=== PATIENT | female | born 1950 | race Caucasian/White ===

== ENCOUNTER → 2016-09-15 | Day surgery (SDC) | payer OTHER ==
[2016-09-13 14:54] VITALS: Ht 154.9 cm; Wt 88.2 kg
[~2016-09-15] VITALS: Ht 154.9 cm; Wt 88.2 kg
[~2016-09-15] MED LIST: ALBU18002 INH; ALBU1AER9 INH; AMX875 PO; ASPI81TA28 PO; CALC600T37 PO; CALC600T9 PO; CHOL50007 PO; CHOLCAP5 PO; CYAN3INJ IM; CYCL10TA6 PO; CYNI1000 IM; DIPH25CA65 PO; FERR325T PO; FLUT1AER5 INH; FLX10 PO; HYDROmorphone INJ 0.5 MG/0.5 ML SYR ONE; KETO30IN5 IM; LEVO88TA3 PO; LIDOCAINE HCL 2% 2 ML VIAL (20MG/ML) ONE; MAGN400T6 PO; METH4PAK PO; MISCCAP80 PO; MULT-506 PO; MXL10 PO; NRN100 PO; NRV/5 PO; OMEP20CA9 PO; PREG1CAP28 PO; PROMETHAZINE HCL INJ 25 MG/ML 1 ML VIAL ONE; PROPOFOL IV EMULSION 10 MG/ML 20 ML VIAL IV ONE; RANI150T2 PO; ROPI1TAB29 PO; SODIUM CHLORIDE 0.9% 500ML 500 ML IV ONE; SYMIN/8045 INH; TPM100 PO; WLC625 PO; ZNTT/150 PO
[2016-09-15 14:10] VITALS: TEMP 36.5
--- NOTE | 2016-09-15 14:46 | Endo History and Physical ---
History & Physical Date of Service: Sep 15, 2016. Chief Complaint: ABD PAIN, HX OF GERD Referring Physician: RUBIA GRANGER History of Present Illness abdominal pain; nausea. vomiting Past Medical History Arthritis, Asthma, Reflux, Hypertension, COPD, Thyroid Disease Past Surgical History Hx Cardiac Surgery: No Hx Internal Defibrillator: No Hx Pacemaker: No Hx Abdominal Surgery: Yes (GASTRIC BYPASS, RONEY, SIRI, APPY, PANNICULECTOMY) Hx of Implantable Prosthesis: No Hx Post-Op Nausea and Vomiting: No Hx Cancer Surgery: No Hx Thoracic Surgery: No Hx Orthopedic: Yes (RT/LEFT HIP SX) Hx Urinary Tract Surgery: No Family History None Social History Smoking Status: Never Smoker Hx Substance Use: No Hx Alcohol Use: Yes (RARELY) Allergies Coded Allergies: Morphine (Verified Allergy, Intermediate, rash, 09/15/16) Sulfa Antibiotics (Verified Allergy, Intermediate, HIVES, 09/15/16) Dust (Verified Allergy, Mild, ITCHY EYES, 09/15/16) Oxycodone (Verified Allergy, Mild, itchy, 09/15/16) Prednisone (Verified Allergy, Mild, ITCHY, 09/15/16) Methylprednisolone (Verified Adverse Reaction, Intermediate, vomiting, shaking, 09/15/16) Metformin (Verified Adverse Reaction, Mild, "diarrhea", 09/15/16) Molds & Smuts (Verified Adverse Reaction, Mild, ITCHY EYES, HEADACHES, 09/15) Current Medications Reported Home Medications Medications Dose Route/Sig Max Daily Dose Days Date Category Dose Instructions Lyrica (Pregabalin) 75 Mg Cap 75 Mg PO BID 09/13/16 Reported Welchol (Colesevelam Hcl) 625 Mg Tab 625 Mg PO BID 08/31/16 Reported Symbicort 80/4.5 Inhaler (Budesonide/Formoterol Fumarate) Unknown Strength Aero 2 Puffs INH BID PRN 07/01/16 Reported Vitamin B-12 Inj (Cyanocobalamin) Inj 1 Dose IM [id number] 03/09/16 Reported Proair Hfa (Albuterol Sulfate) 108 Mcg/ Aer 2 Puffs INH QID PRN 02/15/16 Reported Prilosec (Omeprazole) 20 Mg Cap 20 Mg PO HS 02/15/16 Reported Gabapentin 100 Mg Cap 100 Mg PO TID 02/15/16 Reported Benadryl Allergy (Diphenhydramine Hcl) 25 Mg Cap 25 Mg PO HS PRN 01/01/16 Reported Vitamin D3 (Cholecalciferol) 5,000 Unit Cap 5,000 Inter.unit PO HS 08/25/15 Reported TAKE THIS MEDICATION WITH FOOD. Flexeril (Cyclobenzaprine Hcl) 10 Mg Tab 10 Mg PO TID PRN 07/22/15 Reported Amlodipine Besylate 5 Mg Tab 5 Mg PO HS 06/20/15 Reported Probiotic (Probiotic Product) 1 Cap Cap 1 Cap PO HS 03/27/15 Reported Aspirin Ec (Aspirin) 81 Mg Tab 81 Mg PO QPM 03/27/15 Reported Ferrous Sulfate 325 Mg Tab 325 Mg PO HS 01/10/15 Reported TAKE THIS MEDICATION WITH FOOD. Ropinirole HCl 1 Mg Tab 1 Mg PO TID 05/19/14 Reported Levothyroxine Sodium 88 Mcg Tab 88 Mcg PO QAM 12/10/13 Reported Vital Signs Weight (Kilograms): 88.18 Height (Feet): 5 Height (Inches): 1 Date Time Temp Pulse Resp B/P Pulse Ox O2 Delivery O2 Flow Rate FiO2 09/15/16 14:10 36.5 110 18 144/70 94 Room Air Physical Exam AAO x3 Nl s1s2 lungs CTA Abd soft NT/ND + BS - CCE Assessment and Plan EGD today
--- NOTE | 2016-09-15 15:09 | Discharge Instructions ---
Endoscopy Patient Instructions Date / Procedure(s) Performed Sep 15, 2016. EGD Allergy Information Coded Allergies: Morphine (Verified Allergy, Intermediate, rash, 09/15/16) Sulfa Antibiotics (Verified Allergy, Intermediate, HIVES, 09/15/16) Dust (Verified Allergy, Mild, ITCHY EYES, 09/15/16) Oxycodone (Verified Allergy, Mild, itchy, 09/15/16) Prednisone (Verified Allergy, Mild, ITCHY, 09/15/16) Methylprednisolone (Verified Adverse Reaction, Intermediate, vomiting, shaking, 09/15/16) Metformin (Verified Adverse Reaction, Mild, "diarrhea", 09/15/16) Molds & Smuts (Verified Adverse Reaction, Mild, ITCHY EYES, HEADACHES, 09/15) Discharge Date / Findings Sep 15, 2016. nl post GBS exam Medication Instructions Stopped Medication(s): ASPIRIN 81MG 08/13/17 Restart Stopped Medication(s): Reported Home Medications Medications Dose Route/Sig Max Daily Dose Days Date Category Dose Instructions Lyrica (Pregabalin) 75 Mg Cap 75 Mg PO BID 09/13/16 Reported Welchol (Colesevelam Hcl) 625 Mg Tab 625 Mg PO BID 08/31/16 Reported Symbicort 80/4.5 Inhaler (Budesonide/Formoterol Fumarate) Unknown Strength Aero 2 Puffs INH BID PRN 07/01/16 Reported Vitamin B-12 Inj (Cyanocobalamin) Inj 1 Dose IM [id number] 03/09/16 Reported Proair Hfa (Albuterol Sulfate) 108 Mcg/ Aer 2 Puffs INH QID PRN 02/15/16 Reported Prilosec (Omeprazole) 20 Mg Cap 20 Mg PO HS 02/15/16 Reported Gabapentin 100 Mg Cap 100 Mg PO TID 02/15/16 Reported Benadryl Allergy (Diphenhydramine Hcl) 25 Mg Cap 25 Mg PO HS PRN 01/01/16 Reported Vitamin D3 (Cholecalciferol) 5,000 Unit Cap 5,000 Inter.unit PO HS 08/25/15 Reported TAKE THIS MEDICATION WITH FOOD. Flexeril (Cyclobenzaprine Hcl) 10 Mg Tab 10 Mg PO TID PRN 07/22/15 Reported Amlodipine Besylate 5 Mg Tab 5 Mg PO HS 06/20/15 Reported Probiotic (Probiotic Product) 1 Cap Cap 1 Cap PO HS 03/27/15 Reported Aspirin Ec (Aspirin) 81 Mg Tab 81 Mg PO QPM 03/27/15 Reported Ferrous Sulfate 325 Mg Tab 325 Mg PO HS 01/10/15 Reported TAKE THIS MEDICATION WITH FOOD. Ropinirole HCl 1 Mg Tab 1 Mg PO TID 05/19/14 Reported Levothyroxine Sodium 88 Mcg Tab 88 Mcg PO QAM 12/10/13 Reported Reported Home Medications Medications Dose Route/Sig Max Daily Dose Days Date Category Dose Instructions Lyrica (Pregabalin) 75 Mg Cap 75 Mg PO BID 09/13/16 Reported Welchol (Colesevelam Hcl) 625 Mg Tab 625 Mg PO BID 08/31/16 Reported Symbicort 80/4.5 Inhaler (Budesonide/Formoterol Fumarate) Unknown Strength Aero 2 Puffs INH BID PRN 07/01/16 Reported Vitamin B-12 Inj (Cyanocobalamin) Inj 1 Dose IM [id number] 03/09/16 Reported Proair Hfa (Albuterol Sulfate) 108 Mcg/ Aer 2 Puffs INH QID PRN 02/15/16 Reported Prilosec (Omeprazole) 20 Mg Cap 20 Mg PO HS 02/15/16 Reported Gabapentin 100 Mg Cap 100 Mg PO TID 02/15/16 Reported Benadryl Allergy (Diphenhydramine Hcl) 25 Mg Cap 25 Mg PO HS PRN 01/01/16 Reported Vitamin D3 (Cholecalciferol) 5,000 Unit Cap 5,000 Inter.unit PO HS 08/25/15 Reported TAKE THIS MEDICATION WITH FOOD. Flexeril (Cyclobenzaprine Hcl) 10 Mg Tab 10 Mg PO TID PRN 07/22/15 Reported Amlodipine Besylate 5 Mg Tab 5 Mg PO HS 06/20/15 Reported Probiotic (Probiotic Product) 1 Cap Cap 1 Cap PO HS 03/27/15 Reported Aspirin Ec (Aspirin) 81 Mg Tab 81 Mg PO QPM 03/27/15 Reported Ferrous Sulfate 325 Mg Tab 325 Mg PO HS 01/10/15 Reported TAKE THIS MEDICATION WITH FOOD. Ropinirole HCl 1 Mg Tab 1 Mg PO TID 05/19/14 Reported Levothyroxine Sodium 88 Mcg Tab 88 Mcg PO QAM 12/10/13 Reported Reported Home Medications Medications Dose Route/Sig Max Daily Dose Days Date Category Dose Instructions Lyrica (Pregabalin) 75 Mg Cap 75 Mg PO BID 09/13/16 Reported Welchol (Colesevelam Hcl) 625 Mg Tab 625 Mg PO BID 08/31/16 Reported Symbicort 80/4.5 Inhaler (Budesonide/Formoterol Fumarate) Unknown Strength Aero 2 Puffs INH BID PRN 07/01/16 Reported Vitamin B-12 Inj (Cyanocobalamin) Inj 1 Dose IM [id number] 03/09/16 Reported Proair Hfa (Albuterol Sulfate) 108 Mcg/ Aer 2 Puffs INH QID PRN 02/15/16 Reported Prilosec (Omeprazole) 20 Mg Cap 20 Mg PO HS 02/15/16 Reported Gabapentin 100 Mg Cap 100 Mg PO TID 02/15/16 Reported Benadryl Allergy (Diphenhydramine Hcl) 25 Mg Cap 25 Mg PO HS PRN 01/01/16 Reported Vitamin D3 (Cholecalciferol) 5,000 Unit Cap 5,000 Inter.unit PO HS 08/25/15 Reported TAKE THIS MEDICATION WITH FOOD. Flexeril (Cyclobenzaprine Hcl) 10 Mg Tab 10 Mg PO TID PRN 07/22/15 Reported Amlodipine Besylate 5 Mg Tab 5 Mg PO HS 06/20/15 Reported Probiotic (Probiotic Product) 1 Cap Cap 1 Cap PO HS 03/27/15 Reported Aspirin Ec (Aspirin) 81 Mg Tab 81 Mg PO QPM 03/27/15 Reported Ferrous Sulfate 325 Mg Tab 325 Mg PO HS 01/10/15 Reported TAKE THIS MEDICATION WITH FOOD. Ropinirole HCl 1 Mg Tab 1 Mg PO TID 05/19/14 Reported Levothyroxine Sodium 88 Mcg Tab 88 Mcg PO QAM 12/10/13 Reported Provider Instructions Activity Restrictions - No exercising or heavy lifting for 24 hours. - Do not drink alcohol the day of the procedure. - Do not drive a car or operate machinery until the day after the procedure. - Do not make any important decisions or sign important papers in 24 hours after the procedure. Following Day: - Return to full activity which may include returning to work/school. Diet Start your diet with liquids and light foods (jello, soup, juice, toast). Then eat your usual diet if not nauseated. Treatment For Common After Affects For mild abdominal pain, bloating, or excessive gas: - Rest - Eat lightly - Lie on right side Follow-Up Information Follow-up with RUBIA GRANGER as scheduled Anesthesia Information What You Should Know You have had a procedure that required some medicine to reduce anxiety and discomfort. This treatment is called moderate sedation. After receiving the treatment, you may be sleepy, but you will be able to breathe on your own. The effects of the treatment may last for several hours. Follow these instructions along with Activity/Diet recommendations noted above: * Do NOT do anything where dizziness or clumsiness would be dangerous. * Rest quietly at home today, then you can be up and about tomorrow. * Have a responsible person stay with you the rest of today. * You may have had an I.V. today. If so, you may take the dressing off later today. Recommendations Call your doctor if: * Trouble breathing * Continuous vomiting for more than 24 hours * Temperature above 101 degrees * Severe abdominal pain or bloating * Pain not relieved by pain medicine ordered * There is increased drainage or redness from any incision * A large amount of rectal bleeding greater than 2-3 tablespoons. (If you had a polyp/s removed or have hemorrhoids, a small amount of blood - from the rectum is to be expected.) * You have any unanswered questions or concerns. IN THE EVENT OF A SERIOUS EMERGENCY, GO TO THE NEAREST EMERGENCY ROOM Your discharge instructions were prepared by provider Fransico Brian. Patient Instructions Signature Page Megan Maldonado Patient (or Guardian) Signature/Date: I have read and understand the instructions given to me by my caregivers. Caregiver/RN/Doctor Signature/Date: The above-named patient and/or guardian has received patient instructions on this date. + Original Patient Signature Page (only) stays with chart. Please make copy for patient.
--- NOTE | 2016-09-15 15:20 | GI REPORT ---
Procedure Date: 09/15/2016 2:37 PM Procedure: Upper GI endoscopy Indications: Abdominal pain in the left upper quadrant, Nausea with vomiting Medicines: Propofol per Anesthesia Complications: No immediate complications. Estimated Blood Loss: Estimated blood loss: none. Procedure: Pre-Anesthesia Assessment: - Prior to the procedure, a History and Physical was performed, and patient medications and allergies were reviewed. The patient's tolerance of previous anesthesia was also reviewed. The risks and benefits of the procedure and the sedation options and risks were discussed with the patient. All questions were answered, and informed consent was obtained. Prior Anticoagulants: The patient has taken no previous anticoagulant or antiplatelet agents. ASA Grade Assessment: III - A patient with severe systemic disease. After reviewing the risks and benefits, the patient was deemed in satisfactory condition to undergo the procedure. After obtaining informed consent, the endoscope was passed under direct vision. Throughout the procedure, the patient's blood pressure, pulse, and oxygen saturations were monitored continuously. The scope was introduced through the mouth, and advanced to the jejunum. The upper GI endoscopy was accomplished without difficulty. The patient tolerated the procedure well. Findings: The examined esophagus was normal. Evidence of a gastric bypass was found. A gastric pouch with a normal size was found containing suture material. The staple line appeared intact. The gastrojejunal anastomosis was characterized by healthy appearing mucosa. This was traversed. The [id number] limb was characterized by healthy appearing mucosa. The examined jejunum was normal. Impression: - Normal esophagus. - Gastric bypass with a normal-sized pouch and intact staple line. Gastrojejunal anastomosis characterized by healthy appearing mucosa. - Normal examined jejunum. - No specimens collected. Recommendation: - Discharge patient to home (ambulatory). - Patient has a contact number available for emergencies. The signs and symptoms of potential delayed complications were discussed with the patient. Return to normal activities tomorrow. Written discharge instructions were provided to the patient. - Resume previous diet. - Continue present medications. - Resume aspirin at prior dose today. - Return to GI clinic as previously scheduled. MD Fransico Cosme MD 09/15/2016 3:19:02 PM This report has been signed electronically. Note Initiated On: 09/15/2016 2:37 PM
[2016-09-15 16:55] VITALS: BP 184/84; PULSE 100; O2SAT 97
--- NOTE | 2016-09-15 17:04 | Anesthesiology Progress Note ---
Anesthesia Post Op Note Date & Time Sep 15, 2016 at 17:01 Vital Signs Pain Intensity: 8.0 Vital Signs Past 12 Hours Date Time Temp Pulse Resp B/P Pulse Ox O2 Delivery O2 Flow Rate FiO2 09/15/16 16:55 100 18 184/84 97 09/15/16 16:49 98 18 188/84 100 09/15/16 16:45 98 18 202/71 100 Room Air 09/15/16 15:37 18 145/75 97 Room Air 09/15/16 15:20 80 18 134/75 98 Room Air 09/15/16 15:08 79 18 125/58 100 Room Air 09/15/16 14:10 36.5 110 18 144/70 94 Room Air Notes Mental Status: alert / awake / arousable, participated in evaluation Pt Amnestic to Procedure: Yes Nausea / Vomiting: adequately controlled Pain: adequately controlled Airway Patency, RR, SpO2: stable & adequate BP & HR: stable & adequate Hydration State: stable & adequate Anesthetic Complications: no major complications apparent Pt complained of migraine headache associated with nausea and photophobia in PACU. Given dilaudid 0.5 mg and phenergan 25 mg IV.
== END | disposition home or self-care (01) ==
LOC: C.GI 13:50
PROVIDERS: ATTEND Internal Medicine Gastroenterology
DX: R10.11 Right upper quadrant pain (principal); R11.2 Nausea with vomiting, unspecified; Z98.84 Bariatric surgery status; K21.9 Gastro-esophageal reflux disease without esophagitis; M19.90 Unspecified osteoarthritis, unspecified site; J45.909 Unspecified asthma, uncomplicated; I10 Essential (primary) hypertension; J44.9 Chronic obstructive pulmonary disease, unspecified; E07.9 Disorder of thyroid, unspecified

== ENCOUNTER 2016-09-18 14:43 | Emergency (ER) | payer OTHER ==
[~2016-09-18 14:43] MED LIST changes: -ALBU18002 INH; -AMX875 PO; -ASPI81TA28 PO; -CALC600T37 PO; -CALC600T9 PO; -CHOL50007 PO; -CYNI1000 IM; -DIPH25CA65 PO; -FERR325T PO; -FLUT1AER5 INH; -FLX10 PO; -HYDROmorphone INJ 0.5 MG/0.5 ML SYR ONE; -KETO30IN5 IM; -LEVO88TA3 PO; -LIDOCAINE HCL 2% 2 ML VIAL (20MG/ML) ONE; -MAGN400T6 PO; -METH4PAK PO; -MISCCAP80 PO; -MULT-506 PO; -MXL10 PO; -NRN100 PO; -NRV/5 PO; -OMEP20CA9 PO; -PREG1CAP28 PO; -PROMETHAZINE HCL INJ 25 MG/ML 1 ML VIAL ONE; -PROPOFOL IV EMULSION 10 MG/ML 20 ML VIAL IV ONE; -RANI150T2 PO; -ROPI1TAB29 PO; -SODIUM CHLORIDE 0.9% 500ML 500 ML IV ONE; -TPM100 PO; -WLC625 PO; -ZNTT/150 PO
[2016-09-18 14:48] VITALS: TEMP 36.5
[2016-09-18] MEDS ORDERED: METHYLPREDNISOLONE 125 MG VIAL IV STA (14:56)
[2016-09-18] MEDS ORDERED: SODIUM CHLORIDE 0.9% 1000ML 1,000 ML IV STA (14:56)
[2016-09-18] MEDS ORDERED: HYDROmorphone INJ 1 MG/ML SYR IV STA ×2 (14:56→16:20)
[2016-09-18] MEDS ORDERED: PROCHLORPERAZINE 5 MG/ML 2 ML VIAL IV STA (14:56)
[2016-09-18] MEDS ORDERED: CALC600T37 PO (15:03)
--- NOTE | 2016-09-18 15:03 | EMERGENCY ROOM VISIT NOTE ---
History Report prepared by Kaela: Alexey Leach Under the Supervision of: Dr. Suzanne Freeman M.D. First contact with patient: 14:51 Chief Complaint: HEADACHE Stated Complaint: MIGRAINE, NAUSEA, VOMITTING, DIZZINESS, DIARRHEA History of Present Illness The patient is a 66 year old female who presents to the Emergency Room with complaints of a constant headache starting prior to arrival. The patient currently rates her discomfort as an 8/10 in severity. The patient's states that the patient has been having a headache, nausea, vomiting, dizziness , abdominal pain and diarrhea. The patient states that she had an upper endoscopy done a couple of days ago, and her states that her blood pressure was very high after the procedure. The patient states that the she has taken extra strength Tylenol. Source of History: patient, spouse/significant other Onset: prior to arrival Position: head Symptom Intensity: 8/10 Quality: ache Timing: constant Associated Symptoms: + abdominal pain, + diarrhea, + nausea, + vomiting Note: Associated symptoms: dizziness Review of Systems See HPI for pertinent positives & negatives. A total of 10 systems reviewed and were otherwise negative. Past Medical & Surgical Medical Problems: (1) Abdominal pain (2) Abdominal pain (3) Asthma (4) BARIATRIC SURGERY STATUS (5) C. 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 (8) COPD (chronic obstructive pulmonary disease) (9) Cough (10) Dehydration (11) Dehydration (12) Diarrhea (13) Diarrhea (14) Headache (15) Headache (16) HYPOTHYROIDISM NOS (17) MIGRAINE UNSPECIFIED W/O INTRACT MGRN W/O STATUS MIGRAINOSUS (18) Pneumonia (19) Pneumonia (20) Reflux esophagitis (21) Stomach problems Surgical Problems: (1) Hx of cholecystectomy Family History Diabetes mellitus Hypertension Kidney disease Stroke Social History Smoking Status: Never Smoker Alcohol Use: none Drug Use: none Marital Status: Housing Status: lives with family Occupation Status: disabled Current/Historical Medications Scheduled Amlodipine Besylate (Amlodipine Besylate), 5 MG PO HS Aspirin (Aspirin Ec), 81 MG PO QPM Calcium (Calcium), 600 MG PO DAILY Cholecalciferol (Vitamin D3), 5,000 INTER.UNIT PO HS Colesevelam Hcl (Welchol), 625 MG PO BID Cyanocobalamin (Vitamin B-12 Inj), 1 DOSE IM [id number] Ferrous Sulfate (Ferrous Sulfate), 325 MG PO HS Gabapentin (Gabapentin), 100 MG PO TID Levothyroxine Sodium (Levothyroxine Sodium), 88 MCG PO QAM Magnesium Oxide (Mag-Ox), 400 MG PO DAILY Multivitamin (Multivitamin), 1 TAB PO DAILY Omeprazole (Prilosec), 20 MG PO HS Pregabalin (Lyrica), 75 MG PO BID Probiotic Product (Probiotic), 1 CAP PO HS Ranitidine (Zantac), 150 MG PO HS Ropinirole HCl (Ropinirole HCl), 1 MG PO TID Scheduled PRN Albuterol Sulfate (Proair Hfa), 2 PUFFS INH QID PRN for Wheezing Budesonide/Formoterol Fumarate (Symbicort 80/4.5 Inhaler), 2 PUFFS INH BID PRN for Cold Symptoms Cyclobenzaprine Hcl (Flexeril), 10 MG PO TID PRN for Muscle Spasm Diphenhydramine Hcl (Benadryl Allergy), 25 MG PO HS PRN for Sleep Allergies Coded Allergies: Morphine (Verified Allergy, Intermediate, rash, 09/18/16) Sulfa Antibiotics (Verified Allergy, Intermediate, HIVES, 09/18/16) Dust (Verified Allergy, Mild, ITCHY EYES, 09/18/16) Oxycodone (Verified Allergy, Mild, itchy, 09/18/16) Prednisone (Verified Allergy, Mild, ITCHY, 09/18/16) Methylprednisolone (Verified Adverse Reaction, Intermediate, vomiting, shaking, 09/18/16) Metformin (Verified Adverse Reaction, Mild, "diarrhea", 09/18/16) Molds & Smuts (Verified Adverse Reaction, Mild, ITCHY EYES, HEADACHES, 09/18) Physical Exam Vital Signs Date Time Temp Pulse Resp B/P Pulse Ox O2 Delivery O2 Flow Rate FiO2 09/18/16 17:10 87 20 156/82 97 09/18/16 15:58 100 09/18/16 14:48 36.5 92 18 169/82 99 Physical Exam Vital signs reviewed. General: Well-appearing female, in no significant distress. HEENT: No meningeal signs. No scleral icterus, PERRLA, neck supple. Atraumatic. Cardiovascular: Regular rate and rhythm, no extra sounds. Pulmonary: Clear to auscultation bilaterally, normal work of breathing. Abdomen: Soft, nontender, nondistended, positive bowel sounds. Musculoskeletal: Atraumatic, no peripheral edema. Neurologic: Patient awake alert and oriented x 3, full strength in all 4 extremities. Cranial nerves 2 through 12 grossly intact. No meningeal signs Skin: Warm, dry, no rash Medical Decision & Procedures Medications Administered Medications (Trade) Dose Ordered Sig/Radha Route Start Time Stop Time Status Last Admin Dose Admin Prochlorperazine Edisylate (Compazine Inj) 10 mg NOW STAT IV 09/18/16 14:56 09/18/16 14:58 DC 09/18/16 15:50 10 MG Methylprednisolone Sodium Succinate (Solu-Medrol IV) 125 mg NOW STAT IV 09/18/16 14:56 09/18/16 14:58 DC 09/18/16 15:50 125 MG Hydromorphone HCl 1 mg 1 mg NOW STAT IV 09/18/16 14:56 09/18/16 14:58 DC 09/18/16 15:50 1 MG Sodium Chloride (Nss 1000ml) 1,000 ml @ 999 mls/hr Q1H1M STAT IV 09/18/16 14:56 09/18/16 15:56 DC 09/18/16 14:56 999 MLS/HR Hydromorphone HCl (Dilaudid Inj) 1 mg NOW STAT IV 09/18/16 16:20 09/18/16 16:21 DC 09/18/16 16:20 1 MG Heparin Sodium (Porcine) (Heparin 100 Unit/ml 5ml Flush) 5 ml STK-MED ONCE .ROUTE 09/18/16 17:01 09/18/16 17:02 DC 09/18/16 17:01 5 ML ED Course 1451: Past medical records reviewed. The patient was evaluated in room C1. A complete history and physical examination was performed. 1456: Sodium Chloride 1000 ml @ 999 mls/hr IV, Dilaudid Inj 1 mg IV, Solu- Medrol IV 125mg IV, Compazine Inj 10mg IV 1620: Dilaudid Inj 1mg IV 1622: Upon reevaluation, the patient appeared to have improvement of her symptoms. I discussed findings with her. She verbalized agreement of the treatment plan. She was discharged home. Medical Decision Differential diagnoses include: Intracranial hemorrhage, intracranial mass, migraine headache, tension headache, sinusitis, meningitis This patient was evaluated and appeared to be in no significant distress. IV access was obtained and laboratory work was drawn. Patient was hydrated with normal saline solution. She was given IV Compazine, IV Solu-Medrol and IV Dilaudid. Patient had some relief of her symptoms and was given a second dose of IV Dilaudid. The patient seemed to have significant improvement. She is on a 2 shots per month treatment plan. The patient will follow-up with her physician for reevaluation of her headaches and return to the ER for worsening of symptoms or any medical concerns. Impression Primary Impression: Migraine without aura Scribe Attestation The scribe's documentation has been prepared under my direction and personally reviewed by me in its entirety. I confirm that the note above accurately reflects all work, treatment, procedures, and medical decision making performed by me. Departure Information Dispostion Home / Self-Care Referrals Bianca Rg (PCP) Forms HOME CARE DOCUMENTATION FORM, IMPORTANT VISIT INFORMATION Patient Instructions A Signature Page, [facility] Additional Instructions Diagnosis: Migraine headache Continue your medications as prescribed. Tylenol 650 mg every 6 hours as needed for pain. Drink plenty of clear fluids. Follow-up with your physician this week for reevaluation of her headaches. Return to the ER for worsening of symptoms or any medical concerns.
[2016-09-18 17:10] VITALS: BP 156/82; PULSE 87; O2SAT 97
[2016-12-30] MEDS ORDERED: ZNTT/150 PO (15:03)
[2017-05-20] MEDS ORDERED: ASPI81TA28 PO (10:14)
[2017-05-20] MEDS ORDERED: MISCCAP80 PO (10:16)
[2017-05-20] MEDS ORDERED: DIPH25CA65 PO (10:44)
[2017-05-20] MEDS ORDERED: TPM100 PO (14:41)
== END 2016-09-18 17:12 | disposition home or self-care (01) ==
LOC: C.EDB 14:46 → C.EDC 17:12
DX: G43.909 Migraine, unspecified, not intractable, without status migrainosus (principal); J45.909 Unspecified asthma, uncomplicated; J44.9 Chronic obstructive pulmonary disease, unspecified; E03.9 Hypothyroidism, unspecified; K21.0 Gastro-esophageal reflux disease with esophagitis; Z79.82 Long term (current) use of aspirin; Z79.899 Other long term (current) drug therapy

== ENCOUNTER 2016-10-22 12:55 | Emergency (ER) | payer BC, OTHER ==
[~2016-10-22] VITALS: Ht 154.9 cm; Wt 87.0 kg
[~2016-10-22 12:55] MED LIST changes: +CALC600T37 PO
[2016-10-22 13:10] VITALS: TEMP 36.8; Ht 154.9 cm; Wt 87.0 kg
[2016-10-22] MEDS ORDERED: MoRPHine SULFATE 10 MG/ML CARP/VIAL IV ONE (13:45)
[2016-10-22] MEDS ORDERED: ONDANSETRON INJ 2 MG/ML 2 ML VIAL IV ONE (13:45)
[2016-10-22] MEDS ORDERED: SODIUM CHLORIDE 0.9% 1000ML 1,000 ML IV ONE (13:45)
--- NOTE | 2016-10-22 13:51 | EMERGENCY ROOM VISIT NOTE ---
History Report prepared by Kaela: Gunjan Benedict Under the Supervision of: Dr. Fredo Delgado M.D. First contact with patient: 13:38 Chief Complaint: HEADACHE Stated Complaint: MIGRAINE,NAUSEA,DIARRHEA,SHAKES,DIZZY History of Present Illness The patient is a 66 year old female who presents to the Emergency Room with complaints of a persistent headache that began three days ago. She currently rates her discomfort as an 8.5/10 in severity. The patient notes that she has a history of migraine headaches. She additionally associates nausea and vomiting with her symptoms today. The patient states that she has had two days of diarrhea, and notes pain in her left rib area due to the diarrhea. She additionally notes dizziness and shakes secondary to her migraine headache. Source of History: patient Onset: three days ago Position: head Symptom Intensity: 8.5/10 Timing: other (persistent) Associated Symptoms: + diarrhea, + nausea, + vomiting Note: Associated Symptoms: left rib pain, shakes, dizziness Review of Systems All systems have been listed, reviewed, and are negative other than those previously mentioned. Please see Additional Medical History Sheet. Past Medical & Surgical Medical Problems: (1) Abdominal pain (2) Abdominal pain (3) Asthma (4) BARIATRIC SURGERY STATUS (5) C. 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 (8) COPD (chronic obstructive pulmonary disease) (9) Cough (10) Dehydration (11) Dehydration (12) Diarrhea (13) Diarrhea (14) Headache (15) Headache (16) HYPOTHYROIDISM NOS (17) MIGRAINE UNSPECIFIED W/O INTRACT MGRN W/O STATUS MIGRAINOSUS (18) Pneumonia (19) Pneumonia (20) Reflux esophagitis (21) Stomach problems Surgical Problems: (1) Hx of cholecystectomy Family History Diabetes mellitus Hypertension Kidney disease Stroke Social History Smoking Status: Never Smoker Alcohol Use: none Drug Use: none Marital Status: Housing Status: lives with family Occupation Status: disabled Current/Historical Medications Scheduled Amlodipine Besylate (Amlodipine Besylate), 5 MG PO HS Aspirin (Aspirin Ec), 81 MG PO QPM Calcium (Calcium), 600 MG PO DAILY Cholecalciferol (Vitamin D3), 5,000 INTER.UNIT PO HS Colesevelam Hcl (Welchol), 625 MG PO BID Cyanocobalamin (Vitamin B-12 Inj), 1 DOSE IM [id number] Ferrous Sulfate (Ferrous Sulfate), 325 MG PO HS Gabapentin (Gabapentin), 100 MG PO TID Levothyroxine Sodium (Levothyroxine Sodium), 88 MCG PO QAM Magnesium Oxide (Mag-Ox), 400 MG PO DAILY Multivitamin (Multivitamin), 1 TAB PO DAILY Omeprazole (Prilosec), 20 MG PO HS Pregabalin (Lyrica), 75 MG PO BID Probiotic Product (Probiotic), 1 CAP PO HS Ranitidine (Zantac), 150 MG PO HS Ropinirole HCl (Ropinirole HCl), 1 MG PO TID Scheduled PRN Albuterol Sulfate (Proair Hfa), 2 PUFFS INH QID PRN for Wheezing Budesonide/Formoterol Fumarate (Symbicort 80/4.5 Inhaler), 2 PUFFS INH BID PRN for Cold Symptoms Cyclobenzaprine Hcl (Flexeril), 10 MG PO TID PRN for Muscle Spasm Diphenhydramine Hcl (Benadryl Allergy), 25 MG PO HS PRN for Sleep Allergies Coded Allergies: Morphine (Verified Allergy, Intermediate, rash, 09/18/16) Sulfa Antibiotics (Verified Allergy, Intermediate, HIVES, 09/18/16) Dust (Verified Allergy, Mild, ITCHY EYES, 09/18/16) Oxycodone (Verified Allergy, Mild, itchy, 09/18/16) Prednisone (Verified Allergy, Mild, ITCHY, 09/18/16) Methylprednisolone (Verified Adverse Reaction, Intermediate, vomiting, shaking, 09/18/16) Metformin (Verified Adverse Reaction, Mild, "diarrhea", 09/18/16) Molds & Smuts (Verified Adverse Reaction, Mild, ITCHY EYES, HEADACHES, 09/18) Physical Exam Vital Signs Date Time Temp Pulse Resp B/P Pulse Ox O2 Delivery O2 Flow Rate FiO2 10/22/16 15:57 99 20 135/63 95 Room Air 10/22/16 13:10 36.8 92 18 132/68 97 Room Air Physical Exam GENERAL: Patient awake, alert, oriented x 3. Patient appears to be in minimal distress. Patient follows commands. Patient does not appear toxic. Patient is adequately hydrated and well-nourished. SKIN: No erythema, pallor, cyanosis or rash HEENT: Normal head, pupils equal, reactive to light and accommodation. Ears normal, no signs of infection or trauma. Mucous membranes are slightly dry. Neck: Without adenopathy, no neck vein distention. LUNGS: Clear to auscultation. No wheezes, no rales, no rhonchi. HEART: No murmurs. No gallops. No rubs ABDOMEN: Vague generalized tenderness. No masses, no rebound, no hepatomegaly or splenomegaly. EXTREMITIES: No signs of trauma. No pedal or pretibial edema. No calf or thigh tenderness. NEUROLOGIC: Cranial nerves II-XII within normal limits. No gross motor sensory function deficits. Medical Decision & Procedures Laboratory Results 10/22/16 15:00 Red Blood Count 4.19, Mean Corpuscular Volume 93.3, Mean Corpuscular Hemoglobin 31.3, Mean Corpuscular Hemoglobin Concent 33.5, Mean Platelet Volume 10.2, Neutrophils (%) (Auto) 64.4, Lymphocytes (%) (Auto) 27.3, Monocytes (%) (Auto) 5.7, Eosinophils (%) (Auto) 2.2, Basophils (%) (Auto) 0.2, Neutrophils # (Auto) 3.84, Lymphocytes # (Auto) 1.63, Monocytes # (Auto) 0.34, Eosinophils # (Auto) 0.13, Basophils # (Auto) 0.01 10/22/16 15:00 Test 10/22/16 15:00 White Blood Count 5.96 K/uL (4.8-10.8) Red Blood Count 4.19 M/uL (4.2-5.4) Hemoglobin 13.1 g/dL (12.0-16.0) Hematocrit 39.1 % (37-47) Mean Corpuscular Volume 93.3 fL (80-100) Mean Corpuscular Hemoglobin 31.3 pg (25-34) Mean Corpuscular Hemoglobin Concent 33.5 g/dl (32-36) Platelet Count 189 K/uL (130-400) Mean Platelet Volume 10.2 fL (7.4-10.4) Neutrophils (%) (Auto) 64.4 % Lymphocytes (%) (Auto) 27.3 % Monocytes (%) (Auto) 5.7 % Eosinophils (%) (Auto) 2.2 % Basophils (%) (Auto) 0.2 % Neutrophils # (Auto) 3.84 K/uL (1.4-6.5) Lymphocytes # (Auto) 1.63 K/uL (1.2-3.4) Monocytes # (Auto) 0.34 K/uL (0.11-0.59) Eosinophils # (Auto) 0.13 K/uL (0-0.5) Basophils # (Auto) 0.01 K/uL (0-0.2) RDW Standard Deviation 43.9 fL (36.4-46.3) RDW Coefficient of Variation 13.0 % (11.5-14.5) Immature Granulocyte % (Auto) 0.2 % Immature Granulocyte # (Auto) 0.01 K/uL (0.00-0.02) Anion Gap 8.0 mmol/L (3-11) Est Creatinine Clear Calc Drug Dose 73.9 ml/min Estimated GFR () 95.4 Estimated GFR (Non- 82.3 BUN/Creatinine Ratio 18.0 (10-20) Calcium Level 8.5 mg/dl (8.5-10.1) Laboratory results as stated above per my review. Medications Administered Medications (Trade) Dose Ordered Sig/Radha Route Start Time Stop Time Status Last Admin Dose Admin Sodium Chloride (Nss 1000ml) 1,000 ml @ 1,000 mls/hr Q1H ONCE IV 10/22/16 13:45 10/22/16 14:44 DC 10/22/16 14:56 1,000 MLS/HR Ondansetron HCl (Zofran Inj) 4 mg ONE ONCE IV 10/22/16 13:45 10/22/16 13:46 DC 10/22/16 14:55 4 MG Hydromorphone HCl (Dilaudid Inj) 1 mg ONE ONCE IV 10/22/16 15:15 10/22/16 15:16 DC 10/22/16 15:53 1 MG Heparin Sodium (Porcine) (Heparin 10 Unit/ ml 5 ml Flush) 5 ml STK-MED ONCE .ROUTE 10/22/16 16:16 10/22/16 16:17 DC 10/22/16 16:16 5 ML ED Course 1339: Past medical records reviewed. The patient was evaluated in room C4. A complete history and physical examination was performed. 1345: Ordered Zofran Inj 4 mg IV, Sodium Chloride 1000 ml @ 1000 mls/hr IV. 1515: Ordered Dilaudid Inj 1 mg IV. 1605: I reevaluated the patient and she complained of ear pain. I looked in her ears again at this time. I discussed all the exam findings with her and I discussed the treatment plan. She verbalized complete understanding and agreement. She is ready to go home. Medical Decision Nurses notes reviewed. Medical history sheet reviewed. Differential diagnosis includes but is not limited to: migraine, cluster, tension, sinus headache, infectious diarrhea viral vs bacterial, dehydration, metabolic disorder. The patient is here with her typical headache. Most likely this is tension related. She also complained of an earache. Ears appear normal. No signs of infection. Patient also complains of diarrhea. A stool specimen was obtained. I do not believe treatment is necessary at this time. The patient was encouraged to drink extra fluids. Impression Primary Impression: Headache Additional Impressions: Diarrhea Earache on right Scribe Attestation The scribe's documentation has been prepared under my direction and personally reviewed by me in its entirety. I confirm that the note above accurately reflects all work, treatment, procedures, and medical decision making performed by me. Departure Information Dispostion Home / Self-Care Referrals Bianca Rg (PCP) Forms HOME CARE DOCUMENTATION FORM, IMPORTANT VISIT INFORMATION Patient Instructions Diarrhea, My [facility] Additional Instructions REST Drink extra fluids. Follow-up with your family physician. Problem Qualifiers
[2016-10-22 15:12] LABS: BASO % 0.2 %; BASO ABS # 0.01 K/uL (0-0.2); COMPLETE YES; EOS % 2.2 %; HEMATOCRIT 39.1 % (37-47); IG% 0.2 %; LYMPH % 27.3 %; LYMPH ABS # 1.63 K/uL (1.2-3.4); MEAN CELL VOLUME 93.3 fL (80-100); MEAN CORPUSCULAR HEMOGLOBIN 31.3 pg (25-34); MEAN CORPUSCULAR HGB CONC 33.5 g/dl (32-36); MEAN PLATELET VOLUME 10.2 fL (7.4-10.4); MONO % 5.7 %; NEUT % 64.4 %; PLATELET COUNT 189 K/uL (130-400); RED BLOOD COUNT 4.19 M/uL (4.2-5.4); WHITE BLOOD COUNT 5.96 K/uL (4.8-10.8)
[2016-10-22] MEDS ORDERED: HYDROmorphone INJ 1 MG/ML SYR IV ONE (15:15)
[2016-10-22 15:31] LABS: CALCIUM 8.5 mg/dl (8.5-10.1); CREATININE 0.76 mg/dl (0.60-1.20); POTASSIUM 3.9 mmol/L (3.5-5.1)
[2016-10-22 15:57] VITALS: BP 135/63; PULSE 99; O2SAT 95
[2016-12-30] MEDS ORDERED: ZNTT/150 PO (15:03)
[2017-05-20] MEDS ORDERED: ASPI81TA28 PO (10:14)
[2017-05-20] MEDS ORDERED: MISCCAP80 PO (10:16)
[2017-05-20] MEDS ORDERED: DIPH25CA65 PO (10:44)
[2017-05-20] MEDS ORDERED: TPM100 PO (14:41)
== END 2016-10-22 16:40 | disposition home or self-care (01) ==
LOC: C.EDB 12:56 → C.EDC 16:40
DX: R51 Headache (principal); R19.7 Diarrhea, unspecified; H92.01 Otalgia, right ear; J45.909 Unspecified asthma, uncomplicated; Z98.84 Bariatric surgery status; J44.9 Chronic obstructive pulmonary disease, unspecified; E03.9 Hypothyroidism, unspecified; K21.0 Gastro-esophageal reflux disease with esophagitis; Z83.6 Family history of other diseases of the respiratory system; Z79.82 Long term (current) use of aspirin; Z79.899 Other long term (current) drug therapy

== ENCOUNTER 2016-10-28 13:52 | Emergency (ER) | payer BC ==
[~2016-10-28] VITALS: Ht 154.9 cm; Wt 87.0 kg
[2016-10-28 14:04] VITALS: TEMP 37.1; Ht 154.9 cm; Wt 87.0 kg
[2016-10-28] MEDS ORDERED: ONDANSETRON INJ 2 MG/ML 2 ML VIAL IV STA (15:22)
[2016-10-28] MEDS ORDERED: SODIUM CHLORIDE 0.9% 1000ML 1,000 ML IV STA (15:22)
[2016-10-28] MEDS ORDERED: HYDROmorphone INJ 1 MG/ML SYR IV STA (15:22)
--- NOTE | 2016-10-28 16:22 | DIAGNOSTIC IMAGING REPORT ---
CERVICAL SPINE CT CT DOSE: 287.58 mGy.cm HISTORY: Pain right sided neck pain TECHNIQUE: Multiaxial CT images of the cervical spine were performed and reformatted in the sagittal and coronal plane without the use of contrast. COMPARISON: 09/27/2014 FINDINGS: No fractures. No subluxation. Prevertebral soft tissues and the C1-C2 interval are intact. No pneumothorax. Minimal degenerative disc change. Minimal degenerative change posterior facets IMPRESSION: No fractures within the cervical spine. Minimal degenerative change. No acute process. Electronically signed by: Kvng Shaw M.D. 10/28/2016 4:21 PM Dictated Date/Time: 10/28/2016 4:19 PM
[2016-10-28 16:24] LABS: BASO % 0.2 %; BASO ABS # 0.01 K/uL (0-0.2); COMPLETE YES; EOS % 1.8 %; HEMATOCRIT 37.2 % (37-47); LYMPH % 27.9 %; LYMPH ABS # 1.59 K/uL (1.2-3.4); MEAN CELL VOLUME 92.3 fL (80-100); MEAN CORPUSCULAR HEMOGLOBIN 31.3 pg (25-34); MEAN CORPUSCULAR HGB CONC 33.9 g/dl (32-36); MEAN PLATELET VOLUME 10.1 fL (7.4-10.4); MONO % 4.9 %; NEUT % 65.2 %; PLATELET COUNT 206 K/uL (130-400); RED BLOOD COUNT 4.03 M/uL (4.2-5.4)
--- NOTE | 2016-10-28 16:48 | DIAGNOSTIC IMAGING REPORT ---
CHEST ONE VIEW PORTABLE CLINICAL HISTORY: cp dyspnea COMPARISON STUDY: 08/12/2016 FINDINGS: Central catheter ends. Cava. Lungs are clear. Diaphragms smooth. IMPRESSION: Negative chest. Electronically signed by: Kvng Shaw M.D. 10/28/2016 4:47 PM Dictated Date/Time: 10/28/2016 4:47 PM
[2016-10-28 17:05] LABS: ALT/SGPT 19 U/L (12-78); BLOOD UREA NITROGEN 14 mg/dl (7-18); BUN/CREATININE RATIO 17.4 (10-20); CALCIUM 8.5 mg/dl (8.5-10.1); CARBON DIOXIDE 27 mmol/L (21-32); CHLORIDE 107 mmol/L (98-107); CREATININE 0.78 mg/dl (0.60-1.20); GLUCOSE 123 mg/dl (70-99); SODIUM 143 mmol/L (136-145)
[2016-10-28] MEDS ORDERED: KETOROLAC TROMETHAMINE 30 MG/ML VIAL IV STA (17:08)
[2016-10-28 17:10] LABS: ALKALINE PHOSPHATASE 94 U/L (45-117); AST/SGOT 13 U/L (15-37)
[2016-10-28 18:05] VITALS: BP 145/98; PULSE 79; O2SAT 95
--- NOTE | 2016-10-28 20:57 | EMERGENCY ROOM VISIT NOTE ---
History Report prepared by Saranibyovana: Bucky Brown Under the Supervision of: Dr. Marco Peña D.O. First contact with patient: 15:01 Chief Complaint: PAIN (GENERALIZED) Stated Complaint: PAIN THROUGH NECK,BACK,TO BREAST History of Present Illness The patient is a 66 year old female who presents to the Emergency Room with complaints of persistent neck pain for the past three days. The pain radiates to her right shoulder and down her right side. The pain is worsened with rightward rotation of the neck. The pain does not change with movement of the right arm or when she is walking. The patient also complains of a headache secondary to pain and increased nausea and diarrhea. She saw her PCP for the pain she has been experiencing, where she was given Toradol and Phenergan. The patient denies any recent falls or trauma. Patient denies change in vision, fevers, chest pain, shortness of breath, vomiting, pain with urination, and melena. The patient hasn't been sleeping well secondary to pain, as per her . Source of History: patient, spouse/significant other Onset: three days Position: neck Timing: other (persistent) Modifying Factors (Worsening): movement (right rotation neck) Associated Symptoms: + diarrhea, + headache, + nausea, No SOB, No chest pain , No fevers, No melena, No urinary symptoms, No vomiting Review of Systems See HPI for pertinent positives & negatives. A total of 10 systems reviewed and were otherwise negative. Past Medical & Surgical Medical Problems: (1) Abdominal pain (2) Abdominal pain (3) Asthma (4) BARIATRIC SURGERY STATUS (5) C. 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 (8) COPD (chronic obstructive pulmonary disease) (9) Cough (10) Dehydration (11) Dehydration (12) Diarrhea (13) Diarrhea (14) Headache (15) Headache (16) HYPOTHYROIDISM NOS (17) MIGRAINE UNSPECIFIED W/O INTRACT MGRN W/O STATUS MIGRAINOSUS (18) Pneumonia (19) Pneumonia (20) Reflux esophagitis (21) Stomach problems Surgical Problems: (1) Hx of cholecystectomy Family History Diabetes mellitus Hypertension Kidney disease Stroke Social History Smoking Status: Never Smoker Alcohol Use: none Drug Use: none Marital Status: Housing Status: lives with family Occupation Status: disabled Current/Historical Medications Scheduled Amlodipine Besylate (Amlodipine Besylate), 5 MG PO HS Aspirin (Aspirin Ec), 81 MG PO QPM Calcium (Calcium), 600 MG PO DAILY Cholecalciferol (Vitamin D3), 5,000 INTER.UNIT PO HS Colesevelam Hcl (Welchol), 625 MG PO BID Cyanocobalamin (Cyanocobalamin), 1 DOSE IM EVERY 3 MONTHS Ferrous Sulfate (Ferrous Sulfate), 325 MG PO HS Gabapentin (Gabapentin), 100 MG PO TID Levothyroxine Sodium (Levothyroxine Sodium), 88 MCG PO QAM Magnesium Oxide (Mag-Ox), 400 MG PO DAILY Multivitamin (Multivitamin), 1 TAB PO DAILY Omeprazole (Prilosec), 20 MG PO HS Pregabalin (Lyrica), 75 MG PO BID Probiotic Product (Probiotic), 1 CAP PO HS Ranitidine (Zantac), 150 MG PO HS Rizatriptan Benzoate (Rizatriptan Benzoate), 10 MG PO UD Ropinirole HCl (Ropinirole HCl), 1 MG PO TID Scheduled PRN Albuterol Sulfate (Proair Respiclick), 2 PUFFS INH QID PRN for Wheezing Budesonide/Formoterol Fumarate (Symbicort 80/4.5 Inhaler), 2 PUFFS INH BID PRN for Cold Symptoms Cyclobenzaprine Hcl (Flexeril), 10 MG PO TID PRN for Muscle Spasm Diphenhydramine Hcl (Benadryl Allergy), 25 MG PO HS PRN for Sleep Allergies Coded Allergies: Morphine (Verified Allergy, Intermediate, rash, 10/28/16) Sulfa Antibiotics (Verified Allergy, Intermediate, HIVES, 10/28/16) Dust (Verified Allergy, Mild, ITCHY EYES, 10/28/16) Oxycodone (Verified Allergy, Mild, itchy, 10/28/16) Prednisone (Verified Allergy, Mild, ITCHY, 10/28/16) Methylprednisolone (Verified Adverse Reaction, Intermediate, vomiting, shaking, 10/28/16) Metformin (Verified Adverse Reaction, Mild, "diarrhea", 10/28/16) Molds & Smuts (Verified Adverse Reaction, Mild, ITCHY EYES, HEADACHES, ) Physical Exam Vital Signs Date Time Temp Pulse Resp B/P Pulse Ox O2 Delivery O2 Flow Rate FiO2 10/28/16 18:05 79 20 145/98 95 Room Air 10/28/16 15:38 94 20 143/87 95 Room Air 10/28/16 14:04 37.1 94 18 158/86 100 Room Air Physical Exam GENERAL: Sitting up in bed, holding her right neck, uncomfortable, nontoxic. EYE EXAM: normal conjunctiva, PERRL and EOM's grossly intact OROPHARYNX: no exudate, no erythema, lips, buccal mucosa, and tongue normal and mucous membranes are moist NECK: supple, no nuchal rigidity, no adenopathy. Acute reproducible tenderness over the right cervical paraspinal region tracking down to the scapula, right trapezius to the humeral head. Pain worse with neck rotation, no midline tenderness. LUNGS: Clear to auscultation. Normal chest wall mechanics HEART: no murmurs, S1 normal and S2 normal CHEST: Acute reproducible tenderness over the right axilla ABDOMEN: abdomen soft, non-tender, normo-active bowel sounds, no masses, no rebound or guarding. BACK: Back is symmetrical on inspection and there is no deformity, no midline tenderness, no CVA tenderness. SKIN: no rashes and no bruising UPPER EXTREMITIES: Flexion extension of shoulder elbow wrist along with grasp and abduction 5/5 bilaterally, gross sensation intact, radial pulses 2/4 bilaterally. LOWER EXTREMITIES: No pitting edema. NEURO EXAM: Normal sensorium, cranial nerves II-XII grossly intact, normal speech, no gross weakness of arms, no gross weakness of legs. No drift. Finger to nose intact. Gross sensation intact. Medical Decision & Procedures ER Provider Diagnostic Interpretation: Xray results per the radiologist and my interpretation. Other results have been interpreted by the radiologist and reviewed by me. CERVICAL SPINE CT CT DOSE: 287.58 mGy.cm HISTORY: Pain right sided neck pain TECHNIQUE: Multiaxial CT images of the cervical spine were performed and reformatted in the sagittal and coronal plane without the use of contrast. COMPARISON: 09/27/2014 FINDINGS: No fractures. No subluxation. Prevertebral soft tissues and the C1-C2 interval are intact. No pneumothorax. Minimal degenerative disc change. Minimal degenerative change posterior facets IMPRESSION: No fractures within the cervical spine. Minimal degenerative change. No acute process. Electronically signed by: Kvng Shaw M.D. 10/28/2016 4:21 PM Dictated Date/Time: 10/28/2016 4:19 PM CHEST ONE VIEW PORTABLE CLINICAL HISTORY: cp dyspnea COMPARISON STUDY: 08/12/2016 FINDINGS: Central catheter ends. Cava. Lungs are clear. Diaphragms smooth. IMPRESSION: Negative chest. Electronically signed by: Kvng Shaw M.D. 10/28/2016 4:47 PM Dictated Date/Time: 10/28/2016 4:47 PM Laboratory Results 10/28/16 15:55 Red Blood Count 4.03, Mean Corpuscular Volume 92.3, Mean Corpuscular Hemoglobin 31.3, Mean Corpuscular Hemoglobin Concent 33.9, Mean Platelet Volume 10.1, Neutrophils (%) (Auto) 65.2, Lymphocytes (%) (Auto) 27.9, Monocytes (%) (Auto) 4.9, Eosinophils (%) (Auto) 1.8, Basophils (%) (Auto) 0.2, Neutrophils # (Auto) 3.72, Lymphocytes # (Auto) 1.59, Monocytes # (Auto) 0.28, Eosinophils # (Auto) 0.10, Basophils # (Auto) 0.01 10/28/16 15:55 Test 10/28/16 15:55 White Blood Count 5.70 K/uL (4.8-10.8) Red Blood Count 4.03 M/uL (4.2-5.4) Hemoglobin 12.6 g/dL (12.0-16.0) Hematocrit 37.2 % (37-47) Mean Corpuscular Volume 92.3 fL (80-100) Mean Corpuscular Hemoglobin 31.3 pg (25-34) Mean Corpuscular Hemoglobin Concent 33.9 g/dl (32-36) Platelet Count 206 K/uL (130-400) Mean Platelet Volume 10.1 fL (7.4-10.4) Neutrophils (%) (Auto) 65.2 % Lymphocytes (%) (Auto) 27.9 % Monocytes (%) (Auto) 4.9 % Eosinophils (%) (Auto) 1.8 % Basophils (%) (Auto) 0.2 % Neutrophils # (Auto) 3.72 K/uL (1.4-6.5) Lymphocytes # (Auto) 1.59 K/uL (1.2-3.4) Monocytes # (Auto) 0.28 K/uL (0.11-0.59) Eosinophils # (Auto) 0.10 K/uL (0-0.5) Basophils # (Auto) 0.01 K/uL (0-0.2) RDW Standard Deviation 43.3 fL (36.4-46.3) RDW Coefficient of Variation 12.7 % (11.5-14.5) Immature Granulocyte % (Auto) 0.0 % Immature Granulocyte # (Auto) 0.00 K/uL (0.00-0.02) Anion Gap 9.0 mmol/L (3-11) Est Creatinine Clear Calc Drug Dose 72.0 ml/min Estimated GFR () 92.5 Estimated GFR (Non- 79.8 BUN/Creatinine Ratio 17.4 (10-20) Calcium Level 8.5 mg/dl (8.5-10.1) Total Bilirubin 0.3 mg/dl (0.2-1) Direct Bilirubin 0.1 mg/dl (0-0.2) Aspartate Amino Transf (AST/SGOT) 13 U/L (15-37) Alanine Aminotransferase (ALT/SGPT) 19 U/L (12-78) Alkaline Phosphatase 94 U/L (45-117) Troponin I < 0.015 ng/ml (0-0.045) Pro-B-Type Natriuretic Peptide 155 pg/ml (0-900) Total Protein 6.6 gm/dl (6.4-8.2) Albumin 3.3 gm/dl (3.4-5.0) Laboratory results per my review. Medications Administered Medications (Trade) Dose Ordered Sig/Radha Route Start Time Stop Time Status Last Admin Dose Admin Sodium Chloride (Nss 1000ml) 1,000 ml @ 999 mls/hr Q1H1M STAT IV 10/28/16 15:22 10/28/16 16:22 DC 10/28/16 15:52 999 MLS/HR Hydromorphone HCl (Dilaudid Inj) 1 mg NOW STAT IV 10/28/16 15:22 10/28/16 15:24 DC 10/28/16 15:53 1 MG Ondansetron HCl (Zofran Inj) 4 mg NOW STAT IV 10/28/16 15:22 10/28/16 15:24 DC 10/28/16 15:52 4 MG Ketorolac Tromethamine (Toradol Inj) 30 mg NOW STAT IV 10/28/16 17:08 10/28/16 17:10 DC 10/28/16 17:59 30 MG Heparin Sodium (Porcine) (Heparin 100 Unit/ml 5ml Flush) 5 ml STK-MED ONCE .ROUTE 10/28/16 17:55 10/28/16 17:57 DC 10/28/16 17:59 5 ML ECG Indication: back/shoulder pain Rate (beats per minute): 94 Rhythm: sinus rhythm Findings: no ectopy, other (normal axis) Comparison ECG Date: 2015 Change: no significant change ED Course ED COURSE: Vital signs were reviewed and showed hypertension. The patients medical record was reviewed The above diagnostic studies were performed and reviewed. ED treatments and interventions as stated above. 1508: The patient was evaluated in room B5. A complete history and physical examination was performed. 1515: Discussed lumbar puncture with the patient. She declined the procedure. 1522: Zofran 4 mg IV, Dilaudid 1 mg IV, NSS 1000 ml @ 999 mls/hr. 1705: The patient is feeling better. 1708: Toradol 30 mg IV. 1755: Updated the patient. 1800: Upon reevaluation, the patient is stable.I discussed my findings with the patient and she understands and agrees with the treatment plan. Based on the patients age, coexisting illnesses, exam and lab findings the decision to treat as an outpatient was made. The patient remained stable while under my care. The patient appeared well at the time of discharge. Medical Decision Differential diagnosis: Etiologies such as fracture, dislocation, neurovascular compromise, compartment syndrome, soft tissue injury, as well as others were entertained. Patient is a 66-year-old female who presents the ER for severe neck pain. It is in the right cervical paraspinal region tracking through her trapezius and anteriorly on the chest. It is clearly reproducible. Pain worsens with movement of the head. No radicular symptoms. Patient is completely neurovascularly and neurologically intact. CT of the neck shows no acute fractures or masses. Patient is given IV Dilaudid and Toradol. She had improvement of her symptoms. EKG was unremarkable. Troponin was negative with chest pain that has been present for greater than 8 hours. Based on exam this is clearly muscle skeletal in nature. She is discharged to take Tylenol and Motrin follow-up with her primary care doctor with a likely muscle strain of her neck. Discussed with Pt concerning signs and symptoms to watch out for. Pt was instructed to follow up with their PCP and discussed with the patient their option to return to the ED at anytime for persistent or worsening symptoms. The appropriate anticipatory guidance and out-patient management, including indications for return to the emergency department, were explained at length to the patient and understood. Impression Primary Impression: Neck muscle strain Scribe Attestation The scribe's documentation has been prepared under my direction and personally reviewed by me in its entirety. I confirm that the note above accurately reflects all work, treatment, procedures, and medical decision making performed by me. Departure Information Dispostion Home / Self-Care Referrals Bianca Rg (PCP) Forms HOME CARE DOCUMENTATION FORM, IMPORTANT VISIT INFORMATION, WORK / SCHOOL INSTRUCTIONS Patient Instructions My [facility], Neck Strain - [facility] Additional Instructions Please follow up with your primary care doctor with in the next 24 hours. Any worsening of your symptoms, please return to the ED immediately. This includes any fevers grade and 100.4, weakness or numbness in her arm, worsening pain, or any other concerning signs or symptoms from your stand point. Please take Tylenol and or Motrin as needed for pain. Problem Qualifiers Primary Impression: Neck muscle strain Encounter type: initial encounter Qualified Codes: S16.1XXA - Strain of muscle, fascia and tendon at neck level, initial encounter
[2016-12-30] MEDS ORDERED: ZNTT/150 PO (15:03)
[2017-05-20] MEDS ORDERED: ASPI81TA28 PO (10:14)
[2017-05-20] MEDS ORDERED: MISCCAP80 PO (10:16)
[2017-05-20] MEDS ORDERED: DIPH25CA65 PO (10:44)
[2017-05-20] MEDS ORDERED: TPM100 PO (14:41)
== END 2016-10-28 18:24 | disposition home or self-care (01) ==
LOC: C.EDB 13:53
DX: S16.1XXA Strain of muscle, fascia and tendon at neck level, initial encounter (principal); X58.XXXA Exposure to other specified factors, initial encounter; M25.511 Pain in right shoulder; E03.9 Hypothyroidism, unspecified; J44.9 Chronic obstructive pulmonary disease, unspecified; R19.7 Diarrhea, unspecified; J45.909 Unspecified asthma, uncomplicated; K21.0 Gastro-esophageal reflux disease with esophagitis; Z86.19 Personal history of other infectious and parasitic diseases; Z90.49 Acquired absence of other specified parts of digestive tract; Z79.82 Long term (current) use of aspirin; Z79.899 Other long term (current) drug therapy; Z88.2 Allergy status to sulfonamides; Z88.5 Allergy status to narcotic agent; Z88.8 Allergy status to other drugs, medicaments and biological substances; Z91.09 Other allergy status, other than to drugs and biological substances; Z83.3 Family history of diabetes mellitus; Z82.49 Family history of ischemic heart disease and other diseases of the circulatory system; Z84.1 Family history of disorders of kidney and ureter; Z82.3 Family history of stroke

== ENCOUNTER 2016-11-14 14:02 | Emergency (ER) | payer BC ==
[~2016-11-14] VITALS: Ht 154.9 cm; Wt 88.0 kg
[~2016-11-14 14:02] MED LIST changes: -ALBU1AER9 INH; -CYAN3INJ IM
[2016-11-14 14:11] VITALS: TEMP 36.4; Ht 154.9 cm; Wt 88.0 kg
[2016-11-14] MEDS ORDERED: KETOROLAC TROMETHAMINE 30 MG/ML VIAL IV STA (14:28)
[2016-11-14] MEDS ORDERED: HYDROmorphone INJ 1 MG/ML SYR IV STA (14:28)
[2016-11-14] MEDS ORDERED: BENZONATATE 100MG CAP PO ONE (14:30)
[2016-11-14] MEDS ORDERED: SODIUM CHLORIDE 0.9% 1000ML 1,000 ML IV STA (14:30)
[2016-11-14 15:22] LABS: BASO % 0.4 %; BASO ABS # 0.02 K/uL (0-0.2); COMPLETE YES; EOS % 2.8 %; HEMATOCRIT 39.5 % (37-47); LYMPH % 36.5 %; LYMPH ABS # 2.06 K/uL (1.2-3.4); MEAN CELL VOLUME 91.6 fL (80-100); MEAN CORPUSCULAR HEMOGLOBIN 31.1 pg (25-34); MEAN CORPUSCULAR HGB CONC 33.9 g/dl (32-36); MEAN PLATELET VOLUME 10.3 fL (7.4-10.4); MONO % 6.2 %; NEUT % 54.1 %; PLATELET COUNT 204 K/uL (130-400); RED BLOOD COUNT 4.31 M/uL (4.2-5.4); WHITE BLOOD COUNT 5.65 K/uL (4.8-10.8)
[2016-11-14] MEDS ORDERED: DiphenhydrAMINE HCL 50 MG/ML VIAL IV STA (15:22)
[2016-11-14] MEDS ORDERED: ONDANSETRON INJ 2 MG/ML 2 ML VIAL IV STA (15:22)
[2016-11-14 15:42] LABS: ALT/SGPT 24 U/L (12-78); AST/SGOT 14 U/L (15-37); BLOOD UREA NITROGEN 19 mg/dl (7-18); BUN/CREATININE RATIO 23.3 (10-20); CALCIUM 8.5 mg/dl (8.5-10.1); CARBON DIOXIDE 26 mmol/L (21-32); CHLORIDE 109 mmol/L (98-107); CREATININE 0.81 mg/dl (0.60-1.20); GLUCOSE 117 mg/dl (70-99); POTASSIUM 3.5 mmol/L (3.5-5.1); SODIUM 144 mmol/L (136-145)
[2016-11-14 15:45] LABS: ALKALINE PHOSPHATASE 91 U/L (45-117)
--- NOTE | 2016-11-14 16:00 | DIAGNOSTIC IMAGING REPORT ---
TWO VIEW CHEST CLINICAL HISTORY: Cough. FINDINGS: PA and lateral chest radiographs are compared to study dated 10/28/2016. Correlation is made with chest CT dated 06/20/2016. A right subclavian central venous infusion port is unchanged in position. The cardiomediastinal silhouette is unremarkable. The lungs and pleural spaces are clear. There is no pneumothorax. The skeletal structures are osteopenic. Degenerative change is noted throughout the thoracic spine. Cholecystectomy clips are seen in the right upper quadrant. IMPRESSION: No active disease in the chest. Electronically signed by: Yonathan Kelsey M.D. 11/14/2016 3:59 PM Dictated Date/Time: 11/14/2016 3:58 PM
[2016-11-14] MEDS ORDERED: HYDROmorphone INJ 0.5 MG/0.5 ML SYR IV STA (16:21)
[2016-11-14 16:53] VITALS: BP 175/100; PULSE 93; O2SAT 97
--- NOTE | 2016-11-14 20:30 | EMERGENCY ROOM VISIT NOTE ---
History Report prepared by Kaela: Mary Padilla Under the Supervision of: Alicia TiptonO. First contact with patient: 14:18 Chief Complaint: HEADACHE Stated Complaint: MIGRAINE,SHAKES,NAUSEA,VOMITING,DIARRHEA History of Present Illness The patient is a 66 year old female who presents to the Emergency Room with complaints of a persistent headache that began three hours ago. She currently rates her discomfort as an 8.5/10 in severity. The patient states that her pain has gradually been worsening, localizing her pain to the right back of her head. She notes a history of migraine headaches, stating that this feels like her typical migraine headaches. The patient additionally associates shakes, vomiting, nausea, and diarrhea with her symptoms today. She states that over the last three days she has noticed a cough and runny nose. Pt denies change in vision, fevers, neck pain, chest pain, shortness of breath, pain with urination, and melena. No fevers above. No weakness or numbness in her arms or legs. Source of History: patient Onset: three hours ago Position: head Symptom Intensity: 8.5/10 Timing: other (persistent) Associated Symptoms: + cough, + diarrhea, + nausea, + vomiting Note: Associated Symptoms: Shakes, runny nose Review of Systems See HPI for pertinent positives & negatives. A total of 10 systems reviewed and were otherwise negative. Past Medical & Surgical Medical Problems: (1) Abdominal pain (2) Abdominal pain (3) Asthma (4) BARIATRIC SURGERY STATUS (5) C. 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 (8) COPD (chronic obstructive pulmonary disease) (9) Cough (10) Dehydration (11) Dehydration (12) Diarrhea (13) Diarrhea (14) Headache (15) Headache (16) HYPOTHYROIDISM NOS (17) MIGRAINE UNSPECIFIED W/O INTRACT MGRN W/O STATUS MIGRAINOSUS (18) Pneumonia (19) Pneumonia (20) Reflux esophagitis (21) Stomach problems Surgical Problems: (1) Hx of cholecystectomy Family History Diabetes mellitus Hypertension Kidney disease Stroke Social History Smoking Status: Never Smoker Alcohol Use: none Drug Use: none Marital Status: Housing Status: lives with family Occupation Status: disabled Current/Historical Medications Scheduled Amlodipine Besylate (Amlodipine Besylate), 5 MG PO HS Aspirin (Aspirin Ec), 81 MG PO QPM Calcium (Calcium), 600 MG PO DAILY Cholecalciferol (Vitamin D3), 5,000 INTER.UNIT PO HS Colesevelam Hcl (Welchol), 625 MG PO BID Cyanocobalamin (Cyanocobalamin), 1 DOSE IM EVERY 3 MONTHS Ferrous Sulfate (Ferrous Sulfate), 325 MG PO HS Gabapentin (Gabapentin), 100 MG PO TID Levothyroxine Sodium (Levothyroxine Sodium), 88 MCG PO QAM Magnesium Oxide (Mag-Ox), 400 MG PO DAILY Multivitamin (Multivitamin), 1 TAB PO DAILY Omeprazole (Prilosec), 20 MG PO HS Pregabalin (Lyrica), 75 MG PO BID Probiotic Product (Probiotic), 1 CAP PO HS Ranitidine (Zantac), 150 MG PO HS Rizatriptan Benzoate (Rizatriptan Benzoate), 10 MG PO UD Ropinirole HCl (Ropinirole HCl), 1 MG PO TID Topiramate (Topiramate), 100 MG PO DAILY Scheduled PRN Albuterol Sulfate (Proair Respiclick), 2 PUFFS INH QID PRN for Wheezing Budesonide/Formoterol Fumarate (Symbicort 80/4.5 Inhaler), 2 PUFFS INH BID PRN for Cold Symptoms Cyclobenzaprine Hcl (Flexeril), 10 MG PO TID PRN for Muscle Spasm Diphenhydramine Hcl (Benadryl Allergy), 25 MG PO HS PRN for Sleep Allergies Coded Allergies: Morphine (Verified Allergy, Intermediate, rash, 10/28/16) Sulfa Antibiotics (Verified Allergy, Intermediate, HIVES, 10/28/16) Dust (Verified Allergy, Mild, ITCHY EYES, 10/28/16) Oxycodone (Verified Allergy, Mild, itchy, 10/28/16) Prednisone (Verified Allergy, Mild, ITCHY, 10/28/16) Methylprednisolone (Verified Adverse Reaction, Intermediate, vomiting, shaking, 10/28/16) Metformin (Verified Adverse Reaction, Mild, "diarrhea", 10/28/16) Molds & Smuts (Verified Adverse Reaction, Mild, ITCHY EYES, HEADACHES, ) Physical Exam Vital Signs Date Time Temp Pulse Resp B/P Pulse Ox O2 Delivery O2 Flow Rate FiO2 11/14/16 16:53 93 18 175/100 97 11/14/16 14:11 36.4 98 18 166/79 100 Room Air Physical Exam GENERAL: Sitting up in bed, non-productive cough, alert, well appearing, well nourished, no distress, non-toxic EYE EXAM: normal conjunctiva, PERRL and EOM's intact OROPHARYNX: no exudate, no erythema, lips, buccal mucosa, and tongue normal and mucous membranes are moist NECK: supple, no nuchal rigidity, no adenopathy, non-tender LUNGS: Clear to auscultation. Normal chest wall mechanics HEART: no murmurs, S1 normal and S2 normal ABDOMEN: abdomen soft, non-tender, normo-active bowel sounds, no masses, no rebound or guarding. BACK: Back is symmetrical on inspection and there is no deformity, no midline tenderness, no CVA tenderness. SKIN: no rashes and no bruising UPPER EXTREMITIES: upper extremities are grossly normal. LOWER EXTREMITIES: No pitting edema. NEURO EXAM: Normal sensorium, cranial nerves II-XII grossly intact, normal speech, no weakness of arms, no weakness of legs. No drift. Finger to nose intact. Gross sensation intact. Medical Decision & Procedures ER Provider Diagnostic Interpretation: Xray results per the radiologist and my interpretation. Other results have been interpreted by the radiologist and reviewed by me. TWO VIEW CHEST CLINICAL HISTORY: Cough. FINDINGS: PA and lateral chest radiographs are compared to study dated 10/28/2016. Correlation is made with chest CT dated 06/20/2016. A right subclavian central venous infusion port is unchanged in position. The cardiomediastinal silhouette is unremarkable. The lungs and pleural spaces are clear. There is no pneumothorax. The skeletal structures are osteopenic. Degenerative change is noted throughout the thoracic spine. Cholecystectomy clips are seen in the right upper quadrant. IMPRESSION: No active disease in the chest. Electronically signed by: Yonathan Kelsey M.D. 11/14/2016 3:59 PM Dictated Date/Time: 11/14/2016 3:58 PM Laboratory Results 11/14/16 15:10 Red Blood Count 4.31, Mean Corpuscular Volume 91.6, Mean Corpuscular Hemoglobin 31.1, Mean Corpuscular Hemoglobin Concent 33.9, Mean Platelet Volume 10.3, Neutrophils (%) (Auto) 54.1, Lymphocytes (%) (Auto) 36.5, Monocytes (%) (Auto) 6.2, Eosinophils (%) (Auto) 2.8, Basophils (%) (Auto) 0.4, Neutrophils # (Auto) 3.06, Lymphocytes # (Auto) 2.06, Monocytes # (Auto) 0.35, Eosinophils # (Auto) 0.16, Basophils # (Auto) 0.02 11/14/16 15:10 Test 11/14/16 15:10 11/14/16 15:39 White Blood Count 5.65 K/uL (4.8-10.8) Red Blood Count 4.31 M/uL (4.2-5.4) Hemoglobin 13.4 g/dL (12.0-16.0) Hematocrit 39.5 % (37-47) Mean Corpuscular Volume 91.6 fL (80-100) Mean Corpuscular Hemoglobin 31.1 pg (25-34) Mean Corpuscular Hemoglobin Concent 33.9 g/dl (32-36) Platelet Count 204 K/uL (130-400) Mean Platelet Volume 10.3 fL (7.4-10.4) Neutrophils (%) (Auto) 54.1 % Lymphocytes (%) (Auto) 36.5 % Monocytes (%) (Auto) 6.2 % Eosinophils (%) (Auto) 2.8 % Basophils (%) (Auto) 0.4 % Neutrophils # (Auto) 3.06 K/uL (1.4-6.5) Lymphocytes # (Auto) 2.06 K/uL (1.2-3.4) Monocytes # (Auto) 0.35 K/uL (0.11-0.59) Eosinophils # (Auto) 0.16 K/uL (0-0.5) Basophils # (Auto) 0.02 K/uL (0-0.2) RDW Standard Deviation 44.0 fL (36.4-46.3) RDW Coefficient of Variation 13.1 % (11.5-14.5) Immature Granulocyte % (Auto) 0.0 % Immature Granulocyte # (Auto) 0.00 K/uL (0.00-0.02) Anion Gap 9.0 mmol/L (3-11) Est Creatinine Clear Calc Drug Dose 69.8 ml/min Estimated GFR () 88.3 Estimated GFR (Non- 76.2 BUN/Creatinine Ratio 23.3 (10-20) Calcium Level 8.5 mg/dl (8.5-10.1) Total Bilirubin 0.3 mg/dl (0.2-1) Direct Bilirubin < 0.1 mg/dl (0-0.2) Aspartate Amino Transf (AST/SGOT) 14 U/L (15-37) Alanine Aminotransferase (ALT/SGPT) 24 U/L (12-78) Alkaline Phosphatase 91 U/L (45-117) Total Protein 6.7 gm/dl (6.4-8.2) Albumin 3.5 gm/dl (3.4-5.0) Influenza Type A Antigen Neg for Influ A (NEG) Influenza Type B Antigen Neg for Influ B (NEG) Laboratory results per my review. Medications Administered Medications (Trade) Dose Ordered Sig/Radha Route Start Time Stop Time Status Last Admin Dose Admin Ketorolac Tromethamine (Toradol Inj) 30 mg NOW STAT IV 11/14/16 14:28 11/14/16 14:31 DC 11/14/16 15:28 30 MG Hydromorphone HCl 1 mg 1 mg ONE STAT IV 11/14/16 14:28 11/14/16 14:31 DC 11/14/16 15:29 1 MG Sodium Chloride (Nss 1000ml) 1,000 ml @ 999 mls/hr Q1H1M STAT IV 11/14/16 14:30 11/14/16 15:30 DC 11/14/16 15:28 999 MLS/HR Benzonatate (Tessalon Perles Cap) 100 mg NOW ONCE PO 11/14/16 14:30 11/14/16 14:31 DC 11/14/16 15:28 100 MG Ondansetron HCl (Zofran Inj) 4 mg NOW STAT IV 11/14/16 15:22 11/14/16 15:23 DC 11/14/16 15:28 4 MG Diphenhydramine HCl (Benadryl Inj) 25 mg NOW STAT IV 11/14/16 15:22 11/14/16 15:23 DC 11/14/16 15:28 25 MG Hydromorphone HCl (Dilaudid Inj) 0.5 mg NOW STAT IV 11/14/16 16:21 11/14/16 16:25 DC 11/14/16 16:41 0.5 MG Heparin Sodium (Porcine) (Heparin 100 Unit/ml 5ml Flush) 5 ml STK-MED ONCE .ROUTE 11/14/16 16:41 11/14/16 16:44 DC 11/14/16 16:41 5 ML ED Course ED COURSE: Vital signs were reviewed and showed hypertensive The patients medical record was reviewed The above diagnostic studies were performed and reviewed. ED treatments and interventions as stated above. 1419: The patient was evaluated in room C5. A complete history and physical examination was performed. 1428: Ordered Dilaudid Inj 1 mg IV, Toradol Inj 30 mg IV. 1430: Ordered Benzonatate 100 mg PO, Sodium Chloride 1000 ml @ 999 mls/hr IV. 1522: Ordered Benadryl Inj 25 mg IV, Zofran Inj 4 mg IV. 1621: Upon reevaluation, the patient is still experiencing a slight headache, but is better otherwise.I discussed my findings with the patient and she understands and agrees with the treatment plan. Based on the patients age, coexisting illnesses, exam and lab findings the decision to treat as an outpatient was made. The patient remained stable while under my care. The patient appeared well at the time of discharge. Ordered Dilaudid Inj 0.5 mg IV. Medical Decision Differential Diagnosis includes but is not limited to headache, tension headache , cluster headache, migraine, subarachnoid hemorrhage, meningitis, mass, central venous thrombus, concussion, trauma and epidural/subdural hemorrhage. Patient is a 66-year-old female with past medical history of chronic migraines and presents the ER for a headache which is unchanged from her typical headaches. She declines any fevers. No signs of meningitis or encephalitis. Patient was completely neurologically intact on my exam. Nothing to suggest a bleed. Headache came on gradually and progressively worsened. She also associates a cough, congestion, and runny nose. No significant leukocytosis or anemia. BMP along with LFTs, bilirubin is unremarkable. Influenza A and B were negative. Chest x-ray was unremarkable. Patient was updated regards to her findings. She is given 2 doses of IV Dilaudid along with normal saline, Toradol and Benadryl. She has no other complaints at this time. She is discharged feeling significantly better without vomiting in the ER to follow-up with her primary care doctor with a viral bronchitis. Discussed with Pt concerning signs and symptoms to watch out for. Pt was instructed to follow up with their PCP and discussed with the patient their option to return to the ED at anytime for persistent or worsening symptoms. The appropriate anticipatory guidance and out-patient management, including indications for return to the emergency department, were explained at length to the patient and understood. Impression Primary Impression: Bronchitis Additional Impression: Headache Scribe Attestation The scribe's documentation has been prepared under my direction and personally reviewed by me in its entirety. I confirm that the note above accurately reflects all work, treatment, procedures, and medical decision making performed by me. Departure Information Dispostion Home / Self-Care Referrals Bianca Rg (PCP) Forms HOME CARE DOCUMENTATION FORM, IMPORTANT VISIT INFORMATION Patient Instructions Bronchitis Acute, Headache Pain, My [facility] Additional Instructions Please follow up with your primary care doctor with in the next 24 hours. Any worsening of your symptoms, please return to the ED immediately. This includes fevers grade and 100.4, stiff neck, change in headache, diffuse weakness, confusion, or any other concerning signs or symptoms from your standpoint. Absolutely no driving, drinking alcohol or operating heavy machinery for the remainder of the day with the narcotics are given in the ER. Problem Qualifiers Additional Impression: Headache Headache type: unspecified Headache chronicity pattern: acute headache Intractability: not intractable Qualified Codes: R51 - Headache
[2016-12-30] MEDS ORDERED: ZNTT/150 PO (15:03)
[2017-05-20] MEDS ORDERED: ASPI81TA28 PO (10:14)
[2017-05-20] MEDS ORDERED: MISCCAP80 PO (10:16)
[2017-05-20] MEDS ORDERED: DIPH25CA65 PO (10:44)
[2017-05-20] MEDS ORDERED: TPM100 PO (14:41)
== END 2016-11-14 16:55 | disposition home or self-care (01) ==
LOC: C.EDB 14:03 → C.EDC 16:55
DX: J40 Bronchitis, not specified as acute or chronic (principal); R51 Headache; R11.2 Nausea with vomiting, unspecified; R19.7 Diarrhea, unspecified; Z98.84 Bariatric surgery status; E03.9 Hypothyroidism, unspecified; Z79.82 Long term (current) use of aspirin; Z79.899 Other long term (current) drug therapy

== ENCOUNTER 2016-11-30 17:11 | Emergency (ER) | payer BC ==
[~2016-11-30] VITALS: Ht 154.9 cm; Wt 87.0 kg
[2016-11-30 17:14] VITALS: TEMP 36.4; Ht 154.9 cm; Wt 87.0 kg
[2016-11-30] MEDS ORDERED: SODIUM CHLORIDE 0.9% 500ML 500 ML IV STA (17:41)
[2016-11-30] MEDS ORDERED: HYDROmorphone INJ 0.5 MG/0.5 ML SYR IV STA (17:41)
[2016-11-30] MEDS ORDERED: ONDANSETRON INJ 2 MG/ML 2 ML VIAL IV STA (17:48)
[2016-11-30 18:05] LABS: URINE APPEARANCE CLEAR (CLEAR); URINE BILIRUBIN NEG (NEG); URINE COLOR YELLOW; URINE EPITHELIAL CELL AUTO >30 /lpf (0-5); URINE NITRITE NEG (NEG); URINE PH 5.5 (4.5-7.5); URINE SPECIFIC GRAVITY 1.021 (1.000-1.030); UROBILINOGEN NEG (NEG); ZZUR CULT IF INDIC CLEAN CATCH NO
[2016-11-30 18:13] LABS: MANUAL MICROSCOPIC REQUIRED? NO; REVIEW REQ? YES
[2016-11-30 18:26] LABS: BASO % 0.2 %; BASO ABS # 0.01 K/uL (0-0.2); COMPLETE YES; EOS % 2.6 %; LYMPH % 32.9 %; LYMPH ABS # 2.15 K/uL (1.2-3.4); MEAN CELL VOLUME 89.5 fL (80-100); MEAN CORPUSCULAR HEMOGLOBIN 30.6 pg (25-34); MEAN CORPUSCULAR HGB CONC 34.3 g/dl (32-36); MEAN PLATELET VOLUME 10.2 fL (7.4-10.4); MONO % 4.7 %; NEUT % 59.6 %; PLATELET COUNT 211 K/uL (130-400); RED BLOOD COUNT 4.47 M/uL (4.2-5.4); WHITE BLOOD COUNT 6.54 K/uL (4.8-10.8)
--- NOTE | 2016-11-30 18:26 | EMERGENCY ROOM VISIT NOTE ---
History Report prepared by Kaela: Guanako Ayoub Under the Supervision of: Dr. Marco Peña D.O. First contact with patient: 17:29 Chief Complaint: ABDOMINAL PAIN Stated Complaint: STABBING PAIN IN ABDOMEN GOING TO BACK - HEADACHE History of Present Illness The patient is a 66 year old female who presents to the Emergency Room with complaints of constant right upper abdominal pain beginning two days prior to arrival. She currently rates her discomfort as a 9/10 in severity. The patient associates lower right back pain that radiates to her groin, nausea, increased frequency and urgency, and decreased appetite with today's symptoms. She states she has had a cholecystectomy, appendectomy, and complete hysterectomy. The patient notes she urinates every thirty minutes. She states a history of kidney stones and UTIs. The patient notes her symptoms feel similar to the last time that she had kidney issues. She states she had a normal bowel movement this morning. The patient also complains of an intermittent cough for the past few days and a headache that began today. She states her headache is not a typical migraine headache. Pt denies change in vision, fevers, chest pain, shortness of breath, vomiting, diarrhea, pain with urination, abnormal vaginal bleeding or discharge, and melena. Source of History: patient Onset: two days ACID TENDER Position: abdomen (RUQ) Symptom Intensity: 9/10 Timing: constant Associated Symptoms: + abdominal pain, + back pain (lower right that radiates to groin), + cough (intermittent), + headache, + nausea, + urinary symptoms (increased frequency and urgency) Note: Associated symptoms: decreased appetite. Review of Systems See HPI for pertinent positives & negatives. A total of 10 systems reviewed and were otherwise negative. Past Medical & Surgical Medical Problems: (1) Abdominal pain (2) Abdominal pain (3) Asthma (4) BARIATRIC SURGERY STATUS (5) C. 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 (8) COPD (chronic obstructive pulmonary disease) (9) Cough (10) Dehydration (11) Dehydration (12) Diarrhea (13) Diarrhea (14) Headache (15) Headache (16) HYPOTHYROIDISM NOS (17) MIGRAINE UNSPECIFIED W/O INTRACT MGRN W/O STATUS MIGRAINOSUS (18) Pneumonia (19) Pneumonia (20) Reflux esophagitis (21) Stomach problems Surgical Problems: (1) Hx of cholecystectomy Family History Diabetes mellitus Hypertension Kidney disease Stroke Social History Smoking Status: Never Smoker Alcohol Use: none Drug Use: none Marital Status: Housing Status: lives with family Occupation Status: disabled Current/Historical Medications Scheduled Amlodipine Besylate (Amlodipine Besylate), 5 MG PO HS Aspirin (Aspirin Ec), 81 MG PO QPM Calcium Carbonate-Vitamin D (Calcium + D), 1 TAB PO QPM Colesevelam Hcl (Welchol), 625 MG PO BID Cyanocobalamin (Cyanocobalamin), 1 DOSE IM EVERY 3 MONTHS Ferrous Sulfate (Ferrous Sulfate), 325 MG PO HS Gabapentin (Gabapentin), 100 MG PO TID Levothyroxine Sodium (Levothyroxine Sodium), 88 MCG PO QAM Magnesium Oxide (Mag-Ox), 400 MG PO DAILY Multivitamin (Multivitamin), 1 TAB PO DAILY Omeprazole (Prilosec), 20 MG PO HS Pregabalin (Lyrica), 75 MG PO BID Probiotic Product (Probiotic), 1 CAP PO HS Ranitidine (Zantac), 150 MG PO HS Rizatriptan Benzoate (Rizatriptan Benzoate), 10 MG PO UD Ropinirole HCl (Ropinirole HCl), 1 MG PO TID Topiramate (Topiramate), 100 MG PO DAILY Scheduled PRN Albuterol Sulfate (Proair Respiclick), 2 PUFFS INH QID PRN for Wheezing Cyclobenzaprine Hcl (Flexeril), 10 MG PO TID PRN for Muscle Spasm Diphenhydramine Hcl (Benadryl Allergy), 25 MG PO HS PRN for Sleep Allergies Coded Allergies: Morphine (Verified Allergy, Intermediate, rash, 11/30/16) Sulfa Antibiotics (Verified Allergy, Intermediate, HIVES, 11/30/16) Dust (Verified Allergy, Mild, ITCHY EYES, 11/30/16) Oxycodone (Verified Allergy, Mild, itchy, 11/30/16) Prednisone (Verified Allergy, Mild, ITCHY, 11/30/16) Methylprednisolone (Verified Adverse Reaction, Intermediate, vomiting, shaking, 11/30/16) Metformin (Verified Adverse Reaction, Mild, "diarrhea", 11/30/16) Molds & Smuts (Verified Adverse Reaction, Mild, ITCHY EYES, HEADACHES, ) Physical Exam Vital Signs Date Time Temp Pulse Resp B/P Pulse Ox O2 Delivery O2 Flow Rate FiO2 11/30/16 19:27 80 18 170/68 100 11/30/16 17:14 36.4 89 18 170/90 97 Room Air Physical Exam GENERAL: sitting up in bed, disheveled, no acute distress, non-toxic EYE EXAM: normal conjunctiva OROPHARYNX: no exudate, no erythema, lips, buccal mucosa, and tongue normal and mucous membranes are moist NECK: supple, no nuchal rigidity, no adenopathy, non-tender LUNGS: Clear to auscultation. Normal chest wall mechanics HEART: no murmurs, S1 normal and S2 normal ABDOMEN: minimal tenderness in right upper quadrant, abdomen soft, normo-active bowel sounds, no masses, no rebound or guarding. BACK: Reproducible lower lumbar paraspinal tenderness on the right. Back is symmetrical on inspection and there is no deformity. SKIN: no rashes and no bruising UPPER EXTREMITIES: upper extremities are grossly normal. LOWER EXTREMITIES: No pitting edema. NEURO EXAM: Normal sensorium, cranial nerves II-XII grossly intact, normal speech, no gross weakness of arms, no gross weakness of legs. Medical Decision & Procedures ER Provider Diagnostic Interpretation: CT:Per my review, radiologist interpretation. CT SCAN OF THE ABDOMEN AND PELVIS WITHOUT CONTRAST CLINICAL HISTORY: Right flank pain. COMPARISON STUDY: 07/01/2016 TECHNIQUE: CT scan of the abdomen and pelvis was performed from the lung bases to the proximal femurs. Images are reviewed in the axial, sagittal, and coronal planes. IV contrast was not administered for this examination. CT DOSE: 694.66 mGy.cm FINDINGS: Lower chest: There is a stable partially visualized 5 mm right middle lobe pulmonary nodule. There is a stable 7 mm left lower lobe pulmonary nodule. Liver: The unenhanced liver is normal in size, contour, and attenuation. There is no intrahepatic biliary ductal dilatation. Gallbladder: Surgically absent Spleen: Normal in size and attenuation. Pancreas: Unremarkable. Adrenal glands: Unremarkable. Kidneys: No renal, ureteral, or bladder calculi are visualized. Bowel: There are postsurgical changes of a gastric bypass and Kenneth-en-Y anastomosis. There are no transition zones indicate bowel obstruction. By history the appendix is surgically absent. There is no acute diverticulitis. Scattered colonic diverticula are visualized. Peritoneum: There is no intraperitoneal free air or abdominal ascites. Vasculature: The abdominal aorta is normal in course and caliber. Adenopathy: None. Pelvic viscera: The uterus appears surgically absent. Skeletal structures: No destructive osseous lesions are seen. IMPRESSION: 1. No evidence of bowel obstruction. No evidence of free air 2. No renal, ureteral, or bladder calculi identified 3. Diverticulosis. No evidence of acute diverticulitis 4. Stable subcentimeter bilateral pulmonary nodules Electronically signed by: Michael Lazo M.D. 11/30/2016 6:42 PM Laboratory Results 11/30/16 18:15 Red Blood Count 4.47, Mean Corpuscular Volume 89.5, Mean Corpuscular Hemoglobin 30.6, Mean Corpuscular Hemoglobin Concent 34.3, Mean Platelet Volume 10.2, Neutrophils (%) (Auto) 59.6, Lymphocytes (%) (Auto) 32.9, Monocytes (%) (Auto) 4.7, Eosinophils (%) (Auto) 2.6, Basophils (%) (Auto) 0.2, Neutrophils # (Auto) 3.90, Lymphocytes # (Auto) 2.15, Monocytes # (Auto) 0.31, Eosinophils # (Auto) 0.17, Basophils # (Auto) 0.01 11/30/16 18:15 Test 11/30/16 17:25 11/30/16 18:15 Urine Color YELLOW Urine Appearance CLEAR (CLEAR) Urine pH 5.5 (4.5-7.5) Urine Specific [place] 1.021 (1.000-1.030) Urine Protein NEG (NEG) Urine Glucose (UA) NEG (NEG) Urine Ketones NEG (NEG) Urine Occult Blood NEG (NEG) Urine Nitrite NEG (NEG) Urine Bilirubin NEG (NEG) Urine Urobilinogen NEG (NEG) Urine Leukocyte Esterase NEG (NEG) Urine WBC (Auto) 1-5 /hpf (0-5) Urine RBC (Auto) 0-4 /hpf (0-4) Urine Hyaline Casts (Auto) 0 /lpf (0-5) Urine Epithelial Cells (Auto) >30 /lpf (0-5) Urine Bacteria (Auto) NEG (NEG) White Blood Count 6.54 K/uL (4.8-10.8) Red Blood Count 4.47 M/uL (4.2-5.4) Hemoglobin 13.7 g/dL (12.0-16.0) Hematocrit 40.0 % (37-47) Mean Corpuscular Volume 89.5 fL (80-100) Mean Corpuscular Hemoglobin 30.6 pg (25-34) Mean Corpuscular Hemoglobin Concent 34.3 g/dl (32-36) Platelet Count 211 K/uL (130-400) Mean Platelet Volume 10.2 fL (7.4-10.4) Neutrophils (%) (Auto) 59.6 % Lymphocytes (%) (Auto) 32.9 % Monocytes (%) (Auto) 4.7 % Eosinophils (%) (Auto) 2.6 % Basophils (%) (Auto) 0.2 % Neutrophils # (Auto) 3.90 K/uL (1.4-6.5) Lymphocytes # (Auto) 2.15 K/uL (1.2-3.4) Monocytes # (Auto) 0.31 K/uL (0.11-0.59) Eosinophils # (Auto) 0.17 K/uL (0-0.5) Basophils # (Auto) 0.01 K/uL (0-0.2) RDW Standard Deviation 43.2 fL (36.4-46.3) RDW Coefficient of Variation 13.3 % (11.5-14.5) Immature Granulocyte % (Auto) 0.0 % Immature Granulocyte # (Auto) 0.00 K/uL (0.00-0.02) Anion Gap 5.0 mmol/L (3-11) Est Creatinine Clear Calc Drug Dose 70.2 ml/min Estimated GFR () 89.7 Estimated GFR (Non- 77.4 BUN/Creatinine Ratio 18.3 (10-20) Calcium Level 8.7 mg/dl (8.5-10.1) Total Bilirubin 0.2 mg/dl (0.2-1) Direct Bilirubin < 0.1 mg/dl (0-0.2) Aspartate Amino Transf (AST/SGOT) 19 U/L (15-37) Alanine Aminotransferase (ALT/SGPT) 25 U/L (12-78) Alkaline Phosphatase 104 U/L (45-117) Total Protein 6.9 gm/dl (6.4-8.2) Albumin 3.3 gm/dl (3.4-5.0) Lipase 224 U/L (73-393) Laboratory results per my review. Medications Administered Medications (Trade) Dose Ordered Sig/Radha Route Start Time Stop Time Status Last Admin Dose Admin Sodium Chloride (Nss 500ml) 500 ml @ 999 mls/hr Q31M STAT IV 11/30/16 17:41 11/30/16 18:11 DC 11/30/16 18:15 999 MLS/HR Hydromorphone HCl (Dilaudid Inj) 0.5 mg NOW STAT IV 11/30/16 17:41 11/30/16 17:43 DC 11/30/16 18:15 0.5 MG Ondansetron HCl (Zofran Inj) 4 mg NOW STAT IV 11/30/16 17:48 11/30/16 17:49 DC 11/30/16 18:26 4 MG Heparin Sodium (Porcine) (Heparin 100 Unit/ml 5ml Flush) 5 ml STK-MED ONCE .ROUTE 11/30/16 19:18 11/30/16 19:22 DC 11/30/16 19:34 5 ML ED Course ED COURSE: Vital signs were reviewed and showed hypertensive signs. The patients medical record was reviewed The above diagnostic studies were performed and reviewed. ED treatments and interventions as stated above. 1737: The patient was evaluated in room A3. A complete history and physical examination was performed. 1741: Ordered Dilaudid Inj 0.5 mg IV, Sodium Chloride 500 ml @ 999 mls/hr IV. 1748: Ordered Zofran Inj 4 mg IV. 1909: Upon reevaluation, the patient is doing well.I discussed my findings with the patient and she understands and agrees with the treatment plan. Based on the patients age, coexisting illnesses, exam and lab findings the decision to treat as an outpatient was made. The patient remained stable while under my care. The patient appeared well at the time of discharge. Medical Decision Differential diagnoses includes but is not limited to gastritis, peptic ulcer disease, GERD, pancreatitis, small bowel obstruction, acute coronary syndrome, pericarditis, ischemic bowel, irritable bowel disease, irritable bowel syndrome , diverticulitis, malignancy, hernia, urinary tract infection, torsion, perforation, trauma, infectious. Patient is a 66-year-old female well-known to the ER that presents for right flank pain. She notes that this has been worsening over the past 2-3 days. She does complain of nausea and vomiting. Last bowel movement was unremarkable. No blood in her stools. She has a history of a complete cholecystectomy, appendectomy and total hysterectomy. Abdominal exam is fairly benign. Vitals remarkable for hypertension. Labs are obtained and show no significant leukocytosis or anemia. BMP along with LFTs, bilirubin and lipase were unremarkable. UA was negative. CT of the abdomen and pelvis was completely benign. On exam she has clearly reproducible muscle skeletal back pain. Unclear of the true origin of her abdominal pain but labs and CT were unremarkable. She was given IV fluids and Dilaudid. Patient was discharged follow-up with her primary care doctor. Discussed with Pt concerning signs and symptoms to watch out for. Pt was instructed to follow up with their PCP and discussed with the patient their option to return to the ED at anytime for persistent or worsening symptoms. The appropriate anticipatory guidance and out- patient management, including indications for return to the emergency department , were explained at length to the patient and understood. Impression Primary Impression: Right sided abdominal pain Additional Impression: Musculoskeletal back pain Scribe Attestation The scribe's documentation has been prepared under my direction and personally reviewed by me in its entirety. I confirm that the note above accurately reflects all work, treatment, procedures, and medical decision making performed by me. Departure Information Dispostion Home / Self-Care Referrals Bianca Rg (PCP) Forms HOME CARE DOCUMENTATION FORM, IMPORTANT VISIT INFORMATION Patient Instructions Abdominal Pain - [facility], [facility] Additional Instructions Please follow up with your primary care doctor with in the next 24 hours. Any worsening of your symptoms, please return to the ED immediately. This includes fevers greater than 100.4, persistent nausea vomiting, worsening pain, unable to eat or drink, or any other concerning signs or symptoms from your standpoint. Again you should follow up with your primary care doctor tomorrow for an abdominal recheck. Problem Qualifiers
[2016-11-30 18:43] LABS: ALT/SGPT 25 U/L (12-78); BLOOD UREA NITROGEN 15 mg/dl (7-18); BUN/CREATININE RATIO 18.3 (10-20); CALCIUM 8.7 mg/dl (8.5-10.1); CARBON DIOXIDE 27 mmol/L (21-32); CHLORIDE 111 mmol/L (98-107); GLUCOSE 116 mg/dl (70-99); POTASSIUM 3.6 mmol/L (3.5-5.1); SODIUM 143 mmol/L (136-145)
--- NOTE | 2016-11-30 18:44 | DIAGNOSTIC IMAGING REPORT ---
CT SCAN OF THE ABDOMEN AND PELVIS WITHOUT CONTRAST CLINICAL HISTORY: Right flank pain. COMPARISON STUDY: 07/01/2016 TECHNIQUE: CT scan of the abdomen and pelvis was performed from the lung bases to the proximal femurs. Images are reviewed in the axial, sagittal, and coronal planes. IV contrast was not administered for this examination. CT DOSE: 694.66 mGy.cm FINDINGS: Lower chest: There is a stable partially visualized 5 mm right middle lobe pulmonary nodule. There is a stable 7 mm left lower lobe pulmonary nodule. Liver: The unenhanced liver is normal in size, contour, and attenuation. There is no intrahepatic biliary ductal dilatation. Gallbladder: Surgically absent Spleen: Normal in size and attenuation. Pancreas: Unremarkable. Adrenal glands: Unremarkable. Kidneys: No renal, ureteral, or bladder calculi are visualized. Bowel: There are postsurgical changes of a gastric bypass and Kenneth-en-Y anastomosis. There are no transition zones indicate bowel obstruction. By history the appendix is surgically absent. There is no acute diverticulitis. Scattered colonic diverticula are visualized. Peritoneum: There is no intraperitoneal free air or abdominal ascites. Vasculature: The abdominal aorta is normal in course and caliber. Adenopathy: None. Pelvic viscera: The uterus appears surgically absent. Skeletal structures: No destructive osseous lesions are seen. IMPRESSION: 1. No evidence of bowel obstruction. No evidence of free air 2. No renal, ureteral, or bladder calculi identified 3. Diverticulosis. No evidence of acute diverticulitis 4. Stable subcentimeter bilateral pulmonary nodules Electronically signed by: Michael Lazo M.D. 11/30/2016 6:42 PM Dictated Date/Time: 11/30/2016 6:38 PM
[2016-11-30 18:46] LABS: ALKALINE PHOSPHATASE 104 U/L (45-117); AST/SGOT 19 U/L (15-37)
[2016-11-30 19:27] VITALS: BP 170/68; PULSE 80; O2SAT 100
[2016-12-30] MEDS ORDERED: ZNTT/150 PO (15:03)
[2017-05-20] MEDS ORDERED: ASPI81TA28 PO (10:14)
[2017-05-20] MEDS ORDERED: MISCCAP80 PO (10:16)
[2017-05-20] MEDS ORDERED: DIPH25CA65 PO (10:44)
[2017-05-20] MEDS ORDERED: TPM100 PO (14:41)
== END 2016-11-30 19:32 | disposition home or self-care (01) ==
LOC: C.EDB 17:13 → C.EDA 19:32
DX: R10.11 Right upper quadrant pain (principal); M54.9 Dorsalgia, unspecified; J45.909 Unspecified asthma, uncomplicated; J44.9 Chronic obstructive pulmonary disease, unspecified; E03.9 Hypothyroidism, unspecified; K21.0 Gastro-esophageal reflux disease with esophagitis; Z87.01 Personal history of pneumonia (recurrent); Z90.49 Acquired absence of other specified parts of digestive tract; Z98.84 Bariatric surgery status; Z83.3 Family history of diabetes mellitus; Z82.49 Family history of ischemic heart disease and other diseases of the circulatory system; Z82.3 Family history of stroke; Z79.82 Long term (current) use of aspirin; Z79.899 Other long term (current) drug therapy

== ENCOUNTER → 2016-12-22 | Day surgery (SDC) | payer BC ==
[~2016-12-22] VITALS: Ht 154.9 cm; Wt 84.5 kg
[~2016-12-22] MED LIST changes: +ALBU18002 INH; +AMX875 PO; +ASPI81TA28 PO; +ATROPINE SULFATE 0.1 MG/ML 5ML SYR IV PRN; -CALC600T37 PO; +CALC600T9 PO; +CHOL50007 PO; -CHOLCAP5 PO; +CYNI1000 IM; +DIPH25CA65 PO; +EpHEDrine SULFATE INJ 50 MG/ML AMP IV PRN; +FENTANYL CITRATE INJ 50 MCG/1 ML 2 ML VIAL IV ONE; +FENTANYL CITRATE INJ 50 MCG/1 ML 2 ML VIAL ONE; +FERR1TAB62 PO; +FLUT1AER5 INH; +FLX10 PO; +KETO30IN5 IM; +LEVO88TA3 PO; +LIDOCAINE HCL 2% 2 ML VIAL (20MG/ML) ONE; +MAGN400T6 PO; +METH4PAK PO; +MISCCAP80 PO; +MULT-506 PO; +NRN100 PO; +NRV/5 PO; +OMEP20CA9 PO; +PREG1CAP28 PO; +PROPOFOL IV EMULSION 10 MG/ML 20 ML VIAL IV ONE; +RANI150T2 PO; +RIZA10TA21 PO; +ROPI1TAB29 PO; +SODIUM CHLORIDE 0.9% 500ML 500 ML IV ONE; -SYMIN/8045 INH; +TPM100 PO; +WLC625 PO; +ZNTT/150 PO
[2016-12-22 14:19] VITALS: Ht 154.9 cm; Wt 84.5 kg
--- NOTE | 2016-12-22 14:28 | Endo History and Physical ---
History & Physical Date of Service: Dec 22, 2016. Chief Complaint: diarrhea Referring Physician: Past Medical History Arthritis, Asthma, Reflux, Hypertension, COPD, Thyroid Disease Past Surgical History Hx Cardiac Surgery: No Hx Internal Defibrillator: No Hx Pacemaker: No Hx Abdominal Surgery: Yes (GASTRIC BYPASS, RONEY, SIRI, APPY, PANNICULECTOMY) Hx of Implantable Prosthesis: No Hx Post-Op Nausea and Vomiting: No Hx Cancer Surgery: No Hx Thoracic Surgery: No Hx Orthopedic: Yes (RT/LEFT HIP SX) Hx Urinary Tract Surgery: No Family History None Social History Smoking Status: Never Smoker Hx Substance Use: No Hx Alcohol Use: Yes (RARELY) Allergies Coded Allergies: Morphine (Verified Allergy, Intermediate, rash, 11/30/16) Sulfa Antibiotics (Verified Allergy, Intermediate, HIVES, 11/30/16) Dust (Verified Allergy, Mild, ITCHY EYES, 11/30/16) Oxycodone (Verified Allergy, Mild, itchy, 11/30/16) Prednisone (Verified Allergy, Mild, ITCHY, 11/30/16) Methylprednisolone (Verified Adverse Reaction, Intermediate, vomiting, shaking, 11/30/16) Metformin (Verified Adverse Reaction, Mild, "diarrhea", 11/30/16) Molds & Smuts (Verified Adverse Reaction, Mild, ITCHY EYES, HEADACHES, ) Current Medications Reported Home Medications Medications Dose Route/Sig Max Daily Dose Days Date Category Dose Instructions Calcium + D (Calcium Carbonate-Vitamin D) 1 Tab Tab 1 Tab PO QPM 11/30/16 Reported Topiramate 100 Mg Tab 100 Mg PO DAILY 11/14/16 Reported Cyanocobalamin 1,000 Mcg/Ml Inj 1 Dose IM EVERY 3 MONTHS 10/28/16 Reported Proair Respiclick (Albuterol Sulfate) 108 Mcg/Act Aer 2 Puffs INH QID PRN 10/28/16 Reported Rizatriptan Benzoate 10 Mg Tab 10 Mg PO UD 10/28/16 Reported Multivitamin (Multivitamins) Tab 1 Tab PO DAILY 09/18/16 Reported Mag-Ox (Magnesium Oxide) 400 Mg Tab 400 Mg PO DAILY 09/18/16 Reported Zantac (Ranitidine HCl) 150 Mg Tab 150 Mg PO HS 09/18/16 Reported Lyrica (Pregabalin) 75 Mg Cap 75 Mg PO BID 09/13/16 Reported Welchol (Colesevelam Hcl) 625 Mg Tab 625 Mg PO BID 08/31/16 Reported Prilosec (Omeprazole) 20 Mg Cap 20 Mg PO HS 02/15/16 Reported Gabapentin 100 Mg Cap 100 Mg PO TID 02/15/16 Reported Benadryl Allergy (Diphenhydramine Hcl) 25 Mg Cap 25 Mg PO HS PRN 01/01/16 Reported Flexeril (Cyclobenzaprine Hcl) 10 Mg Tab 10 Mg PO TID PRN 07/22/15 Reported Amlodipine Besylate 5 Mg Tab 5 Mg PO HS 06/20/15 Reported Probiotic (Probiotic Product) 1 Cap Cap 1 Cap PO HS 03/27/15 Reported Aspirin Ec (Aspirin) 81 Mg Tab 81 Mg PO QPM 03/27/15 Reported Ferrous Sulfate 325 Mg Tab 325 Mg PO HS 01/10/15 Reported TAKE THIS MEDICATION WITH FOOD. Ropinirole HCl 1 Mg Tab 1 Mg PO TID 05/19/14 Reported Levothyroxine Sodium 88 Mcg Tab 88 Mcg PO QAM 12/10/13 Reported Vital Signs Weight (Kilograms): 84.55 Height (Feet): 5 Height (Inches): 1 Physical Exam AAOx3 Nl s1s2 Lungs CTA Abd soft NT/ND + BS - CCE Assessment and Plan colonoscopy with bx
--- NOTE | 2016-12-22 16:18 | GI REPORT ---
Procedure Date: 12/22/2016 3:22 PM Procedure: Colonoscopy Indications: Chronic diarrhea Medicines: Propofol per Anesthesia Complications: No immediate complications. Estimated blood loss: Minimal. Estimated Blood Loss: Estimated blood loss was minimal. Procedure: Pre-Anesthesia Assessment: - Prior to the procedure, a History and Physical was performed, and patient medications and allergies were reviewed. The patient's tolerance of previous anesthesia was also reviewed. The risks and benefits of the procedure and the sedation options and risks were discussed with the patient. All questions were answered, and informed consent was obtained. Prior Anticoagulants: The patient has taken no previous anticoagulant or antiplatelet agents. ASA Grade Assessment: III - A patient with severe systemic disease. After reviewing the risks and benefits, the patient was deemed in satisfactory condition to undergo the procedure. After I obtained informed consent, the scope was passed under direct vision. Throughout the procedure, the patient's blood pressure, pulse, and oxygen saturations were monitored continuously. The scope was introduced through the anus and advanced to the terminal ileum, with identification of the appendiceal orifice and IC valve. The colonoscopy was performed without difficulty. The patient tolerated the procedure well. The quality of the bowel preparation was good. Findings: The perianal and digital rectal examinations were normal. Pertinent negatives include normal sphincter tone, no palpable rectal lesions and no anal lesion or abnormality was detected. Many small-mouthed diverticula were found in the sigmoid colon. The terminal ileum appeared normal. Biopsies were taken with a cold forceps for histology. Estimated blood loss was minimal. Verification of patient identification for the specimen was done by the physician and computer aided design technician using the patient's name and medical record number. The colon (entire examined portion) appeared normal. Biopsies for histology were taken with a cold forceps from the ascending colon and descending colon for evaluation of microscopic colitis. Verification of patient identification for the specimen was done by the physician and computer aided design technician using the patient's name and medical record number. The retroflexed view of the distal rectum and anal verge was normal and showed no anal or rectal abnormalities. Impression: - Diverticulosis in the sigmoid colon. - The examined portion of the ileum was normal. Biopsied. - The entire examined colon is normal. Biopsied. - The distal rectum and anal verge are normal on retroflexion view. Recommendation: - Discharge patient to home (ambulatory). - Patient has a contact number available for emergencies. The signs and symptoms of potential delayed complications were discussed with the patient. Return to normal activities tomorrow. Written discharge instructions were provided to the patient. - Resume regular diet. - Continue present medications. - Await pathology results. - Repeat colonoscopy for surveillance based on pathology results. - Return to referring physician as previously scheduled. MD Fransico Cosme MD 12/22/2016 4:17:54 PM This report has been signed electronically. Note Initiated On: 12/22/2016 3:22 PM I attest to the content of the Intraoperative Record and orders documented therein, exceptions below
--- NOTE | 2016-12-22 16:20 | Discharge Instructions ---
Endoscopy Patient Instructions Date / Procedure(s) Performed Dec 22, 2016. Colonoscopy Allergy Information Coded Allergies: Morphine (Verified Allergy, Intermediate, rash, 11/30/16) Sulfa Antibiotics (Verified Allergy, Intermediate, HIVES, 11/30/16) Dust (Verified Allergy, Mild, ITCHY EYES, 11/30/16) Oxycodone (Verified Allergy, Mild, itchy, 11/30/16) Prednisone (Verified Allergy, Mild, ITCHY, 11/30/16) Methylprednisolone (Verified Adverse Reaction, Intermediate, vomiting, shaking, 11/30/16) Metformin (Verified Adverse Reaction, Mild, "diarrhea", 11/30/16) Molds & Smuts (Verified Adverse Reaction, Mild, ITCHY EYES, HEADACHES, ) Discharge Date / Findings Dec 22, 2016. Medication Instructions Stopped Medication(s): stopped vitamins,supplements and ASA Monday Restart Stopped Medication(s): Reported Home Medications Medications Dose Route/Sig Max Daily Dose Days Date Category Dose Instructions Calcium + D (Calcium Carbonate-Vitamin D) 1 Tab Tab 1 Tab PO QPM 11/30/16 Reported Topiramate 100 Mg Tab 100 Mg PO DAILY 11/14/16 Reported Cyanocobalamin 1,000 Mcg/Ml Inj 1 Dose IM EVERY 3 MONTHS 10/28/16 Reported Proair Respiclick (Albuterol Sulfate) 108 Mcg/Act Aer 2 Puffs INH QID PRN 10/28/16 Reported Rizatriptan Benzoate 10 Mg Tab 10 Mg PO UD 10/28/16 Reported Multivitamin (Multivitamins) Tab 1 Tab PO DAILY 09/18/16 Reported Mag-Ox (Magnesium Oxide) 400 Mg Tab 400 Mg PO DAILY 09/18/16 Reported Zantac (Ranitidine HCl) 150 Mg Tab 150 Mg PO HS 09/18/16 Reported Lyrica (Pregabalin) 75 Mg Cap 75 Mg PO BID 09/13/16 Reported Welchol (Colesevelam Hcl) 625 Mg Tab 625 Mg PO BID 08/31/16 Reported Prilosec (Omeprazole) 20 Mg Cap 20 Mg PO HS 02/15/16 Reported Gabapentin 100 Mg Cap 100 Mg PO TID 02/15/16 Reported Benadryl Allergy (Diphenhydramine Hcl) 25 Mg Cap 25 Mg PO HS PRN 01/01/16 Reported Flexeril (Cyclobenzaprine Hcl) 10 Mg Tab 10 Mg PO TID PRN 07/22/15 Reported Amlodipine Besylate 5 Mg Tab 5 Mg PO HS 06/20/15 Reported Probiotic (Probiotic Product) 1 Cap Cap 1 Cap PO HS 03/27/15 Reported Aspirin Ec (Aspirin) 81 Mg Tab 81 Mg PO QPM 03/27/15 Reported Ferrous Sulfate 325 Mg Tab 325 Mg PO HS 01/10/15 Reported TAKE THIS MEDICATION WITH FOOD. Ropinirole HCl 1 Mg Tab 1 Mg PO TID 05/19/14 Reported Levothyroxine Sodium 88 Mcg Tab 88 Mcg PO QAM 12/10/13 Reported Reported Home Medications Medications Dose Route/Sig Max Daily Dose Days Date Category Dose Instructions Calcium + D (Calcium Carbonate-Vitamin D) 1 Tab Tab 1 Tab PO QPM 11/30/16 Reported Topiramate 100 Mg Tab 100 Mg PO DAILY 11/14/16 Reported Cyanocobalamin 1,000 Mcg/Ml Inj 1 Dose IM EVERY 3 MONTHS 10/28/16 Reported Proair Respiclick (Albuterol Sulfate) 108 Mcg/Act Aer 2 Puffs INH QID PRN 10/28/16 Reported Rizatriptan Benzoate 10 Mg Tab 10 Mg PO UD 10/28/16 Reported Multivitamin (Multivitamins) Tab 1 Tab PO DAILY 09/18/16 Reported Mag-Ox (Magnesium Oxide) 400 Mg Tab 400 Mg PO DAILY 09/18/16 Reported Zantac (Ranitidine HCl) 150 Mg Tab 150 Mg PO HS 09/18/16 Reported Lyrica (Pregabalin) 75 Mg Cap 75 Mg PO BID 09/13/16 Reported Welchol (Colesevelam Hcl) 625 Mg Tab 625 Mg PO BID 08/31/16 Reported Prilosec (Omeprazole) 20 Mg Cap 20 Mg PO HS 02/15/16 Reported Gabapentin 100 Mg Cap 100 Mg PO TID 02/15/16 Reported Benadryl Allergy (Diphenhydramine Hcl) 25 Mg Cap 25 Mg PO HS PRN 01/01/16 Reported Flexeril (Cyclobenzaprine Hcl) 10 Mg Tab 10 Mg PO TID PRN 07/22/15 Reported Amlodipine Besylate 5 Mg Tab 5 Mg PO HS 06/20/15 Reported Probiotic (Probiotic Product) 1 Cap Cap 1 Cap PO HS 03/27/15 Reported Aspirin Ec (Aspirin) 81 Mg Tab 81 Mg PO QPM 03/27/15 Reported Ferrous Sulfate 325 Mg Tab 325 Mg PO HS 01/10/15 Reported TAKE THIS MEDICATION WITH FOOD. Ropinirole HCl 1 Mg Tab 1 Mg PO TID 05/19/14 Reported Levothyroxine Sodium 88 Mcg Tab 88 Mcg PO QAM 12/10/13 Reported Provider Instructions Activity Restrictions - No exercising or heavy lifting for 24 hours. - Do not drink alcohol the day of the procedure. - Do not drive a car or operate machinery until the day after the procedure. - Do not make any important decisions or sign important papers in 24 hours after the procedure. Following Day: - Return to full activity which may include returning to work/school. Diet Start your diet with liquids and light foods (jello, soup, juice, toast). Then eat your usual diet if not nauseated. Treatment For Common After Affects For mild abdominal pain, bloating, or excessive gas: - Rest - Eat lightly - Lie on right side Follow-Up Information Follow-up with Bianca GRANGER as scheduled Anesthesia Information What You Should Know You have had a procedure that required some medicine to reduce anxiety and discomfort. This treatment is called moderate sedation. After receiving the treatment, you may be sleepy, but you will be able to breathe on your own. The effects of the treatment may last for several hours. Follow these instructions along with Activity/Diet recommendations noted above: * Do NOT do anything where dizziness or clumsiness would be dangerous. * Rest quietly at home today, then you can be up and about tomorrow. * Have a responsible person stay with you the rest of today. * You may have had an I.V. today. If so, you may take the dressing off later today. Recommendations Call your doctor if: * Trouble breathing * Continuous vomiting for more than 24 hours * Temperature above 101 degrees * Severe abdominal pain or bloating * Pain not relieved by pain medicine ordered * There is increased drainage or redness from any incision * A large amount of rectal bleeding greater than 2-3 tablespoons. (If you had a polyp/s removed or have hemorrhoids, a small amount of blood - from the rectum is to be expected.) * You have any unanswered questions or concerns. IN THE EVENT OF A SERIOUS EMERGENCY, GO TO THE NEAREST EMERGENCY ROOM Your discharge instructions were prepared by provider Fransico Brian. Patient Instructions Signature Page Megan Maldonado Patient (or Guardian) Signature/Date: I have read and understand the instructions given to me by my caregivers. Caregiver/RN/Doctor Signature/Date: The above-named patient and/or guardian has received patient instructions on this date. + Original Patient Signature Page (only) stays with chart. Please make copy for patient.
--- NOTE | 2016-12-22 16:44 | Anesthesiology Progress Note ---
Anesthesia Post Op Note Date & Time Dec 22, 2016 at 16:41 Vital Signs Vital Signs Past 12 Hours Date Time Temp Pulse Resp B/P Pulse Ox O2 Delivery O2 Flow Rate FiO2 12/22/16 14:36 36.9 87 20 185/81 99 Room Air Notes Mental Status: alert / awake / arousable, participated in evaluation Pt Amnestic to Procedure: Yes Nausea / Vomiting: adequately controlled Pain: adequately controlled Airway Patency, RR, SpO2: stable & adequate BP & HR: stable & adequate Hydration State: stable & adequate Anesthetic Complications: no major complications apparent Pt stated having a migraine prior to her colonoscopy. In PACU, pt reports continuing to having a migraine. She states that she usually gets Dilaudid. I ordered a one time dose of fentanyl 50mcg IV for her migraine. She is otherwise stable for discharge.
[2016-12-22 17:21] VITALS: BP 142/77; PULSE 91; O2SAT 97
== END | disposition home or self-care (01) ==
LOC: C.GI 13:56
PROVIDERS: ATTEND Internal Medicine Gastroenterology
DX: R19.7 Diarrhea, unspecified (principal); K57.30 Diverticulosis of large intestine without perforation or abscess without bleeding; K21.9 Gastro-esophageal reflux disease without esophagitis; Z90.49 Acquired absence of other specified parts of digestive tract; M19.90 Unspecified osteoarthritis, unspecified site; E07.9 Disorder of thyroid, unspecified; J45.909 Unspecified asthma, uncomplicated; J44.9 Chronic obstructive pulmonary disease, unspecified; Z88.1 Allergy status to other antibiotic agents; Z88.2 Allergy status to sulfonamides; Z88.8 Allergy status to other drugs, medicaments and biological substances; Z98.890 Other specified postprocedural states; Z79.82 Long term (current) use of aspirin

== ENCOUNTER 2016-12-30 15:58 | Emergency (ER) | payer BC ==
[~2016-12-30] VITALS: Ht 154.9 cm; Wt 87.0 kg
[~2016-12-30 15:58] MED LIST changes: -ALBU18002 INH; -AMX875 PO; -ASPI81TA28 PO; -ATROPINE SULFATE 0.1 MG/ML 5ML SYR IV PRN; -CALC600T9 PO; -CHOL50007 PO; -CYNI1000 IM; -DIPH25CA65 PO; -EpHEDrine SULFATE INJ 50 MG/ML AMP IV PRN; -FENTANYL CITRATE INJ 50 MCG/1 ML 2 ML VIAL IV ONE; -FENTANYL CITRATE INJ 50 MCG/1 ML 2 ML VIAL ONE; -FERR1TAB62 PO; -FLUT1AER5 INH; -FLX10 PO; -KETO30IN5 IM; -LEVO88TA3 PO; -LIDOCAINE HCL 2% 2 ML VIAL (20MG/ML) ONE; -MAGN400T6 PO; -METH4PAK PO; -MISCCAP80 PO; -MULT-506 PO; -NRN100 PO; -NRV/5 PO; -OMEP20CA9 PO; -PREG1CAP28 PO; -PROPOFOL IV EMULSION 10 MG/ML 20 ML VIAL IV ONE; -RANI150T2 PO; -RIZA10TA21 PO; -ROPI1TAB29 PO; -SODIUM CHLORIDE 0.9% 500ML 500 ML IV ONE; -TPM100 PO; -WLC625 PO
[2016-12-30 16:10] VITALS: TEMP 36.7; Ht 154.9 cm; Wt 87.0 kg
[2016-12-30] MEDS ORDERED: PROCHLORPERAZINE 5 MG/ML 2 ML VIAL IV STA (16:35)
[2016-12-30] MEDS ORDERED: SODIUM CHLORIDE 0.9% 1000ML 1,000 ML IV ONE (16:35)
[2016-12-30] MEDS ORDERED: DiphenhydrAMINE HCL 50 MG/ML VIAL IV STA (16:35)
[2016-12-30] MEDS ORDERED: HYDROmorphone INJ 1 MG/ML SYR IV STA ×2 (16:35→17:43)
[2016-12-30] MEDS ORDERED: SODIUM CHLORIDE 0.9% 1000ML 1,000 ML IV STA (16:35)
--- NOTE | 2016-12-30 16:46 | EMERGENCY ROOM VISIT NOTE ---
History Report prepared by Kaela: Rosendo Hinojosa Under the Supervision of: Dr. Yan Hooks M.D. First contact with patient: 16:23 Chief Complaint: HEADACHE Stated Complaint: MIGRAINE,NAUSEA,DIARRHEA History of Present Illness The patient is a 66 year old female who presents to the Emergency Room with complaints of a severe headache starting this morning. She first started having severe diarrhea. She took Imodium with some relief. She then started having a headache. The headache is located on the right side. She describes it to be similar to her past migraine headaches. She had a vomiting episode about 4 and a half hours ago. She currently complains of chills. She denies any recent trauma or falls. She denies fevers, chest pain, shortness of breath, numbness, weakness, or any other complaints. Source of History: patient Onset: this morning Position: head Symptom Intensity: severe Associated Symptoms: + chills, + diarrhea, + vomiting, No SOB, No chest pain , No fevers, No numbness, No weakness Review of Systems See HPI for pertinent positives & negatives. A total of 10 systems reviewed and were otherwise negative. Past Medical & Surgical Medical Problems: (1) Abdominal pain (2) Abdominal pain (3) Asthma (4) BARIATRIC SURGERY STATUS (5) C. 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 (8) COPD (chronic obstructive pulmonary disease) (9) Cough (10) Dehydration (11) Dehydration (12) Diarrhea (13) Diarrhea (14) Headache (15) Headache (16) HYPOTHYROIDISM NOS (17) MIGRAINE UNSPECIFIED W/O INTRACT MGRN W/O STATUS MIGRAINOSUS (18) Pneumonia (19) Pneumonia (20) Reflux esophagitis (21) Stomach problems Surgical Problems: (1) Hx of cholecystectomy Old medical records were reviewed. Nurse's notes were reviewed and I agree with. Family History Diabetes mellitus Hypertension Kidney disease Stroke Social History Smoking Status: Never Smoker Alcohol Use: none Drug Use: none Marital Status: Housing Status: lives with family Occupation Status: disabled Current/Historical Medications Scheduled Amlodipine Besylate (Amlodipine Besylate), 5 MG PO HS Aspirin (Aspirin Ec), 81 MG PO QPM Calcium Carbonate-Vitamin D (Calcium + D), 1 TAB PO QPM Cholecalciferol (Ra Vitamin D-3), 5,000 INTER.UNIT PO DAILYBB Colesevelam Hcl (Welchol), 625 MG PO BID Cyanocobalamin (Cyanocobalamin), 1,000 MCG IM Q3 MONTHS Ferrous Sulfate (Ferrous Sulfate), 325 MG PO HS Gabapentin (Gabapentin), 100 MG PO TID Levothyroxine Sodium (Levothyroxine Sodium), 88 MCG PO QAM Magnesium Oxide (Mag-Ox), 400 MG PO DAILY Multivitamin (Multivitamin), 1 TAB PO DAILY Omeprazole (Prilosec), 20 MG PO HS Pregabalin (Lyrica), 75 MG PO BID Probiotic Product (Probiotic), 1 CAP PO HS Ranitidine (Zantac), 150 MG PO HS Ropinirole HCl (Ropinirole HCl), 1 MG PO TID Topiramate (Topiramate), 100 MG PO BID Scheduled PRN Albuterol Sulfate (Proair Respiclick), 2 PUFFS INH QID PRN for Wheezing Cyclobenzaprine HCl (Cyclobenzaprine HCl), 10 MG PO TID PRN for Muscle Spasm Diphenhydramine Hcl (Benadryl Allergy), 25 MG PO HS PRN for Sleep Ketorolac Tromethamine (Ketorolac Tromethamine), 30 MG IM WK PRN for Pain Rizatriptan Benzoate (Rizatriptan Benzoate), 10 MG PO UD PRN for Migraine Allergies Coded Allergies: Morphine (Verified Allergy, Intermediate, rash, 11/30/16) Sulfa Antibiotics (Verified Allergy, Intermediate, HIVES, 11/30/16) Dust (Verified Allergy, Mild, ITCHY EYES, 11/30/16) Oxycodone (Verified Allergy, Mild, itchy, 11/30/16) Prednisone (Verified Allergy, Mild, ITCHY, 11/30/16) Methylprednisolone (Verified Adverse Reaction, Intermediate, vomiting, shaking, 11/30/16) Metformin (Verified Adverse Reaction, Mild, "diarrhea", 11/30/16) Molds & Smuts (Verified Adverse Reaction, Mild, ITCHY EYES, HEADACHES, ) Physical Exam Vital Signs Date Time Temp Pulse Resp B/P Pulse Ox O2 Delivery O2 Flow Rate FiO2 12/30/16 19:05 85 18 123/88 100 12/30/16 18:07 87 18 154/84 100 Room Air 12/30/16 16:10 36.7 73 16 170/69 99 Room Air Physical Exam General: Non-ill appearing, middle age female, resting comfortably in the dark room. Mild photophobia. HEENT: Normal cephalic atraumatic. Pupils are equal round and reactive to light. Extraocular movements are intact. Oropharynx is pink with moist mucous membranes. No swelling of the mouth lips or tongue. Neck: Supple with a midline trachea. No meningeal signs or stiffness, no JVD or bruits. No Stridor. Chest: Clear to auscultation bilaterally. No wheezes or rhonchi. No increased work of breathing. Heart: regular rate and rhythm. Abdomen: Soft nontender, nondistended without rebound guarding or rigidity. Extremities: No cyanosis clubbing or edema. No calf tenderness or assymetry Spine/Back. Non tender to palpation. No CVA tenderness Skin: Good turgor without rashes. Neurologic exam: Cranial nerves two through 12 are intact. Motor and sensation are intact and symmetrical throughout. No tremor. Medical Decision & Procedures Medications Administered Medications (Trade) Dose Ordered Sig/Radha Route Start Time Stop Time Status Last Admin Dose Admin Sodium Chloride 1,000 ml @ 999 mls/hr Q1H1M STAT IV 12/30/16 16:35 12/30/16 17:35 DC 12/30/16 17:03 999 MLS/HR Sodium Chloride (Nss 1000ml) 1,000 ml @ 150 mls/hr Q6H40M ONCE IV 12/30/16 16:35 12/30/16 19:28 DC 12/30/16 18:05 150 MLS/HR Hydromorphone HCl (Dilaudid Inj) 1 mg NOW STAT IV 12/30/16 16:35 12/30/16 16:38 DC 12/30/16 17:05 1 MG Prochlorperazine Edisylate (Compazine Inj) 10 mg NOW STAT IV 12/30/16 16:35 12/30/16 16:38 DC 12/30/16 17:03 10 MG Diphenhydramine HCl (Benadryl Inj) 25 mg NOW STAT IV 12/30/16 16:35 12/30/16 16:38 DC 12/30/16 17:03 25 MG Hydromorphone HCl (Dilaudid Inj) 1 mg NOW STAT IV 12/30/16 17:43 12/30/16 17:44 DC 12/30/16 18:03 1 MG Heparin Sodium (Porcine) (Heparin 100 Unit/ml 5ml Flush) 5 ml STK-MED ONCE .ROUTE 12/30/16 19:04 12/30/16 19:05 DC 12/30/16 19:04 5 ML ED Course 1623: Past medical records reviewed. The patient was evaluated in room C05, and a complete history and physical examination were performed. 1635: Benadryl Inj 25 mg IV, Compazine Inj 10 mg IV, Dilaudid Inj 1 mg IV, Sodium Chloride 1000 ml @ 150 mls/hr IV, Sodium Chloride 1000 ml @ 999 mls/hr IV 1743: Dilaudid Inj 1 mg IV. I reevaluated the patient whose headache has improved. 1841: Upon reevaluation, the patient is resting comfortably. I discussed the results and treatment plan with her. She verbalized agreement of the treatment plan. The patient was discharged home. Medical Decision Differential diagnosis includes but is not limited to migraine, dehydration, stroke, intracranial hemorrhage, diarrhea. This patient comes in as described above. She was placed in room C5. She is here for migraine headaches and diarrhea. I do know her well from previous visits this presentation similar to her previous. This headache is no different than her previous migraine. she has no fever. She has a normal neurologic exam and she has no trauma. There is nothing by history of physical exam to suggest meningitis, subarachnoid hemorrhage, or intracranial hemorrhage. IV access established had with IV normal saline. She does attend of chronic diarrhea as well. She is given Dilaudid 1 mg IV, Compazine 10mg IV and Benadryl 25 mg IV. This is her typical cocktail she did require additional Dilaudid 1 mg IV. She is feeling much better when like to go home. is at the bedside and driving. She will be discharged home. She should return if : worsening symptoms, headache different than typical, fever or chills, numbness weakness, any new problems or concerns. She is happy with plan and discharged to home. Impression Primary Impression: Migraine Additional Impression: Diarrhea Scribe Attestation The scribe's documentation has been prepared under my direction and personally reviewed by me in its entirety. I confirm that the note above accurately reflects all work, treatment, procedures, and medical decision making performed by me. Departure Information Dispostion Home / Self-Care Referrals Bianca Rg (PCP) Forms HOME CARE DOCUMENTATION FORM, IMPORTANT VISIT INFORMATION Patient Instructions My [facility] Additional Instructions Rest. Drink plenty of fluids. Return if: Headache different than typical, worsening symptoms, fever or chills , any new problems or concerns Problem Qualifiers
[2016-12-30] MEDS ORDERED: CALC600T9 PO (18:00)
[2016-12-30 19:05] VITALS: BP 123/88; PULSE 85; O2SAT 100
[2017-05-20] MEDS ORDERED: ASPI81TA28 PO (10:14)
[2017-05-20] MEDS ORDERED: MISCCAP80 PO (10:16)
[2017-05-20] MEDS ORDERED: DIPH25CA65 PO (10:44)
[2017-05-20] MEDS ORDERED: TPM100 PO (14:41)
[2017-05-20] MEDS ORDERED: RIZA10TA21 PO (15:46)
[2017-05-20] MEDS ORDERED: FERR1TAB62 PO (19:24)
== END 2016-12-30 19:06 | disposition home or self-care (01) ==
LOC: C.EDB 16:00 → C.EDC 19:06
DX: G43.909 Migraine, unspecified, not intractable, without status migrainosus (principal); R19.7 Diarrhea, unspecified; J45.909 Unspecified asthma, uncomplicated; J44.9 Chronic obstructive pulmonary disease, unspecified; E03.9 Hypothyroidism, unspecified; Z79.82 Long term (current) use of aspirin; Z98.84 Bariatric surgery status; Z83.3 Family history of diabetes mellitus; Z82.49 Family history of ischemic heart disease and other diseases of the circulatory system; Z82.3 Family history of stroke

== ENCOUNTER 2017-01-08 12:40 | Emergency (ER) | payer BC ==
[~2017-01-08 12:40] MED LIST changes: +CALC600T9 PO; -CYCL10TA6 PO
[2017-01-08 12:43] VITALS: TEMP 36.5; Ht 154.9 cm
[2017-01-08] MEDS ORDERED: PROCHLORPERAZINE 5 MG/ML 2 ML VIAL IM STA (13:14)
[2017-01-08] MEDS ORDERED: ALBUT/IPRATROP 3MG/0.5MG NEB 3 ML VIAL INH STA (13:14)
[2017-01-08] MEDS ORDERED: KETOROLAC TROMETHAMINE 60 MG/2 ML VIAL IM STA (13:14)
[2017-01-08] MEDS ORDERED: HYDROmorphone INJ 1 MG/ML SYR IM STA (13:14)
[2017-01-08] MEDS ORDERED: HYDROmorphone INJ 1 MG/ML SYR IV STA (13:23)
[2017-01-08] MEDS ORDERED: PROCHLORPERAZINE 5 MG/ML 2 ML VIAL IV STA (13:23)
[2017-01-08] MEDS ORDERED: DiphenhydrAMINE HCL 50 MG/ML VIAL IV STA (13:23)
[2017-01-08] MEDS ORDERED: SODIUM CHLORIDE 0.9% 1000ML 1,000 ML IV ONE (13:30)
--- NOTE | 2017-01-08 14:34 | DIAGNOSTIC IMAGING REPORT ---
CHEST 2 VIEWS ROUTINE CLINICAL HISTORY: Shortness of breath. History of asthma and pneumonia. COMPARISON STUDY: Chest radiograph November 14, 2016. FINDINGS: A right-sided [id number] remains in place. There is no pneumothorax or pleural effusion. Cardiac size is normal. Mediastinal contours are normal. There is no evidence of pulmonary edema. The appearance of the chest is unchanged. IMPRESSION: No acute cardiopulmonary findings. Electronically signed by: Quinn Rocha M.D. 01/08/2017 2:33 PM Dictated Date/Time: 01/08/2017 2:32 PM
[2017-01-08 15:39] VITALS: BP 190/95; PULSE 88; O2SAT 97
--- NOTE | 2017-01-08 21:13 | EMERGENCY ROOM VISIT NOTE ---
ED Visit Note First contact with patient: 12:55 CHIEF COMPLAINT: Migraine headache and asthma attack. HISTORY OF PRESENT ILLNESS: Ms. Maldonado is a 66 year-old white female who is brought into the ED accompanied by her complaining of a migraine headache and asthma attack. She reports a gradual onset of a severe migraine headache that started approximately 4 hours ago while she was in hoahaoism. The pain is constant and it is slowly increasing in severity. She reports this is the worst headache of her life and similar but not exactly like her previous migraine headaches. Currently she describes the headache as a throbbing sensation/pain in the bilateral occipital area. She rates the pain a 8/10. Her pain is nonradiating. She has not identified any aggravating or alleviating factors related to the pain. She has not taken any medications for pain prior to arrival at the hospital. Associated with her pain she reports she is nauseated but has not vomited, light sensitive. Additionally she reports that she has been having a mild productive cough of yellowish sputum over the last few days. Shortly after the onset of her headache she reports she started feeling short of breath and feels like she is having an asthma exacerbation. She did use 3 puffs of her albuterol inhaler at the onset of her shortness of breath without any relief of her discomfort. She denies any fevers, chills, sweats, recent direct/repetitive head trauma, dizziness, lightheadedness, skin eruptions, skin color changes, neck pain/ stiffness, other upper respiratory tract symptoms, abdominal pain, extremity weakness/numbness/tingling. REVIEW OF SYSTEMS: As noted above in History of Present Illness; all body systems were reviewed with the patient and found to be negative as best noted above otherwise. PAST MEDICAL HISTORY: (1) Abdominal pain (2) Abdominal pain (3) Asthma (4) BARIATRIC SURGERY STATUS (5) C. 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 (8) COPD (chronic obstructive pulmonary disease) (9) Cough (10) Dehydration (11) Dehydration (12) Diarrhea (13) Diarrhea (14) Headache (15) Headache (16) HYPOTHYROIDISM NOS (17) MIGRAINE UNSPECIFIED W/O INTRACT MGRN W/O STATUS MIGRAINOSUS (18) Pneumonia (19) Pneumonia (20) Reflux esophagitis (21) Stomach problems Surgical Problems: (1) Hx of cholecystectomy CURRENT MEDICATIONS: Medications Dose Route/Sig Max Daily Dose Days Date Category Dose Instructions Cyclobenzaprine HCl 10 Mg Tab 10 Mg PO TID PRN 12/30/16 Reported Ketorolac Tromethamine 30 Mg/Ml Inj 30 Mg IM WK PRN 12/30/16 Reported Ra Vitamin D-3 (Cholecalciferol) 5,000 Unit Cap 5,000 Inter.unit PO DAILYBB 12/30/16 Reported Topiramate 100 Mg Tab 100 Mg PO BID 11/14/16 Reported Cyanocobalamin 1,000 Mcg/Ml Inj 1,000 Mcg IM Q3 MONTHS 10/28/16 Reported Proair Respiclick (Albuterol Sulfate) 108 Mcg/Act Aer 2 Puffs INH QID PRN 10/28/16 Reported Rizatriptan Benzoate 10 Mg Tab 10 Mg PO UD PRN 10/28/16 Reported TAKE ONE TABLET AT ONSET OF MIGRAINE HEADACHE, MAY REPEAT ONCE AFTER 2 HOURS IF NEEDED Multivitamin (Multivitamins) Tab 1 Tab PO DAILY 09/18/16 Reported Mag-Ox (Magnesium Oxide) 400 Mg Tab 400 Mg PO DAILY 09/18/16 Reported Lyrica (Pregabalin) 75 Mg Cap 75 Mg PO BID 09/13/16 Reported Welchol (Colesevelam Hcl) 625 Mg Tab 2 Tab PO QAM 08/31/16 Reported Prilosec (Omeprazole) 20 Mg Cap 20 Mg PO HS 02/15/16 Reported Gabapentin 100 Mg Cap 100 Mg PO TID 02/15/16 Reported Benadryl Allergy (Diphenhydramine Hcl) 25 Mg Cap 25 Mg PO HS PRN 01/01/16 Reported Amlodipine Besylate 5 Mg Tab 5 Mg PO HS 06/20/15 Reported Probiotic (Probiotic Product) 1 Cap Cap 1 Cap PO HS 03/27/15 Reported Aspirin Ec (Aspirin) 81 Mg Tab 81 Mg PO QPM 03/27/15 Reported Ferrous Sulfate 325 Mg Tab 325 Mg PO HS 01/10/15 Reported TAKE THIS MEDICATION WITH FOOD. Ropinirole HCl 1 Mg Tab 1 Mg PO TID 05/19/14 Reported Levothyroxine Sodium 88 Mcg Tab 88 Mcg PO QAM 12/10/13 Reported ALLERGIES TO MEDICATIONS: Glucophage, methylprednisone, morphine, oxycodone, prednisone, sulfa. SOCIAL HISTORY: Patient is not currently employed; she feels safe in her home environment; she denies tobacco and alcohol use. PHYSICAL EXAM: Vital Signs: Date Time Temp Pulse Resp B/P Pulse Ox O2 Delivery O2 Flow Rate FiO2 01/08/17 15:39 88 16 190/95 97 01/08/17 14:31 75 16 149/69 99 Room Air 01/08/17 12:43 36.5 58 20 160/86 100 Room Air GENERAL: 66 year-old white female in moderate distress due to pain, afebrile and hemodynamically stable. Found lying in a darkened room with sunglasses on. NEUROLOGIC: Awake, alert and oriented to person place and time. Answering questions appropriately and following commands. Cranial nerves II-XII grossly intact. Deep tendon reflexes 2+ and bilaterally symmetric. No focal neurologic deficits noted. SKIN: Warm, dry and pink. No rashes, lesions or soft tissue trauma noted. HEENT: Normocephalic, atraumatic. Pupils equal, round and reactive. Extraocular movements intact and there is no nystagmus. Sclera anicteric. Ears , nose and oropharynx clear. The patient is photophobic, precluding funduscopic exam. NECK: Soft and supple. No tenderness through the central cervical region or cervical musculature. Negative Kernigs and negative Brudzinski signs. No lymphadenopathy, jugular venous distention, or bruits noted. THORAX: Lungs clear to auscultation with bilateral diminished breath sounds predominantly on the right. Equal bilaterally chest wall movements. No wheezing, crackles, rhonchi or stridor and equal chest wall movements. HEART: Regular rate and rhythm with no murmurs, rubs or gallops. ABDOMEN: Soft and nontender with bowel sounds present in all quadrants; no rigidity, rebound tenderness, organomegaly or guarding. MUSCULOSKELETAL: Full range of motion of all joints without any significant discomfort and the gait is normal. ED COURSE: Patient is assessed with history and physical examination. The patient was hydrated with normal saline, she received an albuterol/Atrovent nebulizer breathing treatment, 1 mg of Dilaudid IV for pain, 10 mg of Reglan IV for nausea, 25 mg of Benadryl IV. Chest X-Rays: Was read by myself and the radiologist showing no acute infiltrates, effusions or pneumothorax. Normal heart silhouette and bony anatomy. No evidence of pulmonary embolism, and a right sided infusion port was noted. This was compared to previous and no acute changes were noted. Patient was reassessed and subjectively reported she was feeling much better; on reevaluation of her lungs she had improved air movement in all dominguez and continued to have no wheezing, rales or rhonchi. Patient was educated about her condition and instructed on her treatment plan; she verbalized understanding and agreement with this plan. CLINICAL IMPRESSION: Migraine headache. Asthma exacerbation DECISION MAKIN-year-old female who presents for evaluation of headache and back pain. She is afebrile, well appearing, and hemodynamically stable. She has no signs of a sinus, dental, or ear infection and no evidence of meningismus. She is neurologically intact. I do not suspect a headache to be secondary to a subarachnoid hemorrhage, meningitis, encephalitis, or intracranial mass lesion. Additionally she expressed concerns about possible asthma exacerbation on evaluation she responded well to an albuterol/Atrovent nebulizer breathing treatment and a chest x-ray shows no infiltrates, effusions, pneumothorax or signs of heart failure. DISPOSITION: Patient was discharged to home in stable condition accompanied by her ; prior to departure she was reassessed and subjectively reported that she was pain and symptom-free. DISCHARGE INSTRUCTIONS: Migraine headache: Rest at home, in a quiet darkened room and allow the medication to work for the pain. Continue to follow up current treatment plan prescribed by your physician for your migraine headaches. See your own doctor in follow-up this week for continued care and treatment. Return to the ED as needed for worsening/uncontrolled pain, fevers, abnormal neurological symptoms, in accordance with her treatment plan or any new/ concerning symptoms. Asthma exacerbation Patient was encouraged to use her albuterol inhaler with spacer 2 puffs every 6 hours for 5 days and for shortness of breath/wheezing or severe coughing episode. Patient was encouraged to continue her other medications. Patient was encouraged to follow-up with her family doctor for recheck in 3-4 days. Patient was encouraged to use an [id number] cough suppressant and follow packaging instructions as needed. Patient was encouraged return the ED for worsening shortness of breath/wheezing , coughing up blood, fevers or any new/concerning symptoms.
[2017-05-20] MEDS ORDERED: ASPI81TA28 PO (10:14)
[2017-05-20] MEDS ORDERED: MISCCAP80 PO (10:16)
[2017-05-20] MEDS ORDERED: DIPH25CA65 PO (10:44)
[2017-05-20] MEDS ORDERED: TPM100 PO (14:41)
[2017-05-20] MEDS ORDERED: RIZA10TA21 PO (15:46)
[2017-05-20] MEDS ORDERED: FERR1TAB62 PO (19:24)
== END 2017-01-08 15:15 | disposition home or self-care (01) ==
LOC: C.EDB 12:42
DX: G43.909 Migraine, unspecified, not intractable, without status migrainosus (principal); J45.901 Unspecified asthma with (acute) exacerbation; J44.9 Chronic obstructive pulmonary disease, unspecified; E03.9 Hypothyroidism, unspecified; Z79.82 Long term (current) use of aspirin; Z98.84 Bariatric surgery status

== ENCOUNTER 2017-01-25 15:05 | Emergency (ER) | payer BC ==
[2017-01-25 15:18] VITALS: TEMP 36.7; Ht 154.9 cm
[2017-01-25] MEDS ORDERED: AMX875 PO (16:09)
[2017-01-25] MEDS ORDERED: HYDROmorphone INJ 1 MG/ML SYR IV STA ×2 (16:16→17:41)
[2017-01-25] MEDS ORDERED: ALBUT/IPRATROP 3MG/0.5MG NEB 3 ML VIAL INH STA (16:16)
[2017-01-25] MEDS ORDERED: DiphenhydrAMINE HCL 50 MG/ML VIAL IV STA (16:16)
[2017-01-25] MEDS ORDERED: SODIUM CHLORIDE 0.9% 1000ML 1,000 ML IV STA (16:16)
[2017-01-25] MEDS ORDERED: PROCHLORPERAZINE 5 MG/ML 2 ML VIAL IV STA (16:16)
[2017-01-25 16:34] VITALS: O2SAT 99
--- NOTE | 2017-01-25 18:28 | EMERGENCY ROOM VISIT NOTE ---
ED Visit Note First contact with patient: 15:53 CHIEF COMPLAINT: Migraine headache since Monday HISTORY OF PRESENT ILLNESS: Patient is a 66 year old female who presents to the Emergency Room accompanied by her for evaluation of migraine headache and associated COPD exacerbation. She reports that she has been following with her primary care provider, Edyta Rg, for the last week, regarding her COPD. She has had a frequent, nonproductive cough and some tightness in her chest. She has been using a Pro-Air inhaler, and has been on amoxicillin for 1 week. She has a nebulizer machine, but states that her insurance will not cover nebulizer vials. She noted a few days of intermittent diarrhea, and today developed a headache with associated nausea and vomiting. She reports the headache is occipital in nature, and she rates it an 8.5/10. The patient reports associated dizziness and "seeing spots." The patient states this feels usual for her typical migraine. She denies any fevers. She denies any neck pain or neck stiffness. She denies any pain in her chest. She denies any weakness, numbness or tingling. The patient reports that she is on Topamax chronically for migraine prevention, but is not presently on any abortive medications. She did not take any medications for her headache today. She denies any other changes in her medication regimen or migraine management recently. REVIEW OF SYSTEMS: Review of systems as per HPI. All other systems reviewed were negative. 10 systems reviewed. PMH: Electronic medical records are reviewed and summarized as above/below. See Problem List. SOCIAL HISTORY: Patient lives at home with her . PHYSICAL EXAM: Vital Signs: Reviewed Nurse's notes. General Appearance: Patient is an obese 66-year-old white female who is awake and alert and in no acute distress. She is laying in a darkened room with sunglasses on. Eyes: Pupils equal round reactive to light extraocular muscles are intact, no proptosis, mild photophobia ENT: Oropharynx is clear, mucous membranes are dry, tympanic membranes are clear bilaterally, no sinus or dental tenderness Neck: Supple, no cervical lymphadenopathy, no meningismus Heart: Regular rate and rhythm, S1 and S2 Lungs: Clear to auscultation bilaterally, no wheezes Rales or rhonchi, no increased work of breathing Abdomen: Well-healed surgical scars. Soft nontender nondistended. Normal active bowel sounds. No rebound. No guarding. Back: No midline tenderness to palpation. : No CVA tenderness to palpation. Skin: Warm, no diaphoresis, no rashes. Extremities: No cyanosis, clubbing, or edema Neurologic: Patient is awake alert, and oriented x 3. Cranial nerves 2-12 are grossly intact. Motor 5 out of 5 strength bilateral upper extremities and lower extremities. No gross sensory deficits. Reflexes are 2+ throughout. EMERGENCY DEPARTMENT COURSE: The patient was seen and examined as above. Old records are reviewed. The patient has a long-standing history of migraines. She is well-known to the emergency department. She is on a 2 shot per month treatment protocol. She states that this headache is typical of her usual phenomenon. She has not had any fevers, neck pain, neck stiffness or nuchal rigidity to suggest meningitis. This is her first visit for the month of January. Her indwelling port was accessed. The patient was given 10 mg IV Compazine, 25 mg IV Benadryl and 1 mg IV Dilaudid. She was hydrated with a liter of normal saline. She was given a DuoNeb treatment. On reassessment, patient reported that she was still having pain. The nebulizer had settled her cough. She was given an additional 1 mg IV Dilaudid with improvement in her symptoms. These are doses that she typically receives, and responds well to. She was discharged home with her driving. She rated her headache a 4/ 10 at discharge. Differential includes: acute intracranial bleed, meningitis, encephalitis, mass or mass effect, sinusitis, infection, migraine, tumor, headache, temporal arteritis and carbon monoxide exposure. Problem List Medical Problems: (1) Abdominal pain Status: Resolved (2) Abdominal pain Status: Resolved (3) Asthma Status: Chronic (4) BARIATRIC SURGERY STATUS Status: Resolved (5) C. difficile colitis Status: Resolved (6) Chest pain Status: Resolved (7) CHR AIRWAY OBSTRUCT NEC Status: Chronic (8) COPD (chronic obstructive pulmonary disease) Status: Chronic (9) Cough Status: Resolved (10) Dehydration Status: Resolved (11) Dehydration Status: Resolved (12) Diarrhea Status: Resolved (13) Diarrhea Status: Resolved (14) Headache Status: Chronic (15) Headache Status: Resolved (16) HYPOTHYROIDISM NOS Status: Chronic (17) MIGRAINE UNSPECIFIED W/O INTRACT MGRN W/O STATUS MIGRAINOSUS Status: Chronic (18) Pneumonia Status: Resolved (19) Pneumonia Status: Resolved (20) Reflux esophagitis Status: Chronic (21) Stomach problems Status: Resolved Surgical Problems: (1) Hx of cholecystectomy Status: Resolved Current/Historical Medications Scheduled Amlodipine Besylate (Amlodipine Besylate), 5 MG PO HS Amoxicillin (Amoxicillin), 875 MG PO BID Aspirin (Aspirin Ec), 81 MG PO QPM Cholecalciferol (Ra Vitamin D-3), 5,000 INTER.UNIT PO DAILYBB Colesevelam Hcl (Welchol), 1,250 MG PO QAM Cyanocobalamin (Cyanocobalamin), 1,000 MCG IM Q3 MONTHS Ferrous Sulfate (Ferrous Sulfate), 325 MG PO HS Gabapentin (Gabapentin), 100 MG PO TID Levothyroxine Sodium (Levothyroxine Sodium), 88 MCG PO QAM Magnesium Oxide (Mag-Ox), 400 MG PO DAILY Multivitamin (Multivitamin), 1 TAB PO DAILY Omeprazole (Prilosec), 20 MG PO HS Pregabalin (Lyrica), 75 MG PO BID Probiotic Product (Probiotic), 1 CAP PO HS Ropinirole HCl (Ropinirole HCl), 1 MG PO TID Topiramate (Topiramate), 100 MG PO BID Scheduled PRN Albuterol Sulfate (Proair Respiclick), 2 PUFFS INH QID PRN for Wheezing Cyclobenzaprine HCl (Cyclobenzaprine HCl), 10 MG PO TID PRN for Muscle Spasm Diphenhydramine Hcl (Benadryl Allergy), 25 MG PO HS PRN for Sleep Ketorolac Tromethamine (Ketorolac Tromethamine), 30 MG IM WK PRN for Pain Rizatriptan Benzoate (Rizatriptan Benzoate), 10 MG PO UD PRN for Migraine Allergies Coded Allergies: Morphine (Verified Allergy, Intermediate, rash, 01/08/17) Sulfa Antibiotics (Verified Allergy, Intermediate, HIVES, 01/08/17) Dust (Verified Allergy, Mild, ITCHY EYES, 01/08/17) Oxycodone (Verified Allergy, Mild, itchy, 01/08/17) Prednisone (Verified Allergy, Mild, ITCHY, 01/08/17) Methylprednisolone (Verified Adverse Reaction, Intermediate, vomiting, shaking, 01/08/17) Metformin (Verified Adverse Reaction, Mild, "diarrhea", 01/08/17) Molds & Smuts (Verified Adverse Reaction, Mild, ITCHY EYES, HEADACHES, ) Vital Signs Date Time Temp Pulse Resp B/P Pulse Ox O2 Delivery O2 Flow Rate FiO2 01/25/17 18:47 91 18 156/86 97 01/25/17 17:20 85 20 155/66 99 Room Air 01/25/17 16:34 99 Room Air 01/25/17 15:18 36.7 75 16 155/78 97 Room Air Medications Administered Medications (Trade) Dose Ordered Sig/Radha Route Start Time Stop Time Status Last Admin Dose Admin Hydromorphone HCl (Dilaudid Inj) 1 mg NOW STAT IV 01/25/17 16:16 01/25/17 16:19 DC 01/25/17 16:44 1 MG Prochlorperazine Edisylate (Compazine Inj) 10 mg NOW STAT IV 01/25/17 16:16 01/25/17 16:19 DC 01/25/17 16:43 10 MG Diphenhydramine HCl 25 mg 25 mg NOW STAT IV 01/25/17 16:16 01/25/17 16:19 DC 01/25/17 16:43 25 MG Sodium Chloride (Nss 1000ml) 1,000 ml @ 999 mls/hr Q1H1M STAT IV 01/25/17 16:16 01/25/17 17:16 DC 01/25/17 16:36 999 MLS/HR Albuterol/ Ipratropium (Duoneb) 3 ml NOW STAT INH 01/25/17 16:16 01/25/17 16:19 DC 01/25/17 16:16 3 ML Hydromorphone HCl (Dilaudid Inj) 1 mg NOW STAT IV 01/25/17 17:41 01/25/17 17:42 DC 01/25/17 18:10 1 MG Heparin Sodium (Porcine) (Heparin 100 Unit/ml 5ml Flush) 5 ml STK-MED ONCE .ROUTE 01/25/17 18:38 01/25/17 18:39 DC 01/25/17 18:38 5 ML Departure Information Impression Primary Impression: Headache Additional Impression: COPD exacerbation Referrals Bianca Rg (PCP) Patient Instructions [facility] Additional Instructions DO NOT drive, drink alcohol, operate machinery, or perform dangerous activities today. You were given medications in the ER that can affect your ability to safely function or operate a vehicle. Rest today in a quiet, peaceful, dark environment and get a full 8-10 hrs of sleep tonight. Avoid loud noises, smoke/smoking, alcohol, bright lights, stress, or physical exertion today to minimize the chance the headache may return. Continue current medications. Return to the ER for passing out, worsening headache, vision problems, neck stiffness/pain, fevers, vomiting, worsening of your condition, or as needed. Follow up with your primary physician this week for a recheck of your current condition. Problem Qualifiers
[2017-01-25 18:47] VITALS: BP 156/86; PULSE 91; O2SAT 97
--- NOTE | 2017-01-25 22:45 | EMERGENCY ROOM VISIT NOTE ---
ED Visit Note First contact with patient: 15:53 I have personally evaluated this patient examined her and reviewed the pertinent labs and data. I have discussed the case with Hina Cleary, the physician assistant football coach and agree with the plan. Please refer to the PA note. This patient comes in with a headache consistent with her previous migraines. I do know her well from previous visits. She has a normal neurologic exam. She appears stable. She was given medications for her headache and will be discharged home. Her is at the bedside will be driving.
[2017-05-20] MEDS ORDERED: ASPI81TA28 PO (10:14)
[2017-05-20] MEDS ORDERED: MISCCAP80 PO (10:16)
[2017-05-20] MEDS ORDERED: DIPH25CA65 PO (10:44)
[2017-05-20] MEDS ORDERED: TPM100 PO (14:41)
[2017-05-20] MEDS ORDERED: RIZA10TA21 PO (15:46)
[2017-05-20] MEDS ORDERED: FERR1TAB62 PO (19:24)
== END 2017-01-25 18:49 | disposition home or self-care (01) ==
LOC: C.EDB 15:07 → C.EDD 18:49
DX: G43.909 Migraine, unspecified, not intractable, without status migrainosus (principal); J44.1 Chronic obstructive pulmonary disease with (acute) exacerbation; E66.9 Obesity, unspecified; E03.9 Hypothyroidism, unspecified; K21.9 Gastro-esophageal reflux disease without esophagitis; Z79.82 Long term (current) use of aspirin; Z95.828 Presence of other vascular implants and grafts; Z98.84 Bariatric surgery status

== ENCOUNTER 2017-02-05 14:40 | Emergency (ER) | payer BC ==
[~2017-02-05 14:40] MED LIST changes: +AMX875 PO; -CALC600T9 PO; -ZNTT/150 PO
[2017-02-05 14:51] VITALS: TEMP 36.6
[2017-02-05] MEDS ORDERED: HYDROmorphone INJ 1 MG/ML SYR IV STA ×2 (15:10→17:02)
[2017-02-05] MEDS ORDERED: SODIUM CHLORIDE 0.9% 1000ML 1,000 ML IV STA (15:12)
[2017-02-05] MEDS ORDERED: PROCHLORPERAZINE 5 MG/ML 2 ML VIAL IV STA (15:12)
[2017-02-05] MEDS ORDERED: DiphenhydrAMINE INJ 25 MG in SYRINGE 0 ML IV ONE (15:15)
[2017-02-05] MEDS ORDERED: DiphenhydrAMINE HCL 50 MG/ML VIAL ONE (16:18)
[2017-02-05] MEDS ORDERED: DiphenhydrAMINE HCL 50 MG/ML VIAL IV STA (16:51)
--- NOTE | 2017-02-05 18:31 | EMERGENCY ROOM VISIT NOTE ---
History First contact with patient: 14:57 Chief Complaint: HEADACHE Stated Complaint: MIGRAINE, NAUSEA, VOMITING History of Present Illness The patient is a 66 year old female who presents to the Emergency Room with complaints of migraine headache. She states the migraine is in the back of her head and sharp 8/10 pain. The pain began when she woke up this morning and has been continuous in nature. She complains of nausea and vomiting throughout the morning and was especially nauseous on the drive to the hospital. She also is complaining of sensitivity to light and has had to wear sunglasses and be in a dark room. She denies and weakness, numbness or tingling, loss off strength, slurring of speech, confusion, or lightheadedness. Review of Systems See HPI for pertinent positives and negatives. A total of ten systems were reviewed and were otherwise negative. Past Medical/Surgical History Medical Problems: (1) Abdominal pain (2) Abdominal pain (3) Asthma (4) BARIATRIC SURGERY STATUS (5) C. 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 (8) COPD (chronic obstructive pulmonary disease) (9) Cough (10) Dehydration (11) Dehydration (12) Diarrhea (13) Diarrhea (14) Headache (15) Headache (16) HYPOTHYROIDISM NOS (17) MIGRAINE UNSPECIFIED W/O INTRACT MGRN W/O STATUS MIGRAINOSUS (18) Pneumonia (19) Pneumonia (20) Reflux esophagitis (21) Stomach problems Surgical Problems: (1) Hx of cholecystectomy Family History Diabetes mellitus Hypertension Kidney disease Stroke Social History Smoking Status: Never Smoker Alcohol Use: none Drug Use: none Marital Status: Housing Status: lives with family Occupation Status: disabled Current/Historical Medications Scheduled Amlodipine Besylate (Amlodipine Besylate), 5 MG PO HS Aspirin (Aspirin Ec), 81 MG PO QPM Cholecalciferol (Ra Vitamin D-3), 5,000 INTER.UNIT PO DAILYBB Colesevelam Hcl (Welchol), 1,250 MG PO QAM Cyanocobalamin (Cyanocobalamin), 1,000 MCG IM Q3 MONTHS Ferrous Sulfate (Ferrous Sulfate), 325 MG PO HS Gabapentin (Gabapentin), 100 MG PO TID Levothyroxine Sodium (Levothyroxine Sodium), 88 MCG PO QAM Magnesium Oxide (Mag-Ox), 400 MG PO DAILY Multivitamin (Multivitamin), 1 TAB PO DAILY Omeprazole (Prilosec), 20 MG PO HS Pregabalin (Lyrica), 75 MG PO BID Probiotic Product (Probiotic), 1 CAP PO HS Ropinirole HCl (Ropinirole HCl), 1 MG PO TID Topiramate (Topiramate), 100 MG PO BID Scheduled PRN Albuterol Sulfate (Proair Respiclick), 2 PUFFS INH QID PRN for Wheezing Cyclobenzaprine HCl (Cyclobenzaprine HCl), 10 MG PO TID PRN for Muscle Spasm Diphenhydramine Hcl (Benadryl Allergy), 25 MG PO HS PRN for Sleep Ketorolac Tromethamine (Ketorolac Tromethamine), 30 MG IM WK PRN for Pain Rizatriptan Benzoate (Rizatriptan Benzoate), 10 MG PO UD PRN for Migraine Allergies Coded Allergies: Morphine (Verified Allergy, Intermediate, rash, 02/05/17) Sulfa Antibiotics (Verified Allergy, Intermediate, HIVES, 02/05/17) Dust (Verified Allergy, Mild, ITCHY EYES, 02/05/17) Oxycodone (Verified Allergy, Mild, itchy, 02/05/17) Prednisone (Verified Allergy, Mild, ITCHY, 02/05/17) Methylprednisolone (Verified Adverse Reaction, Intermediate, vomiting, shaking, 02/05/17) Metformin (Verified Adverse Reaction, Mild, "diarrhea", 02/05/17) Molds & Smuts (Verified Adverse Reaction, Mild, ITCHY EYES, HEADACHES, ) Physical Exam Vital Signs Date Time Temp Pulse Resp B/P Pulse Ox O2 Delivery O2 Flow Rate FiO2 02/05/17 17:08 85 20 141/67 97 Room Air 02/05/17 14:51 36.6 76 20 122/64 97 Room Air Physical Exam GENERAL: Awake, alert, well-appearing, in mild distress HENT: Normocephalic, atraumatic. EYES: Normal conjunctiva. Sclera non-icteric. NECK: Supple. No nuchal rigidity. Trachea midline. RESPIRATORY: Clear to auscultation. CARDIAC: Regular rate, normal rhythm. Extremities warm and well perfused. Pulses equal. ABDOMEN: Soft, non-distended. No tenderness to palpation. No rebound or guarding. No masses. RECTAL: Deferred. MUSCULOSKELETAL: Chest examination reveals no tenderness. No joint edema. LOWER EXTREMITIES: Calves are equal size bilaterally and non-tender. No edema. No discoloration. NEURO: Normal sensorium. No sensory or motor deficits noted. CN 2-12 grossly intact. PERRL. SKIN: No rash or jaundice noted. Medical Decision & Procedures Medications Administered Medications (Trade) Dose Ordered Sig/Radha Route Start Time Stop Time Status Last Admin Dose Admin Hydromorphone HCl (Dilaudid Inj) 1 mg NOW STAT IV 02/05/17 15:10 02/05/17 15:11 DC 02/05/17 16:21 1 MG Prochlorperazine Edisylate 10 mg 10 mg NOW STAT IV 02/05/17 15:12 02/05/17 15:14 DC 02/05/17 16:20 10 MG Sodium Chloride (Nss 1000ml) 1,000 ml @ 999 mls/hr Q1H1M STAT IV 02/05/17 15:12 02/05/17 16:12 DC 02/05/17 15:59 999 MLS/HR Diphenhydramine HCl (Benadryl Inj) 25 mg NOW STAT IV 02/05/17 16:51 02/05/17 16:55 DC 02/05/17 16:51 25 MG Hydromorphone HCl (Dilaudid Inj) 1 mg NOW STAT IV 02/05/17 17:02 02/05/17 17:03 DC 02/05/17 17:06 1 MG Medical Decision Patient is a 66 year old female that presents with complaints of a headache - Patient given 1mg Dilaudid IV, 25mg Benadryl IV, and 10mg Compazine IV - Patient states headache improved but still at a 5/10 - Patient given another 1mg Dilaudid IV - Patient complained of wheezing, called to bedside to assess patient. Patient discloses that she was coughing and on auscultation no wheezing was heard and appeared to have transmitted breath sounds from possible stridor. Patient observed for 30 minutes after which she states that her wheezing had resolved and that she had no more pain related to her headache. Impression Primary Impression: Tension headache Departure Information Dispostion Home / Self-Care Condition GOOD Referrals Bianca Rg (PCP) Patient Instructions [facility]
[2017-02-05 18:49] VITALS: BP 153/81; PULSE 93; O2SAT 99
--- NOTE | 2017-02-05 19:23 | EMERGENCY ROOM VISIT NOTE ---
ED Visit Note First contact with patient: 14:57 Resident Physician Supervision Note: I interviewed and examined the patient. Discussed with Dr. Guerrero and agree with findings and plan as documented in the note. Any exceptions or clarifications are listed here: [None] The patient's regular medications have been reviewed. Documented By: Fredo Delgado
[2017-05-20] MEDS ORDERED: ASPI81TA28 PO (10:14)
[2017-05-20] MEDS ORDERED: MISCCAP80 PO (10:16)
[2017-05-20] MEDS ORDERED: DIPH25CA65 PO (10:44)
[2017-05-20] MEDS ORDERED: TPM100 PO (14:41)
[2017-05-20] MEDS ORDERED: RIZA10TA21 PO (15:46)
[2017-05-20] MEDS ORDERED: FERR1TAB62 PO (19:24)
== END 2017-02-05 18:50 | disposition home or self-care (01) ==
LOC: C.EDB 14:42 → C.EDA 18:50
DX: G44.209 Tension-type headache, unspecified, not intractable (principal); J45.909 Unspecified asthma, uncomplicated; Z98.84 Bariatric surgery status; J44.9 Chronic obstructive pulmonary disease, unspecified; E03.9 Hypothyroidism, unspecified; K21.0 Gastro-esophageal reflux disease with esophagitis; Z83.3 Family history of diabetes mellitus; Z82.49 Family history of ischemic heart disease and other diseases of the circulatory system; Z84.1 Family history of disorders of kidney and ureter; Z79.82 Long term (current) use of aspirin; Z79.899 Other long term (current) drug therapy

== ENCOUNTER 2017-02-17 16:15 | Emergency (ER) | payer BC ==
[~2017-02-17] VITALS: Ht 154.9 cm; Wt 87.0 kg
[2017-02-17 16:21] VITALS: TEMP 36.7; Ht 154.9 cm; Wt 87.0 kg
[2017-02-17] MEDS ORDERED: PROCHLORPERAZINE 5 MG/ML 2 ML VIAL IM STA (17:12)
[2017-02-17] MEDS ORDERED: DiphenhydrAMINE HCL 50 MG/ML VIAL IM STA (17:12)
[2017-02-17] MEDS ORDERED: HYDROmorphone INJ 1 MG/ML SYR IM STA (17:12)
--- NOTE | 2017-02-17 17:19 | EMERGENCY ROOM VISIT NOTE ---
History Report prepared by Kaela: Vishal Mcdermott Under the Supervision of: Dr. Sumeet Fuchs D.O. First contact with patient: 16:51 Chief Complaint: HEADACHE Stated Complaint: MIGRAINE, NAUSEA, DIARRHEA History of Present Illness The patient is a 66 year old female who presents to the Emergency Room with complaints of a constant migraine headache that began at 1130 today, 6.5 hours prior to arrival. The patient states that her headache is severe, and that it is currently radiating down in to her right ear and jaw. The patient has a history of migraine headaches and had her last episode last month. She states that she commonly experiences diarrhea when she has her migraines, and is currently experiencing this symptom. Source of History: patient Onset: 6.5 hours [employer] Position: head Quality: other (Migraine Headache) Timing: constant Associated Symptoms: + diarrhea Review of Systems See HPI for pertinent positives & negatives. A total of 10 systems reviewed and were otherwise negative. Past Medical & Surgical Medical Problems: (1) Abdominal pain (2) Abdominal pain (3) Asthma (4) BARIATRIC SURGERY STATUS (5) C. 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 (8) COPD (chronic obstructive pulmonary disease) (9) Cough (10) Dehydration (11) Dehydration (12) Diarrhea (13) Diarrhea (14) Headache (15) Headache (16) HYPOTHYROIDISM NOS (17) MIGRAINE UNSPECIFIED W/O INTRACT MGRN W/O STATUS MIGRAINOSUS (18) Pneumonia (19) Pneumonia (20) Reflux esophagitis (21) Stomach problems Surgical Problems: (1) Hx of cholecystectomy Family History Diabetes mellitus Hypertension Kidney disease Stroke Social History Smoking Status: Never Smoker Alcohol Use: none Drug Use: none Marital Status: Housing Status: lives with family Occupation Status: disabled Current/Historical Medications Scheduled Amlodipine Besylate (Amlodipine Besylate), 5 MG PO HS Aspirin (Aspirin Ec), 81 MG PO QPM Cholecalciferol (Ra Vitamin D-3), 5,000 INTER.UNIT PO DAILYBB Colesevelam Hcl (Welchol), 1,250 MG PO QAM Cyanocobalamin (Cyanocobalamin), 1,000 MCG IM Q3 MONTHS Ferrous Sulfate (Ferrous Sulfate), 325 MG PO HS Gabapentin (Gabapentin), 100 MG PO TID Levothyroxine Sodium (Levothyroxine Sodium), 88 MCG PO QAM Magnesium Oxide (Mag-Ox), 400 MG PO DAILY Multivitamin (Multivitamin), 1 TAB PO DAILY Omeprazole (Prilosec), 20 MG PO HS Pregabalin (Lyrica), 75 MG PO BID Probiotic Product (Probiotic), 1 CAP PO HS Ropinirole HCl (Ropinirole HCl), 1 MG PO TID Topiramate (Topiramate), 100 MG PO BID Scheduled PRN Albuterol Sulfate (Proair Respiclick), 2 PUFFS INH QID PRN for Wheezing Cyclobenzaprine HCl (Cyclobenzaprine HCl), 10 MG PO TID PRN for Muscle Spasm Diphenhydramine Hcl (Benadryl Allergy), 25 MG PO HS PRN for Sleep Ketorolac Tromethamine (Ketorolac Tromethamine), 30 MG IM WK PRN for Pain Rizatriptan Benzoate (Rizatriptan Benzoate), 10 MG PO UD PRN for Migraine Allergies Coded Allergies: Morphine (Verified Allergy, Intermediate, rash, 02/17/17) Sulfa Antibiotics (Verified Allergy, Intermediate, HIVES, 02/17/17) Dust (Verified Allergy, Mild, ITCHY EYES, 02/17/17) Oxycodone (Verified Allergy, Mild, itchy, 02/17/17) Prednisone (Verified Allergy, Mild, ITCHY, 02/17/17) Methylprednisolone (Verified Adverse Reaction, Intermediate, vomiting, shaking, 02/17/17) Metformin (Verified Adverse Reaction, Mild, "diarrhea", 02/17/17) Molds & Smuts (Verified Adverse Reaction, Mild, ITCHY EYES, HEADACHES, 02/17) Physical Exam Vital Signs Date Time Temp Pulse Resp B/P (MAP) Pulse Ox O2 Delivery O2 Flow Rate FiO2 02/17/17 19:21 70 20 156/72 97 02/17/17 18:33 93 18 169/88 98 Room Air 02/17/17 16:21 36.7 78 20 198/97 97 Room Air Physical Exam GENERAL: Patient is awake, alert, and somewhat anxious and uncomfortable appearing. EYES: The conjunctivae are clear. The pupils are round and reactive. EARS, NOSE, MOUTH AND THROAT: The nose is without any evidence of any deformity. Mucous membranes are moist tongue is midline NECK: The neck is nontender and supple. RESPIRATORY: Normal respiratory effort is noted there is no evidence of wheezing rhonchi or rales CARDIOVASCULAR: Regular rate and rhythm noted there no murmurs rubs or gallops normal S1 normal S2 GASTROINTESTINAL: The abdomen is soft. Bowel sounds are present in all quadrants. Abdomen is nontender MUSCULOSKELETAL/EXTREMITIES: There is no evidence of gross deformity full range of motion is noted in the hips and shoulders SKIN: There is no obvious evidence of any rash. There are no petechiae, pallor or cyanosis noted. NEUROLOGIC: Patient is awake alert and oriented x3 strength is symmetric patellar reflexes are 2+ bilaterally Medical Decision & Procedures Medications Administered Medications (Trade) Dose Ordered Sig/Radha Route Start Time Stop Time Status Last Admin Dose Admin Hydromorphone HCl (Dilaudid Inj) 1 mg NOW STAT IM 02/17/17 17:12 02/17/17 17:14 DC 02/17/17 17:49 1 MG Prochlorperazine Edisylate (Compazine Inj) 10 mg NOW STAT IM 02/17/17 17:12 02/17/17 17:14 DC 02/17/17 17:48 10 MG Diphenhydramine HCl (Benadryl Inj) 25 mg NOW STAT IM 02/17/17 17:12 02/17/17 17:14 DC 02/17/17 17:48 25 MG ED Course 1711: The patient was evaluated in room C9. A complete history and physical examination were performed. 171: Ordered Benadryl 25 mg IM, Compazine 10 mg IM, Dilaudid 1 mg IM. 2: Upon reevaluation, the patient is resting in bed. I discussed the results and treatment plan with her. She verbalized agreement of the treatment plan. The patient was discharged home. Medical Decision Blood pressure screening: Patient was found to have an elevated blood pressure and was referred to their primary doctor for recheck and further treatment. Medication Reconciliation: I attest that I have personally reviewed the patient' s current medications list. Differential diagnosis: Etiologies such as migraine headache, meningitis, sinusitis, CO exposure, ICH, SAH, infection, tumor, headache, sinus thrombosis, arterial dissection, as well as others were entertained. The patient is a 66-year-old female who presented to the emergency department for an evaluation of headache. The patient is a history of chronic headaches and also has GI upset whenever she has her migraine headaches. She was treated with medications that she is received in the past with good resolution of symptoms. I discussed follow-up with the patient and recommended that she call her primary care physician as well as her primary headache specialist to further evaluate her. She was also encouraged to continue all medications as prescribed and rest. She was also encouraged return to the emergency department immediately if symptoms change worsen or the need arises. Impression Primary Impression: Chronic headache Scribe Attestation The scribe's documentation has been prepared under my direction and personally reviewed by me in its entirety. I confirm that the note above accurately reflects all work, treatment, procedures, and medical decision making performed by me. Departure Information Dispostion Home / Self-Care Referrals Bianca Rg (PCP) Forms HOME CARE DOCUMENTATION FORM, IMPORTANT VISIT INFORMATION Patient Instructions My [facility] Additional Instructions Continue all medications as prescribed. Rest and avoid any strenuous activity. Call your family to schedule a follow-up appointment.
[2017-02-17 19:21] VITALS: BP 156/72; PULSE 70; O2SAT 97
[2017-05-20] MEDS ORDERED: ASPI81TA28 PO (10:14)
[2017-05-20] MEDS ORDERED: MISCCAP80 PO (10:16)
[2017-05-20] MEDS ORDERED: DIPH25CA65 PO (10:44)
[2017-05-20] MEDS ORDERED: TPM100 PO (14:41)
[2017-05-20] MEDS ORDERED: RIZA10TA21 PO (15:46)
[2017-05-20] MEDS ORDERED: FERR1TAB62 PO (19:24)
== END 2017-02-17 19:22 | disposition home or self-care (01) ==
LOC: C.EDB 16:16 → C.EDC 19:22
DX: R51 Headache (principal); J45.909 Unspecified asthma, uncomplicated; Z98.84 Bariatric surgery status; J44.9 Chronic obstructive pulmonary disease, unspecified; E03.9 Hypothyroidism, unspecified; K21.0 Gastro-esophageal reflux disease with esophagitis; Z83.3 Family history of diabetes mellitus; Z82.49 Family history of ischemic heart disease and other diseases of the circulatory system; Z84.1 Family history of disorders of kidney and ureter; Z79.82 Long term (current) use of aspirin; Z79.899 Other long term (current) drug therapy

== ENCOUNTER → 2017-02-27 | Outpatient (CLI) | payer BC ==
[~2017-02-27] MED LIST changes: +ALBU18002 INH; -AMX875 PO; +ASPI81TA28 PO; +CHOL50007 PO; +CYNI1000 IM; +DIPH25CA65 PO; +FERR1TAB62 PO; +FLUT1AER5 INH; +FLX10 PO; +KETO30IN5 IM; +LEVO88TA3 PO; +MAGN400T6 PO; +METH4PAK PO; +MISCCAP80 PO; +MULT-506 PO; +NRN100 PO; +NRV/5 PO; +OMEP20CA9 PO; +PREG1CAP28 PO; +RANI150T2 PO; +RIZA10TA21 PO; +ROPI1TAB29 PO; +TPM100 PO; +WLC625 PO
--- NOTE | 2017-02-27 10:18 | DIAGNOSTIC IMAGING REPORT ---
CHEST 2 VIEWS ROUTINE CLINICAL HISTORY: J45.51 R06.02 R05 R09.89 R06.2 dyspnea COMPARISON STUDY: 01/08/2017 FINDINGS: Lungs are clear. Central catheter in superior vena cava. Diaphragms are smooth. IMPRESSION: No acute process. Electronically signed by: Kvng Shaw M.D. 02/27/2017 10:17 AM Dictated Date/Time: 02/27/2017 10:16 AM
== END | disposition home or self-care (01) ==
LOC: C.RAD1850 09:46
PROVIDERS: ATTEND Nurse Practitioner Family
DX: J45.51 Severe persistent asthma with (acute) exacerbation (principal); R05 Cough; R09.89 Other specified symptoms and signs involving the circulatory and respiratory systems; R06.02 Shortness of breath

== ENCOUNTER 2017-02-28 14:43 | Emergency (ER) | payer BC ==
[~2017-02-28] VITALS: Ht 154.9 cm; Wt 84.0 kg
[2017-02-28 14:47] VITALS: Ht 154.9 cm; Wt 84.0 kg
--- NOTE | 2017-02-28 15:43 | EMERGENCY ROOM VISIT NOTE ---
History Report prepared by Kaela: Bucky Brown Under the Supervision of: Dr. Renu Fair D.O. First contact with patient: 15:22 Chief Complaint: HEADACHE Stated Complaint: MIGRAINE, NAUSEA, VOMITTING History of Present Illness The patient is a 66 year old female with a history of migraines who presents to the Emergency Room with complaints of a persistent headache. The patient describes pain on the right side of her head rated 8.5/10 in severity. The pain is consistent with past migraines. The patient also complains of photophobia, nausea and vomiting. She has been vomiting more than she usually does with her migraines. Photophobia is consistent with past migraines. The patient follows up with Dr. Ignacio (Neurologist), who started her on Topamax. The patient has been on Imitrex, Dilantin, and Amitriptyline in the past which she states were not helping. The patient has not seen Dr. Ignacio in several months. The patient and her state that she typically receives Dilaudid, Compazine, and Benadryl for her migraines. She also had family history of migraines. The patient has had 4-5 days of a productive cough with pain in her chest. The patient saw her PCP yesterday, where she had a Chest X-ray that was negative for pneumonia. The patient notes that her PCP said that she had crackling on exam. The patient was not started on steroids or antibiotics. The patient has a history of COPD, asthma, and bronchitis. She has inhalers at home. The patient states that antitussives are not covered by her insurance. The patient denies history of heart disease, hypertension or hyperlipidemia. Source of History: patient, spouse/significant other Position: head Quality: other (migraine) Timing: other (persistent) Modifying Factors (Worsening): other (photophobia) Associated Symptoms: + cough, + chest pain, + nausea, + vomiting Review of Systems See HPI for pertinent positives & negatives. A total of 10 systems reviewed and were otherwise negative. Past Medical & Surgical Medical Problems: (1) Abdominal pain (2) Abdominal pain (3) Asthma (4) BARIATRIC SURGERY STATUS (5) C. 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 (8) COPD (chronic obstructive pulmonary disease) (9) Cough (10) Dehydration (11) Dehydration (12) Diarrhea (13) Diarrhea (14) Headache (15) Headache (16) HYPOTHYROIDISM NOS (17) MIGRAINE UNSPECIFIED W/O INTRACT MGRN W/O STATUS MIGRAINOSUS (18) Pneumonia (19) Pneumonia (20) Reflux esophagitis (21) Stomach problems Surgical Problems: (1) Hx of cholecystectomy Family History Diabetes mellitus Hypertension Kidney disease Stroke Social History Smoking Status: Never Smoker Alcohol Use: none Drug Use: none Marital Status: Housing Status: lives with family Occupation Status: disabled Current/Historical Medications Scheduled Amlodipine Besylate (Amlodipine Besylate), 5 MG PO HS Aspirin (Aspirin Ec), 81 MG PO QPM Cholecalciferol (Ra Vitamin D-3), 5,000 INTER.UNIT PO DAILYBB Colesevelam Hcl (Welchol), 1,250 MG PO QAM Cyanocobalamin (Cyanocobalamin), 1,000 MCG IM Q3 MONTHS Ferrous Sulfate (Ferrous Sulfate), 325 MG PO HS Gabapentin (Gabapentin), 100 MG PO TID Levothyroxine Sodium (Levothyroxine Sodium), 88 MCG PO QAM Magnesium Oxide (Mag-Ox), 400 MG PO DAILY Multivitamin (Multivitamin), 1 TAB PO DAILY Omeprazole (Prilosec), 20 MG PO HS Pregabalin (Lyrica), 75 MG PO BID Probiotic Product (Probiotic), 1 CAP PO HS Ropinirole HCl (Ropinirole HCl), 1 MG PO TID Topiramate (Topiramate), 100 MG PO BID Scheduled PRN Albuterol Sulfate (Proair Respiclick), 2 PUFFS INH QID PRN for Wheezing Cyclobenzaprine HCl (Cyclobenzaprine HCl), 10 MG PO TID PRN for Muscle Spasm Diphenhydramine Hcl (Benadryl Allergy), 25 MG PO HS PRN for Sleep Ketorolac Tromethamine (Ketorolac Tromethamine), 30 MG IM WK PRN for Pain Rizatriptan Benzoate (Rizatriptan Benzoate), 10 MG PO UD PRN for Migraine Allergies Coded Allergies: Morphine (Verified Allergy, Intermediate, rash, 02/28/17) Sulfa Antibiotics (Verified Allergy, Intermediate, HIVES, 02/28/17) Dust (Verified Allergy, Mild, ITCHY EYES, 02/28/17) Oxycodone (Verified Allergy, Mild, itchy, 02/28/17) Prednisone (Verified Allergy, Mild, ITCHY, 02/28/17) Methylprednisolone (Verified Adverse Reaction, Intermediate, vomiting, shaking, 02/28/17) Metformin (Verified Adverse Reaction, Mild, "diarrhea", 02/28/17) Molds & Smuts (Verified Adverse Reaction, Mild, ITCHY EYES, HEADACHES, ) Physical Exam Vital Signs Date Time Temp Pulse Resp B/P (MAP) Pulse Ox O2 Delivery O2 Flow Rate FiO2 02/28/17 19:05 36.7 100 18 150/65 97 02/28/17 18:35 100 18 150/65 97 Room Air 02/28/17 17:30 97 18 154/71 97 Room Air 02/28/17 14:47 36.7 Physical Exam GENERAL: alert, well appearing, well nourished, no distress, non-toxic EYE EXAM: normal conjunctiva, PERRL, photosensitivity noted. OROPHARYNX: no exudate, no erythema, lips, buccal mucosa, and tongue normal and mucous membranes are moist NECK: supple, no nuchal rigidity, no adenopathy, non-tender LUNGS: Breath sounds are mildly decreased, no wheezes rales or rhonchi. HEART: no murmurs, S1 normal and S2 normal CHEST: Mild reproducible left anterior chest wall tenderness. ABDOMEN: abdomen soft, non-tender. BACK: Back is symmetrical on inspection and there is no deformity, no midline tenderness, no CVA tenderness. SKIN: no rashes and no bruising UPPER EXTREMITIES: upper extremities are grossly normal. LOWER EXTREMITIES: No pitting edema, normal pulses. NEURO EXAM: Steady gait, no facial droop, no ataxia. Medical Decision & Procedures ER Provider Diagnostic Interpretation: Radiology results have been interpreted by the radiologist and reviewed by me. CHEST ONE VIEW PORTABLE CLINICAL HISTORY: Atypical chest pain NAUSEA, VOMITING, HEADACHE COMPARISON STUDY: 02/27/2017 FINDINGS: The cardiac and mediastinal contours remain stable. There is no failure. There is no focal pulmonary consolidation. There are no pleural effusions. A right-sided A-Port catheter is again visualized.[ IMPRESSION: No active disease in the chest. Electronically signed by: Michael Lazo M.D. 02/28/2017 4:16 PM Dictated Date/Time: 02/28/2017 4:15 PM Laboratory Results 02/28/17 16:55 Red Blood Count 4.00, Mean Corpuscular Volume 94.3, Mean Corpuscular Hemoglobin 31.8, Mean Corpuscular Hemoglobin Concent 33.7, Mean Platelet Volume 10.4, Neutrophils (%) (Auto) 60.6, Lymphocytes (%) (Auto) 29.7, Monocytes (%) (Auto) 6.3, Eosinophils (%) (Auto) 2.9, Basophils (%) (Auto) 0.3, Neutrophils # (Auto) 3.77, Lymphocytes # (Auto) 1.85, Monocytes # (Auto) 0.39, Eosinophils # (Auto) 0.18, Basophils # (Auto) 0.02 02/28/17 16:55 Test 02/28/17 16:55 White Blood Count 6.22 K/uL (4.8-10.8) Red Blood Count 4.00 M/uL (4.2-5.4) Hemoglobin 12.7 g/dL (12.0-16.0) Hematocrit 37.7 % (37-47) Mean Corpuscular Volume 94.3 fL (80-100) Mean Corpuscular Hemoglobin 31.8 pg (25-34) Mean Corpuscular Hemoglobin Concent 33.7 g/dl (32-36) Platelet Count 196 K/uL (130-400) Mean Platelet Volume 10.4 fL (7.4-10.4) Neutrophils (%) (Auto) 60.6 % Lymphocytes (%) (Auto) 29.7 % Monocytes (%) (Auto) 6.3 % Eosinophils (%) (Auto) 2.9 % Basophils (%) (Auto) 0.3 % Neutrophils # (Auto) 3.77 K/uL (1.4-6.5) Lymphocytes # (Auto) 1.85 K/uL (1.2-3.4) Monocytes # (Auto) 0.39 K/uL (0.11-0.59) Eosinophils # (Auto) 0.18 K/uL (0-0.5) Basophils # (Auto) 0.02 K/uL (0-0.2) RDW Standard Deviation 46.4 fL (36.4-46.3) RDW Coefficient of Variation 13.5 % (11.5-14.5) Immature Granulocyte % (Auto) 0.2 % Immature Granulocyte # (Auto) 0.01 K/uL (0.00-0.02) Anion Gap 6.0 mmol/L (3-11) Est Creatinine Clear Calc Drug Dose 78.7 ml/min Estimated GFR () 105.4 Estimated GFR (Non- 90.9 BUN/Creatinine Ratio 20.2 (10-20) Calcium Level 8.2 mg/dl (8.5-10.1) Troponin I < 0.015 ng/ml (0-0.045) Laboratory results per my review. Medications Administered Medications (Trade) Dose Ordered Sig/Radha Route Start Time Stop Time Status Last Admin Dose Admin Diphenhydramine HCl (Benadryl Inj) 25 mg NOW STAT IV 02/28/17 15:50 02/28/17 15:53 DC 02/28/17 18:22 25 MG Lorazepam (Ativan Inj) 1 mg NOW STAT IV 02/28/17 15:50 02/28/17 15:53 DC 02/28/17 17:29 1 MG Sodium Chloride 1,000 ml @ 999 mls/hr Q1H1M STAT IV 02/28/17 15:50 02/28/17 16:50 DC 02/28/17 17:28 999 MLS/HR Albuterol/ Ipratropium (Duoneb) 3 ml NOW STAT INH 02/28/17 15:50 02/28/17 15:53 DC 02/28/17 17:29 3 ML Codeine Phosphate/ Guaifenesin (Robitussin-AC Sugar Free Syrup) 5 ml NOW STAT PO 02/28/17 15:50 02/28/17 15:54 DC 02/28/17 17:29 5 ML Prochlorperazine Edisylate 5 mg/ Syringe 5 ml @ 5 mls/min TODAY@1550 IV 02/28/17 15:50 02/28/17 19:48 DC 02/28/17 18:33 5 MLS/MIN Heparin Sodium (Porcine) (Heparin 100 Unit/ml 5ml Flush) 5 ml STK-MED ONCE .ROUTE 02/28/17 18:31 02/28/17 18:32 DC 02/28/17 18:33 5 ML Heparin Sodium (Porcine) (Heparin 100 Unit/ml 5ml Flush) 5 ml STK-MED ONCE .ROUTE 02/28/17 19:07 02/28/17 19:08 DC 02/28/17 19:07 5 ML ECG Indication: chest pain Rate (beats per minute): 83 Rhythm: normal sinus Findings: no acute ischemic change, no ectopy ED Course 152: The patient was evaluated in room C9. A complete history and physical exam was performed. 1550: Prochlorperazine Edisylate 5 mg / syringe 5 ml @ 5 mls/min, Robitussin 5 ml PO, DuoNeb 3 ml INH, NSS 1000 ml @ 999 mls.hr, Toradol 30 mg IV, Benadryl 25 mg IV. 1824: Advised by nursing staff pt refused toradol and there was a delay giving compazine and benadryl. Pt now requesting to see Dr. Mendoza because "he will give me dilaudid". Dr. Mendoza advised he is unavailable to see the patient. 1849: Pt continues to refuse medications. Nursing asked about her cough/chest pain and pt and refused any additional respiratory medications and only requested dilaudid for her BROCK. They are now asking to be discharged and state they will return tonight or tomorrow to be given her preferred medications. Medical Decision Differential diagnosis: Etiologies such as migraine headache, meningitis, sinusitis, CO exposure, ICH, SAH, infection, tumor, headache, sinus thrombosis, arterial dissection, as well as others were entertained. Blood pressure screening: Patient was found to have an elevated blood pressure and was referred to their primary doctor for recheck and further treatment. Medication Reconciliation: I attest that I have personally reviewed the patient' s current medication list. Pt well known to the ER, here frequently for headaches and typically requesting narcotics. Pt unwilling to entertain the idea of nonnarcotic treatment, refused alternative treatment and requested to see another physician who they felt would give them dilaudid. Pt exhibiting drug seeking behavior and spouse enables behavior. On review of EMR, pt here frequently and encouraged to follow -up with neurology which she hasn't done yet. Pt had also c/o chest pain, no clear etiology, but pt most concerned about getting narcotics for headache. Doubt cardiac etiology, no evidence of pulmonary pathology, doubt vascular etiology or PE. Impression Primary Impression: Headache Additional Impression: Chest pain of uncertain etiology Scribe Attestation The scribe's documentation has been prepared under my direction and personally reviewed by me in its entirety. I confirm that the note above accurately reflects all work, treatment, procedures, and medical decision making performed by me. Departure Information Dispostion Home / Self-Care Referrals Bianca Rg (PCP) Forms HOME CARE DOCUMENTATION FORM, IMPORTANT VISIT INFORMATION Patient Instructions My [facility] Additional Instructions Please call and follow-up with your neurologist regarding alternative headache treatment options available. Please follow-up with your family doctor regarding your cough. There was no evidence today of pneumonia or fluid on your lungs. You may continue using the inhaler/nebulizer at home as previously directed. Please drink plenty of water to stay well hydrated. If you develop any worsening pain, trouble breathing, develop fevers, vomiting, develop other atypical headache symptoms, or you have any other concerns please return to the emergency room. Problem Qualifiers Primary Impression: Headache Headache type: unspecified Headache chronicity pattern: episodic headache Intractability: not intractable Qualified Codes: R51 - Headache
[2017-02-28] MEDS ORDERED: DiphenhydrAMINE HCL 50 MG/ML VIAL IV STA (15:50)
[2017-02-28] MEDS ORDERED: KETOROLAC TROMETHAMINE 30 MG/ML VIAL IV STA (15:50)
[2017-02-28] MEDS ORDERED: GUAIFENESIN/CODEINE 100MG/10MG 5ML UDC PO STA (15:50)
[2017-02-28] MEDS ORDERED: PROCHLORPERAZINE INJ 5 MG in SYRINGE 4 ML IV SCH (15:50)
[2017-02-28] MEDS ORDERED: ALBUT/IPRATROP 3MG/0.5MG NEB 3 ML VIAL INH STA (15:50)
[2017-02-28] MEDS ORDERED: SODIUM CHLORIDE 0.9% 1000ML 1,000 ML IV STA (15:50)
[2017-02-28] MEDS ORDERED: PROCHLORPERAZINE 5 MG/ML 2 ML VIAL IV STA (15:50)
[2017-02-28] MEDS ORDERED: LORAZEPAM 2 MG/ML 1 ML VIAL IV STA (15:50)
--- NOTE | 2017-02-28 16:17 | DIAGNOSTIC IMAGING REPORT ---
CHEST ONE VIEW PORTABLE CLINICAL HISTORY: Atypical chest pain NAUSEA, VOMITING, HEADACHE COMPARISON STUDY: 02/27/2017 FINDINGS: The cardiac and mediastinal contours remain stable. There is no failure. There is no focal pulmonary consolidation. There are no pleural effusions. A right-sided A-Port catheter is again visualized.[ IMPRESSION: No active disease in the chest. Electronically signed by: Michael Lazo M.D. 02/28/2017 4:16 PM Dictated Date/Time: 02/28/2017 4:15 PM
[2017-02-28 17:06] LABS: BASO % 0.3 %; BASO ABS # 0.02 K/uL (0-0.2); COMPLETE YES; EOS % 2.9 %; HEMATOCRIT 37.7 % (37-47); IG% 0.2 %; LYMPH % 29.7 %; LYMPH ABS # 1.85 K/uL (1.2-3.4); MEAN CELL VOLUME 94.3 fL (80-100); MEAN CORPUSCULAR HEMOGLOBIN 31.8 pg (25-34); MEAN CORPUSCULAR HGB CONC 33.7 g/dl (32-36); MEAN PLATELET VOLUME 10.4 fL (7.4-10.4); MONO % 6.3 %; NEUT % 60.6 %; PLATELET COUNT 196 K/uL (130-400); WHITE BLOOD COUNT 6.22 K/uL (4.8-10.8)
[2017-02-28 17:42] LABS: BLOOD UREA NITROGEN 14 mg/dl (7-18); BUN/CREATININE RATIO 20.2 (10-20); CALCIUM 8.2 mg/dl (8.5-10.1); CARBON DIOXIDE 25 mmol/L (21-32); CHLORIDE 114 mmol/L (98-107); GLUCOSE 127 mg/dl (70-99); POTASSIUM 3.6 mmol/L (3.5-5.1); SODIUM 145 mmol/L (136-145)
[2017-02-28 19:05] VITALS: BP 150/65; PULSE 100; TEMP 36.7; O2SAT 97
[2017-03-01] MEDS ORDERED: PROCHLORPERAZINE INJ 5 MG in SYRINGE 4 ML IV SCH (15:50)
[2017-05-20] MEDS ORDERED: ASPI81TA28 PO (10:14)
[2017-05-20] MEDS ORDERED: MISCCAP80 PO (10:16)
[2017-05-20] MEDS ORDERED: DIPH25CA65 PO (10:44)
[2017-05-20] MEDS ORDERED: TPM100 PO (14:41)
[2017-05-20] MEDS ORDERED: RIZA10TA21 PO (15:46)
[2017-05-20] MEDS ORDERED: FERR1TAB62 PO (19:24)
== END 2017-02-28 19:12 | disposition home or self-care (01) ==
LOC: C.EDB 14:44 → C.EDC 19:12
DX: R51 Headache (principal); R07.9 Chest pain, unspecified; R11.2 Nausea with vomiting, unspecified; J44.9 Chronic obstructive pulmonary disease, unspecified; H53.149 Visual discomfort, unspecified; Z79.899 Other long term (current) drug therapy; E03.9 Hypothyroidism, unspecified

== ENCOUNTER 2017-03-23 17:18 | Emergency (ER) | payer BC ==
[~2017-03-23] VITALS: Ht 154.9 cm; Wt 85.7 kg
[~2017-03-23 17:18] MED LIST changes: -CHOL50007 PO; -FERR1TAB62 PO; -FLUT1AER5 INH; -FLX10 PO; -KETO30IN5 IM; -LEVO88TA3 PO; -METH4PAK PO; +MXL10 PO; -NRN100 PO; -OMEP20CA9 PO; -RANI150T2 PO; -RIZA10TA21 PO
[2017-03-23] MEDS ORDERED: KETO30IN5 IM (17:22)
[2017-03-23] MEDS ORDERED: CHOL50007 PO (17:22)
[2017-03-23] MEDS ORDERED: FLX10 PO (17:22)
[2017-03-23 17:31] VITALS: TEMP 36.9; Ht 154.9 cm; Wt 85.7 kg
[2017-03-23 17:42] VITALS: O2SAT 100
[2017-03-23] MEDS ORDERED: SODIUM CHLORIDE 0.9% 1000ML 1,000 ML IV STA (18:00)
[2017-03-23] MEDS ORDERED: SODIUM CHLORIDE 0.9% 1000ML 250 ML IV STA (18:00)
--- NOTE | 2017-03-23 18:03 | EMERGENCY ROOM VISIT NOTE ---
History Report prepared by Kaela: Christiano Montgomery Under the Supervision of: Dr. Nikolai Mendoza M.D. First contact with patient: 17:52 Chief Complaint: CHEST PAIN Stated Complaint: CHEST PAIN Nursing Triage Summary: chest pain started approx 1500, got worse,down left arm, underneath left breast History of Present Illness The patient is a 66 year old female who presents to the Emergency Room via EMS with complaints of episodes of chest pain that started a few days ago. She says that she had been having intermittent severe chest pain for the past few days, but has been ignoring it. The patient says that she has been having a constant, dull pain for the past few days however. The patient adds that the chest pain has been accompanied by left arm pain, pain underneath her left breast, sweating , and fatigue. She states that her fatigue started a week ago. 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 The patient says that she would sit down for a few minutes, and would get better, but then once she got back up again, she would get the pain again. She notes that she has been nauseous, and that the left side of her face feels "funny" and tingly. The patient was given Aspirin and Zofran in the ambulance, and she says that she currently has chest heaviness. She denies any fevers. The patient takes Synthroid. Source of History: patient, spouse/significant other Onset: A few days ago Position: chest Symptom Intensity: severe Quality: other (pain) Timing: constant (dull pain), other (episodes (severe)) Associated Symptoms: + SOB, + nausea, + fatigue, No fevers Note: Associated symptoms: Left arm pain, pain underneath left breast. Left side of face feels "funny" and tingly. Review of Systems See HPI for pertinent positives & negatives. A total of 10 systems reviewed and were otherwise negative. Past Medical & Surgical Medical Problems: (1) Abdominal pain (2) Abdominal pain (3) Asthma (4) BARIATRIC SURGERY STATUS (5) C. 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 (8) COPD (chronic obstructive pulmonary disease) (9) Cough (10) Dehydration (11) Dehydration (12) Diarrhea (13) Diarrhea (14) Headache (15) Headache (16) HYPOTHYROIDISM NOS (17) MIGRAINE UNSPECIFIED W/O INTRACT MGRN W/O STATUS MIGRAINOSUS (18) Pneumonia (19) Pneumonia (20) Reflux esophagitis (21) Stomach problems Surgical Problems: (1) Hx of cholecystectomy Old medical records were reviewed. Nurse's notes were reviewed and I agree with. Family History Diabetes mellitus Hypertension Kidney disease Stroke Social History Smoking Status: Never Smoker Alcohol Use: none Drug Use: none Marital Status: Housing Status: lives with family Occupation Status: disabled Current/Historical Medications Scheduled Amlodipine Besylate (Amlodipine Besylate), 5 MG PO HS Aspirin (Aspirin Ec), 81 MG PO QPM Cholecalciferol (Ra Vitamin D-3), 5,000 INTER.UNIT PO DAILY Colesevelam Hcl (Welchol), 1,250 MG PO QAM Cyanocobalamin (Cyanocobalamin), 1,000 MCG IM Q3 MONTHS Ferrous Sulfate (Ferrous Sulfate), 325 MG PO HS Gabapentin (Gabapentin), 100 MG PO TID Levothyroxine Sodium (Levothyroxine Sodium), 88 MCG PO QAM Magnesium Oxide (Mag-Ox), 400 MG PO DAILY Multivitamin (Multivitamin), 1 TAB PO DAILY Omeprazole (Prilosec), 20 MG PO HS Pregabalin (Lyrica), 75 MG PO BID Probiotic Product (Probiotic), 1 CAP PO HS Ranitidine HCl (Ranitidine HCl), 150 MG PO QPM Ropinirole HCl (Ropinirole HCl), 1 MG PO TID Topiramate (Topiramate), 100 MG PO BID Scheduled PRN Albuterol Sulfate (Proair Respiclick), 2 PUFFS INH QID PRN for Wheezing Cyclobenzaprine HCl (Cyclobenzaprine HCl), 10 MG PO TID PRN for Muscle Spasm Diphenhydramine Hcl (Benadryl Allergy), 25 MG PO HS PRN for Sleep Fluticasone Propionate (Inhala (Flovent Diskus), 1 PUFF INH BID PRN for SOB/ Wheezing Ketorolac Tromethamine (Ketorolac Tromethamine), 30 MG IM WK PRN for Pain Rizatriptan Benzoate (Rizatriptan Benzoate), 10 MG PO UD PRN for Migraine Allergies Coded Allergies: Morphine (Verified Allergy, Intermediate, rash, 02/28/17) Sulfa Antibiotics (Verified Allergy, Intermediate, HIVES, 02/28/17) Dust (Verified Allergy, Mild, ITCHY EYES, 02/28/17) Oxycodone (Verified Allergy, Mild, itchy, 02/28/17) Prednisone (Verified Allergy, Mild, ITCHY, 02/28/17) Methylprednisolone (Verified Adverse Reaction, Intermediate, vomiting, shaking, 02/28/17) Metformin (Verified Adverse Reaction, Mild, "diarrhea", 02/28/17) Molds & Smuts (Verified Adverse Reaction, Mild, ITCHY EYES, HEADACHES, ) Physical Exam Vital Signs Date Time Temp Pulse Resp B/P (MAP) Pulse Ox O2 Delivery O2 Flow Rate FiO2 03/23/17 21:54 85 03/23/17 21:11 79 15 96 03/23/17 21:02 126/57 03/23/17 20:33 145/70 03/23/17 20:11 82 14 99 03/23/17 20:02 137/91 03/23/17 19:41 85 20 100 03/23/17 19:31 176/95 03/23/17 19:11 88 21 97 03/23/17 19:06 163/78 03/23/17 19:02 183/96 03/23/17 19:00 85 17 100 03/23/17 18:55 84 21 157/79 100 Room Air 03/23/17 18:32 157/79 03/23/17 18:30 71 23 100 03/23/17 18:02 160/67 03/23/17 18:00 90 20 99 03/23/17 17:42 100 Room Air 03/23/17 17:36 85 03/23/17 17:34 100 Room Air 03/23/17 17:31 36.9 90 18 159/69 98 Room Air Physical Exam General: Well developed well nourished non ill appearing older female in no acute distress, breathing comfortably on room air. Normal speech HEENT: Normal cephalic atraumatic. Pupils are equal round and reactive to light. Extraocular movements are intact. Oropharynx is pink with moist mucous membranes. No swelling of the mouth lips or tongue. Neck: Supple with a midline trachea. No meningeal signs or stiffness, no JVD or bruits. No Stridor. Chest: Tenderness to palpation of left chest and into the axilla. No lymphadenopathy or masses. No redness or warmth. Clear to auscultation bilaterally. No wheezes or rhonchi. No increased work of breathing. Heart: regular rate and rhythm. Abdomen: Soft nontender, nondistended without rebound guarding or rigidity. Extremities: No cyanosis clubbing or edema. No calf tenderness or assymetry Spine/Back. Non tender to palpation. No CVA tenderness Skin: Good turgor without rashes. Neurologic exam: Cranial nerves two through 12 are intact. Motor and sensation are intact and symmetrical throughout. Medical Decision & Procedures ER Provider Diagnostic Interpretation: X-ray results as stated below per interpretation by me and the radiologist: CHEST ONE VIEW PORTABLE CLINICAL HISTORY: Chest pain. COMPARISON STUDY: Chest radiograph February 28, 2017. FINDINGS: A right internal jugular [id number] is in place. There is no pneumothorax or pleural effusion. Pulmonary vascularity is normal. There is no consolidation. Cardiomediastinal silhouette is normal. IMPRESSION: No acute cardiopulmonary findings. Electronically signed by: Quinn Rocha M.D. 03/23/2017 6:18 PM Dictated Date/Time: 03/23/2017 6:17 PM Laboratory Results 03/23/17 17:45 Red Blood Count 4.09, Mean Corpuscular Volume 95.1, Mean Corpuscular Hemoglobin 31.5, Mean Corpuscular Hemoglobin Concent 33.2, Mean Platelet Volume 11.0, Neutrophils (%) (Auto) 53.8, Lymphocytes (%) (Auto) 37.5, Monocytes (%) (Auto) 4.9, Eosinophils (%) (Auto) 3.3, Basophils (%) (Auto) 0.2, Neutrophils # (Auto) 3.10, Lymphocytes # (Auto) 2.16, Monocytes # (Auto) 0.28, Eosinophils # (Auto) 0.19, Basophils # (Auto) 0.01 03/23/17 17:45 Test 03/23/17 17:45 03/23/17 18:00 03/23/17 20:43 White Blood Count 5.76 K/uL (4.8-10.8) Red Blood Count 4.09 M/uL (4.2-5.4) Hemoglobin 12.9 g/dL (12.0-16.0) Hematocrit 38.9 % (37-47) Mean Corpuscular Volume 95.1 fL (80-100) Mean Corpuscular Hemoglobin 31.5 pg (25-34) Mean Corpuscular Hemoglobin Concent 33.2 g/dl (32-36) Platelet Count 181 K/uL (130-400) Mean Platelet Volume 11.0 fL (7.4-10.4) Neutrophils (%) (Auto) 53.8 % Lymphocytes (%) (Auto) 37.5 % Monocytes (%) (Auto) 4.9 % Eosinophils (%) (Auto) 3.3 % Basophils (%) (Auto) 0.2 % Neutrophils # (Auto) 3.10 K/uL (1.4-6.5) Lymphocytes # (Auto) 2.16 K/uL (1.2-3.4) Monocytes # (Auto) 0.28 K/uL (0.11-0.59) Eosinophils # (Auto) 0.19 K/uL (0-0.5) Basophils # (Auto) 0.01 K/uL (0-0.2) RDW Standard Deviation 45.2 fL (36.4-46.3) RDW Coefficient of Variation 13.1 % (11.5-14.5) Immature Granulocyte % (Auto) 0.3 % Immature Granulocyte # (Auto) 0.02 K/uL (0.00-0.02) Prothrombin Time 10.0 SECONDS (9.0-12.0) Prothromb Time International Ratio 0.9 (0.9-1.1) Activated Partial Thromboplast Time 57.4 SECONDS (21.0-31.0) Partial Thromboplastin Ratio 2.2 Anion Gap 7.0 mmol/L (3-11) Est Creatinine Clear Calc Drug Dose 58.0 ml/min Estimated GFR () 71.9 Estimated GFR (Non- 62.1 BUN/Creatinine Ratio 16.8 (10-20) Calcium Level 8.6 mg/dl (8.5-10.1) Total Bilirubin 0.2 mg/dl (0.2-1) Direct Bilirubin < 0.1 mg/dl (0-0.2) Aspartate Amino Transf (AST/SGOT) 18 U/L (15-37) Alanine Aminotransferase (ALT/SGPT) 24 U/L (12-78) Alkaline Phosphatase 104 U/L (45-117) Total Creatine Kinase 51 U/L (26-192) Creatine Kinase MB 1.7 ng/ml (0.5-3.6) Total Protein 6.3 gm/dl (6.4-8.2) Albumin 3.2 gm/dl (3.4-5.0) Lipase 177 U/L (73-393) Creatine Kinase MB Ratio (0-3.0) Troponin I < 0.015 ng/ml (0-0.045) Laboratory studies as stated above per my review. Medications Administered Medications (Trade) Dose Ordered Sig/Radha Route Start Time Stop Time Status Last Admin Dose Admin Sodium Chloride 250 ml @ 999 mls/hr Q16M STAT IV 03/23/17 18:00 03/23/17 18:15 DC 03/23/17 18:22 999 MLS/HR Sodium Chloride 1,000 ml @ 100 mls/hr Q10H STAT IV 03/23/17 18:00 03/24/17 03:59 03/23/17 18:53 100 MLS/HR Hydromorphone HCl (Dilaudid Inj) 1 mg NOW STAT IV 03/23/17 18:37 03/23/17 18:39 DC 03/23/17 18:54 1 MG Prochlorperazine Edisylate (Compazine Inj) 10 mg NOW STAT IV 03/23/17 18:37 03/23/17 18:39 DC 03/23/17 18:52 10 MG Diphenhydramine HCl (Benadryl Inj) 25 mg NOW STAT IV 03/23/17 18:37 03/23/17 18:39 DC 03/23/17 18:53 25 MG Heparin Sodium (Porcine) (Heparin 100 Unit/ml 5ml Flush) 5 ml [employer]-MED ONCE .ROUTE 03/23/17 22:09 03/23/17 22:10 DC 03/23/17 22:25 5 ML ECG Indication: chest pain Rate (beats per minute): 82 Rhythm: normal sinus Findings: no acute ischemic change, other (nonspecific T-wave abnormalities) Change: no significant change (compared to February 28 2017) Change: Prehospital ECG: Normal sinus rhythm at 79 bpm, nonspecific T-wave abnormalities , no change compared to old. 2nd ECG: Normal sinus rhythm with sinus arrhythmia at 70 bpm, no ischemia, no significant change compared to ECG #1. ED Course 175: Past medical records reviewed. The patient was evaluated in room C2B, and a complete history and physical examination were performed. 1800: Ordered NSS 1000 ml @ 100 mls/hr IV, NSS 250 ml @ 999 mls/hr IV. 1834: I reevaluated the patient and she is resting comfortably. 1836: Ordered Benadryl Inj 25 mg IV, Compazine Inj 10 mg IV, Dilaudid Inj 1 mg IV. 1937: I reevaluated and updated the patient. 2154: Upon reevaluation, the patient is resting comfortably. I discussed the results and treatment plan with her. She verbalized agreement of the treatment plan. The patient was discharged home. Medical Decision Differentials include, but are not limited to; acute coronary syndrome, arrhythmia, musculoskeletal, pulmonary, electrolyte or metabolic abnormality. Medication Reconciliation: I attest that I have personally reviewed the patient' s current medication list. Blood Pressure Screening: Patient was found to have a slightly elevated blood pressure due to circumstances. I do not believe that the patient requires hypertension monitoring. This patient comes in as described above. She was placed in room C2. She is having chest pain on the left side of her chest and it is reproducible and into the arm.. IV access was established via her a port. Chest x-ray does not suggest acute CHF, pneumonia, or pneumothorax. EKG does not suggest acute coronary syndrome or arrhythmia. I got 2 EKGs while she was here there is no change compared to each other or old. I did 2 sets of cardiac biomarkers with troponin both being less than the detectable limit at 0 and 3 hours. She has nothing to suggest acute electrolyte or metabolic abnormalities or infection. Her symptoms are not likely consistent with PE or aortic pathology. She was given IV Dilaudid as well as IV Benadryl and IV Compazine. She is feeling much better. She will be discharged home. She was encouraged to return if: increasing pain, worsening of symptoms, fever or chills, any new problems or concerns. She does her follow-up appointment already scheduled for doctor at 9 in the morning which encouraged her to keep. The patient and her were happy with plan she was discharged to home. Impression Primary Impression: Left sided chest pain Additional Impression: Costochondritis Scribe Attestation The scribe's documentation has been prepared under my direction and personally reviewed by me in its entirety. I confirm that the note above accurately reflects all work, treatment, procedures, and medical decision making performed by me. Departure Information Dispostion Home / Self-Care Referrals Bianca Rg (PCP) Forms HOME CARE DOCUMENTATION FORM, IMPORTANT VISIT INFORMATION Patient Instructions My [facility] Additional Instructions Rest. Drink plenty of fluids. Follow-up with your doctor tomorrow for recheck. Return if: Increasing pain, worsening symptoms, fever or chills, any new problems concerns. Use Tylenol/acetaminophen a maximum of 2 regular strength pills every 6 hours. Do not take with any other medications that contain acetaminophen/Tylenol Keep your appointment with your doctor tomorrow Problem Qualifiers
--- NOTE | 2017-03-23 18:19 | DIAGNOSTIC IMAGING REPORT ---
CHEST ONE VIEW PORTABLE CLINICAL HISTORY: Chest pain. COMPARISON STUDY: Chest radiograph February 28, 2017. FINDINGS: A right internal jugular [id number] is in place. There is no pneumothorax or pleural effusion. Pulmonary vascularity is normal. There is no consolidation. Cardiomediastinal silhouette is normal. IMPRESSION: No acute cardiopulmonary findings. Electronically signed by: Quinn Rocha M.D. 03/23/2017 6:18 PM Dictated Date/Time: 03/23/2017 6:17 PM
[2017-03-23] MEDS ORDERED: RANI150T2 PO (18:23)
[2017-03-23] MEDS ORDERED: FLUT1AER5 INH (18:23)
[2017-03-23 18:25] LABS: BASO % 0.2 %; BASO ABS # 0.01 K/uL (0-0.2); COMPLETE YES; EOS % 3.3 %; HEMATOCRIT 38.9 % (37-47); IG% 0.3 %; LYMPH % 37.5 %; LYMPH ABS # 2.16 K/uL (1.2-3.4); MEAN CELL VOLUME 95.1 fL (80-100); MEAN CORPUSCULAR HEMOGLOBIN 31.5 pg (25-34); MEAN CORPUSCULAR HGB CONC 33.2 g/dl (32-36); MONO % 4.9 %; NEUT % 53.8 %; PLATELET COUNT 181 K/uL (130-400); RED BLOOD COUNT 4.09 M/uL (4.2-5.4); WHITE BLOOD COUNT 5.76 K/uL (4.8-10.8)
[2017-03-23] MEDS ORDERED: HYDROmorphone INJ 1 MG/ML SYR IV STA (18:37)
[2017-03-23] MEDS ORDERED: PROCHLORPERAZINE 5 MG/ML 2 ML VIAL IV STA (18:37)
[2017-03-23] MEDS ORDERED: DiphenhydrAMINE HCL 50 MG/ML VIAL IV STA (18:37)
[2017-03-23 18:38] LABS: ALT/SGPT 24 U/L (12-78); BLOOD UREA NITROGEN 16 mg/dl (7-18); BUN/CREATININE RATIO 16.8 (10-20); CALCIUM 8.6 mg/dl (8.5-10.1); CARBON DIOXIDE 24 mmol/L (21-32); CHLORIDE 110 mmol/L (98-107); CREATININE 0.96 mg/dl (0.60-1.20); GLUCOSE 141 mg/dl (70-99); POTASSIUM 3.6 mmol/L (3.5-5.1); SODIUM 141 mmol/L (136-145)
[2017-03-23 18:43] LABS: ALKALINE PHOSPHATASE 104 U/L (45-117); AST/SGOT 18 U/L (15-37); CKMB/CK RATIO 3.3 (0-3.0)
[2017-03-23 18:50] LABS: INR 0.9 (0.9-1.1); PARTIAL THROMBOPLASTIN RATIO 2.2
[2017-03-23] MEDS ORDERED: NRN100 PO (19:10)
[2017-03-23] MEDS ORDERED: OMEP20CA9 PO (19:13)
[2017-03-23] MEDS ORDERED: FERR325T PO (19:24)
[2017-03-23] MEDS ORDERED: LEVO88TA3 PO (20:27)
[2017-03-23] MEDS ORDERED: METH4PAK PO (22:00)
[2017-03-23 22:52] VITALS: BP 129/70; PULSE 87; O2SAT 98
== END 2017-03-23 22:35 | disposition home or self-care (01) ==
LOC: EDBD 17:18 → C.EDC 17:19
DX: R07.9 Chest pain, unspecified (principal); M94.0 Chondrocostal junction syndrome [Tietze]; J45.909 Unspecified asthma, uncomplicated; J44.9 Chronic obstructive pulmonary disease, unspecified; E03.9 Hypothyroidism, unspecified; K21.9 Gastro-esophageal reflux disease without esophagitis; Z83.3 Family history of diabetes mellitus; Z82.49 Family history of ischemic heart disease and other diseases of the circulatory system; Z82.3 Family history of stroke; Z79.82 Long term (current) use of aspirin

== ENCOUNTER 2017-03-25 16:36 | Emergency (ER) | payer BC ==
[~2017-03-25] VITALS: Ht 154.9 cm; Wt 83.0 kg
[~2017-03-25 16:36] MED LIST changes: +CHOL50007 PO; +FERR325T PO; +FLUT1AER5 INH; +FLX10 PO; +KETO30IN5 IM; +LEVO88TA3 PO; +NRN100 PO; +OMEP20CA9 PO; +RANI150T2 PO
[2017-03-25 16:38] VITALS: TEMP 36.6; Ht 154.9 cm; Wt 83.0 kg
[2017-03-25 17:37] VITALS: BP 124/43; PULSE 70; O2SAT 97
--- NOTE | 2017-03-25 17:37 | EMERGENCY ROOM VISIT NOTE ---
History Report prepared by Saranibyovana: Rosendo Hinojosa Under the Supervision of: Dr. Nikolai Mcgregor D.O. First contact with patient: 16:56 Chief Complaint: NAUSEA Stated Complaint: NAUSEA, DIARRHEA, LT SIDE CHEST PAIN FROM CYST Nursing Triage Summary: Pt c/o nausea. Pain on left breast from suspected cyst per patient's . Pt states she was told to come in to ER if pain got worse. History of Present Illness The patient is a 66 year old female who presents to the Emergency Room with complaints of left sided chest pain starting a few days ago. The patient was evaluated at the Emergency Room 2 days ago for similar pain. She had a negative chest pain work up. The patient followed up with her PCP yesterday who felt a cyst on the left upper quadrant of her left breast on exam. She was unable to have a stat ultrasound. The patient was told to come to the Emergency Room for worsening pain. The patient currently rates her pain intensity of 8/10. She describes it as a sharp, constant pain which radiates to the back and left arm. She denies any erythema. She states that the cyst may have enlarged. The patient also complains of nausea but denies vomiting. She has a history of fibrocystic changes of her breast. The patient denies fevers, chills, or any other complaints. Source of History: patient Onset: a few days ago Position: chest (left) Symptom Intensity: 8/10 Quality: sharp Timing: constant Associated Symptoms: + nausea, No fevers, No chills, No vomiting Review of Systems See HPI for pertinent positives & negatives. A total of 10 systems reviewed and were otherwise negative. Past Medical & Surgical Medical Problems: (1) Abdominal pain (2) Abdominal pain (3) Asthma (4) BARIATRIC SURGERY STATUS (5) C. 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 (8) COPD (chronic obstructive pulmonary disease) (9) Cough (10) Dehydration (11) Dehydration (12) Diarrhea (13) Diarrhea (14) Headache (15) Headache (16) HYPOTHYROIDISM NOS (17) MIGRAINE UNSPECIFIED W/O INTRACT MGRN W/O STATUS MIGRAINOSUS (18) Pneumonia (19) Pneumonia (20) Reflux esophagitis (21) Stomach problems Surgical Problems: (1) Hx of cholecystectomy Family History Diabetes mellitus Hypertension Kidney disease Stroke Social History Smoking Status: Never Smoker Alcohol Use: none Drug Use: none Marital Status: Housing Status: lives with family Occupation Status: disabled Current/Historical Medications Scheduled Amlodipine Besylate (Amlodipine Besylate), 5 MG PO HS Aspirin (Aspirin Ec), 81 MG PO QPM Cholecalciferol (Ra Vitamin D-3), 5,000 INTER.UNIT PO DAILY Colesevelam Hcl (Welchol), 1,250 MG PO QAM Cyanocobalamin (Cyanocobalamin), 1,000 MCG IM Q3 MONTHS Ferrous Sulfate (Ferrous Sulfate), 325 MG PO HS Gabapentin (Gabapentin), 100 MG PO TID Levothyroxine Sodium (Levothyroxine Sodium), 88 MCG PO QAM Magnesium Oxide (Mag-Ox), 400 MG PO DAILY Multivitamin (Multivitamin), 1 TAB PO DAILY Omeprazole (Prilosec), 20 MG PO HS Pregabalin (Lyrica), 75 MG PO BID Probiotic Product (Probiotic), 1 CAP PO HS Ranitidine HCl (Ranitidine HCl), 150 MG PO QPM Ropinirole HCl (Ropinirole HCl), 1 MG PO TID Topiramate (Topiramate), 100 MG PO BID Scheduled PRN Albuterol Sulfate (Proair Respiclick), 2 PUFFS INH QID PRN for Wheezing Cyclobenzaprine HCl (Cyclobenzaprine HCl), 10 MG PO TID PRN for Muscle Spasm Diphenhydramine Hcl (Benadryl Allergy), 25 MG PO HS PRN for Sleep Fluticasone Propionate (Inhala (Flovent Diskus), 1 PUFF INH BID PRN for SOB/ Wheezing Ketorolac Tromethamine (Ketorolac Tromethamine), 30 MG IM WK PRN for Pain Rizatriptan Benzoate (Rizatriptan Benzoate), 10 MG PO UD PRN for Migraine Allergies Coded Allergies: Morphine (Verified Allergy, Intermediate, rash, 02/28/17) Sulfa Antibiotics (Verified Allergy, Intermediate, HIVES, 02/28/17) Dust (Verified Allergy, Mild, ITCHY EYES, 02/28/17) Oxycodone (Verified Allergy, Mild, itchy, 02/28/17) Prednisone (Verified Allergy, Mild, ITCHY, 02/28/17) Methylprednisolone (Verified Adverse Reaction, Intermediate, vomiting, shaking, 02/28/17) Metformin (Verified Adverse Reaction, Mild, "diarrhea", 02/28/17) Molds & Smuts (Verified Adverse Reaction, Mild, ITCHY EYES, HEADACHES, ) Physical Exam Vital Signs Date Time Temp Pulse Resp B/P (MAP) Pulse Ox O2 Delivery O2 Flow Rate FiO2 03/25/17 16:38 36.6 88 16 134/80 93 Physical Exam CONSTITUTIONAL/VITAL SIGNS: Reviewed / noted above. GENERAL: Non-toxic in appearance. INTEGUMENTARY: Warm, dry, and [place]. HEAD: Normocephalic. EYES: without scleral icterus or trauma. ENT/OROPHARYNX: clear and moist. LYMPHADENOPATHY/NECK: Is supple without lymphadenopathy or meningismus. RESPIRATORY: Lungs clear and equal. CARDIOVASCULAR: Regular rate and rhythm. GI/ABDOMEN: Soft and nontender. No organomegaly or pulsatile mass. No rebound or guarding. Normal bowel sounds. EXTREMITIES: Warm and well perfused. BACK: No CVA tenderness. NEUROLOGICAL: Intact without focal deficits. PSYCHIATRIC: normal affect. MUSCULOSKELETAL: Normally developed with good muscle tone. Medical Decision & Procedures ED Course 1655: Previous medical records were reviewed. The patient was evaluated in room C01B. A complete history and physical examination was performed. 1720: On reevaluation, the patient is resting comfortably. I discussed the results and findings with the patient. She verbalized agreement of the treatment plan. She was discharged home. Medical Decision Medication Reconciliation: I attest that I have personally reviewed the patient' s current medication list. Blood pressure Screening: Patient was found to have normal blood pressure on screening and does not require follow-up. the differential was considered includes acute myocardial infarction, acute coronary syndrome, myocarditis, pericarditis, pericardial effusions /tamponade, esophageal perforation, thoracic aortic dissection, pulmonary embolism, pneumonia, pneumothorax, pancreatitis, shingles, acute cholecystitis, perforated abdominal viscus. This is a 66-year-old female who presents to the ED with a chief complaint of left sided chest pain. The patient was seen here 2 days ago for the same symptoms. She had an extensive evaluation at that time and nothing was found. The patient states that she saw her PCP and a cyst was found on the left breast. She states she was supposed to have an ultrasound but the insurance would not approve it. She is also being scheduled for a mammogram. On my evaluation, the patient's exam did not reveal an obvious cyst. There is no evidence of infection or erythema. Her exam was otherwise unremarkable. I offered the patient Toradol but she stated that it gives her diarrhea. The patient requested Dilaudid but she is moderately received narcotics here unless deemed absolutely necessary. She is felt to have frequent visits and receiving narcotics without having objective findings. They were advised of this. The patient did not want further treatment and was discharged. Impression Primary Impression: Left-sided chest wall pain Scribe Attestation The scribe's documentation has been prepared under my direction and personally reviewed by me in its entirety. I confirm that the note above accurately reflects all work, treatment, procedures, and medical decision making performed by me. Departure Information Dispostion Home / Self-Care Referrals Bianca Rg (PCP) Forms HOME CARE DOCUMENTATION FORM, IMPORTANT VISIT INFORMATION Patient Instructions My [facility]
== END 2017-03-25 17:38 | disposition home or self-care (01) ==
LOC: C.EDB 16:37 → C.EDC 17:38
DX: R07.89 Other chest pain (principal); E03.9 Hypothyroidism, unspecified; J44.9 Chronic obstructive pulmonary disease, unspecified; K21.0 Gastro-esophageal reflux disease with esophagitis; Z86.19 Personal history of other infectious and parasitic diseases; Z98.84 Bariatric surgery status; Z87.19 Personal history of other diseases of the digestive system; Z90.49 Acquired absence of other specified parts of digestive tract; Z79.82 Long term (current) use of aspirin; Z79.899 Other long term (current) drug therapy; Z88.2 Allergy status to sulfonamides; Z88.5 Allergy status to narcotic agent; Z88.8 Allergy status to other drugs, medicaments and biological substances; Z83.3 Family history of diabetes mellitus; Z82.49 Family history of ischemic heart disease and other diseases of the circulatory system; Z84.1 Family history of disorders of kidney and ureter; Z82.3 Family history of stroke

== ENCOUNTER 2017-05-20 14:41 | Emergency (ER) | payer BC, OTHER ==
[~2017-05-20] VITALS: Ht 154.9 cm; Wt 82.4 kg
[~2017-05-20 14:41] MED LIST changes: -ALBU18002 INH; -CHOL50007 PO; -CYNI1000 IM; -FERR325T PO; -FLUT1AER5 INH; -FLX10 PO; -KETO30IN5 IM; -LEVO88TA3 PO; -MAGN400T6 PO; -MULT-506 PO; -MXL10 PO; -NRN100 PO; -NRV/5 PO; -OMEP20CA9 PO; -PREG1CAP28 PO; -RANI150T2 PO; -ROPI1TAB29 PO; -WLC625 PO
[2017-05-20 14:45] VITALS: TEMP 36.6; Ht 154.9 cm; Wt 82.4 kg
[2017-05-20] MEDS ORDERED: PREG1CAP28 PO (15:01)
[2017-05-20] MEDS ORDERED: MAGN400T6 PO (15:03)
[2017-05-20] MEDS ORDERED: MULT-506 PO (15:03)
[2017-05-20] MEDS ORDERED: SODIUM CHLORIDE 0.9% 1000ML 1,000 ML IV STA (15:16)
[2017-05-20] MEDS ORDERED: ONDANSETRON INJ 2 MG/ML 2 ML VIAL IV STA (15:16)
[2017-05-20] MEDS ORDERED: DiphenhydrAMINE HCL 50 MG/ML VIAL IV STA (15:16)
[2017-05-20] MEDS ORDERED: KETOROLAC TROMETHAMINE 30 MG/ML VIAL IV STA (15:16)
[2017-05-20] MEDS ORDERED: WLC625 PO (15:30)
[2017-05-20] MEDS ORDERED: MXL10 PO (15:46)
[2017-05-20] MEDS ORDERED: ALBU18002 INH (15:47)
[2017-05-20] MEDS ORDERED: CYNI1000 IM (15:47)
[2017-05-20 16:01] LABS: BASO % 0.4 %; BASO ABS # 0.02 K/uL (0-0.2); COMPLETE YES; EOS % 3.4 %; HEMATOCRIT 39.2 % (37-47); IG% 0.2 %; LYMPH ABS # 2.04 K/uL (1.2-3.4); MEAN CELL VOLUME 94.7 fL (80-100); MEAN CORPUSCULAR HEMOGLOBIN 31.4 pg (25-34); MEAN CORPUSCULAR HGB CONC 33.2 g/dl (32-36); MEAN PLATELET VOLUME 10.3 fL (7.4-10.4); MONO % 7.1 %; NEUT % 50.9 %; PLATELET COUNT 194 K/uL (130-400); RED BLOOD COUNT 4.14 M/uL (4.2-5.4); WHITE BLOOD COUNT 5.37 K/uL (4.8-10.8)
[2017-05-20 16:18] LABS: BUN/CREATININE RATIO 15.9 (10-20); CALCIUM 8.2 mg/dl (8.5-10.1); CREATININE 0.81 mg/dl (0.60-1.20); POTASSIUM 3.6 mmol/L (3.5-5.1)
[2017-05-20] MEDS ORDERED: NRV/5 PO (16:23)
[2017-05-20] MEDS ORDERED: ROPI1TAB29 PO (16:45)
--- NOTE | 2017-05-20 16:49 | EMERGENCY ROOM VISIT NOTE ---
History Report prepared by Saranibyovana: Lesa Parsons Under the Supervision of: Dr. Nikolai Mcgregor D.O. First contact with patient: 14:58 Chief Complaint: ILLNESS Stated Complaint: EAR PAIN, SICK TO STOMACH, BROCK, DIARRHEA History of Present Illness The patient is a 66 year old female who presents to the Emergency Room with complaints of constant left ear pain beginning yesterday. The patient states that she has not been feeling well since yesterday. She complains of nausea, diarrhea, left sided facial burning, left sided nose running, and left sided neck pain. She reports that she has a history of COPD and has been coughing but nothing that is unusual. The patient denies any congestion. The patient explains that she has popping in her ear that is worsened when she walks and when she sticks her finger in her ear. Source of History: patient Onset: yesterday Position: ear (left) Quality: other (popping) Timing: constant Associated Symptoms: + nausea, + diarrhea Note: She complains of left sided facial burning, left sided nose running, and left sided neck pain. Pt denies congestion. Review of Systems See HPI for pertinent positives & negatives. A total of 10 systems reviewed and were otherwise negative. Past Medical & Surgical Medical Problems: (1) Abdominal pain (2) Abdominal pain (3) Asthma (4) BARIATRIC SURGERY STATUS (5) C. 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 (8) COPD (chronic obstructive pulmonary disease) (9) Cough (10) Dehydration (11) Dehydration (12) Diarrhea (13) Diarrhea (14) Headache (15) Headache (16) HYPOTHYROIDISM NOS (17) MIGRAINE UNSPECIFIED W/O INTRACT MGRN W/O STATUS MIGRAINOSUS (18) Pneumonia (19) Pneumonia (20) Reflux esophagitis (21) Stomach problems Surgical Problems: (1) Hx of cholecystectomy Family History Diabetes mellitus Hypertension Kidney disease Stroke Social History Smoking Status: Never Smoker Alcohol Use: none Drug Use: none Marital Status: Housing Status: lives with family Occupation Status: disabled Current/Historical Medications Scheduled Amlodipine Besylate (Amlodipine Besylate), 5 MG PO HS Aspirin (Aspirin Ec), 81 MG PO QPM Cholecalciferol (Ra Vitamin D-3), 5,000 INTER.UNIT PO DAILY Colesevelam Hcl (Welchol), 1,250 MG PO QAM Cyanocobalamin (Cyanocobalamin), 1,000 MCG IM Q3 MONTHS Ferrous Sulfate (Ferrous Sulfate), 325 MG PO HS Gabapentin (Gabapentin), 100 MG PO TID Levothyroxine Sodium (Levothyroxine Sodium), 88 MCG PO QAM Magnesium Oxide (Mag-Ox), 400 MG PO DAILY Multivitamin (Multivitamin), 1 TAB PO DAILY Omeprazole (Prilosec), 20 MG PO HS Pregabalin (Lyrica), 75 MG PO BID Probiotic Product (Probiotic), 1 CAP PO HS Ranitidine HCl (Ranitidine HCl), 150 MG PO QPM Ropinirole HCl (Ropinirole HCl), 1 MG PO TID Topiramate (Topiramate), 100 MG PO BID Scheduled PRN Albuterol Sulfate (Proair Respiclick), 2 PUFFS INH QID PRN for Wheezing Cyclobenzaprine HCl (Cyclobenzaprine HCl), 10 MG PO TID PRN for Muscle Spasm Diphenhydramine Hcl (Benadryl Allergy), 25 MG PO HS PRN for Sleep Fluticasone Propionate (Inhala (Flovent Diskus), 1 PUFF INH BID PRN for SOB/ Wheezing Ketorolac Tromethamine (Ketorolac Tromethamine), 30 MG IM WK PRN for Pain Rizatriptan Benzoate (Rizatriptan Benzoate), 10 MG PO UD PRN for Migraine Allergies Coded Allergies: Morphine (Verified Allergy, Intermediate, rash, 02/28/17) Sulfa Antibiotics (Verified Allergy, Intermediate, HIVES, 02/28/17) Dust (Verified Allergy, Mild, ITCHY EYES, 02/28/17) Oxycodone (Verified Allergy, Mild, itchy, 02/28/17) Prednisone (Verified Allergy, Mild, ITCHY, 02/28/17) Methylprednisolone (Verified Adverse Reaction, Intermediate, vomiting, shaking, 02/28/17) Metformin (Verified Adverse Reaction, Mild, "diarrhea", 02/28/17) Molds & Smuts (Verified Adverse Reaction, Mild, ITCHY EYES, HEADACHES, ) Physical Exam Vital Signs Date Time Temp Pulse Resp B/P (MAP) Pulse Ox O2 Delivery O2 Flow Rate FiO2 05/20/17 14:45 36.6 78 18 155/82 98 Room Air Physical Exam CONSTITUTIONAL/VITAL SIGNS: Reviewed / noted above. GENERAL: Non-toxic in appearance. INTEGUMENTARY: Warm, dry, and [place]. HEAD: Normocephalic. EYES: without scleral icterus or trauma. ENT/OROPHARYNX: clear and moist. LYMPHADENOPATHY/NECK: Is supple without lymphadenopathy or meningismus. RESPIRATORY: Lungs clear and equal. CARDIOVASCULAR: Regular rate and rhythm. GI/ABDOMEN: Soft and nontender. No organomegaly or pulsatile mass. No rebound or guarding. Normal bowel sounds. EXTREMITIES: Warm and well perfused. BACK: No CVA tenderness. NEUROLOGICAL: Intact without focal deficits. PSYCHIATRIC: normal affect. MUSCULOSKELETAL: Normally developed with good muscle tone. Medical Decision & Procedures Laboratory Results 05/20/17 15:53 Red Blood Count 4.14, Mean Corpuscular Volume 94.7, Mean Corpuscular Hemoglobin 31.4, Mean Corpuscular Hemoglobin Concent 33.2, Mean Platelet Volume 10.3, Neutrophils (%) (Auto) 50.9, Lymphocytes (%) (Auto) 38.0, Monocytes (%) (Auto) 7.1, Eosinophils (%) (Auto) 3.4, Basophils (%) (Auto) 0.4, Neutrophils # (Auto) 2.74, Lymphocytes # (Auto) 2.04, Monocytes # (Auto) 0.38, Eosinophils # (Auto) 0.18, Basophils # (Auto) 0.02 05/20/17 15:53 Test 05/20/17 15:53 White Blood Count 5.37 K/uL (4.8-10.8) Red Blood Count 4.14 M/uL (4.2-5.4) Hemoglobin 13.0 g/dL (12.0-16.0) Hematocrit 39.2 % (37-47) Mean Corpuscular Volume 94.7 fL (80-100) Mean Corpuscular Hemoglobin 31.4 pg (25-34) Mean Corpuscular Hemoglobin Concent 33.2 g/dl (32-36) Platelet Count 194 K/uL (130-400) Mean Platelet Volume 10.3 fL (7.4-10.4) Neutrophils (%) (Auto) 50.9 % Lymphocytes (%) (Auto) 38.0 % Monocytes (%) (Auto) 7.1 % Eosinophils (%) (Auto) 3.4 % Basophils (%) (Auto) 0.4 % Neutrophils # (Auto) 2.74 K/uL (1.4-6.5) Lymphocytes # (Auto) 2.04 K/uL (1.2-3.4) Monocytes # (Auto) 0.38 K/uL (0.11-0.59) Eosinophils # (Auto) 0.18 K/uL (0-0.5) Basophils # (Auto) 0.02 K/uL (0-0.2) RDW Standard Deviation 45.1 fL (36.4-46.3) RDW Coefficient of Variation 13.0 % (11.5-14.5) Immature Granulocyte % (Auto) 0.2 % Immature Granulocyte # (Auto) 0.01 K/uL (0.00-0.02) Anion Gap 3.0 mmol/L (3-11) Est Creatinine Clear Calc Drug Dose 67.4 ml/min Estimated GFR () 88.3 Estimated GFR (Non- 76.2 BUN/Creatinine Ratio 15.9 (10-20) Calcium Level 8.2 mg/dl (8.5-10.1) Laboratory results as stated above per my review. Medications Administered Medications (Trade) Dose Ordered Sig/Radha Route Start Time Stop Time Status Last Admin Dose Admin Sodium Chloride 1,000 ml @ 999 mls/hr Q1H1M STAT IV 05/20/17 15:16 05/20/17 16:16 DC 05/20/17 16:01 999 MLS/HR Ondansetron HCl (Zofran Inj) 4 mg NOW STAT IV 05/20/17 15:16 05/20/17 15:20 DC 05/20/17 16:02 4 MG Ketorolac Tromethamine (Toradol Inj) 30 mg NOW STAT IV 05/20/17 15:16 05/20/17 15:20 DC 05/20/17 16:02 30 MG Diphenhydramine HCl (Benadryl Inj) 25 mg NOW STAT IV 05/20/17 15:16 05/20/17 15:20 DC 05/20/17 16:02 25 MG ED Course 1458: Previous medical records were reviewed. The patient was evaluated in room C10. A complete history and physical examination was performed. 1516: Benadryl Inj 25mg IV, Toradol Inj 30mg IV, Zofran Inj 4mg IV, Sodium Chloride 1000 ml @ 999 mls/hr IV. 1650: On reevaluation, the patient is doing well. I discussed the results and findings with the patient. She verbalized agreement of the treatment plan. The patient was discharged home. Medical Decision Differential diagnosis: Etiologies such as gastroenteritis, food borne illness, infections, appendicitis , diverticulitis, inflammatory bowel disease, obstruction, GI bleed, biliary pathology, as well as others were entertained. This is a 66-year-old female who presents to the ED with a chief complaint of left year popping for the past week. She also reports having some diarrhea over the past couple of days and feels she might be dehydrated. She states that her left side of her nose is been a little runny recently. She has no other significant complaints. The patient's exam was normal. Her ear is without infection. Throat is clear. There is no tenderness to palpation the temporal region. There are no rashes. There is no lymphadenopathy. The rest of her exam was unremarkable. Blood work including CBC and PRP is normal. The patient was treated with IV fluids, IV Toradol and IV Benadryl. I feel her symptoms are likely related to eustachian tube dysfunction possibly related to allergies. There is no evidence of infection. She is felt to be stable for discharge. Medication Reconcilliation Current Medication List: was personally reviewed by me Blood Pressure Screening Patient's blood pressure: Elevated blood pressure Blood pressure disposition: Elevated BP felt to be situational Impression Primary Impression: Diarrhea Additional Impression: Ear pain, left Scribe Attestation The scribe's documentation has been prepared under my direction and personally reviewed by me in its entirety. I confirm that the note above accurately reflects all work, treatment, procedures, and medical decision making performed by me. Departure Information Dispostion Home / Self-Care Referrals Bianca Rg (PCP) Forms HOME CARE DOCUMENTATION FORM, IMPORTANT VISIT INFORMATION, WORK / SCHOOL INSTRUCTIONS Patient Instructions My [facility] Additional Instructions Follow-up with your doctor for further care and evaluation in 1-2 days. Return to the emergency department for worsening or new symptoms or any concerns. You have been examined and treated today on an emergency basis only. This is not a substitute for, or an effort to provide, complete comprehensive medical care. It is impossible to recognize and treat all injuries or illnesses in a single emergency department visit. It is therefore important that you follow up closely with your doctor. Call as soon as possible for an appointment. Problem Qualifiers
[2017-05-20] MEDS ORDERED: KETO30IN5 IM (17:22)
[2017-05-20] MEDS ORDERED: CHOL50007 PO (17:22)
[2017-05-20] MEDS ORDERED: FLX10 PO (17:22)
[2017-05-20 17:39] VITALS: BP 170/91; PULSE 77; O2SAT 98
[2017-05-20] MEDS ORDERED: RANI150T2 PO (18:23)
[2017-05-20] MEDS ORDERED: FLUT1AER5 INH (18:23)
[2017-05-20] MEDS ORDERED: NRN100 PO (19:10)
[2017-05-20] MEDS ORDERED: OMEP20CA9 PO (19:13)
[2017-05-20] MEDS ORDERED: FERR325T PO (19:24)
[2017-05-20] MEDS ORDERED: LEVO88TA3 PO (20:27)
== END 2017-05-20 17:40 | disposition home or self-care (01) ==
LOC: C.EDB 14:42 → C.EDC 17:40
DX: R19.7 Diarrhea, unspecified (principal); H92.02 Otalgia, left ear; J45.909 Unspecified asthma, uncomplicated; J44.9 Chronic obstructive pulmonary disease, unspecified; E03.9 Hypothyroidism, unspecified; Z83.3 Family history of diabetes mellitus; Z82.49 Family history of ischemic heart disease and other diseases of the circulatory system; Z82.3 Family history of stroke; Z79.82 Long term (current) use of aspirin

== ENCOUNTER → 2017-06-15 | Outpatient (CLI) | payer BC ==
[~2017-06-15] MED LIST changes: +ALBU18002 INH; +CHOL50007 PO; +CYNI1000 IM; +FERR325T PO; +FLUT1AER5 INH; +FLX10 PO; +KETO30IN5 IM; +LEVO88TA3 PO; +MAGN400T6 PO; +MULT-506 PO; +MXL10 PO; +NRN100 PO; +NRV/5 PO; +OMEP20CA9 PO; +PREG1CAP28 PO; +RANI150T2 PO; +ROPI1TAB29 PO; +WLC625 PO
--- NOTE | 2017-06-15 12:30 | DIAGNOSTIC IMAGING REPORT ---
CT SCAN OF THE TEMPORAL BONES WITHOUT IV CONTRAST CLINICAL HISTORY: Otalgia, left ear pain greater than right of several years duration. COMPARISON STUDY: MRI of the brain dated 05/20/2016. TECHNIQUE: High-resolution CT scan of the temporal bones is performed. Images reviewed in the axial, sagittal, and coronal planes. IV contrast was not administered for this examination. A dose lowering technique was utilized adhering to the principles of ALARA. CT DOSE: 450.01 mGy.cm FINDINGS: The skeletal structures are osteopenic. There is no evidence of temporal bone fracture. The mastoid air cells are well pneumatized. The middle ear structures are normal bilaterally. There is no evidence of cholesteatoma. The scutum is sharp bilaterally. The ossicles are normal in appearance. There is no evidence of dehiscence of the tegmen tympany. There is no evidence of otosclerosis. The external auditory canals are clear. There are postoperative changes from previous. Nasal sinus surgery. Trace mucosal thickening is seen within the maxillary antra. The nasal sinuses are otherwise clear. The bony orbits are intact. Orbital contents are normal in appearance noting bilateral ocular lens implants. The brain parenchyma is normal as visualized. There is atherosclerotic calcification of the cavernous carotid arteries. IMPRESSION: Unremarkable CT assessment of the temporal bones. Dictated: 06/15/2017 11:49 AM Transcribed: 06/15/2017 12:29 PM [facility] Electronically signed by: Yonathan Kelsey M.D. 06/15/2017 1:54 PM Dictated Date/Time: 06/15/2017 11:49 AM
== END | disposition home or self-care (01) ==
LOC: C.CTS 11:22
PROVIDERS: ATTEND Physician Assistant
DX: H92.02 Otalgia, left ear (principal)

== ENCOUNTER 2017-08-22 17:01 | Emergency (ER) | payer BC ==
[~2017-08-22] VITALS: Ht 154.9 cm; Wt 82.9 kg
[~2017-08-22 17:01] MED LIST changes: -CHOL50007 PO; -FERR325T PO; -FLUT1AER5 INH; -FLX10 PO; -KETO30IN5 IM; -LEVO88TA3 PO; -MXL10 PO; -NRN100 PO; +RIZA10TA21 PO
[2017-08-22 17:07] VITALS: TEMP 36.7; Ht 154.9 cm; Wt 82.9 kg
[2017-08-22] MEDS ORDERED: KETO30IN5 IM (17:22)
[2017-08-22] MEDS ORDERED: CHOL50007 PO (17:22)
[2017-08-22] MEDS ORDERED: FLX10 PO (17:22)
[2017-08-22] MEDS ORDERED: KETOROLAC TROMETHAMINE 30 MG/ML VIAL IV STA (17:25)
[2017-08-22] MEDS ORDERED: ONDANSETRON INJ 2 MG/ML 2 ML VIAL IV STA (17:25)
[2017-08-22] MEDS ORDERED: DiphenhydrAMINE HCL 50 MG/ML VIAL IV STA (17:25)
[2017-08-22] MEDS ORDERED: SODIUM CHLORIDE 0.9% 1000ML 1,000 ML IV STA (17:25)
[2017-08-22] MEDS ORDERED: FLUT1AER5 INH (18:23)
[2017-08-22 18:47] LABS: BASO % 0.2 %; BASO ABS # 0.01 K/uL (0-0.2); COMPLETE YES; EOS % 2.6 %; HEMATOCRIT 38.2 % (37-47); IG% 0.2 %; LYMPH % 32.6 %; LYMPH ABS # 1.91 K/uL (1.2-3.4); MEAN CELL VOLUME 95.3 fL (80-100); MEAN CORPUSCULAR HEMOGLOBIN 31.7 pg (25-34); MEAN CORPUSCULAR HGB CONC 33.2 g/dl (32-36); MEAN PLATELET VOLUME 10.7 fL (7.4-10.4); MONO % 6.7 %; NEUT % 57.7 %; PLATELET COUNT 192 K/uL (130-400); RED BLOOD COUNT 4.01 M/uL (4.2-5.4); WHITE BLOOD COUNT 5.86 K/uL (4.8-10.8)
[2017-08-22 19:07] LABS: BUN/CREATININE RATIO 16.7 (10-20); CALCIUM 8.3 mg/dl (8.5-10.1); CREATININE 0.82 mg/dl (0.60-1.20); POTASSIUM 3.6 mmol/L (3.5-5.1)
[2017-08-22] MEDS ORDERED: PREG75CA PO (19:09)
[2017-08-22] MEDS ORDERED: RANI150C4 PO (19:09)
[2017-08-22] MEDS ORDERED: OMEP40CA41 PO (19:09)
[2017-08-22] MEDS ORDERED: NRN100 PO (19:10)
[2017-08-22] MEDS ORDERED: FERR1TAB62 PO (19:24)
[2017-08-22 20:03] LABS: URINE APPEARANCE CLEAR (CLEAR); URINE BILIRUBIN NEG (NEG); URINE COLOR YELLOW; URINE NITRITE NEG (NEG); URINE SPECIFIC GRAVITY 1.008 (1.000-1.030); UROBILINOGEN NEG (NEG); ZZUR CULT IF INDIC CLEAN CATCH NO
[2017-08-22 20:14] LABS: MANUAL MICROSCOPIC REQUIRED? NO; REVIEW REQ? NO
[2017-08-22] MEDS ORDERED: MAGNESIUM SULFATE 1GM / D5W 1 GM BAG IV STA (20:17)
[2017-08-22] MEDS ORDERED: LEVO88TA3 PO (20:27)
--- NOTE | 2017-08-22 20:28 | EMERGENCY ROOM VISIT NOTE ---
History First contact with patient: 17:12 Chief Complaint: HEAD PAIN Stated Complaint: DIZZY, EAR PAIN, HEAD PAIN, SHAKEY, NAUSEA, DIARRH History of Present Illness The patient is a 67 year old female who presents to the Emergency Room with complaints of sinus congestion and dizziness for the past few days. The patient states she is not feeling well for a few days, and has had a decreased appetite and has not been drinking normally. She states this morning she awoke , and was feeling dizzy. She went to work, and her dizziness increased. She noted that the dizziness seems to worsen when tilting her head backwards, like when she would take a drink. The patient states her mouth is very dry, and she has also had some nausea, diarrhea, shakes, sinus pain, worse on the left, and bilateral otalgia. The patient states she has had chills, and feels like when she is walking she is fearing towards the right. The patient states her symptoms have been constant today, but as mentioned previously, worse with tilting her head back. She has not taken any OTC medication for her congestion and earache. She states her headache has been going on for 3 days. The patient states for the past 3 days, her symptoms have been intermittent, lasting approximately 1 minute, then going away for 30 minutes or longer. She denies any fever, and has not vomited. She states there is no abdominal pain. There is been no sore throat, runny nose, confusion, visual disturbances, neck pain, back pain, urinary complaints, chest pain, difficulty breathing, cough, coughing up sputum, or other associated symptoms. Review of Systems A complete 10 point review of systems was reviewed with the patient with pertinent positives and negatives as per history of present illness. All else were negative. Past Medical/Surgical History Medical Problems: (1) Abdominal pain (2) Abdominal pain (3) Asthma (4) BARIATRIC SURGERY STATUS (5) C. 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 (8) COPD (chronic obstructive pulmonary disease) (9) Cough (10) Dehydration (11) Dehydration (12) Diarrhea (13) Diarrhea (14) Headache (15) Headache (16) HYPOTHYROIDISM NOS (17) MIGRAINE UNSPECIFIED W/O INTRACT MGRN W/O STATUS MIGRAINOSUS (18) Pneumonia (19) Pneumonia (20) Reflux esophagitis (21) Stomach problems Surgical Problems: (1) Hx of cholecystectomy Family History Diabetes mellitus Hypertension Kidney disease Stroke Social History Smoking Status: Never Smoker Smokeless Tobacco Use: No Alcohol Use: none Drug Use: none Marital Status: Housing Status: lives with family Occupation Status: disabled Current/Historical Medications Scheduled Amlodipine Besylate (Amlodipine Besylate), 5 MG PO HS Aspirin (Aspirin Ec), 81 MG PO QPM Cholecalciferol (Ra Vitamin D-3), 5,000 INTER.UNIT PO DAILY Colesevelam Hcl (Welchol), 1,250 MG PO QAM Cyanocobalamin (Cyanocobalamin), 1,000 MCG IM Q3 MONTHS Ferrous Sulfate (Ferrous Sulfate), 325 MG PO HS Gabapentin (Gabapentin), 200 MG PO TID Levothyroxine Sodium (Levothyroxine Sodium), 88 MCG PO QAM Magnesium Oxide (Mag-Ox), 400 MG PO DAILY Multivitamin (Multivitamin), 1 TAB PO DAILY Omeprazole (Prilosec), 40 MG PO HS Pregabalin (Lyrica), 75 MG PO BID Probiotic Product (Probiotic), 1 CAP PO HS Ranitidine Hcl (Ranitidine Hcl), 150 MG PO BID Ropinirole HCl (Ropinirole HCl), 1 MG PO TID Topiramate (Topiramate), 100 MG PO BID Scheduled PRN Albuterol Sulfate (Proair Respiclick), 2 PUFFS INH QID PRN for Wheezing Cyclobenzaprine HCl (Cyclobenzaprine HCl), 10 MG PO TID PRN for Muscle Spasm Diphenhydramine Hcl (Benadryl Allergy), 25 MG PO HS PRN for Sleep Fluticasone Propionate (Inhala (Flovent Diskus), 1 PUFF INH BID PRN for SOB/ Wheezing Ketorolac Tromethamine (Ketorolac Tromethamine), 30 MG IM WK PRN for Pain Rizatriptan Benzoate (Rizatriptan Benzoate), 10 MG PO UD PRN for Migraine Physical Exam Vital Signs Date Time Temp Pulse Resp B/P (MAP) Pulse Ox O2 Delivery O2 Flow Rate FiO2 08/22/17 21:43 78 20 132/99 99 Room Air 08/22/17 21:25 78 20 157/80 99 Room Air 08/22/17 20:12 79 18 170/84 98 Room Air 08/22/17 18:30 76 20 155/75 100 72 166/73 83 154/73 08/22/17 17:07 36.7 81 50 186/97 99 Room Air Physical Exam VITALS: Vitals are noted on the nurse's note and reviewed by myself. Vital signs stable. GENERAL: This is a 67-year-old obese white female, in no acute distress, nondiaphoretic, well-developed well-nourished. SKIN: The skin was without rashes, erythema, edema, or bruising. There is no tenting of the skin. Capillary reflex less than 2 seconds. HEAD: Normocephalic atraumatic. EARS: External auditory canals clear, tympanic membranes pearly ruth without erythema or effusion bilaterally. EYES: Pupils equal round and reactive to light and accommodation. Conjunctivae without injection, sclerae without icterus. Extraocular movements intact. NOSE: Patent, turbinates without inflammation or discharge. No sinus tenderness. MOUTH: Mucous membranes dry. Tonsils are not enlarged. Pharynx without erythema or exudate. Uvula midline. Airway patent. Tongue does not deviate. NECK: Supple without nuchal rigidity. No lymphadenopathy. No thyromegaly. Cervical spine is nontender. No JVD. HEART: Regular rate and rhythm without murmurs gallops or rubs. LUNGS: Clear to auscultation bilaterally without wheezes, rales or rhonchi. No dullness to percussion. No retractions or accessory muscle use. ABDOMEN: Positive bowel sounds x 4. Normal tympanic percussion. Soft, nontender, without masses or organomegaly. Shepard sign negative. No guarding or rebound tenderness. MUSCULOSKELETAL: No muscle atrophy, erythema, or edema noted. Full range of motion without joint tenderness in all extremities. No tenderness to palpation. Normal gait. Strength 5/5 throughout. NEURO: Patient was alert and oriented to person place and time. Normal sensation to light and sharp touch. Deep tendon reflexes 2+ throughout. No focal neurological deficits. Medical Decision & Procedures ER Provider Diagnostic Interpretation: CBC without leukocytosis, anemia, thrombocytopenia. PRP did not reveal any renal or electrolyte abnormalities. The patient does not appear to be dehydrated based on her renal function. Urinalysis did not show any signs of infection. Orthostatic vital signs were negative. CHEST 2 VIEWS ROUTINE CLINICAL HISTORY: Cough. COMPARISON STUDY: Chest radiograph March 23, 2017. FINDINGS: A right internal jugular [id number] remains in place. There is no pneumothorax or pleural effusion. Cardiomediastinal silhouette is normal. Pulmonary vascularity is normal. There is no consolidation to suggest pneumonia. IMPRESSION: No acute cardiopulmonary findings. Electronically signed by: Quinn Rocha M.D. 08/22/2017 8:31 PM Dictated Date/Time: 08/22/2017 8:30 PM Laboratory Results 08/22/17 18:35 Red Blood Count 4.01, Mean Corpuscular Volume 95.3, Mean Corpuscular Hemoglobin 31.7, Mean Corpuscular Hemoglobin Concent 33.2, Mean Platelet Volume 10.7, Neutrophils (%) (Auto) 57.7, Lymphocytes (%) (Auto) 32.6, Monocytes (%) (Auto) 6.7, Eosinophils (%) (Auto) 2.6, Basophils (%) (Auto) 0.2, Neutrophils # (Auto) 3.39, Lymphocytes # (Auto) 1.91, Monocytes # (Auto) 0.39, Eosinophils # (Auto) 0.15, Basophils # (Auto) 0.01 08/22/17 18:35 Test 08/22/17 18:35 08/22/17 19:00 White Blood Count 5.86 K/uL (4.8-10.8) Red Blood Count 4.01 M/uL (4.2-5.4) Hemoglobin 12.7 g/dL (12.0-16.0) Hematocrit 38.2 % (37-47) Mean Corpuscular Volume 95.3 fL (80-100) Mean Corpuscular Hemoglobin 31.7 pg (25-34) Mean Corpuscular Hemoglobin Concent 33.2 g/dl (32-36) Platelet Count 192 K/uL (130-400) Mean Platelet Volume 10.7 fL (7.4-10.4) Neutrophils (%) (Auto) 57.7 % Lymphocytes (%) (Auto) 32.6 % Monocytes (%) (Auto) 6.7 % Eosinophils (%) (Auto) 2.6 % Basophils (%) (Auto) 0.2 % Neutrophils # (Auto) 3.39 K/uL (1.4-6.5) Lymphocytes # (Auto) 1.91 K/uL (1.2-3.4) Monocytes # (Auto) 0.39 K/uL (0.11-0.59) Eosinophils # (Auto) 0.15 K/uL (0-0.5) Basophils # (Auto) 0.01 K/uL (0-0.2) RDW Standard Deviation 43.7 fL (36.4-46.3) RDW Coefficient of Variation 12.7 % (11.5-14.5) Immature Granulocyte % (Auto) 0.2 % Immature Granulocyte # (Auto) 0.01 K/uL (0.00-0.02) Anion Gap 5.0 mmol/L (3-11) Est Creatinine Clear Calc Drug Dose 65.9 ml/min Estimated GFR () 86.4 Estimated GFR (Non- 74.6 BUN/Creatinine Ratio 16.7 (10-20) Calcium Level 8.3 mg/dl (8.5-10.1) Urine Color YELLOW Urine Appearance CLEAR (CLEAR) Urine pH 8.0 (4.5-7.5) Urine Specific [place] 1.008 (1.000-1.030) Urine Protein NEG (NEG) Urine Glucose (UA) NEG (NEG) Urine Ketones NEG (NEG) Urine Occult Blood NEG (NEG) Urine Nitrite NEG (NEG) Urine Bilirubin NEG (NEG) Urine Urobilinogen NEG (NEG) Urine Leukocyte Esterase NEG (NEG) Medications Administered Medications (Trade) Dose Ordered Sig/Radha Route Start Time Stop Time Status Last Admin Dose Admin Sodium Chloride 1,000 ml @ 999 mls/hr Q1H1M STAT IV 08/22/17 17:25 08/22/17 18:25 DC 08/22/17 18:59 999 MLS/HR Ondansetron HCl (Zofran Inj) 4 mg NOW STAT IV 08/22/17 17:25 08/22/17 17:30 DC 08/22/17 18:57 4 MG Ketorolac Tromethamine (Toradol Inj) 30 mg NOW STAT IV 08/22/17 17:25 08/22/17 17:30 DC 08/22/17 18:57 30 MG Diphenhydramine HCl (Benadryl Inj) 50 mg NOW STAT IV 08/22/17 17:25 08/22/17 17:30 DC 08/22/17 18:57 50 MG Magnesium Sulfate (Magnesium Sulfate) 1 gm NOW STAT IV 08/22/17 20:17 08/22/17 20:20 DC 08/22/17 20:34 1 GM Heparin Sodium (Porcine) (Heparin 100 Unit/ml 5ml Flush) 5 ml STK-MED ONCE .ROUTE 08/22/17 21:35 08/22/17 21:36 DC 08/22/17 21:35 5 ML Medical Decision The patient presents today complaining of sinus congestion, bilateral otalgia, nausea, and dizziness associated with tilting her head backwards. Symptoms have been intermittent for the past few days, but more persistent today. The patient states she has not been eating or drinking as she normally does, and suspects she may be dehydrated. The patient was initially given 1 L NSS, 30 mg Toradol IV, 4 mg Zofran IV, and 50 mg Benadryl IV. The patient did request Benadryl, "as it often helps with my headaches". When I reevaluated the patient as she was receiving the fluid bolus and advised her of her normal lab workup, the patient states now her headache seems to be worsening. She does request something more to help with the headache. I advised her that I would be happy to give her some IV Tylenol or we could try some magnesium, as this often helps with migraines. The patient states she would like to try some magnesium for her headache at this time. The patient was given 1 g magnesium through the IV. On reevaluation approximately 3 minutes after initiation of magnesium, the patient states she is feeling significantly better. I asked if she was feeling well enough to go home, and she states yes. I reviewed discharge instructions, and did encourage her to take magnesium daily at home to help prevent migraines. The patient was in agreement with the plan. She was encouraged to follow up outpatient with her PCP, and she states she has an appointment scheduled for Monday. The patient was discharged home in good condition. Differential diagnosis includes upper respiratory infection, acute sinusitis, allergic rhinitis, acute pharyngitis, dizziness, vertigo, or static hypotension , urinary tract infection, pneumonia, bronchitis, malignancy, and others Medication Reconcilliation Current Medication List: was personally reviewed by me Blood Pressure Screening Patient's blood pressure: Elevated blood pressure Blood pressure disposition: Referred to PCP Impression Primary Impression: Headache Additional Impressions: Allergic rhinitis Dizziness Departure Information Dispostion Home / Self-Care Condition GOOD Referrals Bianca Rg (PCP) Patient Instructions ED Dizziness [facility], ED Headache Sinus, My [facility] Additional Instructions You were seen and evaluated in the emergency department today for congestion, headache, and dizziness. Labs and imaging studies have ruled out emergent causes for your symptoms which would require admission. I do suspect a viral versus allergic component to her symptoms, neither of which require antibiotics. As discussed, you should stay well hydrated to help with the dizziness, and consider OTC remedies for the congestion and headache. Your headache didn't respond in the emergency department to magnesium therapy. He should consider taking 400 mg magnesium daily at bedtime, as this may help prevent headaches in the future. For your sore throat, you may use a 1:1 mixture of liquid Benadryl and liquid Maalox. Gargle and spit this mixture. It will help to soothe the throat and provide some relief. Drink warm tea with honey and lemon, as this will also help to soothe the throat. Gargle with salt water frequently. As discussed, you should take OTC Coricidin HBP to help with the congestion. Acetaminophen(Tylenol) may be used for fever or pain. Use 1000mg every six hours as needed. Avoid using more than 3000mg in a 24 hour period. For congestion, you may use Flonase OTC. Use this medication as recommended. As discussed, this does have a steroid in it, so may help more with inflammation in her sinuses. You may continue to use your regular nasal spray to help clear out the sinuses. You may want to consider zinc, echinacea, and vitamin C to help boost your immunity. Please get plenty of rest and drink plenty of fluids. As discussed, drinking more water will help with the headache and dizziness. Please return or follow-up with your PCP at your regularly scheduled appointment on Monday. Return to the emergency department for coughing up blood, difficulty breathing, chest pain, worsening symptoms, or for other concerns. Problem Qualifiers Primary Impression: Headache Headache type: unspecified Headache chronicity pattern: acute headache Intractability: not intractable Qualified Codes: R51 - Headache Additional Impressions: Allergic rhinitis Chronicity: acute Allergic rhinitis trigger: other Allergic rhinitis seasonality: seasonal Qualified Codes: J30.2 - Other seasonal allergic rhinitis
--- NOTE | 2017-08-22 20:32 | DIAGNOSTIC IMAGING REPORT ---
CHEST 2 VIEWS ROUTINE CLINICAL HISTORY: Cough. COMPARISON STUDY: Chest radiograph March 23, 2017. FINDINGS: A right internal jugular [id number] remains in place. There is no pneumothorax or pleural effusion. Cardiomediastinal silhouette is normal. Pulmonary vascularity is normal. There is no consolidation to suggest pneumonia. IMPRESSION: No acute cardiopulmonary findings. Electronically signed by: Quinn Rocha M.D. 08/22/2017 8:31 PM Dictated Date/Time: 08/22/2017 8:30 PM
[2017-08-22 21:43] VITALS: BP 132/99; PULSE 78; O2SAT 99
== END 2017-08-22 20:55 | disposition home or self-care (01) ==
LOC: C.EDB 17:03 → C.EDA 20:55
DX: R51 Headache (principal); R42 Dizziness and giddiness; J45.909 Unspecified asthma, uncomplicated; J44.9 Chronic obstructive pulmonary disease, unspecified; E03.9 Hypothyroidism, unspecified; R03.0 Elevated blood-pressure reading, without diagnosis of hypertension; Z83.3 Family history of diabetes mellitus; Z82.49 Family history of ischemic heart disease and other diseases of the circulatory system; Z82.0 Family history of epilepsy and other diseases of the nervous system; Z79.82 Long term (current) use of aspirin

== ENCOUNTER 2017-10-03 17:07 | Emergency (ER) | payer BC ==
[~2017-10-03] VITALS: Ht 154.9 cm; Wt 83.0 kg
[~2017-10-03 17:07] MED LIST changes: +CHOL50007 PO; +FERR1TAB62 PO; +FLUT1AER5 INH; +FLX10 PO; +KETO30IN5 IM; +LEVO88TA3 PO; +NRN100 PO; -OMEP20CA9 PO; +OMEP40CA41 PO; -PREG1CAP28 PO; +PREG75CA PO; +RANI150C4 PO; -RANI150T2 PO
[2017-10-03 17:19] VITALS: TEMP 36.5; Ht 154.9 cm; Wt 83.0 kg
[2017-10-03] MEDS ORDERED: SODIUM CHLORIDE 0.9% 1000ML 1,000 ML IV STA (18:13)
[2017-10-03] MEDS ORDERED: ONDANSETRON INJ 2 MG/ML 2 ML VIAL IV STA (18:13)
[2017-10-03] MEDS ORDERED: ACETAMINOPHEN IV 1,000 MG in EMPTY BAG 0 ML IV STA (18:23)
[2017-10-03] MEDS ORDERED: ALBUT/IPRATROP 3MG/0.5MG NEB 3 ML VIAL INH STA (18:23)
--- NOTE | 2017-10-03 18:57 | DIAGNOSTIC IMAGING REPORT ---
CHEST 2 VIEWS ROUTINE CLINICAL HISTORY: cough, left chest pain, hx pneumonia dyspnea COMPARISON STUDY: 08/22/2017 FINDINGS: Lungs are clear. Central catheter in superior vena cava. No focal infiltrate. No evidence for cardiac enlargement. IMPRESSION: Negative study. The above report was generated using voice recognition software. It may contain grammatical, syntax or spelling errors. Electronically signed by: Kvng Shaw M.D. 10/03/2017 6:56 PM Dictated Date/Time: 10/03/2017 6:55 PM
--- NOTE | 2017-10-03 19:00 | DIAGNOSTIC IMAGING REPORT ---
KUB CLINICAL HISTORY: diarrhea bowel change COMPARISON STUDY: 11/03/2015 FINDINGS: Nonobstructive bowel pattern. An anastomotic line left mid abdomen. Several surgical clips right upper quadrant. Mild degenerative change of the osseous structures throughout. IMPRESSION: No acute process. Nonobstructive bowel pattern. The above report was generated using voice recognition software. It may contain grammatical, syntax or spelling errors. Electronically signed by: Kvng Shaw M.D. 10/03/2017 6:59 PM Dictated Date/Time: 10/03/2017 6:58 PM
[2017-10-03 19:48] LABS: BASO % 0.4 %; BASO ABS # 0.02 K/uL (0-0.2); EOS % 2.4 %; EOS ABS # 0.12 K/uL (0-0.5); HEMATOCRIT 37.7 % (37-47); HEMOGLOBIN 12.7 g/dL (12.0-16.0); IG# 0.01 K/uL (0.00-0.02); LYMPH ABS # 1.93 K/uL (1.2-3.4); MEAN CELL VOLUME 94.3 fL (80-100); MEAN CORPUSCULAR HEMOGLOBIN 31.8 pg (25-34); MEAN CORPUSCULAR HGB CONC 33.7 g/dl (32-36); MEAN PLATELET VOLUME 10.4 fL (7.4-10.4); MONO % 6.1 %; NEUT % 51.9 %; NEUT ABS # 2.57 K/uL (1.4-6.5); PLATELET COUNT 221 K/uL (130-400); RED CELL DISTRIBUTION WIDTH CV 12.7 % (11.5-14.5); RED CELL DISTRIBUTION WIDTH SD 43.5 fL (36.4-46.3); WHITE BLOOD COUNT 4.95 K/uL (4.8-10.8)
[2017-10-03 19:52] LABS: INFLUENZA B ANTIGEN Neg for Influ B (NEG)
[2017-10-03 20:05] LABS: ALBUMIN 3.2 gm/dl (3.4-5.0); ALT/SGPT 26 U/L (12-78); AST/SGOT 19 U/L (15-37); BLOOD UREA NITROGEN 15 mg/dl (7-18); CALCIUM 8.4 mg/dl (8.5-10.1); CARBON DIOXIDE 25 mmol/L (21-32); CREATININE 0.83 mg/dl (0.60-1.20); GLUCOSE 118 mg/dl (70-99); POTASSIUM 3.7 mmol/L (3.5-5.1); SODIUM 141 mmol/L (136-145)
[2017-10-03 20:10] LABS: ALKALINE PHOSPHATASE 99 U/L (45-117); TOTAL PROTEIN 6.4 gm/dl (6.4-8.2)
[2017-10-03] MEDS ORDERED: LIDODERM (LIDOCAINE) PATCH 5% TD STA (20:22)
--- NOTE | 2017-10-03 20:51 | EMERGENCY ROOM VISIT NOTE ---
History Report prepared by Kaela: Anabel Luz Under the Supervision of: Dr. Renu Fair D.O. First contact with patient: 18:00 Chief Complaint: CHEST PAIN Stated Complaint: PAIN RADIATING UL CHEST, UNDER ARM, PAIN LT SIDE Nursing Triage Summary: left sided chest pain with radiation to left arm and back. Cough. History of Present Illness The patient is a 67 year old female who presents to the Emergency Room with complaints of intermittent left sided chest pain for three days. The patient states that it has become more constant today. She states that the pain radiates under her armpit, down her arm, into the back of her shoulder, and up her neck to under her chin. She notes that she thought this was a bronchiole cough from her COPD. She states that when the pain is at its worst, she is short of breath. She notes that she used two breathing treatments last night and multiple in the days leading up into yesterday. She notes that this helps with her breathing, but not with her pain. She denies the pain being worse with movement. The patient states that she tried taking Tylenol to help with the pain with no relief. The patient complains of loss of appetite, dizziness, fatigue, diarrhea for four days, leg swelling, and nausea. She notes that she took Imodium for her diarrhea and it helped. The patient denies vomiting, hematochezia, and urinary symptoms. The patient notes that she has a port on the left side and had the one removed from the right side a year ago. She notes that she did get the flu shot this year and had an ear infection that was being treated with antibiotics last month. The patient states that she feels like this is something she had last March when they found a mass under her arm that disappeared. Review of EMR, patient with multiple presentations of left sided chest pain. Source of History: patient Onset: three days ago Position: chest (left) Quality: other (radiating) Timing: intermittent Associated Symptoms: + cough, + SOB, + nausea, + diarrhea, + fatigue, No vomiting, No hematochezia, No urinary symptoms Note: The patient complains of loss of appetite, dizziness, and leg swelling. Review of Systems See HPI for pertinent positives & negatives. A total of 10 systems reviewed and were otherwise negative. Past Medical & Surgical Medical Problems: (1) Abdominal pain (2) Abdominal pain (3) Asthma (4) BARIATRIC SURGERY STATUS (5) C. 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 (8) COPD (chronic obstructive pulmonary disease) (9) Cough (10) Dehydration (11) Dehydration (12) Diarrhea (13) Diarrhea (14) Headache (15) Headache (16) HYPOTHYROIDISM NOS (17) MIGRAINE UNSPECIFIED W/O INTRACT MGRN W/O STATUS MIGRAINOSUS (18) Pneumonia (19) Pneumonia (20) Reflux esophagitis (21) Stomach problems Surgical Problems: (1) Hx of cholecystectomy Family History Diabetes mellitus Hypertension Kidney disease Stroke Social History Smoking Status: Never Smoker Alcohol Use: none Drug Use: none Marital Status: Housing Status: lives with family Occupation Status: disabled Current/Historical Medications Scheduled Amlodipine Besylate (Amlodipine Besylate), 5 MG PO HS Aspirin (Aspirin Ec), 81 MG PO QPM Cholecalciferol (Ra Vitamin D-3), 5,000 INTER.UNIT PO DAILY Cyanocobalamin (Cyanocobalamin), 1,000 MCG IM Q3 MONTHS Ferrous Sulfate (Ferrous Sulfate), 325 MG PO HS Gabapentin (Gabapentin), 200 MG PO TID Levothyroxine Sodium (Levothyroxine Sodium), 88 MCG PO QAM Magnesium Oxide (Mag-Ox), 400 MG PO DAILY Multivitamin (Multivitamin), 1 TAB PO DAILY Omeprazole (Prilosec), 40 MG PO HS Pregabalin (Lyrica), 75 MG PO BID Probiotic Product (Probiotic), 1 CAP PO HS Ropinirole HCl (Ropinirole HCl), 1 MG PO TID Topiramate (Topiramate), 100 MG PO BID Scheduled PRN Albuterol Sulfate (Proair Respiclick), 2 PUFFS INH QID PRN for Wheezing Cyclobenzaprine HCl (Cyclobenzaprine HCl), 10 MG PO TID PRN for Muscle Spasm Diphenhydramine Hcl (Benadryl Allergy), 25 MG PO HS PRN for Sleep Fluticasone Propionate (Inhala (Flovent Diskus), 1 PUFF INH BID PRN for SOB/ Wheezing Ketorolac Tromethamine (Ketorolac Tromethamine), 30 MG IM WK PRN for Pain Ranitidine Hcl (Ranitidine Hcl), 150 MG PO BID PRN for GI Upset Rizatriptan Benzoate (Rizatriptan Benzoate), 10 MG PO UD PRN for Migraine Allergies Coded Allergies: Morphine (Verified Allergy, Intermediate, rash, 10/03/17) Sulfa Antibiotics (Verified Allergy, Intermediate, HIVES, 10/03/17) Dust (Verified Allergy, Mild, ITCHY EYES, 10/03/17) Oxycodone (Verified Allergy, Mild, itchy, 10/03/17) Prednisone (Verified Allergy, Mild, ITCHY, 10/03/17) Methylprednisolone (Verified Adverse Reaction, Intermediate, vomiting, shaking, 10/03/17) Metformin (Verified Adverse Reaction, Mild, "diarrhea", 10/03/17) Molds & Smuts (Verified Adverse Reaction, Mild, ITCHY EYES, HEADACHES, ) Physical Exam Vital Signs Date Time Temp Pulse Resp B/P (MAP) Pulse Ox O2 Delivery O2 Flow Rate FiO2 10/03/17 20:49 90 17 134/81 97 Room Air 10/03/17 19:37 85 119/73 96 Room Air 10/03/17 17:21 100 Room Air 10/03/17 17:19 36.5 73 18 183/78 100 Room Air Physical Exam GENERAL: alert, well appearing, well nourished, no distress, non-toxic EYE EXAM: normal conjunctiva, PERRL and EOM's grossly intact OROPHARYNX: no exudate, no erythema, lips, buccal mucosa, and tongue normal and mucous membranes are moist NECK: supple, no nuchal rigidity, no adenopathy, non-tender LUNGS: Breath sounds are diminished. No wheezes, rhonchi, or rales. Clear to auscultation. Normal chest wall mechanics HEART: no murmurs, S1 normal and S2 normal CHEST: Mild reproducible chest pain at the left chest wall and left posterior shoulder. ABDOMEN: abdomen soft, non-tender, normo-active bowel sounds, no masses, no rebound or guarding. BACK: Back is symmetrical on inspection and there is no deformity, no midline tenderness, no CVA tenderness. SKIN: no rashes and no bruising UPPER EXTREMITIES: upper extremities are grossly normal. LOWER EXTREMITIES: No pitting edema. NEURO EXAM: Normal sensorium, cranial nerves II-XII grossly intact, normal speech, no gross weakness of arms, no gross weakness of legs. Medical Decision & Procedures ER Provider Diagnostic Interpretation: Radiology results have been interpreted by the radiologist and reviewed by me. CHEST 2 VIEWS ROUTINE CLINICAL HISTORY: cough, left chest pain, hx pneumonia dyspnea COMPARISON STUDY: 08/22/2017 FINDINGS: Lungs are clear. Central catheter in superior vena cava. No focal infiltrate. No evidence for cardiac enlargement. IMPRESSION: Negative study. The above report was generated using voice recognition software. It may contain grammatical, syntax or spelling errors. Electronically signed by: Kvng Shaw M.D. 10/03/2017 6:56 PM Dictated Date/Time: 10/03/2017 6:55 PM KUB CLINICAL HISTORY: diarrhea bowel change COMPARISON STUDY: 11/03/2015 FINDINGS: Nonobstructive bowel pattern. An anastomotic line left mid abdomen. Several surgical clips right upper quadrant. Mild degenerative change of the osseous structures throughout. IMPRESSION: No acute process. Nonobstructive bowel pattern. The above report was generated using voice recognition software. It may contain grammatical, syntax or spelling errors. Electronically signed by: Kvng Shaw M.D. 10/03/2017 6:59 PM Dictated Date/Time: 10/03/2017 6:58 PM Laboratory Results 10/03/17 19:15 Red Blood Count 4.00, Mean Corpuscular Volume 94.3, Mean Corpuscular Hemoglobin 31.8, Mean Corpuscular Hemoglobin Concent 33.7, Mean Platelet Volume 10.4, Neutrophils (%) (Auto) 51.9, Lymphocytes (%) (Auto) 39.0, Monocytes (%) (Auto) 6.1, Eosinophils (%) (Auto) 2.4, Basophils (%) (Auto) 0.4, Neutrophils # (Auto) 2.57, Lymphocytes # (Auto) 1.93, Monocytes # (Auto) 0.30, Eosinophils # (Auto) 0.12, Basophils # (Auto) 0.02 10/03/17 19:15 Test 10/03/17 19:00 10/03/17 19:15 Influenza Type A Antigen Neg for Influ A (NEG) Influenza Type B Antigen Neg for Influ B (NEG) White Blood Count 4.95 K/uL (4.8-10.8) Red Blood Count 4.00 M/uL (4.2-5.4) Hemoglobin 12.7 g/dL (12.0-16.0) Hematocrit 37.7 % (37-47) Mean Corpuscular Volume 94.3 fL (80-100) Mean Corpuscular Hemoglobin 31.8 pg (25-34) Mean Corpuscular Hemoglobin Concent 33.7 g/dl (32-36) Platelet Count 221 K/uL (130-400) Mean Platelet Volume 10.4 fL (7.4-10.4) Neutrophils (%) (Auto) 51.9 % Lymphocytes (%) (Auto) 39.0 % Monocytes (%) (Auto) 6.1 % Eosinophils (%) (Auto) 2.4 % Basophils (%) (Auto) 0.4 % Neutrophils # (Auto) 2.57 K/uL (1.4-6.5) Lymphocytes # (Auto) 1.93 K/uL (1.2-3.4) Monocytes # (Auto) 0.30 K/uL (0.11-0.59) Eosinophils # (Auto) 0.12 K/uL (0-0.5) Basophils # (Auto) 0.02 K/uL (0-0.2) RDW Standard Deviation 43.5 fL (36.4-46.3) RDW Coefficient of Variation 12.7 % (11.5-14.5) Immature Granulocyte % (Auto) 0.2 % Immature Granulocyte # (Auto) 0.01 K/uL (0.00-0.02) Prothrombin Time 10.0 SECONDS (9.0-12.0) Prothromb Time International Ratio 1.0 (0.9-1.1) Anion Gap 7.0 mmol/L (3-11) Est Creatinine Clear Calc Drug Dose 65.1 ml/min Estimated GFR () 85.2 Estimated GFR (Non- 73.5 BUN/Creatinine Ratio 18.2 (10-20) Calcium Level 8.4 mg/dl (8.5-10.1) Magnesium Level 1.9 mg/dl (1.8-2.4) Total Bilirubin 0.3 mg/dl (0.2-1) Aspartate Amino Transf (AST/SGOT) 19 U/L (15-37) Alanine Aminotransferase (ALT/SGPT) 26 U/L (12-78) Alkaline Phosphatase 99 U/L (45-117) Troponin I < 0.015 ng/ml (0-0.045) Pro-B-Type Natriuretic Peptide 215 pg/ml (0-900) Total Protein 6.4 gm/dl (6.4-8.2) Albumin 3.2 gm/dl (3.4-5.0) Globulin 3.2 gm/dl (2.5-4.0) Albumin/Globulin Ratio 1.0 (0.9-2) Laboratory results per my review. Medications Administered Medications (Trade) Dose Ordered Sig/Radha Route Start Time Stop Time Status Last Admin Dose Admin Sodium Chloride 1,000 ml @ 999 mls/hr Q1H1M STAT IV 10/03/17 18:13 10/03/17 19:13 DC 10/03/17 19:26 999 MLS/HR Ondansetron HCl (Zofran Inj) 4 mg NOW STAT IV 10/03/17 18:13 10/03/17 18:16 DC 10/03/17 19:27 4 MG Acetaminophen 1000 mg/Empty Bag 100 ml @ 400 mls/hr NOW STAT IV 10/03/17 18:23 10/03/17 18:37 DC 10/03/17 19:26 400 MLS/HR Albuterol/ Ipratropium (Duoneb) 3 ml NOW STAT INH 10/03/17 18:23 10/03/17 18:24 DC 10/03/17 19:27 3 ML Lidocaine (Lidoderm Patch 5%) 1 patch NOW STAT TD 10/03/17 20:22 10/03/17 20:23 DC 10/03/17 20:49 1 PATCH ECG Indication: chest pain Rate (beats per minute): 70 Rhythm: sinus rhythm Findings: no acute ischemic change, no ectopy, other (normal axis, normal intervals) ED Course 1801: The patient was evaluated in room B11B. A complete history and physical exam was performed. 1812: Ordered NSS 1000 ml @ 999 mls/hr IV, Zofran Inj 4 mg IV. 1822: Ordered Duoneb 3 ml INH, Acetaminophen 1000 mg/ Empty Bag 100 ml @ 400 mls /hr IV. 2019: I reevaluated the patient and her breathing is better after the neb. She states that she still has chest pain though. 2021: Ordered Lidocaine 1 patch TD. 2024: I interpreted the results of the patient's EKG. 2000: Upon reevaluation, the patient is feeling better. I discussed the findings and the treatment plan with the patient. She verbalizes agreement and understanding. The patient was discharged home. Medical Decision The patient is a 67 year old female who presents to the Emergency Room with complaints of intermittent left sided chest pain for three days. Differential diagnosis: Etiologies such as cardiac ischemia, aortic dissection, pulmonary embolism, pneumonia, pneumothorax, musculoskeletal, infections, pericarditis, myocarditis , esophageal rupture, gastrointestinal, as well as others were entertained. Medication Reconcilliation Current Medication List: was personally reviewed by me Blood Pressure Screening Patient's blood pressure: Elevated blood pressure Blood pressure disposition: Elevated BP felt to be situational Impression Primary Impression: Chest pain Additional Impression: URI (upper respiratory infection) Scribe Attestation The scribe's documentation has been prepared under my direction and personally reviewed by me in its entirety. I confirm that the note above accurately reflects all work, treatment, procedures, and medical decision making performed by me. Departure Information Dispostion Home / Self-Care Referrals Bianca Rg (PCP) Forms Call Back Authorization, HOME CARE DOCUMENTATION FORM, IMPORTANT VISIT INFORMATION Patient Instructions My [facility] Additional Instructions Please continue regular medications as prescribed. You may continue using your breathing treatments at home. You may use him up to every 4 hours as needed for frequent coughing/shortness of breath. If you have any worsening pain, worsening cough, noticed blood in your sputum, develop fevers, vomiting, diarrhea, or you've any other new concerns, please return the emergency room. Please drink plenty of clear liquids at frequent intervals to stay well-hydrated , you may eat as tolerated. Problem Qualifiers Primary Impression: Chest pain Chest pain type: unspecified Qualified Codes: R07.9 - Chest pain, unspecified Additional Impression: URI (upper respiratory infection) URI type: unspecified URI Qualified Codes: J06.9 - Acute upper respiratory infection, unspecified
[2017-10-03 21:25] VITALS: BP 130/84; PULSE 78; O2SAT 98
[2017-10-03] MEDS ORDERED: BENZ100C84 PO (21:26)
[2017-10-03] MEDS ORDERED: BENZONATATE 100MG CAP PO ONE (21:30)
== END 2017-10-03 21:25 | disposition home or self-care (01) ==
LOC: C.EDB 17:11
DX: R07.9 Chest pain, unspecified (principal); J06.9 Acute upper respiratory infection, unspecified; J45.909 Unspecified asthma, uncomplicated; J44.9 Chronic obstructive pulmonary disease, unspecified; E03.9 Hypothyroidism, unspecified; G43.909 Migraine, unspecified, not intractable, without status migrainosus; Z87.01 Personal history of pneumonia (recurrent); K21.9 Gastro-esophageal reflux disease without esophagitis; Z83.3 Family history of diabetes mellitus; Z82.49 Family history of ischemic heart disease and other diseases of the circulatory system; Z84.1 Family history of disorders of kidney and ureter; Z79.82 Long term (current) use of aspirin; Z79.899 Other long term (current) drug therapy

== ENCOUNTER 2017-11-14 15:58 | Emergency (ER) | payer BC ==
[~2017-11-14] VITALS: Ht 154.9 cm; Wt 85.0 kg
[~2017-11-14 15:58] MED LIST changes: +BENZ100C84 PO; -CHOL50007 PO; -FERR1TAB62 PO; -FLUT1AER5 INH; -FLX10 PO; -KETO30IN5 IM; -LEVO88TA3 PO; -NRN100 PO; -NRV/5 PO; -OMEP40CA41 PO; -PREG75CA PO; -RANI150C4 PO; -ROPI1TAB29 PO; -WLC625 PO
[2017-11-14 16:00] VITALS: TEMP 36.7; Ht 154.9 cm; Wt 85.0 kg
[2017-11-14] MEDS ORDERED: SODIUM CHLORIDE 0.9% 1000ML 1,000 ML IV STA (16:17)
--- NOTE | 2017-11-14 16:20 | EMERGENCY ROOM VISIT NOTE ---
History Report prepared by Kaela: Alma Rosa Richter Under the Supervision of: Dr. Sumeet Fuchs D.O. 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 She describes the pain as severe. She notes that when she takes a deep breath, she feels a "constant heaviness." She states that two days ago she was vomiting because of the pain. She was recommended to come in today because of Dr. Gaitan. 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 A total of 10 systems reviewed and were otherwise negative. Past Medical & Surgical Medical Problems: (1) Abdominal pain (2) Abdominal pain (3) Asthma (4) BARIATRIC SURGERY STATUS (5) C. 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 (8) COPD (chronic obstructive pulmonary disease) (9) Cough (10) Dehydration (11) Dehydration (12) Diarrhea (13) Diarrhea (14) Headache (15) Headache (16) HYPOTHYROIDISM NOS (17) MIGRAINE UNSPECIFIED W/O INTRACT MGRN W/O STATUS MIGRAINOSUS (18) Pneumonia (19) Pneumonia (20) Reflux esophagitis (21) Stomach problems Surgical Problems: (1) Hx of cholecystectomy Family History Diabetes mellitus Hypertension Kidney disease Stroke Social History Smoking Status: Never Smoker Alcohol Use: none Drug Use: none Marital Status: Housing Status: lives with family Occupation Status: disabled Current/Historical Medications Scheduled Amlodipine Besylate (Amlodipine Besylate), 5 MG PO HS Aspirin (Aspirin Ec), 81 MG PO QPM Benzonatate (Tessalon Perles), 100 MG PO Q8 Cholecalciferol (Ra Vitamin D-3), 5,000 INTER.UNIT PO DAILY Cyanocobalamin (Cyanocobalamin), 1,000 MCG IM Q3 MONTHS Ferrous Sulfate (Ferrous Sulfate), 325 MG PO HS Gabapentin (Gabapentin), 200 MG PO TID Levothyroxine Sodium (Levothyroxine Sodium), 88 MCG PO QAM Magnesium Oxide (Mag-Ox), 400 MG PO DAILY Multivitamin (Multivitamin), 1 TAB PO DAILY Omeprazole (Prilosec), 40 MG PO HS Pregabalin (Lyrica), 75 MG PO BID Probiotic Product (Probiotic), 1 CAP PO HS Ropinirole HCl (Ropinirole HCl), 1 MG PO TID Topiramate (Topiramate), 100 MG PO BID Scheduled PRN Albuterol Sulfate (Proair Respiclick), 2 PUFFS INH QID PRN for Wheezing Cyclobenzaprine HCl (Cyclobenzaprine HCl), 10 MG PO TID PRN for Muscle Spasm Diphenhydramine Hcl (Benadryl Allergy), 25 MG PO HS PRN for Sleep Fluticasone Propionate (Inhala (Flovent Diskus), 1 PUFF INH BID PRN for SOB/ Wheezing Ketorolac Tromethamine (Ketorolac Tromethamine), 30 MG IM WK PRN for Pain Ranitidine Hcl (Ranitidine Hcl), 150 MG PO BID PRN for GI Upset Allergies Coded Allergies: Morphine (Verified Allergy, Intermediate, rash, 10/03/17) Sulfa Antibiotics (Verified Allergy, Intermediate, HIVES, 10/03/17) Dust (Verified Allergy, Mild, ITCHY EYES, 10/03/17) Oxycodone (Verified Allergy, Mild, itchy, 10/03/17) Prednisone (Verified Allergy, Mild, ITCHY, 10/03/17) Methylprednisolone (Verified Adverse Reaction, Intermediate, vomiting, shaking, 10/03/17) Metformin (Verified Adverse Reaction, Mild, "diarrhea", 10/03/17) Molds & Smuts (Verified Adverse Reaction, Mild, ITCHY EYES, HEADACHES, ) Physical Exam Vital Signs Date Time Temp Pulse Resp B/P (MAP) Pulse Ox O2 Delivery O2 Flow Rate FiO2 11/14/17 18:12 79 20 178/95 98 Room Air 11/14/17 17:09 69 11/14/17 17:02 98 Room Air 11/14/17 17:02 98 Room Air 11/14/17 16:00 36.7 83 16 159/85 94 Room Air Physical Exam GENERAL: Patient is awake, alert, and in no acute distress. Patient is resting comfortably and showing no signs of anxiety EYES: The conjunctivae are clear. The pupils are round and reactive. EARS, NOSE, MOUTH AND THROAT: The nose is without any evidence of any deformity. Mucous membranes are moist tongue is midline NECK: The neck is nontender and supple. RESPIRATORY: Normal respiratory effort is noted there is no evidence of wheezing rhonchi or rales CARDIOVASCULAR: Regular rate and rhythm noted there no murmurs rubs or gallops normal S1 normal S2. Systolic murmur was suggested. GASTROINTESTINAL: The abdomen is soft. Bowel sounds are present in all quadrants. Abdomen is nontender MUSCULOSKELETAL/EXTREMITIES: There is no evidence of gross deformity full range of motion is noted in the hips and shoulders SKIN: Trace pedal edema bilaterally. Pulses were symmetric in all 4 extremities. No fullness noted in the axilla. NEUROLOGIC: Patient is awake alert and oriented x3 strength is symmetric patellar reflexes are 2+ bilaterally Medical Decision & Procedures ER Provider Diagnostic Interpretation: Radiology results as stated below per my review and radiologist interpretation: CHEST ONE VIEW PORTABLE CLINICAL HISTORY: EVALUATE RESPIRATORY DISTRESS.DYSPNEA dyspnea COMPARISON STUDY: 10/03/2017 FINDINGS: The bones soft tissues and hemidiaphragms are normal. The cardiomediastinal silhouette is normal. The lungs are clear. The pulmonary vasculature is normal. Central catheter remains in superior vena cava IMPRESSION: Negative chest. The above report was generated using voice recognition software. It may contain grammatical, syntax or spelling errors. Electronically signed by: Kvng Shaw M.D. 11/14/2017 4:28 PM Dictated Date/Time: 11/14/2017 4:28 PM Laboratory Results 11/14/17 17:00 Red Blood Count 3.99, Mean Corpuscular Volume 93.5, Mean Corpuscular Hemoglobin 32.1, Mean Corpuscular Hemoglobin Concent 34.3, Mean Platelet Volume 10.2, Neutrophils (%) (Auto) 58.8, Lymphocytes (%) (Auto) 33.1, Monocytes (%) (Auto) 5.7, Eosinophils (%) (Auto) 1.8, Basophils (%) (Auto) 0.4, Neutrophils # (Auto) 3.00, Lymphocytes # (Auto) 1.69, Monocytes # (Auto) 0.29, Eosinophils # (Auto) 0.09, Basophils # (Auto) 0.02 11/14/17 17:00 Test 11/14/17 17:00 White Blood Count 5.10 K/uL (4.8-10.8) Red Blood Count 3.99 M/uL (4.2-5.4) Hemoglobin 12.8 g/dL (12.0-16.0) Hematocrit 37.3 % (37-47) Mean Corpuscular Volume 93.5 fL (80-100) Mean Corpuscular Hemoglobin 32.1 pg (25-34) Mean Corpuscular Hemoglobin Concent 34.3 g/dl (32-36) Platelet Count 214 K/uL (130-400) Mean Platelet Volume 10.2 fL (7.4-10.4) Neutrophils (%) (Auto) 58.8 % Lymphocytes (%) (Auto) 33.1 % Monocytes (%) (Auto) 5.7 % Eosinophils (%) (Auto) 1.8 % Basophils (%) (Auto) 0.4 % Neutrophils # (Auto) 3.00 K/uL (1.4-6.5) Lymphocytes # (Auto) 1.69 K/uL (1.2-3.4) Monocytes # (Auto) 0.29 K/uL (0.11-0.59) Eosinophils # (Auto) 0.09 K/uL (0-0.5) Basophils # (Auto) 0.02 K/uL (0-0.2) RDW Standard Deviation 44.1 fL (36.4-46.3) RDW Coefficient of Variation 12.8 % (11.5-14.5) Immature Granulocyte % (Auto) 0.2 % Immature Granulocyte # (Auto) 0.01 K/uL (0.00-0.02) Prothrombin Time 10.0 SECONDS (9.0-12.0) Prothromb Time International Ratio 1.0 (0.9-1.1) Activated Partial Thromboplast Time 62.9 SECONDS (21.0-31.0) Partial Thromboplastin Ratio 2.4 Anion Gap 6.0 mmol/L (3-11) Est Creatinine Clear Calc Drug Dose 65.2 ml/min Estimated GFR () 83.9 Estimated GFR (Non- 72.4 BUN/Creatinine Ratio 24.3 (10-20) Calcium Level 8.5 mg/dl (8.5-10.1) Total Bilirubin 0.3 mg/dl (0.2-1) Aspartate Amino Transf (AST/SGOT) 17 U/L (15-37) Alanine Aminotransferase (ALT/SGPT) 25 U/L (12-78) Alkaline Phosphatase 111 U/L (45-117) Troponin I < 0.015 ng/ml (0-0.045) Total Protein 6.4 gm/dl (6.4-8.2) Albumin 3.4 gm/dl (3.4-5.0) Globulin 3.0 gm/dl (2.5-4.0) Albumin/Globulin Ratio 1.1 (0.9-2) Laboratory results per my review. Medications Administered Medications (Trade) Dose Ordered Sig/Radha Route Start Time Stop Time Status Last Admin Dose Admin Sodium Chloride 1,000 ml @ 999 mls/hr Q1H1M STAT IV 11/14/17 16:17 11/14/17 17:17 DC 11/14/17 16:17 999 MLS/HR Heparin Sodium (Porcine) (Heparin 100 Unit/ml 5ml Flush) 5 ml STK-MED ONCE .ROUTE 11/14/17 18:04 11/14/17 18:05 DC 11/14/17 18:08 5 ML ECG Per My Interpretation Indication: chest pain Rate (beats per minute): 69 Rhythm: normal sinus Findings: no ectopy, other (no acute ST segments) Comparison ECG Date: 10/03/17 Change: no significant change ED Course 1612: The patient was evaluated in room A12. A complete history and physical examination were performed. 1617: Sodium Chloride 1000 ml @ 999 mls/hr IV 1759: Upon reevaluation, the patient is content. I discussed the results and treatment plan with her. She verbalized agreement of the treatment plan. She was discharged home. 1804: Ordered Heparin Sodium (Porcine) 5 ml Medical Decision Prior records/ancillary studies reviewed. Triage Nursing notes reviewed. The patient's history was concerning for chest pain. Differential diagnosis: Etiologies such as cardiac ischemia, aortic dissection, pulmonary embolism, pneumonia, pneumothorax, musculoskeletal, infections, pericarditis, myocarditis , esophageal rupture, gastrointestinal, as well as others were entertained. The patient is a 67-year-old female who presented to the emergency department for an evaluation of left-sided chest pain. The patient states that her pain has been ongoing for many months but she has had constant pain under the left breast left axilla and left arm for at least the last 3 days. The patient was seen by her primary care physician initially. She was called today by her primary care physician and told to come to the emergency department for further workup. The patient called the emergency department and was concerned about the possibility of a heart attack versus a pulmonary embolism. The patient's EKG did not show any acute change. Her cardiac biomarkers were negative despite having ongoing pain for greater than 6 hours. Her d-dimer is negative. The patient was treated with IV fluids. I discussed patient's laboratory and radiographic studies with her. I also discussed the limitations of the emergency department workup for chest pain with her. She was encouraged to follow-up with family doctor for further testing. I also encouraged her to rest and avoid any strenuous activity. Otherwise she was encouraged to return to the emergency department immediately if symptoms change worsen or the need arises. Medication Reconcilliation Current Medication List: was personally reviewed by me Blood Pressure Screening Patient's blood pressure: Elevated blood pressure Blood pressure disposition: Referred to PCP Impression Primary Impression: Left sided chest pain Scribe Attestation The scribe's documentation has been prepared under my direction and personally reviewed by me in its entirety. I confirm that the note above accurately reflects all work, treatment, procedures, and medical decision making performed by me. Departure Information Dispostion Home / Self-Care Referrals Bianca Rg (PCP) Forms HOME CARE DOCUMENTATION FORM, IMPORTANT VISIT INFORMATION Patient Instructions My [facility] Additional Instructions Continue all medications as prescribed. Rest and avoid any strenuous activity. Call your family doctor to schedule a follow-up appointment. Return to the emergency department immediately symptoms change worsen or the need arises.
[2017-11-14] MEDS ORDERED: NRV/5 PO (16:23)
--- NOTE | 2017-11-14 16:29 | DIAGNOSTIC IMAGING REPORT ---
CHEST ONE VIEW PORTABLE CLINICAL HISTORY: EVALUATE RESPIRATORY DISTRESS.DYSPNEA dyspnea COMPARISON STUDY: 10/03/2017 FINDINGS: The bones soft tissues and hemidiaphragms are normal. The cardiomediastinal silhouette is normal. The lungs are clear. The pulmonary vasculature is normal. Central catheter remains in superior vena cava IMPRESSION: Negative chest. The above report was generated using voice recognition software. It may contain grammatical, syntax or spelling errors. Electronically signed by: Kvng Shaw M.D. 11/14/2017 4:28 PM Dictated Date/Time: 11/14/2017 4:28 PM
[2017-11-14] MEDS ORDERED: ROPI1TAB29 PO (16:45)
[2017-11-14 17:02] VITALS: O2SAT 98
[2017-11-14 17:16] LABS: BASO % 0.4 %; BASO ABS # 0.02 K/uL (0-0.2); EOS % 1.8 %; EOS ABS # 0.09 K/uL (0-0.5); HEMATOCRIT 37.3 % (37-47); HEMOGLOBIN 12.8 g/dL (12.0-16.0); IG# 0.01 K/uL (0.00-0.02); LYMPH % 33.1 %; LYMPH ABS # 1.69 K/uL (1.2-3.4); MEAN CELL VOLUME 93.5 fL (80-100); MEAN CORPUSCULAR HEMOGLOBIN 32.1 pg (25-34); MEAN CORPUSCULAR HGB CONC 34.3 g/dl (32-36); MEAN PLATELET VOLUME 10.2 fL (7.4-10.4); MONO % 5.7 %; MONO ABS # 0.29 K/uL (0.11-0.59); NEUT % 58.8 %; PLATELET COUNT 214 K/uL (130-400); RED CELL DISTRIBUTION WIDTH CV 12.8 % (11.5-14.5); RED CELL DISTRIBUTION WIDTH SD 44.1 fL (36.4-46.3)
[2017-11-14] MEDS ORDERED: KETO30IN5 IM (17:22)
[2017-11-14] MEDS ORDERED: CHOL50007 PO (17:22)
[2017-11-14] MEDS ORDERED: FLX10 PO (17:22)
[2017-11-14 17:38] LABS: ALBUMIN 3.4 gm/dl (3.4-5.0); ALT/SGPT 25 U/L (12-78); BLOOD UREA NITROGEN 20 mg/dl (7-18); CALCIUM 8.5 mg/dl (8.5-10.1); CARBON DIOXIDE 27 mmol/L (21-32); CREATININE 0.84 mg/dl (0.60-1.20); GLUCOSE 124 mg/dl (70-99); POTASSIUM 3.8 mmol/L (3.5-5.1); SODIUM 140 mmol/L (136-145)
[2017-11-14 17:43] LABS: ALKALINE PHOSPHATASE 111 U/L (45-117); AST/SGOT 17 U/L (15-37); TOTAL PROTEIN 6.4 gm/dl (6.4-8.2)
[2017-11-14 17:52] LABS: PTT PATIENT 62.9 SECONDS (21.0-31.0)
[2017-11-14 18:12] VITALS: BP 178/95; PULSE 79; O2SAT 98
[2017-11-14] MEDS ORDERED: FLUT1AER5 INH (18:23)
[2017-11-14] MEDS ORDERED: OMEP40CA41 PO (19:09)
[2017-11-14] MEDS ORDERED: RANI150C4 PO (19:09)
[2017-11-14] MEDS ORDERED: PREG75CA PO (19:09)
[2017-11-14] MEDS ORDERED: NRN100 PO (19:10)
[2017-11-14] MEDS ORDERED: FERR1TAB62 PO (19:24)
[2017-11-14] MEDS ORDERED: LEVO88TA3 PO (20:27)
== END 2017-11-14 18:25 | disposition home or self-care (01) ==
LOC: C.EDB 16:00 → C.EDA 18:25
DX: R07.9 Chest pain, unspecified (principal); M79.602 Pain in left arm; J44.9 Chronic obstructive pulmonary disease, unspecified; E03.9 Hypothyroidism, unspecified; Z79.82 Long term (current) use of aspirin; Z79.899 Other long term (current) drug therapy; Z88.1 Allergy status to other antibiotic agents; Z88.2 Allergy status to sulfonamides; Z88.5 Allergy status to narcotic agent; Z88.8 Allergy status to other drugs, medicaments and biological substances; Z87.19 Personal history of other diseases of the digestive system; Z82.0 Family history of epilepsy and other diseases of the nervous system; Z82.49 Family history of ischemic heart disease and other diseases of the circulatory system; Z83.3 Family history of diabetes mellitus; Z84.1 Family history of disorders of kidney and ureter

== ENCOUNTER 2018-01-08 17:05 | Emergency (ER) | payer BC ==
[~2018-01-08 17:05] MED LIST changes: +CHOL50007 PO; +FERR1TAB62 PO; +FLUT1AER5 INH; +FLX10 PO; +KETO30IN5 IM; +LEVO88TA3 PO; +NRN100 PO; +NRV/5 PO; +OMEP40CA41 PO; +PREG75CA PO; +RANI150C4 PO; -RIZA10TA21 PO; +ROPI1TAB29 PO
[2018-01-08 17:07] VITALS: TEMP 36.6; Ht 175.3 cm
[2018-01-08] MEDS ORDERED: SODIUM CHLORIDE 0.9% 500ML 500 ML IV STA (17:20)
[2018-01-08] MEDS ORDERED: KETOROLAC TROMETHAMINE 30 MG/ML VIAL IV STA (17:20)
[2018-01-08] MEDS ORDERED: ACETAMINOPHEN 500 MG TAB PO STA (17:28)
[2018-01-08] MEDS ORDERED: BENZONATATE 100MG CAP PO ONE (17:30)
[2018-01-08 17:33] VITALS: O2SAT 97
--- NOTE | 2018-01-08 17:52 | DIAGNOSTIC IMAGING REPORT ---
CHEST ONE VIEW PORTABLE CLINICAL HISTORY: Evaluate Fever/Sepsis fever COMPARISON STUDY: 11/14/2017 FINDINGS: Central catheter in superior vena cava. Lungs are clear. Diaphragms are smooth. No acute infiltrate IMPRESSION: No acute process. The above report was generated using voice recognition software. It may contain grammatical, syntax or spelling errors. Electronically signed by: Kvng Shaw M.D. 01/08/2018 5:51 PM Dictated Date/Time: 01/08/2018 5:49 PM
[2018-01-08 18:03] LABS: BASO % 0.4 %; BASO ABS # 0.02 K/uL (0-0.2); EOS % 2.2 %; EOS ABS # 0.11 K/uL (0-0.5); HEMATOCRIT 37.7 % (37-47); HEMOGLOBIN 12.9 g/dL (12.0-16.0); IG# 0.01 K/uL (0.00-0.02); LYMPH % 40.5 %; LYMPH ABS # 2.03 K/uL (1.2-3.4); MEAN CORPUSCULAR HEMOGLOBIN 31.5 pg (25-34); MEAN CORPUSCULAR HGB CONC 34.2 g/dl (32-36); MEAN PLATELET VOLUME 9.9 fL (7.4-10.4); MONO % 4.8 %; MONO ABS # 0.24 K/uL (0.11-0.59); NEUT % 51.9 %; PLATELET COUNT 211 K/uL (130-400); RED CELL DISTRIBUTION WIDTH CV 12.7 % (11.5-14.5); WHITE BLOOD COUNT 5.01 K/uL (4.8-10.8)
[2018-01-08 18:11] LABS: INR 0.9 (0.9-1.1); PTT PATIENT 30.3 SECONDS (21.0-31.0)
[2018-01-08 18:22] LABS: BLOOD UREA NITROGEN 17 mg/dl (7-18); CALCIUM 8.6 mg/dl (8.5-10.1); CARBON DIOXIDE 26 mmol/L (21-32); CREATININE 0.87 mg/dl (0.60-1.20); GLUCOSE 119 mg/dl (70-99); LIPASE 199 U/L (73-393); POTASSIUM 3.7 mmol/L (3.5-5.1); SODIUM 141 mmol/L (136-145)
[2018-01-08 18:27] LABS: CKMB 2.1 ng/ml (0.5-3.6)
--- NOTE | 2018-01-08 18:36 | EMERGENCY ROOM VISIT NOTE ---
History Report prepared by Kaela: Vishal Mcdermott Under the Supervision of: Dr. Nikolai Mcgregor D.O. First contact with patient: 17:11 Chief Complaint: SHORTNESS OF BREATH Stated Complaint: HEAVY COUGHIN,DIZZY,FLUTERING IN CHEST,COPD FLARE History of Present Illness The patient is a 67 year old female who presents to the Emergency Room with complaints of worsening shortness of breath, which began 3 days ago. The patient 's notes that he has been trying to het her to come into the department for several days due to her breathing difficulties. He also notes that she has been experiencing a cough. The patient states that she has been experiencing a "fluttering" in her chest. This fluttering would exacerbate her shortness of breath. She has also been nauseous, and has had constant diarrhea for the past 3 days. The patient does have inhalers and a nebulizer machine at home, but cannot afford to fill nebulizer prescriptions. Source of History: patient Onset: 3 days Position: chest Quality: other (SOB) Timing: worsening Associated Symptoms: + cough, + nausea, + diarrhea Review of Systems See HPI for pertinent positives & negatives. A total of 10 systems reviewed and were otherwise negative. Past Medical & Surgical Medical Problems: (1) Abdominal pain (2) Abdominal pain (3) Asthma (4) BARIATRIC SURGERY STATUS (5) C. 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 (8) COPD (chronic obstructive pulmonary disease) (9) Cough (10) Dehydration (11) Dehydration (12) Diarrhea (13) Diarrhea (14) Headache (15) Headache (16) HYPOTHYROIDISM NOS (17) MIGRAINE UNSPECIFIED W/O INTRACT MGRN W/O STATUS MIGRAINOSUS (18) Pneumonia (19) Pneumonia (20) Reflux esophagitis (21) Stomach problems Surgical Problems: (1) Hx of cholecystectomy Family History Diabetes mellitus Hypertension Kidney disease Stroke Social History Smoking Status: Never Smoker Alcohol Use: none Drug Use: none Marital Status: Housing Status: lives with family Occupation Status: disabled Current/Historical Medications Scheduled Amlodipine Besylate (Amlodipine Besylate), 5 MG PO HS Aspirin (Aspirin Ec), 81 MG PO QPM Benzonatate (Tessalon Perles), 100 MG PO Q8 Cholecalciferol (Ra Vitamin D-3), 5,000 INTER.UNIT PO DAILY Cyanocobalamin (Cyanocobalamin), 1,000 MCG IM Q3 MONTHS Ferrous Sulfate (Ferrous Sulfate), 325 MG PO HS Gabapentin (Gabapentin), 200 MG PO TID Levothyroxine Sodium (Levothyroxine Sodium), 88 MCG PO QAM Magnesium Oxide (Mag-Ox), 400 MG PO DAILY Multivitamin (Multivitamin), 1 TAB PO DAILY Omeprazole (Prilosec), 40 MG PO HS Pregabalin (Lyrica), 75 MG PO BID Probiotic Product (Probiotic), 1 CAP PO HS Ropinirole HCl (Ropinirole HCl), 1 MG PO TID Topiramate (Topiramate), 100 MG PO BID Scheduled PRN Albuterol Sulfate (Proair Respiclick), 2 PUFFS INH QID PRN for Wheezing Cyclobenzaprine HCl (Cyclobenzaprine HCl), 10 MG PO TID PRN for Muscle Spasm Diphenhydramine Hcl (Benadryl Allergy), 25 MG PO HS PRN for Sleep Fluticasone Propionate (Inhala (Flovent Diskus), 1 PUFF INH BID PRN for SOB/ Wheezing Ketorolac Tromethamine (Ketorolac Tromethamine), 30 MG IM WK PRN for Pain Ranitidine Hcl (Ranitidine Hcl), 150 MG PO BID PRN for GI Upset Allergies Coded Allergies: Morphine (Verified Allergy, Intermediate, rash, 10/03/17) Sulfa Antibiotics (Verified Allergy, Intermediate, HIVES, 10/03/17) Dust (Verified Allergy, Mild, ITCHY EYES, 10/03/17) Oxycodone (Verified Allergy, Mild, itchy, 10/03/17) Prednisone (Verified Allergy, Mild, ITCHY, 10/03/17) Methylprednisolone (Verified Adverse Reaction, Intermediate, vomiting, shaking, 10/03/17) Metformin (Verified Adverse Reaction, Mild, "diarrhea", 10/03/17) Molds & Smuts (Verified Adverse Reaction, Mild, ITCHY EYES, HEADACHES, ) Physical Exam Vital Signs Date Time Temp Pulse Resp B/P (MAP) Pulse Ox O2 Delivery O2 Flow Rate FiO2 01/08/18 18:35 70 18 01/08/18 17:46 79 01/08/18 17:33 97 Room Air 01/08/18 17:20 74 20 205/73 01/08/18 17:07 36.6 77 20 162/93 99 Room Air Physical Exam CONSTITUTIONAL/VITAL SIGNS: Reviewed / noted above. GENERAL: Non-toxic in appearance. Coughing on occasion INTEGUMENTARY: Warm, dry, and [place]. HEAD: Normocephalic. EYES: without scleral icterus or trauma. ENT/OROPHARYNX: clear and moist. LYMPHADENOPATHY/NECK: Is supple without lymphadenopathy or meningismus. RESPIRATORY: Lungs clear and equal. Coughing on occasion. CARDIOVASCULAR: Regular rate and rhythm. GI/ABDOMEN: Soft and nontender. No organomegaly or pulsatile mass. No rebound or guarding. Normal bowel sounds. EXTREMITIES: Warm and well perfused. BACK: No CVA tenderness. NEUROLOGICAL: Intact without focal deficits. PSYCHIATRIC: normal affect. MUSCULOSKELETAL: Normally developed with good muscle tone. Medical Decision & Procedures ER Provider Diagnostic Interpretation: Radiology results as stated below per my review and radiologist interpretation: CHEST ONE VIEW PORTABLE CLINICAL HISTORY: Evaluate Fever/Sepsis fever COMPARISON STUDY: 11/14/2017 FINDINGS: Central catheter in superior vena cava. Lungs are clear. Diaphragms are smooth. No acute infiltrate IMPRESSION: No acute process. The above report was generated using voice recognition software. It may contain grammatical, syntax or spelling errors. Electronically signed by: Kvng Shaw M.D. 01/08/2018 5:51 PM Dictated Date/Time: 01/08/2018 5:49 PM Laboratory Results 01/08/18 17:50 Red Blood Count 4.10, Mean Corpuscular Volume 92.0, Mean Corpuscular Hemoglobin 31.5, Mean Corpuscular Hemoglobin Concent 34.2, Mean Platelet Volume 9.9, Neutrophils (%) (Auto) 51.9, Lymphocytes (%) (Auto) 40.5, Monocytes (%) (Auto) 4.8, Eosinophils (%) (Auto) 2.2, Basophils (%) (Auto) 0.4, Neutrophils # (Auto) 2.60, Lymphocytes # (Auto) 2.03, Monocytes # (Auto) 0.24, Eosinophils # (Auto) 0.11, Basophils # (Auto) 0.02 01/08/18 17:50 Test 01/08/18 17:50 White Blood Count 5.01 K/uL (4.8-10.8) Red Blood Count 4.10 M/uL (4.2-5.4) Hemoglobin 12.9 g/dL (12.0-16.0) Hematocrit 37.7 % (37-47) Mean Corpuscular Volume 92.0 fL (80-100) Mean Corpuscular Hemoglobin 31.5 pg (25-34) Mean Corpuscular Hemoglobin Concent 34.2 g/dl (32-36) Platelet Count 211 K/uL (130-400) Mean Platelet Volume 9.9 fL (7.4-10.4) Neutrophils (%) (Auto) 51.9 % Lymphocytes (%) (Auto) 40.5 % Monocytes (%) (Auto) 4.8 % Eosinophils (%) (Auto) 2.2 % Basophils (%) (Auto) 0.4 % Neutrophils # (Auto) 2.60 K/uL (1.4-6.5) Lymphocytes # (Auto) 2.03 K/uL (1.2-3.4) Monocytes # (Auto) 0.24 K/uL (0.11-0.59) Eosinophils # (Auto) 0.11 K/uL (0-0.5) Basophils # (Auto) 0.02 K/uL (0-0.2) RDW Standard Deviation 43.0 fL (36.4-46.3) RDW Coefficient of Variation 12.7 % (11.5-14.5) Immature Granulocyte % (Auto) 0.2 % Immature Granulocyte # (Auto) 0.01 K/uL (0.00-0.02) Prothrombin Time 9.9 SECONDS (9.0-12.0) Prothromb Time International Ratio 0.9 (0.9-1.1) Activated Partial Thromboplast Time 30.3 SECONDS (21.0-31.0) Partial Thromboplastin Ratio 1.2 Anion Gap 6.0 mmol/L (3-11) Estimated GFR () 80.5 Estimated GFR (Non- 69.4 BUN/Creatinine Ratio 19.3 (10-20) Calcium Level 8.6 mg/dl (8.5-10.1) Total Creatine Kinase 64 U/L (26-192) Creatine Kinase MB 2.1 ng/ml (0.5-3.6) Creatine Kinase MB Ratio 3.3 (0-3.0) Troponin I < 0.015 ng/ml (0-0.045) Lipase 199 U/L (73-393) Laboratory results as stated above per my review. Medications Administered Medications (Trade) Dose Ordered Sig/Radha Route Start Time Stop Time Status Last Admin Dose Admin Sodium Chloride 500 ml @ 999 mls/hr Q31M STAT IV 01/08/18 17:20 01/08/18 17:50 DC 01/08/18 17:47 999 MLS/HR Ketorolac Tromethamine (Toradol Inj) 30 mg NOW STAT IV 01/08/18 17:20 01/08/18 17:23 DC 01/08/18 17:46 30 MG Benzonatate (Tessalon Perles Cap) 100 mg NOW ONCE PO 01/08/18 17:30 01/08/18 17:31 DC 01/08/18 17:45 100 MG Acetaminophen (Tylenol Tab) 1,000 mg NOW STAT PO 01/08/18 17:28 01/08/18 17:29 DC 01/08/18 17:46 1,000 MG ECG Per My Interpretation Indication: SOB/dyspnea Rate (beats per minute): 77 Rhythm: normal sinus Findings: other (No TOM, No PVCs) ED Course 1714: Previous medical records were reviewed. The patient was evaluated in room C9. A complete history and physical examination was performed. 1720: Ordered Toradol 30 mg IV, Sodium Chloride 500 mL @ 999 mL/hr Iv. 1728: Ordered Acetaminophen 1000 mg PO. 1730: Ordered Benzonatate 100 mg PO. 1838: On reevaluation, the patient is resting in bed. I discussed the results and findings with the patient. She verbalized agreement of the treatment plan. The patient was discharged home Medical Decision Differentials considered include acute myocardial infarction, acute coronary syndrome, myocarditis, pericarditis, pericardial effusions /tamponade, esophageal perforation, pulmonary embolism, pneumonia, pneumothorax, cardiomyopathy, congestive heart, anemia, and COPD/asthma exacerbation. This is a 67-year-old female who presents to the ED with a chief complaint a cough. The patient has had this for several days. She also reports some recent diarrhea. She has had some nausea as well. Further details listed above. Her initial blood pressure was slightly elevated. Her physical exam revealed clear lungs. She does have a cough. It is nonproductive. Her exam was unremarkable otherwise. Chest x-ray did not show acute process. CBC is normal, chemistries are normal and troponin was negative. EKG shows a normal sinus rhythm. The patient was treated with IV Toradol, p.o. Tylenol, p.o. Tessalon Perles and IV fluids. She is felt to be stable for discharge. Medication Reconcilliation Current Medication List: was personally reviewed by me Blood Pressure Screening Patient's blood pressure: Elevated blood pressure Blood pressure disposition: Referred to PCP Impression Primary Impression: Cough Scribe Attestation The scribe's documentation has been prepared under my direction and personally reviewed by me in its entirety. I confirm that the note above accurately reflects all work, treatment, procedures, and medical decision making performed by me. Departure Information Dispostion Home / Self-Care Referrals Bianca Rg (PCP) Patient Instructions My [facility] Additional Instructions Follow-up with your doctor for further care and evaluation in 1-2 days. Return to the emergency department for worsening or new symptoms or any concerns. You have been examined and treated today on an emergency basis only. This is not a substitute for, or an effort to provide, complete comprehensive medical care. It is impossible to recognize and treat all injuries or illnesses in a single emergency department visit. It is therefore important that you follow up closely with your doctor. Call as soon as possible for an appointment.
[2018-01-08 19:13] VITALS: BP 164/80; PULSE 85; O2SAT 96
== END 2018-01-08 19:14 | disposition home or self-care (01) ==
LOC: C.EDB 17:07 → C.EDC 19:14
DX: R05 Cough (principal); J45.909 Unspecified asthma, uncomplicated; Z98.84 Bariatric surgery status; J44.9 Chronic obstructive pulmonary disease, unspecified; E03.9 Hypothyroidism, unspecified; Z87.01 Personal history of pneumonia (recurrent); K21.9 Gastro-esophageal reflux disease without esophagitis; Z90.49 Acquired absence of other specified parts of digestive tract; Z83.3 Family history of diabetes mellitus; Z82.49 Family history of ischemic heart disease and other diseases of the circulatory system; Z82.0 Family history of epilepsy and other diseases of the nervous system; Z84.1 Family history of disorders of kidney and ureter; Z79.82 Long term (current) use of aspirin; Z79.899 Other long term (current) drug therapy; Z88.5 Allergy status to narcotic agent; Z88.2 Allergy status to sulfonamides; Z88.8 Allergy status to other drugs, medicaments and biological substances; Z91.048 Other nonmedicinal substance allergy status

== ENCOUNTER → 2018-03-30 | Outpatient (CLI) | payer BC ==
[~2018-03-30] MED LIST changes: +MAGN250T8 PO; +RANI150T85 PO
--- NOTE | 2018-04-02 07:43 | MAMMOGRAPHY REPORT ---
BILATERAL DIGITAL SCREENING MAMMOGRAM TOMOSYNTHESIS WITH CAD: 03/30/2018 CLINICAL HISTORY: Routine screening. Patient has no complaints. TECHNIQUE: The study was acquired using full field digital technology and interpreted from soft copy. Breast tomosynthesis in addition to standard 2D mammography was performed. Current study was also ev aluated with a Computer Aided Detection (CAD) system. COMPARISON: Comparison is made to exams dated: 03/28/2017 mammogram, 08/19/2015 mammogram, 05/27/2010 m ammogram - [facility], 11/14/2008, 11/06/2008, and 07/17/2003 mammogram - [facility]. BREAST COMPOSITION: There are scattered areas of fibroglandular density in both breasts. FINDINGS: No suspicious masses, calcifications, or areas of architectural distortion are noted in either breast . There has been no significant interval change compared to prior exams. Scattered bilateral benign-a ppearing calcifications are not significantly changed. A port catheter overlies the right pectoralis muscle. IMPRESSION: There is no mammographic evidence of malignancy. A 1 year screening mammogram is recommended.( 019) The patient will receive written notification of the results. Some breast cancers are not detected with mammography. A negative mammographic report should not marika y biopsy if a clinically suggestive mass is present. Elisabeth Soler M.D. ah/:03/30/2018 12:01:05 Receiving Room Clerk: RT Sheng(R)(M)(BD), [facility] letter sent: Normal 1/2 BI-RADS Code: ACR BI-RADS Category 2: Benign
== END | disposition home or self-care (01) ==
LOC: C.MAMM 09:51
PROVIDERS: ATTEND Nurse Practitioner Family
DX: Z12.31 Encounter for screening mammogram for malignant neoplasm of breast (principal)

== ENCOUNTER → 2018-04-17 | Day surgery (SDC) | payer OTHER ==
[2018-04-10 15:05] VITALS: Ht 154.9 cm; Wt 86.4 kg
[~2018-04-17] VITALS: Ht 154.9 cm; Wt 86.4 kg
[~2018-04-17] MED LIST changes: +ATROPINE SULFATE 0.1 MG/ML 5ML SYR IV PRN; -BENZ100C84 PO; +BUPIVACAINE 0.5 % 5 MG/1 ML PF 10ML VIAL ONE; +CEFAZOLIN 2000MG IV PUSH 15 ML IV SCH; +EpHEDrine SULFATE INJ 50 MG/ML AMP IV PRN; +FENTANYL CITRATE INJ 50 MCG/1 ML 2 ML VIAL IV PRN; +FENTANYL CITRATE INJ 50 MCG/1 ML 2 ML VIAL ONE; -FERR1TAB62 PO; +FLUMAZENIL 0.1 MG/1 ML 10 ML VIAL IV PRN; +LABETALOL HCL IV 5 MG/ML 20ML IV PRN; +LACTATED RINGER'S 1000ML 1,000 ML IV SCH; +LIDOCAINE HCL 1% 20 ML VIAL ONE; +LIDOCAINE HCL 2% 2 ML VIAL (20MG/ML) ONE; -MAGN400T6 PO; +MEPERIDINE HCL 25 MG/ML CARP IV PRN; +MIDAZOLAM HCL 1 MG/ML 2ML VIAL ONE; +NALOXONE HCL 0.4 MG/1 ML VIAL/CARP IV PRN; +NURSING VERBAL MED ORDER ONE; +ONDANSETRON INJ 2 MG/ML 2 ML VIAL IV PRN; +OXYCODONE/ACETAMINOPHEN 5-325 TAB PO PRN; +PHENYLEPHRINE 100MCG/ML 5ML SYR IV PRN; +PROPOFOL IV EMULSION 10 MG/ML 20 ML VIAL ONE; -RANI150C4 PO; +SODIUM CHLORIDE 0.9% 1000ML 1,000 ML IV SCH; +TRAM-10 PO
--- NOTE | 2018-04-17 08:58 | History & Physical Bridge - SC ---
H&P Re-Evaluation Bridge Note: I have examined the patient, reviewed the History & Physical and in the interval since the performance of the History & Physical I have noted the following changes of clinical significance: No changes noted
--- NOTE | 2018-04-17 10:27 | [facility] Post Operative Brief Note ---
Immediate Operative Summary Operative Date Apr 17, 2018. Pre-Operative Diagnosis LEFT TRIGGER THUMB, CYST PALMAR SURFACE Post-Operative Diagnosis SAME PREOP Procedure(s) Performed Left Trigger Thumb Release, Left Hand Excision Cyst Surgeon DR. Tyrone CORDOVA Chamber Magistrate Surgeon(s) SHARITA MARTINEZ PA-C Estimated Blood Loss 0 ML Findings Consistent with Post-Op Diagnosis Specimens A. CYST/MASS PALM LEFT HAND Drains None Anesthesia Type MAC Complication(s) none Disposition Accompanied Pt To Recover: no Disposition:
[2018-04-17 10:30] VITALS: TEMP 37
--- NOTE | 2018-04-17 10:31 | Discharge Instructions-SurgCtr ---
Discharge Instructions Date of Service Apr 17, 2018. Visit Reason for Visit: Left Trigger Thumb, Cyst Palmar Surface Discharge Discharge Diagnosis / Problem: SAME ABOVE Discharge Goals Goal(s): Decrease discomfort, Improve function Activity Recommendations Activity Limitations: as noted below Lifting Limitations: gradually increase as tolerated Exercise/Sports Limitations: until after follow-up appointment Shower/Bathe: tomorrow Anesthesia . Post Anesthesia Instructions: If you have had General Anesthesia or IV Sedation: * Do not drive today. * Resume driving when surgeon permits. * Do not make important decisions or sign legal documents today. * Call surgeon for: 1. Temperature elevations greater than 101 degrees F. 2. Uncontrollable pain. 3. Excessive bleeding. 4. Persistent nausea and vomiting. 5. Medication intolerance (nausea, vomiting or rash). * For nausea and vomiting use only clear liquids such as: tea, soda, bouillon until nausea subsides, then gradually increase diet as tolerated. * If you have any concerns or questions, call your surgeon's office. If physician is unavailable and it is an emergency, call 911 or go to the nearest emergency room. . Instructions / Follow-Up Instructions / Follow-Up MEDICATIONS: * Resume previous medications unless instructed otherwise by your surgeon. * Always take pain medication on a full stomach or with food to avoid upset stomach. * Do not drink alcohol or drive while taking narcotics. * Ibuprofen or Tylenol may be taken if narcotic not needed. SPECIAL CARE INSTRUCTIONS: __ None _X_ Keep extremity elevated and iced x 48 hours; apply ice 20-30 minutes 8-10 times/day. May remove at night. __ Sling __24 hrs/day __ Remove at night __ Shoulder Immobilizer __ 24 hrs/day __ Remove at night _X_ Dressing __ Maintain until seen in office, may shower with plastic over site _X_ Remove dressings in 24-48 hours and then may shower _X_ Cover incisions with band-aids after showering __ Do not remove steri-strips Call physician if chills or temperature rises above 102 degrees or pain unrelieved by prescribed pain medications at . . Diet Recommendations Home Diet: resume previous diet Procedures Procedures Performed: Left Trigger Thumb Release, Left Hand Excision Cyst Pending Studies Studies pending at discharge: yes List of pending studies: MASS/CYST LEFT PALM Medical Emergencies . Who to Call and When: Medical Emergencies: If at any time you feel your situation is an emergency, please call 911 immediately. . Non-Emergent Contact Non-Emergency issues call your: Primary Care Provider . . "Provider Documentation" section prepared by Yan Mojica. .
[2018-04-17 10:55] VITALS: BP 168/89; PULSE 70; O2SAT 98
--- NOTE | 2018-04-17 11:02 | Anesthesia Progress Nt - [facility] ---
Anesthesia Post Op Note Date & Time Apr 17, 2018 at 11:02 Vital Signs Pain Intensity: 0 Vital Signs Past 12 Hours Date Time Temp Pulse Resp B/P (MAP) Pulse Ox O2 Delivery O2 Flow Rate FiO2 04/17/18 10:55 70 16 168/89 (115) 98 Room Air 04/17/18 10:30 37.0 88 16 137/77 (97) 97 Room Air 04/17/18 09:05 36.7 71 18 165/86 (112) 98 Room Air Notes Mental Status: alert / awake / arousable, participated in evaluation Pt Amnestic to Procedure: Yes Nausea / Vomiting: adequately controlled Pain: adequately controlled Airway Patency, RR, SpO2: stable & adequate BP & HR: stable & adequate Hydration State: stable & adequate Anesthetic Complications: no major complications apparent
--- NOTE | 2018-04-17 11:58 | OPERATIVE REPORT ---
DATE OF OPERATION: 04/17/2018 PREOPERATIVE DIAGNOSES: 1. Left trigger thumb. 2. Painful mass, palmar aspect of the left hand. POSTOPERATIVE DIAGNOSES: 1. Left trigger thumb. 2. Painful mass, palmar aspect of the left hand. PROCEDURE: 1. Release A1 cuco, left thumb. 2. Excision of soft tissue mass, palm space, palmar area of the left hand. Final diagnosis pending path report. SURGEON: Marcello Wells MD MEDIA ASSISTANT: Yan Mojica PA-C. ANESTHESIOLOGIST: Dr. Dumont. ANESTHESIA: Local with IV sedation. DRAINS: None. COMPLICATIONS: None. CONDITION: The patient tolerated the procedure well and returned to recovery room in apparent satisfactory condition. INDICATIONS FOR SURGERY: Megan is a 67-year-old female who has had triggering of her left thumb and also a soft tissue mass in the palmar aspect of left hand that was removed. Went over treatment options and elected to go ahead and proceed with surgery. The procedure, expected outcome, side effects were all explained in detail. PROCEDURE IN DETAIL: The patient was taken to the OR at which time she was placed supine on the operating table, given IV sedation by the anesthesia department. Left hand was prepped and draped in usual sterile fashion for surgery. We exsanguinated the hand and put a forearm tourniquet up to 250 mmHg. We made a transverse incision over the A1 cuco of the left thumb, dissected down with loupe magnification, and identified the A1 cuco, was divided with a 15 blade and tenotomy scissors. The wound then was irrigated, closed with interrupted 4-0 nylon sutures. Attention was given to the soft tissue mass in the palm part of her hand, proximal to the A1 cuco of the index finger. It was about 4 x 5 mm in size. We went ahead and dissected with a 15 blade with loupe magnification and removed the soft tissue mass, it looked to be fibrous. I did send it to lab for identification. Wound then was irrigated. Electrocautery was used to control any areas of bleeding. The skin was closed with interrupted 4-0 nylon sutures. Marcaine without epinephrine was placed in skin edges. We placed a sterile dressing of Xeroform, 4 x 4, soft roll, and Coban. Returned back to recovery room in apparent satisfactory condition. I attest to the content of the Intraoperative Record and any orders documented therein. Any exception s are noted below.
== END | disposition home or self-care (01) ==
LOC: X.SURG 08:27
PROVIDERS: ATTEND Orthopaedic Surgery
DX: M65.312 Trigger thumb, left thumb (principal); D36.12 Benign neoplasm of peripheral nerves and autonomic nervous system, upper limb, including shoulder; J45.909 Unspecified asthma, uncomplicated; J44.9 Chronic obstructive pulmonary disease, unspecified; Z79.899 Other long term (current) drug therapy; Z88.2 Allergy status to sulfonamides; Z88.5 Allergy status to narcotic agent

== ENCOUNTER 2018-05-08 20:06 | Emergency (ER) | payer BC, OTHER ==
[~2018-05-08 20:06] MED LIST changes: -ATROPINE SULFATE 0.1 MG/ML 5ML SYR IV PRN; -BUPIVACAINE 0.5 % 5 MG/1 ML PF 10ML VIAL ONE; -CEFAZOLIN 2000MG IV PUSH 15 ML IV SCH; -EpHEDrine SULFATE INJ 50 MG/ML AMP IV PRN; -FENTANYL CITRATE INJ 50 MCG/1 ML 2 ML VIAL IV PRN; -FENTANYL CITRATE INJ 50 MCG/1 ML 2 ML VIAL ONE; -FLUMAZENIL 0.1 MG/1 ML 10 ML VIAL IV PRN; -LABETALOL HCL IV 5 MG/ML 20ML IV PRN; -LACTATED RINGER'S 1000ML 1,000 ML IV SCH; -LIDOCAINE HCL 1% 20 ML VIAL ONE; -LIDOCAINE HCL 2% 2 ML VIAL (20MG/ML) ONE; -MEPERIDINE HCL 25 MG/ML CARP IV PRN; -MIDAZOLAM HCL 1 MG/ML 2ML VIAL ONE; -NALOXONE HCL 0.4 MG/1 ML VIAL/CARP IV PRN; -NURSING VERBAL MED ORDER ONE; -ONDANSETRON INJ 2 MG/ML 2 ML VIAL IV PRN; -OXYCODONE/ACETAMINOPHEN 5-325 TAB PO PRN; -PHENYLEPHRINE 100MCG/ML 5ML SYR IV PRN; -PROPOFOL IV EMULSION 10 MG/ML 20 ML VIAL ONE; -SODIUM CHLORIDE 0.9% 1000ML 1,000 ML IV SCH
[2018-05-08 20:11] VITALS: TEMP 36.9; Ht 154.9 cm
[2018-05-08] MEDS ORDERED: SODIUM CHLORIDE 0.9% 500ML 500 ML IV STA (20:31)
[2018-05-08] MEDS ORDERED: ALBUT/IPRATROP 3MG/0.5MG NEB 3 ML VIAL INH STA (20:31)
[2018-05-08 21:33] LABS: BASO % 0.3 %; BASO ABS # 0.02 K/uL (0-0.2); EOS ABS # 0.18 K/uL (0-0.5); HEMOGLOBIN 12.7 g/dL (12.0-16.0); IG# 0.01 K/uL (0.00-0.02); LYMPH % 37.7 %; LYMPH ABS # 2.28 K/uL (1.2-3.4); MEAN CELL VOLUME 92.6 fL (80-100); MEAN CORPUSCULAR HEMOGLOBIN 30.2 pg (25-34); MEAN CORPUSCULAR HGB CONC 32.6 g/dl (32-36); MEAN PLATELET VOLUME 10.5 fL (7.4-10.4); MONO % 9.1 %; MONO ABS # 0.55 K/uL (0.11-0.59); NEUT % 49.7 %; NEUT ABS # 3.01 K/uL (1.4-6.5); PLATELET COUNT 199 K/uL (130-400); RED CELL DISTRIBUTION WIDTH CV 13.3 % (11.5-14.5); RED CELL DISTRIBUTION WIDTH SD 45.3 fL (36.4-46.3); WHITE BLOOD COUNT 6.05 K/uL (4.8-10.8)
--- NOTE | 2018-05-08 21:36 | DIAGNOSTIC IMAGING REPORT ---
CT HEAD WITHOUT CONTRAST (CT) CLINICAL HISTORY: Head pain status post trauma COMPARISON STUDY: December 18, 2015 TECHNIQUE: Axial CT of the brain is performed from the vertex to the skull base. IV contrast was not administered for this examination. A dose lowering technique was utilized adhering to the principles of ALARA. CT DOSE: 537.48 mGy.cm FINDINGS: No intra or extra-axial mass lesions are visualized. There is no CT evidence of acute cortical infarction. There is no evidence of midline shift. There is no acute hemorrhage. No calvarial fractures are visualized. There is no evidence of pathologic ventricular dilatation. There are postsurgical changes of prior partial ethmoidectomies. There is right ethmoid sinus mucosal thickening. IMPRESSION: No acute intracranial findings Electronically signed by: Michael Lazo M.D. 05/08/2018 9:34 PM Dictated Date/Time: 05/08/2018 9:33 PM
[2018-05-08 21:50] LABS: BLOOD UREA NITROGEN 10 mg/dl (7-18); CALCIUM 8.7 mg/dl (8.5-10.1); CARBON DIOXIDE 25 mmol/L (21-32); CREATININE 0.82 mg/dl (0.60-1.20); GLUCOSE 133 mg/dl (70-99); POTASSIUM 3.5 mmol/L (3.5-5.1); SODIUM 142 mmol/L (136-145)
[2018-05-08 21:53] LABS: INR 0.9 (0.9-1.1)
[2018-05-08 22:10] LABS: PTT PATIENT 75.1 SECONDS (21.0-31.0)
--- NOTE | 2018-05-08 22:16 | DIAGNOSTIC IMAGING REPORT ---
CHEST 2 VIEWS ROUTINE CLINICAL HISTORY: Cough COMPARISON STUDY: 01/08/2018 FINDINGS: The heart is normal in size. There is a right-sided A-Port catheter. There are suspected very subtle left mid and lower lung zone interstitial opacities. Given history of cough, this could represent a subtle pneumonitis. Clinical and radiographic follow-up is recommended. There is no failure. There are no pleural effusions.[ IMPRESSION: Suspected very subtle left mid and lower lung zone interstitial opacities, likely infectious/inflammatory. Clinical and radiographic follow-up is recommended. Electronically signed by: Michael Lazo M.D. 05/08/2018 10:14 PM Dictated Date/Time: 05/08/2018 10:12 PM
[2018-05-08] MEDS ORDERED: LEVO750T23 PO (22:35)
[2018-05-08] MEDS ORDERED: ONDANSETRON INJ 2 MG/ML 2 ML VIAL IV STA (22:36)
[2018-05-08] MEDS ORDERED: KETOROLAC TROMETHAMINE 30 MG/ML VIAL IV STA (22:36)
[2018-05-08] MEDS ORDERED: LEVOFLOXACIN 250 MG TAB PO ONE (22:45)
[2018-05-08 23:09] VITALS: BP 187/89; PULSE 87; O2SAT 99
--- NOTE | 2018-05-09 01:41 | EMERGENCY ROOM VISIT NOTE ---
History Report prepared by Kaela: Yong Aranda Under the Supervision of: Dr. Rinku Richard M.D. First contact with patient: 20:22 Chief Complaint: COUGH Stated Complaint: FALLING OVER DIZZY COUGHING NAUSEA History of Present Illness The patient is a 67 year old female who presents to the Emergency Room with complaints of COPD exacerbation that began 5 days ago and has worsened since. She states that it is causing her to wheeze, cough, and feel nauseous. She also states she has a subjective fever and the cough caused her to fall today and hit her head. She stated she was coming back from the bathroom and she had a coughing fit which made her dizzy and caused her to fall. She hit her head on the bed frame but did not lose consciousness. She does complain of a headache. She states that she has tried Tessalon Sue with no success as well as being prescribed Ampicillin May 03, , and by her PCP. Source of History: patient Onset: 5 days ago Position: chest Quality: other (Wheezing) Timing: worsening Associated Symptoms: + headache, + cough, + SOB, + nausea, + weakness Review of Systems See HPI for pertinent positives & negatives. A total of 10 systems reviewed and were otherwise negative. Past Medical & Surgical Medical Problems: (1) Abdominal pain (2) Abdominal pain (3) Asthma (4) BARIATRIC SURGERY STATUS (5) C. 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 (8) COPD (chronic obstructive pulmonary disease) (9) Cough (10) Dehydration (11) Dehydration (12) Diarrhea (13) Diarrhea (14) Headache (15) Headache (16) HYPOTHYROIDISM NOS (17) MIGRAINE UNSPECIFIED W/O INTRACT MGRN W/O STATUS MIGRAINOSUS (18) Pneumonia (19) Pneumonia (20) Reflux esophagitis (21) Stomach problems Surgical Problems: (1) Hx of cholecystectomy Family History Diabetes mellitus Hypertension Kidney disease Stroke Social History Smoking Status: Never Smoker Alcohol Use: none Drug Use: none Marital Status: Housing Status: lives with family Occupation Status: disabled Current/Historical Medications Scheduled Amlodipine Besylate (Amlodipine Besylate), 5 MG PO HS Aspirin (Aspirin Ec), 81 MG PO QPM Cholecalciferol (Ra Vitamin D-3), 5,000 INTER.UNIT PO DAILY Cyanocobalamin (Cyanocobalamin), 1,000 MCG IM Q3 MONTHS Gabapentin (Gabapentin), 200 MG PO TID Levofloxacin (Levaquin), 1 TAB PO DAILY Levothyroxine Sodium (Levothyroxine Sodium), 88 MCG PO QAM Magnesium Oxide (Mg Supplement (Magnesium), 1 TAB PO BID Omeprazole (Prilosec), 40 MG PO HS Pregabalin (Lyrica), 75 MG PO BID Probiotic Product (Probiotic), 1 CAP PO HS Ropinirole HCl (Ropinirole HCl), 1 MG PO TID Topiramate (Topiramate), 100 MG PO BID Scheduled PRN Albuterol Sulfate (Proair Respiclick), 2 PUFFS INH QID PRN for Wheezing Cyclobenzaprine HCl (Cyclobenzaprine HCl), 10 MG PO TID PRN for Muscle Spasm Diphenhydramine Hcl (Benadryl Allergy), 25 MG PO HS PRN for Sleep Ketorolac Tromethamine (Ketorolac Tromethamine), 30 MG IM WK PRN for Pain Tramadol (Ultram), 50 MG PO Q4H PRN for Pain Allergies Coded Allergies: Morphine (Verified Allergy, Intermediate, rash, 05/08/18) Sulfa Antibiotics (Verified Allergy, Intermediate, HIVES, 05/08/18) Dust (Verified Allergy, Mild, ITCHY EYES, 05/08/18) Prednisone (Verified Allergy, Mild, ITCHY, 05/08/18) Methylprednisolone (Verified Adverse Reaction, Intermediate, vomiting, shaking, 05/08/18) Metformin (Verified Adverse Reaction, Mild, "diarrhea", 05/08/18) Molds & Smuts (Verified Adverse Reaction, Mild, ITCHY EYES, HEADACHES, ) Physical Exam Vital Signs Date Time Temp Pulse Resp B/P (MAP) Pulse Ox O2 Delivery O2 Flow Rate FiO2 05/08/18 23:09 87 20 187/89 99 05/08/18 21:54 91 191/96 100 05/08/18 21:15 86 19 184/85 100 Room Air 05/08/18 20:57 82 05/08/18 20:35 97 Room Air 05/08/18 20:11 36.9 84 18 161/82 98 Room Air Physical Exam Constitutional: Vital signs reviewed. Eyes: Pupils are equal round reactive to light. Conjunctiva are noninjected. ENT: Pharynx is clear without erythema or exudate. Mucous membranes are dry. Neck supple without meningeal signs. Respiratory: Coughing with wheezing. Breath sounds are equal bilaterally. Cardiovascular: Regular rate and rhythm. No rubs or gallops. GI: Soft, nondistended and nontender. Bowel sounds are present. Musculoskeletal: No peripheral edema. No lower extremity tenderness. Integumentary: No cyanosis. Neurological: The patient is awake and alert. No focal deficits. Psychiatric: Normal affect. Medical Decision & Procedures ER Provider Diagnostic Interpretation: Radiology results as stated below per my review and the radiologist's interpretation: CT HEAD WITHOUT CONTRAST (CT) CLINICAL HISTORY: Head pain status post trauma COMPARISON STUDY: December 18, 2015 TECHNIQUE: Axial CT of the brain is performed from the vertex to the skull base. IV contrast was not administered for this examination. A dose lowering technique was utilized adhering to the principles of ALARA. CT DOSE: 537.48 mGy.cm FINDINGS: No intra or extra-axial mass lesions are visualized. There is no CT evidence of acute cortical infarction. There is no evidence of midline shift. There is no acute hemorrhage. No calvarial fractures are visualized. There is no evidence of pathologic ventricular dilatation. There are postsurgical changes of prior partial ethmoidectomies. There is right ethmoid sinus mucosal thickening. IMPRESSION: No acute intracranial findings Electronically signed by: Michael Lazo M.D. 05/08/2018 9:34 PM Dictated Date/Time: 05/08/2018 9:33 PM CHEST 2 VIEWS ROUTINE CLINICAL HISTORY: Cough COMPARISON STUDY: 01/08/2018 FINDINGS: The heart is normal in size. There is a right-sided A-Port catheter. There are suspected very subtle left mid and lower lung zone interstitial opacities. Given history of cough, this could represent a subtle pneumonitis. Clinical and radiographic follow-up is recommended. There is no failure. There are no pleural effusions.[ IMPRESSION: Suspected very subtle left mid and lower lung zone interstitial opacities, likely infectious/inflammatory. Clinical and radiographic follow-up is recommended. Electronically signed by: Michael Lazo M.D. 05/08/2018 10:14 PM Dictated Date/Time: 05/08/2018 10:12 PM Laboratory Results 05/08/18 21:10 Red Blood Count 4.21, Mean Corpuscular Volume 92.6, Mean Corpuscular Hemoglobin 30.2, Mean Corpuscular Hemoglobin Concent 32.6, Mean Platelet Volume 10.5, Neutrophils (%) (Auto) 49.7, Lymphocytes (%) (Auto) 37.7, Monocytes (%) (Auto) 9.1, Eosinophils (%) (Auto) 3.0, Basophils (%) (Auto) 0.3, Neutrophils # (Auto) 3.01, Lymphocytes # (Auto) 2.28, Monocytes # (Auto) 0.55, Eosinophils # (Auto) 0.18, Basophils # (Auto) 0.02 05/08/18 21:10 Test 05/08/18 21:10 05/08/18 21:25 White Blood Count 6.05 K/uL (4.8-10.8) Red Blood Count 4.21 M/uL (4.2-5.4) Hemoglobin 12.7 g/dL (12.0-16.0) Hematocrit 39.0 % (37-47) Mean Corpuscular Volume 92.6 fL (80-100) Mean Corpuscular Hemoglobin 30.2 pg (25-34) Mean Corpuscular Hemoglobin Concent 32.6 g/dl (32-36) Platelet Count 199 K/uL (130-400) Mean Platelet Volume 10.5 fL (7.4-10.4) Neutrophils (%) (Auto) 49.7 % Lymphocytes (%) (Auto) 37.7 % Monocytes (%) (Auto) 9.1 % Eosinophils (%) (Auto) 3.0 % Basophils (%) (Auto) 0.3 % Neutrophils # (Auto) 3.01 K/uL (1.4-6.5) Lymphocytes # (Auto) 2.28 K/uL (1.2-3.4) Monocytes # (Auto) 0.55 K/uL (0.11-0.59) Eosinophils # (Auto) 0.18 K/uL (0-0.5) Basophils # (Auto) 0.02 K/uL (0-0.2) RDW Standard Deviation 45.3 fL (36.4-46.3) RDW Coefficient of Variation 13.3 % (11.5-14.5) Immature Granulocyte % (Auto) 0.2 % Immature Granulocyte # (Auto) 0.01 K/uL (0.00-0.02) Prothrombin Time 9.8 SECONDS (9.0-12.0) Prothromb Time International Ratio 0.9 (0.9-1.1) Activated Partial Thromboplast Time 75.1 SECONDS (21.0-31.0) Partial Thromboplastin Ratio 2.9 Anion Gap 9.0 mmol/L (3-11) Estimated GFR () 86.4 Estimated GFR (Non- 74.6 BUN/Creatinine Ratio 12.4 (10-20) Calcium Level 8.7 mg/dl (8.5-10.1) Bedside Troponin I < 0.030 ng/ml (0-0.045) Laboratory results as reviewed by me. Medications Administered Medications (Trade) Dose Ordered Sig/Radha Route Start Time Stop Time Status Last Admin Dose Admin Albuterol/ Ipratropium (Duoneb) 3 ml NOW STAT INH 05/08/18 20:31 05/08/18 20:34 DC 05/08/18 20:55 3 ML Sodium Chloride 500 ml @ 999 mls/hr Q31M STAT IV 05/08/18 20:31 05/08/18 21:01 DC 05/08/18 21:15 999 MLS/HR Levofloxacin (Levaquin Tab) 750 mg NOW ONCE PO 05/08/18 22:45 05/08/18 22:46 DC 05/08/18 22:54 750 MG Ketorolac Tromethamine (Toradol Inj) 10 mg NOW STAT IV 05/08/18 22:36 05/08/18 22:38 DC 05/08/18 22:54 10 MG Ondansetron HCl (Zofran Inj) 4 mg NOW STAT IV 05/08/18 22:36 05/08/18 22:38 DC 05/08/18 22:54 4 MG Heparin Sodium (Porcine) (Heparin 100 Unit/ml 5ml Flush) 5 ml STK-MED ONCE .ROUTE 05/08/18 22:52 05/08/18 22:53 DC 05/08/18 22:54 5 ML ECG Per My Interpretation Indication: SOB/dyspnea Rate (beats per minute): 68 Rhythm: normal sinus Findings: other (No ST elevation, No PVC) ED Course 2024: The patient was evaluated in room C12. A complete history and physical exam was performed. 2232: I reevaluated the patient and discussed test results. On reexamination, the lungs are clear to auscultation. I recommended antibiotics to her given her history of COPD. 7: The patient is asking for a dose of Toradol and nausea medication before discharge. 2255: Upon reevaluation, the patient appeared to have improvement of her symptoms. I discussed tonight's findings with the patient. She verbalized agreement of the treatment plan. She was discharged home. Medical Decision This is a 67-year-old female presents with shortness of breath and cough and head injury. Differential diagnosis includes COPD exacerbation, pneumonia, bronchitis, contusion. I did perform a limited focused review of portions of the patient's old chart on the electronic medical record. The patient has had one pertinent visit to this hospital on April 17 of this year when she underwent hand surgery. The surgery was done by Dr. Wells. I did evaluate the patient as noted above. Patient had a head injury today. She also complains of shortness of breath. She has wheezing on examination. IV access was established. 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 I did treat her with a DuoNeb. She states she is allergic to steroids. She was given normal saline IV. I did order and personally review the patient's 12-lead EKG and chest x-ray as described above. Her chest x-ray demonstrates a left lower lobe infiltrate. I did order and review the patient' s blood work as noted in the electronic medical record. I did order a CT of the head. I did review the images myself as well as the radiology report as described above. I did discuss the test results with the patient. She did request Toradol and Zofran for her headache. She was given 10 mg of Toradol IV and Zofran IV. She was advised to follow-up closely with her doctor. She was placed on Levaquin because of her comorbidity and recent antibiotic use. She was given her first dose here and a prescription for 5 days. She was discharged in good condition. Head Trauma GCS Score: 15 Medication Reconcilliation Current Medication List: was personally reviewed by me Blood Pressure Screening Patient's blood pressure: Elevated blood pressure Blood pressure disposition: Referred to PCP Impression Primary Impression: COPD exacerbation Additional Impressions: Left lower lobe pneumonia Acute head injury Scribe Attestation The scribe's documentation has been prepared under my direct and personally reviewed by me in its entirety. I confirm that the note above accurately reflects all work, treatment, procedures, and medical decision making performed by me. Departure Information Dispostion Home / Self-Care Prescriptions Levofloxacin (LEVAQUIN) 750 Mg Tab 1 TAB PO DAILY for 5 Days, #5 TAB Prov: Rinku Richard M.D. 05/08/18 Referrals Bianca Rg (PCP) Forms HOME CARE DOCUMENTATION FORM, IMPORTANT VISIT INFORMATION Patient Instructions My [facility] Additional Instructions You have been examined and treated today on an emergency basis only. This is not a substitute for, or an effort to provide, complete comprehensive medical care. It is impossible to recognize and treat all injuries or illnesses in a single emergency department visit. It is therefore important that you follow up closely with your physician. Call as soon as possible for an appointment. Return for worsening symptoms or if you develop fever, vomiting, or any other concerning symptoms. Problem Qualifiers Additional Impressions: Left lower lobe pneumonia Pneumonia type: due to unspecified organism Qualified Codes: J18.1 - Lobar pneumonia, unspecified organism Acute head injury Encounter type: initial encounter Qualified Codes: S09.90XA - Unspecified injury of head, initial encounter
== END 2018-05-08 23:02 | disposition home or self-care (01) ==
LOC: C.EDB 20:08 → C.EDC 23:02
DX: J44.1 Chronic obstructive pulmonary disease with (acute) exacerbation (principal); J18.1 Lobar pneumonia, unspecified organism; S09.90XA Unspecified injury of head, initial encounter; W19.XXXA Unspecified fall, initial encounter; Y92.013 Bedroom of single-family (private) house as the place of occurrence of the external cause; J45.909 Unspecified asthma, uncomplicated; E03.9 Hypothyroidism, unspecified; K21.0 Gastro-esophageal reflux disease with esophagitis; Z79.82 Long term (current) use of aspirin; Z79.899 Other long term (current) drug therapy; Z88.5 Allergy status to narcotic agent; Z88.2 Allergy status to sulfonamides; Z91.048 Other nonmedicinal substance allergy status; Z88.8 Allergy status to other drugs, medicaments and biological substances

== ENCOUNTER 2025-07-11 17:42 | Inpatient (IN) ==
--- NOTE | 2025-07-11 19:47 | XRay Report ---
EXAM: Portable AP chest radiograph TECHNIQUE: AP portable radiograph of the chest was obtained. INDICATION: Shortness of breath Comparison: Chest radiograph April 25, 2025 FINDINGS: LINES and TUBES: None CARDIOVASCULAR: Cardiac silhouette is stably and mildly enlarged is normal in size. TAVR. Atherosclerosis of the thoracic aorta. LUNGS/PLEURA: No focal consolidation identified. Chronic interstitial lung changes. No significant pleural fluid. No discernible pneumothorax. OSSEOUS/OTHER: No displaced acute osseous process identified. IMPRESSION: No radiographic evidence of acute cardiopulmonary process with redemonstrated findings as above. Electronically signed by Vinny Ley 07-11-2025 7:47 PM
[2025-07-11 20:05] LABS: Alanine Aminotransferase 13 U/L (7-52); Albumin Globulin Ratio 1.2 (0.9-2); Albumin Level 3.8 gm/dl (3.4-5.0); Alkaline Phosphatase 106 U/L (34-104); Anion Gap 7 (3-11); Bilirubin,Total 0.4 mg/dl (0.2-1.0); Blood Urea Nitrogen 17 mg/dl (6-23); Calcium 9.3 mg/dl (8.6-10.3); Carbon Dioxide 25 mmol/L (21-32); Chloride 107 mmol/L (98-107); Globulin 3.1 gm/dl (2.5-4.0); Glucose 103 mg/dl (70-99(Fasting)); Magnesium 1.9 mg/dl (1.7-2.4); Potassium 3.8 mmol/L (3.5-5.1); Sodium 139 mmol/L (136-145); Total Protein 6.9 gm/dl (6.0-8.3)
[2025-07-11 20:18] LABS: Hematocrit (blood only) 38.5 % (37.0-47.0); Hemoglobin 12.7 g/dl (12.0-16.0); Immature Granulocytes # (auto) 0.01 K/uL (0.01-0.20); Immature Granulocytes % (auto) 0.2 %; Mean Corpuscular Hemoglobin 30.0 pg (25.0-34.0); Mean Corpuscular Volume 91.0 fL (80.0-100.0); Platelet Count 92 K/uL (130-400); RDW Standard Deviation 44.0 fL (36.4-46.3); Red Blood Count 4.23 M/uL (4.20-5.40); White Blood Count 5.06 K/ul (4.8-10.8)
[2025-07-11 20:20] LABS: Chlamydia pneumoniae PCR Not Detected (NotDetected); Coronavirus 229E PCR Not Detected (NotDetected); Coronavirus CoV-2 (COVID19)PCR Not Detected (NotDetected); Coronavirus HKU1 PCR Not Detected (NotDetected); Coronavirus NL63 PCR Not Detected (NotDetected); Coronavirus OC43PCR Not Detected (NotDetected); Human Metapneumovirus PCR Not Detected (NotDetected); Parainfluenza Virus 1 PCR Not Detected (NotDetected); Parainfluenza Virus 2 PCR Not Detected (NotDetected); Parainfluenza Virus 3 PCR Not Detected (NotDetected); Parainfluenza Virus 4 PCR Not Detected (NotDetected); Respiratory Syncytial VirusPCR Not Detected (NotDetected); Rhinovirus/Enterovirus PCR Not Detected (NotDetected)
[2025-07-11 20:31] LABS: INR 1.0 (0.9-1.1); Partial Thromboplastin Time 24 Seconds (21-31); Prothrombin Time 10.5 Seconds (9.0-12.0)
--- NOTE | 2025-07-11 20:51 | Emergency Department Note ---
Impression & Plan Chest pain, Thrombocytopenia, Elevated troponin ED Provider Note NAME: DOM DUNHAM AGE: 75 SEX: F : 1950 ARRIVES VIA: Walk-In INFORMANT: Patient, ED PROVIDER(S): Augusto Carr DO CHIEF COMPLAINT: SOB HPI: This is a 75-year-old female with the PMHx of s/p [place] [facility] [place] COPD/asthma, GERD, DM2, hypothyroidism and chronic pain disorder presenting to [facility] for further evaluation of multiple complaints. Patient is accompanied by her who provide additional history. The patient states over the past few days, she has developed chest pain, palpitations and SOB. She states that her symptoms have become so severe that she has almost passed out. She also noticed generalized fatigue and weakness. She notes cramping lower abdominal pain associated with diarrhea over the last 5 days. They deny fever or chills. No cough or congestion. She denies nausea and vomiting. No urinary complaints. thinks the patient is dehydrated. He states that she has not been eating or drinking. He states that they are due for repeat TTE but have been unable to accomplish this. Patient denies recent changes in medications or OTC supplements. Patient offers no other complaints, today. ADDITIONAL HISTORY OBTAINED: Per HPI Chronic Medical/Social Conditions Affecting Care: Per HPI PAST MEDICAL HISTORY: See Below PAST SURGICAL HISTORY: See Below FAMILY HISTORY: See Below SOCIAL HISTORY: See Below HOME MEDICATIONS: See Below ALLERGIES: See Below VITALS: See Below PHYSICAL EXAMINATION: GENERAL: Alert, well developed, well nourished, no acute distress HEAD: Normocephalic, atraumatic EYES: EOM's intact, sclera anicteric, conjunctiva clear OROPHARYNX: Airway patent and mucous membranes moist LUNGS: No respiratory distress, normal respiratory rate and effort HEART: Well perfused, regular rate ABDOMEN: Abdomen non-distended SKIN: Normal color, dry EXTREMITIES: No gross deformities, no edema NEURO: Alert, oriented x3, appropriate for age, moves all four extremities, normal speech MEDICAL DECISION MAKING: Differential diagnoses includes but not limited to ACS, stable vs unstable angina, dysrhythmia, viral URI, pneumonia, pericarditis, pneumothorax, costochondritis, MSK strain, PE, hypertensive emergency, psychological causes, esophageal reflux, gastritis, dehydration, electrolyte derangements, viral illness, gastroenteritis, diarrheal illness In summary, this is a 75 year old female who presented with multiple complaints. Differential as above. Nursing notes and pertinent past medical records reviewed. Vital signs reviewed and the patient is milldy hypertensive but otherwise afebrile and HDS. History and presentation revealed recent TAVR now with worsening symptoms that were present prior to surgery. Physical examination revealed as above. As a result of my initial evaluation, we will plan for labs, CXR and gentle IVFR. Diagnostics interpreted by me include EKG and cardiac monitoring as listed below: -Cardiac Monitoring: An order was placed for continuous cardiac monitoring. The monitor shows a rate of 60-80s with regular rhythm. -ECG: NSR at 83bpm. Frequent PVCs present, 5 on this rhythm strip. No significant ST segments to suggest STEMI. Patient completed laboratory studies and imaging. CXR independently interpreted by me reveals no evidence of focal consolidation to suggest pna. No large pneumothorax or pleural effusion. No obvious displaced rib fracture. Results independently interpreted by me are no significant anemia or leukocytosis. She does have mild thrombocytopenia. thrombocytopenia is new. Normal coagulation studies. Normal electrolytes and kidney function. Patient has mild elevation in alkaline phosphatase. Slight troponin leak as well as elevated BNP. Given the patient's elevated troponin levels as well as ongoing chest pain and shortness of breath in the recent postoperative period, we will plan to admit the patient for close observation on telemetry. Plan for repeat echo as this has not been performed. Ultimately, the decision was made to admit the patient for chest pain with elevated troponin level. I discussed the case with the hospitalist service via telephone/TigerText and they are agreeable to admit the patient to their services. Based on the above, including the patient's age, coexisting illnesses, labs, imaging, and exam findings the decision to treat as an inpatient. I discussed the patient with the hospitalist team who recommended admission to their services. They received the medications, treatments, interventions indicated above and their condition remained stable. I discussed my findings with the patient and their family and they understand and agree with the treatment plan. All patient / family questions were answered to their satisfaction. Consults/Care Managements Discussions: Per [facility] ER treatment provided: See above Procedures:none Critical Care: None The chart was completed utilizing Walltik voice recognition software. Grammatical errors, random word insertions, pronoun errors, and incomplete sentences are an occasional consequence of this system due to software limitations, ambient noise, and hardware issues. Any formal questions or concerns about the content, text, or information contained within the body of this dictation should be directly addressed to the physician for clarification. Past Med/Surg History Problem List (Updated 07/12/25 @ 16:07 by Aj Carr MD) Elevated troponin (Acute) Thrombocytopenia (Acute) Chest pain (Acute) Femoral bruit S/P TAVR (transcatheter aortic valve replacement) Near syncope Palpitations Thrombocytopenia Nausea vomiting and diarrhea (Acute) Sensorineural hearing loss (SNHL) of both ears right-worse asymmetry Hyperacusis of right ear Asymmetrical sensorineural hearing loss Cognitive complaints Ischial bursitis of right side Nocturia Urgency incontinence Gluteal tendinitis of right buttock Hip arthritis Greater trochanteric pain syndrome Daily urinary incontinence Urinary frequency Dysfunctional voiding of urine Urinary urgency Hypothyroidism Diabetes mellitus type 2 in obese Right knee DJD History of concussion Right-sided ischial pain Cyst of finger Trigger finger of left hand Chronic SI joint pain Hx of esophageal reflux (Acute) Myalgia and myositis (Acute) Vitamin D deficiency (Acute) Degenerative joint disease (DJD) of lumbar spine Central venous catheter in place Hx of diabetes mellitus NO LONGER HAVE D/T WT LOSS Chronic pain (Acute) Chronic headache (Acute) Neck pain on right side (Acute) Closed head injury (Acute) Migraine headache (Acute) Varicose veins Lower extremity edema (Acute) Right groin pain (Acute) Reflux esophagitis History of hip surgery 05/03/23 ([facility]) Right hip endoscopic bursectomy Hypertension (Acute) Asthma inhaler/nebulizer prn COPD (chronic obstructive pulmonary disease) inhaler/nebulizer prn - last used albuterol inhaler ~12/26/23 for a cough Hx of cholecystectomy Medical History GERD (gastroesophageal reflux disease) Chronic cough per pt from COPD--uses inhaler/nebulizer prn Prediabetes no meds, diet controlled History of COVID-19 --05/2022- LOW GRADE FEVER, CHILLS, ACHY , NO HOSPITALZIATION, NO CURRENT Fibromyalgia Osteoarthritis History of IBS Peripheral neuropathy Cardiac murmur "slight"; no significant valve issues on 2016 stress echo Restless leg syndrome Hypothyroidism Obesity Surgical History (Updated 07/12/25 @ 16:07 by Aj Carr MD) Difficult airway for intubation noted to have a small airway per patient (previous records on file show only LMA and MAC procedures - no issues. Pt had trigger finger release at surgery center in 2018 History of hysterectomy History of section History of arthroscopy left knee right/left hip bursitis "scraped" History of esophagogastroduodenoscopy (EGD) last 06/28/22 @ [facility] History of colonoscopy last 06/28/22 @ [facility] History of tooth extraction History of tonsillectomy History of adenoidectomy History of cataract surgery RT/LEFT Status post panniculectomy History of appendectomy History of gastric bypass History of surgery INFUSAPORT "POOR VENOUS ACCESS"--removed Family History Son Family history of diabetes mellitus Other No family history of adverse response to anesthesia Social History Smoking Status: Never smoker Second Hand Exposure: No; Do You Dip or Chew Tobacco: No; Hx Alcohol Use: No Hx Substance Use: No Preferred Language: [place] African Communication Ability: Effective 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: No Beliefs That Will Affect Care: None marital status: Current Living Situation: Spouse Current Living Situation Comment: AND DAUGHTER current occupational status: retired Feels Safe at Home: Yes Assistive Devices: None Allergies Allergies Allergy/AdvReac Type Severity Reaction Status Date / Time grass pollen Allergy Intermediate sneezing/watery Verified 07/11/25 22:02 eyes hydrocodone [From Vicodin] Allergy Intermediate severe Verified 07/11/25 22:02 itching prednisone Allergy Intermediate all over Verified 07/11/25 22:02 body itch Sulfa (Sulfonamide Allergy Intermediate HIVES Verified 07/11/25 22:02 Antibiotics) house dust Allergy Mild itchy eyes Verified 07/11/25 22:02 mold Allergy Mild ITCHY Verified 07/11/25 22:02 EYES, HEADACHES fentanyl AdvReac Intermediate Joint Pain Verified 07/11/25 22:02 metformin AdvReac Intermediate "diarrhea" Verified 07/11/25 22:02 methylprednisolone AdvReac Intermediate vomiting,sh Verified 07/11/25 22:02 aking Home Meds Home Medications Medication Instructions Recorded Confirmed cyanocobalamin (vitamin B-12) 1,000 mcg IM Q14D 09/21/21 07/11/25 1,000 mcg/mL injection solution levothyroxine 88 mcg tablet 88 mcg PO DAILYBB 04/06/22 07/11/25 albuterol sulfate 90 mcg/actuation 2 puff inhalation QID PRN 12/04/24 07/11/25 aerosol inhaler Shortness Of Breath Or Wheezing lidocaine HCl 4 % topical cream 1 applic topical BID PRN Pain 01/13/25 07/11/25 (Aspercreme (lidocaine HCl)) aspirin 81 mg tablet,delayed 81 mg PO DAILY 01/24/25 07/11/25 release rosuvastatin 10 mg tablet 10 mg PO DAILY 02/17/25 07/11/25 acetaminophen 300 mg-codeine 30 mg 1 tab PO Q6 PRN Cough 06/23/25 07/11/25 tablet amlodipine 5 mg tablet 5 mg PO DAILY 06/23/25 07/11/25 furosemide 20 mg tablet 20 mg PO DAILY 06/23/25 07/11/25 losartan 25 mg tablet 25 mg PO QPM 06/23/25 07/11/25 omeprazole 40 mg capsule,delayed 40 mg PO DAILY 06/23/25 07/11/25 release ropinirole 0.5 mg tablet 0.5 mg PO DAILY 06/23/25 07/11/25 ropinirole 2 mg tablet 2 mg PO DAILY 06/23/25 07/11/25 topiramate 25 mg tablet 25 mg PO BID 06/23/25 07/11/25 Previous Rx's Medication Instructions Recorded syringe with needle, safety 3 mL #100 ea 12/06/22 25 gauge x 1" (BD Integra Syringe) 3-in-1 Commode #1 ea 05/01/23 azelastine 137 mcg (0.1 %) nasal 2 spray intranasal BID PRN nasal 02/17/25 spray congestion #90 mL fluticasone propionate 50 2 spray intranasal DAILY #48 grams 02/17/25 mcg/actuation nasal spray,suspension ipratropium bromide 21 mcg (0.03 2 spray intranasal TID PRN 02/17/25 %) nasal spray postnasal drip #90 mL oxycodone 5 mg tablet 5 mg PO Q8H PRN pain #10 tabs 06/23/25 Results & Data (ED) Vital Signs Vital Signs - 24 hr 07/11/25 17:55 07/11/25 18:34 07/11/25 19:03 Temperature 36.9 C Temperature Source Temporal Artery Scan Pulse Rate 85 82 Pulse Rate [Apical] Pulse Rhythm [Apical] Pulse Strength [Apical] Respiratory Rate 26 H Respiratory Effort / Characteristics Respiratory Depth Respiratory Pattern Blood Pressure 188/69 H Blood Pressure [Right Arm] Blood Pressure Mean 108 Blood Pressure Mean [Right Arm] Pulse Oximetry 94 98 Oxygen Delivery Method Room Air Room Air Oxygen Flow Rate Sepsis Recent Fever Within 48 Hours No Sepsis New/Unexplained Change in Mental Status No Sepsis Action Taken by Nursing No Action Required 07/11/25 19:04 07/11/25 19:04 07/11/25 21:32 Temperature Temperature Source Pulse Rate Pulse Rate [Apical] 81 77 Pulse Rhythm [Apical] Regular Regular Pulse Strength [Apical] Normal Normal Respiratory Rate 18 20 Respiratory Effort / Characteristics Non-Labored Spontaneous Non-Labored Spontaneous Respiratory Depth Normal Normal Respiratory Pattern Regular Regular Blood Pressure Blood Pressure [Right Arm] 180/56 H 150/49 H Blood Pressure Mean Blood Pressure Mean [Right Arm] 97 82 Pulse Oximetry 98 98 Oxygen Delivery Method Room Air Room Air Room Air Oxygen Flow Rate 0 Sepsis Recent Fever Within 48 Hours Sepsis New/Unexplained Change in Mental Status Sepsis Action Taken by Nursing 07/11/25 22:48 07/11/25 22:52 Temperature Temperature Source Pulse Rate 72 Pulse Rate [Apical] 88 Pulse Rhythm [Apical] Regular Pulse Strength [Apical] Normal Respiratory Rate 16 Respiratory Effort / Characteristics Non-Labored Spontaneous Respiratory Depth Normal Respiratory Pattern Regular Blood Pressure Blood Pressure [Right Arm] 155/80 H Blood Pressure Mean Blood Pressure Mean [Right Arm] 105 Pulse Oximetry 95 Oxygen Delivery Method Room Air Oxygen Flow Rate Sepsis Recent Fever Within 48 Hours Sepsis New/Unexplained Change in Mental Status Sepsis Action Taken by Nursing Laboratory Data 07/13/25 05:07 07/13/25 05:07 Lab Results 07/11/25 07/11/25 07/11/25 Range/Units 19:08 19:19 22:53 WBC 5.06 (4.8-10.8) K/ul RBC 4.23 (4.20-5.40) M/uL Hgb 12.7 (12.0-16.0) g/dl Hct 38.5 (37.0-47.0) % MCV 91.0 (80.0-100.0) fL MCH 30.0 (25.0-34.0) pg MCHC 33.0 (32.0-36.0) g/dL RDW Std Deviation 44.0 (36.4-46.3) fL RDW Coeff of Stephan 13.4 (11.5-14.5) % Plt Count 92 L (130-400) K/uL MPV 10.7 (9.4-12.4) fL Immature Gran % (Auto) 0.2 % Neut % (Auto) 65.0 % Lymph % (Auto) 23.9 % Sullivan % (Auto) 7.3 % Eos % (Auto) 3.4 % Baso % (Auto) 0.2 % Neut # (Auto) 3.29 (1.40-6.50) K/uL Lymph # (Auto) 1.21 (1.20-3.40) K/uL Sullivan # (Auto) 0.37 (0.11-0.59) K/uL Eos # (Auto) 0.17 (0.00-0.50) K/uL Baso # (Auto) 0.01 (0.00-0.20) K/uL Immature Gran # (Auto) 0.01 (0.01-0.20) K/uL Platelet Estimate Decreased L (Normal) PT 10.5 (9.0-12.0) Seconds INR 1.0 (0.9-1.1) APTT 24 (21-31) Seconds PTT Ratio 0.9 Sodium 139 (136-145) mmol/L Potassium 3.8 (3.5-5.1) mmol/L Chloride 107 (98-107) mmol/L Carbon Dioxide 25 (21-32) mmol/L Anion Gap 7 (3-11) BUN 17 (6-23) mg/dl Creatinine 1.07 (0.6-1.2) mg/dl Est Cr Clr Drug Dosing Not Reportable eGFR 54.85 BUN/Creatinine Ratio 15.9 (10-20) Glucose 103 H (70-99(Fasting)) mg/dl Calcium 9.3 (8.6-10.3) mg/dl Magnesium 1.9 (1.7-2.4) mg/dl Total Bilirubin 0.4 (0.2-1.0) mg/dl AST 22 (13-39) U/L ALT 13 (7-52) U/L Alkaline Phosphatase 106 H (34-104) U/L Troponin I High Sens 28.8 H 37.7 H (0-14) pg/ml B-Natriuretic Peptide 173 H (0-100) pg/ml Total Protein 6.9 (6.0-8.3) gm/dl Albumin 3.8 (3.4-5.0) gm/dl Globulin 3.1 (2.5-4.0) gm/dl Albumin/Globulin Ratio 1.2 (0.9-2) Adenovirus (PCR) Not Detected (NotDetected) B. pertussis DNA (PCR) Not Detected (NotDetected) B.parapertussis DNA PCR Not Detected (NotDetected) C. pneumoniae DNA (PCR) Not Detected (NotDetected) Coronavirus OC43 (PCR) Not Detected (NotDetected) Coronavirus HKU1 (PCR) Not Detected (NotDetected) Coronavirus 229E (PCR) Not Detected (NotDetected) SARS-CoV-2 (PCR) Not Detected (NotDetected) Coronavirus NL63 (PCR) Not Detected (NotDetected) Human Metapneumovir PCR Not Detected (NotDetected) Influenza Type A (PCR) Not Detected (NotDetected) Influenza Type B (PCR) Not Detected (NotDetected) M. pneumoniae (PCR) Not Detected (NotDetected) Parainfluenza 1 (PCR) Not Detected (NotDetected) Parainfluenza 2 (PCR) Not Detected (NotDetected) Parainfluenza 3 (PCR) Not Detected (NotDetected) Parainfluenza 4 (PCR) Not Detected (NotDetected) RSV (PCR) Not Detected (NotDetected) Entero/Rhino (PCR) Not Detected (NotDetected) Administered Medications Discontinued Medications Acetaminophen (Acetaminophen 500 Mg Tab) 1,000 mg PO NOW STA Stop: 07/11/25 21:34 Last Admin: 07/11/25 21:39 Dose: 1,000 mg Documented By: tereza Acetaminophen (Acetaminophen 325 Mg Tab) 650 mg PO Q4H PRN PRN Reason: Pain or Fever Stop: 08/10/25 23:46 Last Admin: 07/13/25 17:01 Dose: 650 mg Documented By: Admin: 07/12/25 22:43 Dose: 650 mg Documented By: alt Admin: 07/12/25 09:21 Dose: 650 mg Documented By: EP Acetaminophen (Acetaminophen 500 Mg Tab) 1,000 mg PO ONE ONE Stop: 07/12/25 03:31 Last Admin: 07/12/25 02:49 Dose: 1,000 mg Documented By: alt Amlodipine Besylate (Amlodipine Besylate 5 Mg Tab) 5 mg PO DAILY NADIA Stop: 08/11/25 08:59 Last Admin: 07/13/25 08:53 Dose: 5 mg Documented By: Admin: 07/12/25 09:23 Dose: 5 mg Documented By: EP Aspirin (Aspirin Chew 324 Mg) 324 mg PO NOW STA Stop: 07/11/25 21:01 Last Admin: 07/11/25 21:16 Dose: 324 mg Documented By: tereza Aspirin (Aspirin 81 Mg Ectab) 81 mg PO DAILY NADIA Stop: 08/11/25 08:59 Last Admin: 07/13/25 08:54 Dose: 81 mg Documented By: Admin: 07/12/25 09:22 Dose: 81 mg Documented By: EP Docusate Sodium (Docusate Sodium 100 Mg Cap) 100 mg PO NOW PRN PRN Reason: Constipation Last Admin: 07/13/25 14:13 Dose: 100 mg Documented By: EP Fentanyl Citrate (Fentanyl Citrate Pf 100 Mcg/2 Ml Vial) 50 mcg IV NOW ONE Stop: 07/11/25 21:34 Last Admin: 07/11/25 21:40 Dose: 50 mcg Documented By: tereza Fluticasone Propionate (Fluticasone Propionate Na Spr 16 Gm Btl) 2 sprays NA DAILY NADIA Stop: 08/11/25 08:59 Last Admin: 07/13/25 08:54 Dose: Not Given Documented By: Admin: 07/12/25 09:23 Dose: 2 sprays Documented By: EP Parenteral Electrolytes (Plasma-Lyte A Ph 7.4) 500 mls @ 999 mls/hr IV .Q31M ONE Stop: 07/11/25 21:31 Last Infusion: 07/11/25 22:04 Dose: Infused Documented By: tereza Admin: 07/11/25 21:16 Dose: 999 mls/hr Documented By: tereza Sodium Chloride (Nss) 1,000 mls @ 80 mls/hr IV .[id number] [facility] Stop: 07/12/25 12:44 Last Infusion: 07/12/25 13:53 Dose: Infused Documented By: Admin: 07/12/25 01:18 Dose: 80 mls/hr Documented By: ANAYA Levothyroxine Sodium (Levothyroxine Sodium 88 Mcg Tablet) 88 mcg PO DAILYBB NADIA Stop: 08/11/25 06:29 Last Admin: 07/13/25 05:14 Dose: 88 mcg Documented By: alt Admin: 07/12/25 05:55 Dose: 88 mcg Documented By: alt Losartan Potassium (Losartan Potassium 25 Mg Tab) 25 mg PO QPM [facility] Stop: 08/11/25 20:59 Last Admin: 07/12/25 22:32 Dose: 25 mg Documented By: alt Magnesium Oxide (Magnesium Oxide 400 Mg Tab) 400 mg PO QAM [facility] Stop: 08/11/25 08:59 Last Admin: 07/13/25 08:52 Dose: 400 mg Documented By: Admin: 07/12/25 09:24 Dose: 400 mg Documented By: EP Miscellaneous (Patient's Height &/Or Weight Needed) 1 each N/A Q2H STA Stop: 07/12/25 00:29 Last Admin: 07/12/25 01:19 Dose: Not Given Documented By: ANAYA Morphine Sulfate (Morphine Sulfate 2 Mg/Ml Carp) 2 mg IV NOW STA Stop: 07/12/25 16:00 Last Admin: 07/12/25 16:57 Dose: Not Given Documented By: EP Morphine Sulfate (Morphine Sulfate 4 Mg/Ml 1 Ml Carp\\Vial) Confirm Administered Dose 4 mg .ROUTE .STK-MED ONE Stop: 07/12/25 16:55 Last Admin: 07/12/25 16:55 Dose: 2 mg Documented By: EP Ondansetron HCl (Ondansetron Inj 2 Mg/Ml 2 Ml Vial) 4 mg IV Q6H PRN PRN Reason: Nausea And Vomiting Stop: 08/12/25 02:10 Last Admin: 07/13/25 02:16 Dose: 4 mg Documented By: yareli Oxycodone HCl (Oxycodone Hcl Ir 5 Mg Tab (Immediate Release)) 5 mg PO NOW STA Stop: 07/13/25 03:10 Last Admin: 07/13/25 03:15 Dose: 5 mg Documented By: alt Pantoprazole Sodium (Pantoprazole 40 Mg Tab) 40 mg PO DAILY NADIA Stop: 08/11/25 08:59 Last Admin: 07/13/25 08:53 Dose: 40 mg Documented By: Admin: 07/12/25 09:22 Dose: 40 mg Documented By: EP Potassium Chloride (Potassium Chloride Crtab 20 Meq Tabcr) 20 meq PO QAM NADIA Stop: 08/11/25 08:59 Last Admin: 07/13/25 08:53 Dose: 20 meq Documented By: Admin: 07/12/25 09:22 Dose: 20 meq Documented By: EP Ropinirole HCl (Ropinirole Hcl 2 Mg Tablet) 2 mg PO HS NADIA Stop: 08/11/25 20:59 Last Admin: 07/12/25 22:32 Dose: 2 mg Documented By: alt Ropinirole HCl (Ropinirole Hcl 0.25 Mg Tablet) 0.5 mg PO HS NADIA Stop: 08/11/25 20:59 Last Admin: 07/12/25 22:31 Dose: 0.5 mg Documented By: alt Ropinirole HCl (Ropinirole Hcl 1 Mg Tablet) 2.5 mg PO NOW ONE Stop: 07/12/25 02:31 Last Admin: 07/12/25 02:49 Dose: 2.5 mg Documented By: alt Rosuvastatin Calcium (Rosuvastatin Calcium 10 Mg Tab) 10 mg PO DAILY NADIA Stop: 08/11/25 08:59 Last Admin: 07/13/25 08:54 Dose: 10 mg Documented By: Admin: 07/12/25 09:22 Dose: 10 mg Documented By: EP Topiramate (Topiramate 25 Mg Tab) 25 mg PO BID NADIA Stop: 08/11/25 08:59 Last Admin: 07/13/25 08:52 Dose: 25 mg Documented By: Admin: 07/12/25 22:33 Dose: Not Given Documented By: alt Admin: 07/12/25 09:24 Dose: 25 mg Documented By: EP Imaging Data Radiologist's Impression: Chest X-Ray 07/11/25 18:01 EXAM: Portable AP chest radiograph TECHNIQUE: AP portable radiograph of the chest was obtained. INDICATION: Shortness of breath Comparison: Chest radiograph April 25, 2025 FINDINGS: LINES and TUBES: None CARDIOVASCULAR: Cardiac silhouette is stably and mildly enlarged is normal in size. TAVR. Atherosclerosis of the thoracic aorta. LUNGS/PLEURA: No focal consolidation identified. Chronic interstitial lung changes. No significant pleural fluid. No discernible pneumothorax. OSSEOUS/OTHER: No displaced acute osseous process identified. IMPRESSION: No radiographic evidence of acute cardiopulmonary process with redemonstrated findings as above. Electronically signed by Vinny Ley 07-11-2025 7:47 PM Discharge Plan Visit Data Chief Complaint: Shortness of Breath/Dyspnea Stated Complaint: DIARRHEA FAINTING DIZZNESS SOB ED Provider: Augusto Carr Discharge Problem: Chest pain, Thrombocytopenia, Elevated troponin Patient Disposition: Admitted As Inpatient Condition: Fair Discharge Instructions Interventions: ED Discharge Assessment Last Done: 07/12/25 02:00
[2025-07-11] MEDS: ASPIRIN CHEW 324 MG PO STA (21:16)
[2025-07-11] MEDS: PLASMA-LYTE A 500 ML IV ONE (21:16)
[2025-07-11] MEDS: ACETAMINOPHEN 500 MG TAB PO STA (21:39)
--- NOTE | 2025-07-11 23:09 | History & Physical Report ---
Date of Service July 11, 2025 Assessment & Plan (1) Diarrhea: (2) Palpitations: (3) Chest tightness: (4) Shortness of breath: (5) Thrombocytopenia: Plan 74 yo F with PMHx of HTN, migraines, COPD, hypothyroidism, who presents due to 2 day history of non-bloody diarrhea, SOB, palpitations, and L sided chest tightness. #SOB/palpitations/L sided chest tightness - s/p TAVR 06/13/2025 at [facility] - 324 ASA, Tylenol 1000mg IV, Fentanyl 50 mcg, 500 mls parenteral electrolytes given in ED - Continue home 81 ASA - EKG in ED shows suspected arm lead reversal, repeat ordered and pending - Trop 28.9 --> 37.3, rpt in AM - ECHO 06/13 at [place]: 1. Patient is s/p TAVR 06/13/25 ([facility], Dr. Brothers: 23 mm Cool Ultra Resilia). 2. LVEF 60-65% visually; normal wall motion. 3. Normal LV dimensions; no left ventricular hypertrophy. 4. Indeterminate LV diastolic function due to significant mitral anular calcification; the LA pressure is normal. 5. Normal RV size and systolic function. 6. Normal atrial sizes. 7. Bioprosthetic AV prosthesis (TAVR) noted with adequate function (Vmax 2.4 m/s, peak/mean gradients 16/11 mmHg, DVI 0.56, RANDI 2.2 cm2); no central regurgitation or paravalvular leak is noted. 8. Normal MV structure; no significant MR. 9. Normal TV structure; no significant TR. 10. The PASP cannot be estimated; the estimated CVP is 8 mmHg. 11. No significant pericardial effusion. 12. Compared to the prior study of 01/16/25, a TAVR is now present. - Patient is due for ECHO, told by [place] team that she needs repeat within month of procedure, ordered for tomorrow morning - Goal K>4, Mg>2, ordered PO potassium and magnesium for AM - Cardiology consult in AM #Diarrhea/Dizziness - 500 mls parenteral electrolytes given in ED - BMs have started to slow down - 1 L NS Fluids 80mls/hr - Home furosemide held, evaluate fluid status in morning, consider restarting if patient is euvolemic #Thrombocytopenia - Plt count 92 in ER - Plt smear in AM, path consult #HTN - continue home meds #Restless leg syndrome - continue home ropinarole #HLD - continue home rosuvastatin #Hypothyroidism - continue home levo Dispo: PCU tele Diet: heart healthy, T2DM Code status: full code VTE Prophylaxis: SCDs History of Present Illness Chief Complaint: Diarrhea, palpitations, SOB Primary Care Provider: Holly Puckett 74 yo F with PMHx of HTN, migraines, COPD, hypothyroidism, who presents due to 2 day history of non-bloody diarrhea, SOB, palpitations, and L sided chest tightn ess. Reports 4-5 BMs daily. Last BM was yesterday. Patient reports she recently had TAVR procedure 5 weeks ago at [place]. She did not have any antibiotics given after procedure. Patient also reports constant L sided chest tightness that radiates to left neck, where incision was made for TAVR procedure. They did not go through groin as she had plaque in leg. Reports R groin pain as catheter was placed in this area during procedure. Reports palpitations and nausea. One vomiting episode yesterday, but no other episodes. SOB started few days ago specifically with exertion. She is not on home oxygen. Reports mild dizziness and lightheadedness with movement. Denies urinary symptoms. Denies recent sick contacts or sick symptoms including cough, chills, sore throat. Reports subjective fever yesterday. Patient has extensive history of abdominal surgeries including appendectomy, hysterectomy, cholecystectomy, and bariatric surgery, all done over 10 years ago. Allergies Allergy/AdvReac Type Severity Reaction Status Date / Time grass pollen Allergy Intermediate sneezing/watery Verified 07/11/25 22:02 eyes hydrocodone [From Vicodin] Allergy Intermediate severe Verified 07/11/25 22:02 itching prednisone Allergy Intermediate all over Verified 07/11/25 22:02 body itch Sulfa (Sulfonamide Allergy Intermediate HIVES Verified 07/11/25 22:02 Antibiotics) house dust Allergy Mild itchy eyes Verified 07/11/25 22:02 mold Allergy Mild ITCHY Verified 07/11/25 22:02 EYES, HEADACHES fentanyl AdvReac Intermediate Joint Pain Verified 07/11/25 22:02 metformin AdvReac Intermediate "diarrhea" Verified 07/11/25 22:02 methylprednisolone AdvReac Intermediate vomiting,sh Verified 07/11/25 22:02 aking Home Medications Medication Instructions Recorded Confirmed Type cyanocobalamin (vitamin B-12) 1,000 mcg IM Q14D 09/21/21 07/11/25 History 1,000 mcg/mL injection solution levothyroxine 88 mcg tablet 88 mcg PO DAILYBB 04/06/22 07/11/25 History syringe with needle, safety 3 mL #100 ea 12/06/22 06/23/25 Rx 25 gauge x 1" (BD Integra Syringe) 3-in-1 Commode #1 ea 05/01/23 06/23/25 Rx albuterol sulfate 90 mcg/actuation 2 puff inhalation QID PRN 12/04/24 07/11/25 History aerosol inhaler Shortness Of Breath Or Wheezing lidocaine HCl 4 % topical cream 1 applic topical BID PRN Pain 01/13/25 07/11/25 History (Aspercreme (lidocaine HCl)) aspirin 81 mg tablet,delayed 81 mg PO DAILY 01/24/25 07/11/25 History release azelastine 137 mcg (0.1 %) nasal 2 spray intranasal BID PRN nasal 02/17/25 07/11/25 Rx spray congestion #90 mL fluticasone propionate 50 2 spray intranasal DAILY #48 grams 02/17/25 07/11/25 Rx mcg/actuation nasal spray,suspension ipratropium bromide 21 mcg (0.03 2 spray intranasal TID PRN 02/17/25 07/11/25 Rx %) nasal spray postnasal drip #90 mL rosuvastatin 10 mg tablet 10 mg PO DAILY 02/17/25 07/11/25 History acetaminophen 300 mg-codeine 30 mg 1 tab PO Q6 PRN Cough 06/23/25 07/11/25 History tablet amlodipine 5 mg tablet 5 mg PO DAILY 06/23/25 07/11/25 History furosemide 20 mg tablet 20 mg PO DAILY 06/23/25 07/11/25 History losartan 25 mg tablet 25 mg PO QPM 06/23/25 07/11/25 History omeprazole 40 mg capsule,delayed 40 mg PO DAILY 06/23/25 07/11/25 History release oxycodone 5 mg tablet 5 mg PO Q8H PRN pain #10 tabs 06/23/25 07/11/25 Rx ropinirole 0.5 mg tablet 0.5 mg PO DAILY 06/23/25 07/11/25 History ropinirole 2 mg tablet 2 mg PO DAILY 06/23/25 07/11/25 History topiramate 25 mg tablet 25 mg PO BID 06/23/25 07/11/25 History Past Med/Surg History Problem List (Updated 07/12/25 @ 16:07 by Aj Carr MD) Femoral bruit S/P TAVR (transcatheter aortic valve replacement) Near syncope Palpitations Thrombocytopenia Nausea vomiting and diarrhea (Acute) Sensorineural hearing loss (SNHL) of both ears right-worse asymmetry Hyperacusis of right ear Asymmetrical sensorineural hearing loss Cognitive complaints Ischial bursitis of right side Nocturia Urgency incontinence Gluteal tendinitis of right buttock Hip arthritis Greater trochanteric pain syndrome Daily urinary incontinence Urinary frequency Dysfunctional voiding of urine Urinary urgency Hypothyroidism Diabetes mellitus type 2 in obese Right knee DJD History of concussion Right-sided ischial pain Cyst of finger Trigger finger of left hand Chronic SI joint pain Hx of esophageal reflux (Acute) Myalgia and myositis (Acute) Vitamin D deficiency (Acute) Degenerative joint disease (DJD) of lumbar spine Central venous catheter in place Hx of diabetes mellitus NO LONGER HAVE D/T WT LOSS Chronic pain (Acute) Chronic headache (Acute) Neck pain on right side (Acute) Closed head injury (Acute) Migraine headache (Acute) Varicose veins Lower extremity edema (Acute) Right groin pain (Acute) Reflux esophagitis History of hip surgery 05/03/23 ([facility]) Right hip endoscopic bursectomy Hypertension (Acute) Asthma inhaler/nebulizer prn COPD (chronic obstructive pulmonary disease) inhaler/nebulizer prn - last used albuterol inhaler ~12/26/23 for a cough Hx of cholecystectomy Medical History GERD (gastroesophageal reflux disease) Chronic cough per pt from COPD--uses inhaler/nebulizer prn Prediabetes no meds, diet controlled History of COVID-19 --05/2022- LOW GRADE FEVER, CHILLS, ACHY , NO HOSPITALZIATION, NO CURRENT Fibromyalgia Osteoarthritis History of IBS Peripheral neuropathy Cardiac murmur "slight"; no significant valve issues on 2016 stress echo Restless leg syndrome Hypothyroidism Obesity Surgical History (Updated 07/12/25 @ 16:07 by Aj Carr MD) Difficult airway for intubation noted to have a small airway per patient (previous records on file show only LMA and MAC procedures - no issues. Pt had trigger finger release at surgery center in 2018 History of hysterectomy History of section History of arthroscopy left knee right/left hip bursitis "scraped" History of esophagogastroduodenoscopy (EGD) last 06/28/22 @ [facility] History of colonoscopy last 06/28/22 @ [facility] History of tooth extraction History of tonsillectomy History of adenoidectomy History of cataract surgery RT/LEFT Status post panniculectomy History of appendectomy History of gastric bypass History of surgery INFUSAPORT "POOR VENOUS ACCESS"--removed Family History Son Family history of diabetes mellitus Other No family history of adverse response to anesthesia Social History Smoking Status: Never smoker Second Hand Exposure: No; Do You Dip or Chew Tobacco: No; Tobacco Cessation Education Requested by Patient: No Hx Alcohol Use: No Hx Substance Use: No Preferred Language: Faroese Communication Ability: Effective Stitch Rubber Required: No Beliefs That Will Affect Care: None marital status: Current Living Situation: Spouse Current Living Situation Comment: AND DAUGHTER current occupational status: retired Other Information That Helps Us Care for You: No Feels Safe at Home: Yes Safety Concerns: Feels Safe At This Time Assistive Devices: None Review of Systems Review of Systems: All systems reviewed & are unremarkable except as noted in HPI & below Physical Exam Constitutional: no acute distress Respiratory: normal respiratory effort, lungs clear to auscultation Gastrointestinal (Abdomen): Inspection/Auscultation: abdomen normal to inspection and normal bowel sounds Percussion/Palpation: + abdomen tender (LUQ and LLQ) Skin: no rashes, warm and dry Psychiatric: A+Ox3, euthymic affect Results & Data Results & Data Vital Signs (Past 12 Hours) Vital Signs Temp Pulse Pulse Resp BP BP Pulse Ox 07/11/25 22:52 72 07/11/25 22:48 88 16 155/80 H 95 07/11/25 21:32 77 20 150/49 H 98 07/11/25 19:04 81 18 180/56 H 98 07/11/25 19:04 07/11/25 19:03 98 07/11/25 18:34 82 07/11/25 17:55 36.9 C 85 26 H 188/69 H 94 O2 Del Method O2 Flow Rate 07/11/25 22:52 07/11/25 22:48 Room Air 07/11/25 21:32 Room Air 07/11/25 19:04 Room Air 07/11/25 19:04 Room Air 0 07/11/25 19:03 Room Air 07/11/25 18:34 07/11/25 17:55 Room Air Supervising Physician Co-Signing Physician Notes Attending addendum: I have physically seen this patient, have supervised the medical residents activities, and agree with the H&P unless as otherwise noted. Assessment and Plan: The patient is a 74-year-old female with past medical history including hypertension, migraines, COPD, and hypothyroidism. She presents to the emergency department with 2 days of nonbloody diarrhea, shortness of breath, palpitations, and left-sided chest tightness. Shortness of breath/palpitations/left-sided chest tightness/hypertension- Status post TAVR on 06/13/2025 at [facility] From the ED she received the followin mg aspirin, Tylenol 1 g IV, fentanyl 50 mcg IV, Plasma-Lyte 500 mL IV. Continue, aspirin 81 mg every morning EKG needs to be repeated, as showed suspected arm lead reversal. Initial troponin 28.9 with follow-up 37.3, with repeat scheduled for the a.m. Most recent echo at [facility] on 06/13 showed status post TAVR, EF 60 to 65%, bioprosthetic AV prosthesis with adequate function. The patient will be admitted to telemetry for serial cardiac enzymes, serial EKG's, cardiac rhythm monitoring and a 2-D echocardiogram with Dopplers. Patient was scheduled to have a repeat echocardiogram 1 month after the initial. Continue amlodipine, aspirin, losartan Consult cardiology Diarrhea/dizziness- Diarrhea improving on its own Status post 500 mL Plasma-Lyte Placed on NSS at 80 mL/h x 1 L Hold furosemide Thrombocytopenia- Platelets 92, with base 150 Peripheral smear Repeat laboratories in a.m. Hyperlipidemia- Continue rosuvastatin Check a fasting lipid panel GERD- Change omeprazole to pantoprazole Restless leg/neuropathy- Continue ropinirole and topiramate Hypothyroidism- Continue levothyroxine Resident Activity Tracking Resident Involvement: Resident Care Provided Care Provided: Adult Hospital Medicine
[2025-07-12] MEDS: SODIUM CHLORIDE 0.9% 1,000 ML IV SCH (01:18)
[2025-07-12] MEDS: Patient's HEIGHT &/or WEIGHT Needed STA (01:19)
[2025-07-12] MEDS ORDERED: AZELASTINE HCL 0.1% NASAL 200 SPRAYS/27,400 MCG BTL PRN (02:08)
[2025-07-12] MEDS ORDERED: ALBUTEROL HFA 8 GM INHALER INH PRN (02:08)
[2025-07-12] MEDS ORDERED: IPRATROPIUM BROMIDE NASAL SPRAY 0.03% 30 ML PRN (02:08)
[2025-07-12] MEDS ORDERED: LIDOCAINE 4% CREAM 15 GM TUBE EXT PRN (02:12)
[2025-07-12] MEDS: ACETAMINOPHEN 500 MG TAB PO ONE (02:49)
[2025-07-12] MEDS: LEVOTHYROXINE SODIUM 88 MCG TABLET PO SCH (05:55)
[2025-07-12 07:10] LABS: Hematocrit (blood only) 34.8 % (37.0-47.0); Hemoglobin 11.5 g/dl (12.0-16.0); Mean Corpuscular Hemoglobin 30.0 pg (25.0-34.0); Mean Corpuscular Volume 90.9 fL (80.0-100.0); Platelet Count 93 K/uL (130-400); RDW Standard Deviation 44.7 fL (36.4-46.3); Red Blood Count 3.83 M/uL (4.20-5.40); White Blood Count 4.11 K/ul (4.8-10.8)
[2025-07-12 07:26] LABS: Anion Gap 7.0 (3-11); Blood Urea Nitrogen 14.0 mg/dl (6-23); Calcium 8.9 mg/dl (8.6-10.3); Carbon Dioxide 25.0 mmol/L (21-32); Chloride 110.0 mmol/L (98-107); Creatinine Clr Calc Pharmacy 54.2 ml/min; Glucose 90.0 mg/dl (70-99(Fasting)); Magnesium 1.9 mg/dl (1.7-2.4); Potassium 3.8 mmol/L (3.5-5.1); Sodium 142.0 mmol/L (136-145)
[2025-07-12] MEDS: ACETAMINOPHEN 325 MG TAB PO PRN (09:21)
[2025-07-12] MEDS: ASPIRIN 81 MG ECTAB PO SCH (09:22)
[2025-07-12] MEDS: POTASSIUM CHLORIDE CRTAB 20 MEQ TABCR PO SCH (09:22)
[2025-07-12] MEDS: ROSUVASTATIN CALCIUM 10 MG TAB PO SCH (09:22)
[2025-07-12] MEDS: FLUTICASONE PROPIONATE NA SPR 16 GM BTL SCH (09:23)
[2025-07-12] MEDS: TOPIRAMATE 25 MG TAB PO SCH (09:24)
[2025-07-12] MEDS: MAGNESIUM OXIDE 400 MG TAB PO SCH (09:24)
[2025-07-12 09:36] LABS: Immature Granulocytes # (auto) 0.00 K/uL (0.01-0.20); Immature Granulocytes % (auto) 0.0 %
--- NOTE | 2025-07-12 10:06 | XCELERA ---
[id number] \\[id number]
--- NOTE | 2025-07-12 10:08 | Cardiology Consultation ---
Date of Consultation July 12, 2025 Assessment & Plan (1) Near syncope: (2) Palpitations: (3) S/P TAVR (transcatheter aortic valve replacement): (4) Femoral bruit: (5) Right groin pain: (6) Hypertension: Plan ASSESSMENT/PLAN: 1. Near syncope: Based on her description, at least the first 2 episodes appear orthostatic in nature, especially after GI volume loss with nausea, vomiting, and diarrhea. Check orthostatic vitals if not done. We discussed potentially imaging her carotid arteries given recent access however she has undergone neck CTA since TAVR with no significant abnormality reported. Third episode occurred with palpitations. She has had palpitations since admission without arrhythmia. Continue telemetry. 2. Hypertension: Blood pressure has been mostly hypertensive. Continue home medications and titrate as appropriate. 3. Palpitations: She states that she had palpitations when she was out of bed within the past 30 minutes of evaluation today. Telemetry was reviewed again over that span and even prior. No arrhythmia. Rhythm was sinus. There were occasional PVCs which may or may not correlate. Continue telemetry. 4. TAVR: Bioprosthetic aortic valve appears to be functioning appropriately without significant paravalvular leak. SBE prophylaxis for dental procedures. Recommend cardiac rehab if not already arranged through her [facility] providers. 5. Thrombocytopenia: As per primary hospitalist service. Appears to be a new issue. 6. Femoral bruit: Soft tissue ultrasound has been ordered by primary hospitalist service. Recommend vascular evaluation with ultrasound (order placed). 7. Disposition: Upon discharge, follow-up with her [facility] cardiology team. Patient care communicated with primary hospitalist, Dr. De Jesus. Thank you for allowing me to participate in the care of your patient. Please c all for any other questions or concerns. Sincerely, Sabino Carr M.D. History of Present Illness Reason for Consultation: "s/p TAVR, sob, palpitations, L chest tightness" Requesting Physician: Gina Ortega Attending Physician: Rakesh Gray MD History of Present Illness Ms. Maldonado is a very pleasant 75-year-old female with history significant for aortic stenosis s/p TAVR (2024 at [facility]), hypertension, type 2 diabetes, and dyslipidemia. 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 Stoudt of [employer]. She underwent TAVR approximately 5 weeks ago at [facility] for severe aortic stenosis. A few days ago, she developed diarrhea. She states the diarrhea was "bad" 3 or 4 episodes per day with gushing. It was nonbloody and not melanotic. She also has had nausea and vomiting x 2. Her nausea/vomiting and diarrhea have resolved. Following her diarrhea issues however she had an episode of near syncope where she got up from a seated position on her bed and felt near syncopal. She sat down and symptoms resolved. It recurred again when she stood up a second time. The next day, she felt palpitations as though her heart was beating in her chest. It occurred while walking in her kitchen. During the episode, she had another episode of near syncope. She denies true syncope. Her family helped her to her bed and her symptoms resolved. She had her drive her to the ER and she states that while riding as a passenger, she found it difficult to catch her breath. She states that she did not have any chest pain with these episodes but rather the palpitation type s ensations. She denies edema, syncope, melena, hematochezia, or hematuria. She had been on Lasix but she stopped taking it when discharged from [facility]. She tried to stay well-hydrated with her GI issues. She states that her right groin has been painful/tender since her TAVR. She feels a lump in that area and is hoping to have it evaluated. She also had to have it accessed through her left upper chest/bakes of the neck. Review of systems: As above. Family history: No known premature CAD. Social history: She denies tobacco, alcohol, or drug abuse. She lives at home with her , daughter, daughter's boyfriend, and grandson. Her son is . She was unaccompanied. Allergies Allergy/AdvReac Type Severity Reaction Status Date / Time grass pollen Allergy Intermediate sneezing/watery Verified 07/11/25 22:02 eyes hydrocodone [From Vicodin] Allergy Intermediate severe Verified 07/11/25 22:02 itching prednisone Allergy Intermediate all over Verified 07/11/25 22:02 body itch Sulfa (Sulfonamide Allergy Intermediate HIVES Verified 07/11/25 22:02 Antibiotics) house dust Allergy Mild itchy eyes Verified 07/11/25 22:02 mold Allergy Mild ITCHY Verified 07/11/25 22:02 EYES, HEADACHES fentanyl AdvReac Intermediate Joint Pain Verified 07/11/25 22:02 metformin AdvReac Intermediate "diarrhea" Verified 07/11/25 22:02 methylprednisolone AdvReac Intermediate vomiting,sh Verified 07/11/25 22:02 aking Home Medications Medication Instructions Recorded Confirmed Type cyanocobalamin (vitamin B-12) 1,000 mcg IM Q14D 09/21/21 07/11/25 History 1,000 mcg/mL injection solution levothyroxine 88 mcg tablet 88 mcg PO DAILYBB 04/06/22 07/11/25 History syringe with needle, safety 3 mL #100 ea 12/06/22 06/23/25 Rx 25 gauge x 1" (BD Integra Syringe) 3-in-1 Commode #1 ea 05/01/23 06/23/25 Rx albuterol sulfate 90 mcg/actuation 2 puff inhalation QID PRN 12/04/24 07/11/25 History aerosol inhaler Shortness Of Breath Or Wheezing lidocaine HCl 4 % topical cream 1 applic topical BID PRN Pain 01/13/25 07/11/25 History (Aspercreme (lidocaine HCl)) aspirin 81 mg tablet,delayed 81 mg PO DAILY 01/24/25 07/11/25 History release azelastine 137 mcg (0.1 %) nasal 2 spray intranasal BID PRN nasal 02/17/25 07/11/25 Rx spray congestion #90 mL fluticasone propionate 50 2 spray intranasal DAILY #48 grams 02/17/25 07/11/25 Rx mcg/actuation nasal spray,suspension ipratropium bromide 21 mcg (0.03 2 spray intranasal TID PRN 02/17/25 07/11/25 Rx %) nasal spray postnasal drip #90 mL rosuvastatin 10 mg tablet 10 mg PO DAILY 02/17/25 07/11/25 History acetaminophen 300 mg-codeine 30 mg 1 tab PO Q6 PRN Cough 06/23/25 07/11/25 History tablet amlodipine 5 mg tablet 5 mg PO DAILY 06/23/25 07/11/25 History furosemide 20 mg tablet 20 mg PO DAILY 06/23/25 07/11/25 History losartan 25 mg tablet 25 mg PO QPM 06/23/25 07/11/25 History omeprazole 40 mg capsule,delayed 40 mg PO DAILY 06/23/25 07/11/25 History release oxycodone 5 mg tablet 5 mg PO Q8H PRN pain #10 tabs 06/23/25 07/11/25 Rx ropinirole 0.5 mg tablet 0.5 mg PO DAILY 06/23/25 07/11/25 History ropinirole 2 mg tablet 2 mg PO DAILY 06/23/25 07/11/25 History topiramate 25 mg tablet 25 mg PO BID 06/23/25 07/11/25 History Problem List (Updated 07/12/25 @ 16:07 by Aj Carr MD) Femoral bruit S/P TAVR (transcatheter aortic valve replacement) Near syncope Palpitations Thrombocytopenia Nausea vomiting and diarrhea (Acute) Sensorineural hearing loss (SNHL) of both ears right-worse asymmetry Hyperacusis of right ear Asymmetrical sensorineural hearing loss Cognitive complaints Ischial bursitis of right side Nocturia Urgency incontinence Gluteal tendinitis of right buttock Hip arthritis Greater trochanteric pain syndrome Daily urinary incontinence Urinary frequency Dysfunctional voiding of urine Urinary urgency Hypothyroidism Diabetes mellitus type 2 in obese Right knee DJD History of concussion Right-sided ischial pain Cyst of finger Trigger finger of left hand Chronic SI joint pain Hx of esophageal reflux (Acute) Myalgia and myositis (Acute) Vitamin D deficiency (Acute) Degenerative joint disease (DJD) of lumbar spine Central venous catheter in place Hx of diabetes mellitus NO LONGER HAVE D/T WT LOSS Chronic pain (Acute) Chronic headache (Acute) Neck pain on right side (Acute) Closed head injury (Acute) Migraine headache (Acute) Varicose veins Lower extremity edema (Acute) Right groin pain (Acute) Reflux esophagitis History of hip surgery 05/03/23 ([facility]) Right hip endoscopic bursectomy Hypertension (Acute) Asthma inhaler/nebulizer prn COPD (chronic obstructive pulmonary disease) inhaler/nebulizer prn - last used albuterol inhaler ~12/26/23 for a cough Hx of cholecystectomy Patient History Medical History GERD (gastroesophageal reflux disease) Chronic cough per pt from COPD--uses inhaler/nebulizer prn Prediabetes no meds, diet controlled History of COVID-19 --05/2022- LOW GRADE FEVER, CHILLS, ACHY , NO HOSPITALZIATION, NO CURRENT Fibromyalgia Osteoarthritis History of IBS Peripheral neuropathy Cardiac murmur "slight"; no significant valve issues on 2016 stress echo Restless leg syndrome Hypothyroidism Obesity Surgical History (Updated 07/12/25 @ 16:07 by Aj Carr MD) Difficult airway for intubation noted to have a small airway per patient (previous records on file show only LMA and MAC procedures - no issues. Pt had trigger finger release at surgery center in 2018 History of hysterectomy History of section History of arthroscopy left knee right/left hip bursitis "scraped" History of esophagogastroduodenoscopy (EGD) last 06/28/22 @ [facility] History of colonoscopy last 06/28/22 @ [facility] History of tooth extraction History of tonsillectomy History of adenoidectomy History of cataract surgery RT/LEFT Status post panniculectomy History of appendectomy History of gastric bypass History of surgery INFUSAPORT "POOR VENOUS ACCESS"--removed Family History Son Family history of diabetes mellitus Other No family history of adverse response to anesthesia Social History Smoking Status: Never smoker Second Hand Exposure: No; Do You Dip or Chew Tobacco: No; Tobacco Cessation Education Requested by Patient: No Hx Alcohol Use: No Hx Substance Use: No Preferred Language: Chadian Communication Ability: Effective Manager Science Required: No Beliefs That Will Affect Care: None marital status: Current Living Situation: Spouse Current Living Situation Comment: AND DAUGHTER current occupational status: retired Other Information That Helps Us Care for You: No Feels Safe at Home: Yes Safety Concerns: Feels Safe At This Time Assistive Devices: None Physical Exam Physical Exam: Gen.: No acute distress. Alert. HEENT: Anicteric sclera. Neck: No JVD. Normal carotid upstrokes bilaterally. Cardiac: Regular. Normal S1-S2. 1/6 early peaking systolic ejection murmur heard best at right upper sternal border. No rubs or gallops. Pulmonary: Clear to auscultation bilaterally without wheezes, rales, or rhonchi. Abdomen: Soft, nontender, nondistended, with normoactive bowel sounds. No bruits noted. Extremities: 2+ radial pulses bilaterally. Right groin/femoral access site is clean, dry, and intact without erythema or discharge. No obvious hematoma but tender on palpation. Right femoral bruit noted. 2+ posterior tibialis pulses bilaterally. No edema or cyanosis. Results & Data Vital Signs (Past 12 Hours) Vital Signs Temp Pulse Pulse Resp BP BP Pulse Ox 07/12/25 07:56 57 L 07/12/25 07:56 36.7 C 58 L 17 154/78 H 97 07/12/25 03:32 07/12/25 02:47 36.7 C 61 20 148/56 H 96 07/12/25 01:09 71 22 154/75 H 97 07/12/25 00:47 67 14 150/68 H 95 07/11/25 23:48 97 07/11/25 22:52 72 07/11/25 22:48 88 16 155/80 H 95 O2 Del Method 07/12/25 07:56 07/12/25 07:56 Room Air 07/12/25 03:32 Room Air 07/12/25 02:47 Room Air 07/12/25 01:09 Room Air 07/12/25 00:47 Room Air 07/11/25 23:48 Room Air 07/11/25 22:52 07/11/25 22:48 Room Air Intake & Output 07/10/25 07/11/25 07/12/25 07/13/25 06:59 06:59 06:59 05:59 Intake Total 650 / 650 1200 / 1200 Output Total 0 / 0 Balance 650 / 650 1200 / 1200 Weight 160 lb 0.889 oz Laboratory Results Laboratory Results - last 24 hr 07/11/25 07/11/25 07/11/25 19:08 19:19 22:53 WBC 5.06 RBC 4.23 Hgb 12.7 Hct 38.5 MCV 91.0 MCH 30.0 MCHC 33.0 RDW Std Deviation 44.0 RDW Coeff of Stephan 13.4 Plt Count 92 L MPV 10.7 Immature Gran % (Auto) 0.2 Neut % (Auto) 65.0 Lymph % (Auto) 23.9 Sullivan % (Auto) 7.3 Eos % (Auto) 3.4 Baso % (Auto) 0.2 Neut # (Auto) 3.29 Lymph # (Auto) 1.21 Sullivan # (Auto) 0.37 Eos # (Auto) 0.17 Baso # (Auto) 0.01 Immature Gran # (Auto) 0.01 Platelet Estimate Decreased L Peripher Smr Path Cons PT 10.5 INR 1.0 APTT 24 PTT Ratio 0.9 Sodium 139 Potassium 3.8 Chloride 107 Carbon Dioxide 25 Anion Gap 7 BUN 17 Creatinine 1.07 Est Cr Clr Drug Dosing Not Reportable eGFR 54.85 BUN/Creatinine Ratio 15.9 Glucose 103 H Calcium 9.3 Magnesium 1.9 Total Bilirubin 0.4 AST 22 ALT 13 Alkaline Phosphatase 106 H Troponin I High Sens 28.8 H 37.7 H B-Natriuretic Peptide 173 H Total Protein 6.9 Albumin 3.8 Globulin 3.1 Albumin/Globulin Ratio 1.2 Adenovirus (PCR) Not Detected B. pertussis DNA (PCR) Not Detected B.parapertussis DNA PCR Not Detected C. pneumoniae DNA (PCR) Not Detected Coronavirus OC43 (PCR) Not Detected Coronavirus HKU1 (PCR) Not Detected Coronavirus 229E (PCR) Not Detected SARS-CoV-2 (PCR) Not Detected Coronavirus NL63 (PCR) Not Detected Human Metapneumovir PCR Not Detected Influenza Type A (PCR) Not Detected Influenza Type B (PCR) Not Detected M. pneumoniae (PCR) Not Detected Parainfluenza 1 (PCR) Not Detected Parainfluenza 2 (PCR) Not Detected Parainfluenza 3 (PCR) Not Detected Parainfluenza 4 (PCR) Not Detected RSV (PCR) Not Detected Entero/Rhino (PCR) Not Detected 07/12/25 05:44 WBC 4.11 L RBC 3.83 L Hgb 11.5 L Hct 34.8 L MCV 90.9 MCH 30.0 MCHC 33.0 RDW Std Deviation 44.7 RDW Coeff of Stephan 13.5 Plt Count 93 L MPV 11.1 Immature Gran % (Auto) 0.0 Neut % (Auto) 54.8 Lymph % (Auto) 29.9 Sullivan % (Auto) 9.0 Eos % (Auto) 5.8 Baso % (Auto) 0.5 Neut # (Auto) 2.25 Lymph # (Auto) 1.23 Sullivan # (Auto) 0.37 Eos # (Auto) 0.24 Baso # (Auto) 0.02 Immature Gran # (Auto) 0.00 L Platelet Estimate Peripher Smr Path Cons Pending PT INR APTT PTT Ratio Sodium 142 Potassium 3.8 Chloride 110 H Carbon Dioxide 25 Anion Gap 7 BUN 14 Creatinine 0.83 Est Cr Clr Drug Dosing 54.2 eGFR 73.93 BUN/Creatinine Ratio 16.9 Glucose 90 Calcium 8.9 Magnesium 1.9 Total Bilirubin AST ALT Alkaline Phosphatase Troponin I High Sens 31.9 H B-Natriuretic Peptide Total Protein Albumin Globulin Albumin/Globulin Ratio Adenovirus (PCR) B. pertussis DNA (PCR) B.parapertussis DNA PCR C. pneumoniae DNA (PCR) Coronavirus OC43 (PCR) Coronavirus HKU1 (PCR) Coronavirus 229E (PCR) SARS-CoV-2 (PCR) Coronavirus NL63 (PCR) Human Metapneumovir PCR Influenza Type A (PCR) Influenza Type B (PCR) M. pneumoniae (PCR) Parainfluenza 1 (PCR) Parainfluenza 2 (PCR) Parainfluenza 3 (PCR) Parainfluenza 4 (PCR) RSV (PCR) Entero/Rhino (PCR) Diagnostic Findings ECHO 07/12/2025: 1. Normal left ventricular size and systolic function. EF 65-70%. No regional wall motion abnormalities. Mild concentric left ventricular hypertrophy. 2. Mild left atrial dilation. 3. Bioprosthetic aortic valve (TAVR) with acceptable transvalvular gradient and no significant paravalvular leak. 4. Normal estimated right ventricular systolic pressure. 5. Compared to prior study on 10/05/2015, TAVR is now present. Labs reviewed and notable for minimally elevated high-sensitivity troponin peaking at 37, mildly elevated BNP, normal potassium, normal renal function, normal transaminase levels, mild anemia, mild pancytopenia. Chest x-ray 07/11/2025 report reviewed: No acute cardiopulmonary process per radiology. Image personally reviewed and no obvious infiltrate or pleural effusion. History and physical report reviewed. ECG personally reviewed: ECG 07/11/2025 at 1820: Sinus rhythm with PVCs 83 bpm. Possible limb lead reversal. ECG 07/12/2025 at 0049: Sinus rhythm with PVCs 79 bpm. Limb lead reversal no longer present. Telemetry personally reviewed: Sinus rhythm with occasional PVCs. No arrhythmia noted. Medications Administered Current Inpatient Medications Acetaminophen (Acetaminophen 325 Mg Tab) 650 mg PO Q4H PRN PRN Reason: Pain or Fever Stop: 08/10/25 23:46 Last Admin: 07/12/25 09:21 Dose: 650 mg Albuterol (Albuterol Hfa 8 Gm Inhaler) 2 puffs INH QID PRN PRN Reason: Shortness Of Breath Or Wheezing Stop: 08/11/25 02:07 Amlodipine Besylate (Amlodipine Besylate 5 Mg Tab) 5 mg PO DAILY NADIA Stop: 08/11/25 08:59 Last Admin: 07/12/25 09:23 Dose: 5 mg Aspirin (Aspirin 81 Mg Ectab) 81 mg PO DAILY NADIA Stop: 08/11/25 08:59 Last Admin: 07/12/25 09:22 Dose: 81 mg Azelastine HCl (Azelastine Hcl 0.1% Nasal 200 Sprays/27,400 Mcg Btl) 2 sprays NA BID PRN PRN Reason: nasal congestion Stop: 08/11/25 02:07 Fluticasone Propionate (Fluticasone Propionate Na Spr 16 Gm Btl) 2 sprays NA DAILY NADIA Stop: 08/11/25 08:59 Last Admin: 07/12/25 09:23 Dose: 2 sprays Sodium Chloride (Nss) 1,000 mls @ 80 mls/hr IV .[id number] [facility] Stop: 07/12/25 12:44 Last Admin: 07/12/25 01:18 Dose: 80 mls/hr Ipratropium [place] (Ipratropium [place] Nasal [place] 0.03% 30 Ml) 2 sprays NA TID PRN PRN Reason: postnasal drip Stop: 08/11/25 02:07 Levothyroxine Sodium (Levothyroxine Sodium 88 Mcg Tablet) 88 mcg PO DAILYBB [facility] Stop: 08/11/25 06:29 Last Admin: 07/12/25 05:55 Dose: 88 mcg Lidocaine (Lidocaine 4% Cream 15 Gm Tube) 1 appln EXT BID PRN PRN Reason: Pain Stop: 08/11/25 02:11 Losartan Potassium (Losartan Potassium 25 Mg Tab) 25 mg PO QPM NADIA Stop: 08/11/25 20:59 Magnesium Oxide (Magnesium Oxide 400 Mg Tab) 400 mg PO QAM NADIA Stop: 08/11/25 08:59 Last Admin: 07/12/25 09:24 Dose: 400 mg Pantoprazole Sodium (Pantoprazole 40 Mg Tab) 40 mg PO DAILY NADIA Stop: 08/11/25 08:59 Last Admin: 07/12/25 09:22 Dose: 40 mg Potassium Chloride (Potassium Chloride Crtab 20 Meq Tabcr) 20 meq PO QAM NADIA Stop: 08/11/25 08:59 Last Admin: 07/12/25 09:22 Dose: 20 meq Ropinirole HCl (Ropinirole Hcl 2 Mg Tablet) 2 mg PO HS NADIA Stop: 08/11/25 20:59 Ropinirole HCl (Ropinirole Hcl 0.25 Mg Tablet) 0.5 mg PO HS NADIA Stop: 08/11/25 20:59 Rosuvastatin Calcium (Rosuvastatin Calcium 10 Mg Tab) 10 mg PO DAILY NADIA Stop: 08/11/25 08:59 Last Admin: 07/12/25 09:22 Dose: 10 mg Topiramate (Topiramate 25 Mg Tab) 25 mg PO BID NADIA Stop: 08/11/25 08:59 Last Admin: 07/12/25 09:24 Dose: 25 mg PG Care Time/CCT Total # of Minutes Spent Total Time Spent with Patient: Total time spent is greater than 50% in coordination of care (as documented) at patient's floor/unit and/or counseling patient: Coding Level of Care Code 28125 INT INP/OBS CARE 3/75MIN Diagnoses Near syncope R55 Palpitations R00.2 S/P TAVR (transcatheter aortic valve replacement) Z95.2 Femoral bruit R09.89 Right groin pain R10.31 Hypertension I10 Hypertension type: essential hypertension (6) Hypertension Hypertension type: essential hypertension Qualified Code(s): I10 - Essential (primary) hypertension
--- NOTE | 2025-07-12 12:55 | Hospitalist Progress Note ---
Date of Service July 12, 2025 Assessment & Plan (1) Diarrhea: (2) Palpitations: (3) Shortness of breath: (4) Thrombocytopenia: Plan 74 yo F with PMHx of HTN, migraines, COPD, hypothyroidism, who presents due to 2 day history of non-bloody diarrhea, SOB, palpitations, and L sided chest tightness. #Palpitations/L sided chest tightness/ s/p TAVR: - s/p TAVR 06/13/2025 at [facility] - Continue home 81 ASA - Trop 28.9 --> 31.9, rpt in AM -Patient is s/p TAVR 06/13/25 ([facility], Dr. Brothers. Echo today shows Bioprosthetic aortic valve appears to be functioning appropriately without significant paravalvular leak with EF 65-70% - ECHO 06/13 at [place]: LVEF 60-65% visually; normal wall motion.Bioprosthetic AV prosthesis (TAVR) noted with adequate function. - Goal K>4, Mg>2, ordered PO potassium and magnesium - Cardiology recommend to monitor telemetry for chest symptoms and cardiac rehab. -Orthostatic vitals negative. #Right groin pain: - Severe right groin pain with superficial lump at the site where catheter was tried to be inserted for TAVR, with resolved pain but eventually the pain recurred. Possible groin hematoma, pseudoaneurysm. - Cardio ordered Arterial doppler of rt groin to r/o pseudoaneurysm. #Diarrhea/Dizziness - BMs have started to slow down - Home furosemide held, evaluate fluid status in morning, consider restarting if patient is euvolemic #Thrombocytopenia - Plt count 92 in ER - Plt smear in AM, path consult #HTN - continue home meds #Restless leg syndrome - continue home ropinarole #HLD - continue home rosuvastatin #Hypothyroidism - continue home levo Dispo: PCU tele Diet: heart healthy, T2DM Code status: full code VTE Prophylaxis: SCDs Admission and Anticipated Discharge Date Admission Date: July 11, 2025 Supervising Physician Co-Signing Physician Notes Attending attestation Pt seen and examined in concert with Dr. De Jesus. In agreement with the document ed findings as noted in the resident documentation with any exceptions or additions as noted here. Reports ongoing right groin pain which is unchanged from previous evaluation. Ongoing sensation of palpable heart beat without significant change reported. VS as noted, on examination, S1/S2 nl RRR no MCG. CTAB. Abd NT/ND BS+ve. R groin w/ TTP mobile, superficial, nonfluctuant, nonpulsatile 1cm region at the groin fold which reproduces symptoms. Near syncope w/ palpitations/chest discomfort in the setting of recent TAVR - cardiology consult - telemetry - agree w/ cardiology recommendation for cardiac rehab services HTN - continue amlodipine, losartan Thrombocytopenia - stable, ongoing - pathology evaluation pending, trend CBC daily Right groin pain with concern for bruit - f/u US as noted Else see resident documentation as noted. Subjective Patient lying on bed reporting severe pain with pounding heart like sensation on the centre of the chest radiating to the upper neck area. Also had severe pain on the right groin which was the same site where catheter was tried to be inserted. Review of Systems Review of Systems: As per HPI. Physical Exam Physical Exam: Gen.: No acute distress. Alert. HEENT: Anicteric sclera. Neck: No JVD. Normal carotid upstrokes bilaterally. Cardiac: Regular. Normal S1-S2. 1/6 early peaking systolic ejection murmur heard best at right upper sternal border. No rubs or gallops. Pulmonary: Clear to auscultation bilaterally without wheezes, rales, or rhonchi. Abdomen: Soft, nontender, nondistended, with normoactive bowel sounds. No bruits noted. Rt groin lump around 1-2 cm. Extremities: 2+ radial pulses bilaterally. Right groin/femoral access site is clean, dry, and intact without erythema or discharge. No obvious hematoma but severe tenderness on palpation. Right femoral bruit noted. 2+ posterior tibialis pulses bilaterally. No edema or cyanosis. Results & Data Results & Data Vital Signs (Past 12 Hours) Vital Signs Temp Pulse Pulse Resp BP BP Pulse Ox 07/12/25 10:58 36.8 C 75 18 160/90 H 100 07/12/25 07:56 57 L 07/12/25 07:56 36.7 C 58 L 17 154/78 H 97 07/12/25 03:32 07/12/25 02:47 36.7 C 61 20 148/56 H 96 07/12/25 01:09 71 22 154/75 H 97 O2 Del Method 07/12/25 10:58 Room Air 07/12/25 07:56 07/12/25 07:56 Room Air 07/12/25 03:32 Room Air 07/12/25 02:47 Room Air 07/12/25 01:09 Room Air Resident Activity Tracking Resident Involvement: Resident Care Provided Care Provided: Adult Hospital Medicine
[2025-07-12] MEDS: MoRPHine SULFATE 4 MG/ML 1 ML CARP\\VIAL ONE (16:55)
[2025-07-12] MEDS: MoRPHine SULFATE 2 MG/ML CARP IV STA (16:57)
--- NOTE | 2025-07-12 22:23 | Billing Data ---
Date of Service July 12, 2025 Coding Level of Care Code 85000 INT INP/OBS CARE
[2025-07-12] MEDS: LOSARTAN POTASSIUM 25 MG TAB PO SCH (22:32)
[2025-07-13] MEDS: ONDANSETRON INJ 2 MG/ML 2 ML VIAL IV PRN (02:16)
--- NOTE | 2025-07-13 04:17 | Ultrasound Report ---
EXAM: US arterial duplex LE RT CLINICAL HISTORY: Right groin bruit f/u arterial access. TECHNIQUE: A focused ultrasound examination of the right groin soft tissues and arteries was performed in real time and with duplex imaging. One or more of the following were performed- spectral analysis, resistive index, waveform analysis, and pulsed doppler. COMPARISON: None. FINDINGS: An oval-shaped soft tissue area measuring 2.4 x 2.3 x 0.6 cm is noted in the right groin, which may favor a lymph node. Minimal blood flow is noted in the hilum. No definite pseudoaneurysm or hematoma is identified. The visualized vessels in the region of the right groin appear unremarkable, described as follows: STONE PRODUCT FABRICATOR: 195 cm/s. FAP: 188 cm/s. Profunda A: 141 cm/s. These vessels show a triphasic spectral waveform. The common femoral vein and its branches in the visualized area appear unremarkable. IMPRESSION: 1. An oval-shaped soft tissue area measuring 2.4 x 2.3 x 0.6 cm is noted in the right groin, which may favor a lymph node. 2. No definite pseudoaneurysm or hematoma is identified. Electronically signed by Robert Prather 07-13-2025 04:17 AM
--- NOTE | 2025-07-13 05:47 | Electrocardiogram Report ---
Test Reason : Blood Pressure : */* mmHG Vent. Rate : 83 BPM Atrial Rate : 83 BPM P-R Int : 146 ms QRS Dur : 68 ms QT Int : 344 ms P-R-T Axes : 95 202 150 degrees QTcB Int : 404 ms Sinus rhythm with frequent Premature ventricular complexes Possible Left atrial enlargement Limb lead reversal Abnormal ECG When compared with ECG of 23-Jun-2025 01:16, Premature ventricular complexes are now Present Limb lead reversal is now present Confirmed by Aj Carr ([id number]) on 07/13/2025 5:47:46 AM Referred By: Confirmed By: Aj Carr
--- NOTE | 2025-07-13 05:50 | Electrocardiogram Report ---
Test Reason : Blood Pressure : */* mmHG Vent. Rate : 79 BPM Atrial Rate : 79 BPM P-R Int : 166 ms QRS Dur : 70 ms QT Int : 386 ms P-R-T Axes : 76 19 42 degrees QTcB Int : 442 ms Sinus rhythm with occasional Premature ventricular complexes Otherwise normal ECG When compared with ECG of 11-Jul-2025 18:20, Limb lead reversal is no longer present Confirmed by Aj Carr ([id number]) on 07/13/2025 5:49:26 AM Referred By: REFERRED SELF Confirmed By: Aj Carr
[2025-07-13 05:53] LABS: Hematocrit (blood only) 33.8 % (37.0-47.0); Hemoglobin 11.5 g/dl (12.0-16.0); Immature Granulocytes # (auto) 0.05 K/uL (0.01-0.20); Immature Granulocytes % (auto) 1.2 %; Mean Corpuscular Hemoglobin 30.8 pg (25.0-34.0); Mean Corpuscular Volume 90.6 fL (80.0-100.0); Platelet Count 94 K/uL (130-400); RDW Standard Deviation 43.8 fL (36.4-46.3); Red Blood Count 3.73 M/uL (4.20-5.40); White Blood Count 4.11 K/ul (4.8-10.8)
[2025-07-13 06:07] LABS: Anion Gap 5.0 (3-11); Blood Urea Nitrogen 11.0 mg/dl (6-23); Calcium 8.8 mg/dl (8.6-10.3); Carbon Dioxide 25.0 mmol/L (21-32); Chloride 110.0 mmol/L (98-107); Creatinine Clr Calc Pharmacy 64.2 ml/min; Potassium 3.7 mmol/L (3.5-5.1); Sodium 140.0 mmol/L (136-145)
[2025-07-13 07:15] VITALS: RESP 17
[2025-07-13 11:21] VITALS: TEMP 97.9
[2025-07-13] MEDS: DOCUSATE SODIUM 100 MG CAP PO PRN (14:13)
--- NOTE | 2025-07-13 15:12 | Discharge Summary ---
Date of Service July 13, 2025 Admission HPI Per Admitting Provider 74 yo F with PMHx of HTN, migraines, COPD, hypothyroidism, who presents due to 2 day history of non-bloody diarrhea, SOB, palpitations, and L sided chest tightness. Reports 4-5 BMs daily. Last BM was yesterday. Patient reports she recently had TAVR procedure 5 weeks ago at [facility]. She did not have any antibiotics given after procedure. Patient also reports constant L sided chest tightness that radiates to left neck, where incision was made for TAVR procedure. They did not go through groin as she had plaque in leg. Reports R groin pain as catheter was placed in this area during procedure. Reports palpitations and nausea. One vomiting episode yesterday, but no other episodes. SOB started few days ago specifically with exertion. She is not on home oxygen. Reports mild dizziness and lightheadedness with movement. Denies urinary symptoms. Denies recent sick contacts or sick symptoms including cough, chills, sore throat. Reports subjective fever yesterday. Patient has extensive history of abdominal surgeries including appendectomy, hysterectomy, cholecystectomy, and bariatric surgery, all done over 10 years ago. Admission Exam Per Admitting Provider Constitutional: no acute distress Respiratory: normal respiratory effort, lungs clear to auscultation Gastrointestinal (Abdomen): Inspection/Auscultation: abdomen normal to inspection and normal bowel sounds Percussion/Palpation: + abdomen tender (LUQ and LLQ) Skin: no rashes, warm and dry Psychiatric: A+Ox3, euthymic affect Principal Diagnosis Chest discomfort/Palpitations with Right groin pain Discharge Exam Gen.: No acute distress. Alert. HEENT: Anicteric sclera. Neck: No JVD. Normal carotid upstrokes bilaterally. Cardiac: Regular. Normal S1-S2. 1/6 early peaking systolic ejection murmur heard best at right upper sternal border. No rubs or gallops. Pulmonary: Clear to auscultation bilaterally without wheezes, rales, or rhonchi. Abdomen: Soft, nontender, nondistended, with normoactive bowel sounds. No bruits noted. Rt groin lump around 1-2 cm. Extremities: 2+ radial pulses bilaterally. Right groin/femoral access site is clean, dry, and intact without erythema or discharge. No obvious hematoma but severe tenderness on palpation. Right femoral bruit noted. 2+ posterior tibialis pulses bilaterally. No edema or cyanosis. Discharge Data Allergies Allergy/AdvReac Type Severity Reaction Status Date / Time grass pollen Allergy Intermediate sneezing/watery Verified 07/11/25 22:02 eyes hydrocodone [From Vicodin] Allergy Intermediate severe Verified 07/11/25 22:02 itching prednisone Allergy Intermediate all over Verified 07/11/25 22:02 body itch Sulfa (Sulfonamide Allergy Intermediate HIVES Verified 07/11/25 22:02 Antibiotics) house dust Allergy Mild itchy eyes Verified 07/11/25 22:02 mold Allergy Mild ITCHY Verified 07/11/25 22:02 EYES, HEADACHES fentanyl AdvReac Intermediate Joint Pain Verified 07/11/25 22:02 metformin AdvReac Intermediate "diarrhea" Verified 07/11/25 22:02 methylprednisolone AdvReac Intermediate vomiting,sh Verified 07/11/25 22:02 aking Consultations 07/11/25 22:00 ED Decision to Admit Stat 07/12/25 07:00 Consult Cardiology Routine Ordered Studies 07/13/25 US arterial duplex LE RT Routine Hospital Course (1) Palpitations: (2) Thrombocytopenia: (3) Diarrhea: (4) Shortness of breath: Plan 74 yo F with PMHx of HTN, migraines, COPD, hypothyroidism, who presents due to 2 day history of non-bloody diarrhea, SOB, palpitations, and L sided chest tightness. #Palpitations/L sided chest tightness/ s/p TAVR: - s/p TAVR 06/13/2025 at [facility] - Continue home 81 ASA - Trop 28.9 --> 31.9, rpt in AM -Patient is s/p [place] [place]. Echo today shows Bioprosthetic aortic valve appears to be functioning appropriately without significant paravalvular leak with EF 65-70% - ECHO 06/13 at [facility]: LVEF 60-65% visually; normal wall motion.Bioprosthetic AV prosthesis (TAVR) noted with adequate function. - Goal K>4, Mg>2, ordered PO potassium and magnesium -monitored on telemetry for chest symptoms and Outsole Caser referral to the cardiac rehab. -Orthostatic vitals negative. #Right groin pain: - Severe right groin pain with superficial lump at the site where catheter was tried to be inserted for TAVR, with resolved pain but eventually the pain recurred. Possible groin hematoma, pseudoaneurysm. -Arterial doppler of rt groin shows no significant findings., So likely just tender lymphadenopathy. Recommend outpatient follow up. #Diarrhea/Dizziness - BMs have started to slow down - Home furosemide held. #Thrombocytopenia - Plt count 92 in ER - Plt smear still pending, path consult. Recommend outpatient follow up and monitoring the results. #HTN - continue home meds #Restless leg syndrome - continue home ropinarole #HLD - continue home rosuvastatin #Hypothyroidism - continue home levo Dispo: PCU tele Diet: heart healthy, T2DM Code status: full code VTE Prophylaxis: SCDs Total Time Total Time Spent Total Time Spent (In Minutes): See attending attestation Discharge Plan Discharge Items Patient Disposition: Home - Self-Care Reason For Visit: PALPITATIONS, DIARRHEA, SOB Discharge Diagnosis: Palpitation/chest discomfort with groin pain Activity: Per Instructions section Non-emergency contact: Primary Care Provider and Outsole Caser Call non-emergency contact if: your pain is not controlled and your temperature is above 101 Follow-up/Referrals: Holly Puckett PA-C [Primary Care Provider] - Diet: Heart Healthy and Low Potassium (2gm) Addtl Attending Provider Instructions: You were admitted to [facility] because of chest palpitations and discomfort and right groin pain with dizziness. With regard to your chest palpitations we did blood work and tested you with ultrasound of your heart which didn't show any concerning results and regarding right groin pain we again did ultrasound of the groin but that was not concerning either. We also monitored rhythm of your heart all day on telemetry which was not concerning but because of some irregularities on the rhythm of your heart and recent surgery procedure on your heart, we recommend you to follow up with the fourth mate. You will continue your home medications as noted below. Please make sure you follow up with your PCP as the blood work "Peripheral blood smear" test we did to evaluate your anemia is still pending. And your heart doctor "fourth mate" too to make sure your heart function continues to be stable. We also placed a referral for cardiac rehabilitation by the cardiology team, please make sure you participate on the therapy. Thank you for choosing [facility] as your healthcare provider Pending Studies at Discharge: Yes (PBS) Stand-Alone Forms: My [facility], Smoking Cessation Medications and DC Order Prescriptions: Continued (DME) [facility] See Rx Instructions .Route Qty: 1 0RF Rx Instructions: As directed (DME) BD Integra Syringe 3 mL 25 gauge x 1" syringe See Rx Instructions .Route Qty: 100 0RF Rx Instructions: As directed lidocaine HCl [Aspercreme (lidocaine HCl)] 4 % cream 1 applic topical BID PRN (Reason: Pain) rosuvastatin 10 mg tablet 10 mg PO DAILY azelastine 137 mcg (0.1 %) spray,non-aerosol 2 spray intranasal BID PRN (Reason: nasal congestion) Qty: 90 3RF Rx Instructions: administer into each nostril fluticasone propionate 50 mcg/actuation spray,suspension 2 spray intranasal DAILY Qty: 48 3RF Rx Instructions: administer into each nostril ipratropium bromide 21 mcg (0.03 %) spray,non-aerosol 2 spray intranasal TID PRN (Reason: postnasal drip) Qty: 90 3RF Rx Instructions: administer into each nostril cyanocobalamin (vitamin B-12) 1,000 mcg/mL Solution 1,000 mcg IM Q14D levothyroxine 88 mcg tablet 88 mcg PO DAILYBB albuterol sulfate 90 mcg/actuation Hfa Aerosol Inhaler 2 puff INHALATION QID PRN (Reason: Shortness Of Breath Or Wheezing) losartan 25 mg tablet 25 mg PO QPM furosemide 20 mg tablet 20 mg PO DAILY acetaminophen-codeine 300-30 mg tablet 1 tab PO Q6 PRN (Reason: Cough) topiramate 25 mg tablet 25 mg PO BID amlodipine 5 mg tablet 5 mg PO DAILY omeprazole 40 mg capsule,delayed release(DR/EC) 40 mg PO DAILY ropinirole 2 mg tablet 2 mg PO DAILY Rx Instructions: TOTAL DOSE 2.5 MG--TAKES WITH 0.5 MG TAB ropinirole 0.5 mg tablet 0.5 mg PO DAILY Rx Instructions: TOTAL DOSE 2.5 MG--TAKES WITH 2 MG TAB oxycodone 5 mg tablet 5 mg PO Q8H PRN (Reason: pain) Qty: 10 0RF aspirin 81 mg tablet,delayed release (DR/EC) 81 mg PO DAILY Discharge Orders: Discharge Order (Routine); Ordered 07/13/25 Ordered By: Selena Hicks/Other Patient Handouts: Lymph Nodes Swollen Ch, ED Near-Fainting, Uncertain Cause Admission Data Admit Date/Time: 07/11/25 23:48 Attending Provider: Rakesh Gray Admit Provider: Gina Ortega Primary Care Provider: Holly Puckett Other Providers: Skip Bojorquez; Aj Carr Other Interventions: Discharge Summary Assessment (RN) Last Done: 07/13/25 17:25 Supervising Physician Co-Signing Physician Notes Attending attestation Pt seen and examined in concert with Dr. De Jesus. In agreement with the document ed findings as noted in the resident documentation with any exceptions or additions as noted here. Essential resolution of reported palpitations without chest pain recurrence. Right groin pain significantly improved from presentation. VS as noted, on examination, S1/S2 nl RRR no MCG. CTAB. Abd NT/ND BS+ve. 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 Near syncope w/ palpitations/chest discomfort in the setting of recent TAVR - cardiology consult - telemetry - agree w/ cardiology recommendation for cardiac rehab services, encourage outpatient follow up. Thrombocytopenia - stable, ongoing - pathology evaluation of peripheral smear pending at time of discharge with stable platelet count ~94. Would recommend repeat CBC w/ diff at follow up and ongoing evaluation w/ persistence. Right groin lymphadenopathy - US w/ duplex negative for pseudoaneurysm per radiology. Persistent reactive MS ACCESS DATABASE DEVELOPER without apparent source or elevated WBC appreciated, would warrant outpatient follow up. HTN - continue amlodipine, losartan Else see resident documentation as noted. Total attending physician time spent with this patient's care on the day of discharge: 40 minutes. Resident Activity Tracking Resident Involvement: Resident Care Provided Care Provided: Adult Hospital Medicine
[2025-07-13 16:16] VITALS: PULSE 76; O2SAT 94
[2025-07-13 17:26] VITALS: BP 162/66
== END 2025-07-13 18:24 | disposition home or self-care (01) | DRG 312 ==
LOC: ED 17:42 → SUATTDRO 23:48 → 4W 23:48